=== PATIENT | male | born 1945 | race Caucasian/White ===

== ENCOUNTER 2016-11-08 16:34 | Inpatient (IN) | payer OTHER, MEDICARE ==
[~2016-11-08] VITALS: Ht 182.9 cm; Wt 102.2 kg
[~2016-11-08 16:34] MED LIST: ACETAMINOPHEN500 M4 PO; AMOX-CLAV 875-1 EACH PO; ASPIRIN EC81 M1 PO; ATENOLOL50 M1 PO; ATIVAN0.5 M1 PO; BACTRIM DS TAB1 EACH PO; FOLIC ACID1 M1 PO; FUROSEMIDE20 M1 PO; HALDOL DEC100 MG/1 M IM; HALOPERIDOL0.5 M1 PO; HALOPERIDOL5 MG PO; IRON SUPPLEMEN325 MG PO; LISINOPRIL40 M1 PO; LORAZEPAM0.5 M1 PO; MIRTAZAPINE30 M2 PO; NEXIUM40 M1 PO; NITROGLYCERIN1 EACH TOP; OLANZAPINE10 M1 PO; OLANZAPINE15 M1 PO; REMERON15 M2 PO; SIMVASTATIN20 M2 PO; TRIHEXYPHENIDYL5 M2 PO; VITAMIN B COMP1 EACH PO
--- NOTE | 2016-11-08 16:43 | ED AMS/SEIZURE/WEAK/DIZZY ---
History of Present Illness General Chief Complaint: Altered Mental Status Stated Complaint: FALL/AMS Allergies Coded Allergies: NO KNOWN ALLERGIES (04/28/16) Reconcile Medications Amoxicillin/Clavulanate Potass (Amox-Clav 875-125 MG Tablet) 875 MG-125 MG TABLET 875 MG PO Q12 UTI Atenolol 50 MG TABLET 0.5 TAB PO BID BP (Reported) Esomeprazole (Nexium) 40 MG CAPSULE.DR 1 CAP PO DAILY GI (Reported) Ferrous Sulfate (Iron Supplement) 325 MG TABLET 1 TAB PO TID SUPPLEMENT ( Reported) Folic Acid 1 MG TABLET 1 TAB PO DAILY SUPPLEMENT (Reported) Furosemide 20 MG TABLET 1 TAB PO DAILY DIURETIC (Reported) Haloperidol 5 MG TABLET 5 MG PO BID Mood Disorder Lisinopril 40 MG TABLET 1 TAB PO DAILY BP (Reported) Lorazepam 0.5 MG TABLET 1 TAB PO BID ANXIETY (Reported) Mirtazapine (Remeron) 15 MG TABLET 15 MG PO AT BEDTIME Sleep Aide Nitroglycerin (Nitroglycerin Patch) 1 EACH PATCH.TD24 1 PATCH TOP DAILY ANGINA (Reported) Olanzapine 10 MG TABLET 10 MG PO BID Mood Disorder Simvastatin (Simvastatin*) 20 MG TABLET 1 TAB PO QPM CHOLESTEROL (Reported) Trihexyphenidyl HCl 5 MG TABLET 5 MG PO QPM Mood Disorder Past History Medical History Neurological: TIA, BLINDNESS R EYE EENT: NONE Cardiovascular: AFIB, hypertension, hyperlipidemia Respiratory: NONE Gastrointestinal: NONE Hepatic: NONE Renal: NONE Musculoskeletal: NONE Psychiatric: PARANOID SCHIZO Endocrine: NONE Blood Disorders: NONE Cancer(s): NONE History of MRSA: No History of VRE: No History of CDIFF: No Pneumonia Vaccine: 08/22/16 Influenza Vaccine: 08/23/16 Surgical History Surgical History: non-contributory Psychosocial History Who do you live with Spouse Services at Home None What is your primary language Maldivian Progress Plan of Care: Orders Procedure Date/time Status LACTIC ACID 11/08 1950 Active XRY-PORTABLE CHEST XRAY 11/08 165 Active Lopez, Insertion/Removal/Asses 11/08 165 Active Saline Lock 11/08 165 Active Telemetry/Clasp Machine Operator 11/08 165 Active CULTURE,URINE 11/08 165 Active BLOOD CULTURE 11/08 165 Active URINALYSIS 11/08 1650 Active TROPONIN LEVEL 11/08 165 Active AMMONIA 11/08 165 Active LACTIC ACID 11/08 1650 Active COMPREHENSIVE METABOLIC PANEL 11/08 165 Active CREATINE PHOSPHOKINASE 11/08 165 Active CBC WITHOUT DIFFERENTIAL 11/08 1649 Active EKG 11/08 164 Active Microbiology 11/08 165 URINE ROUT: Urine Culture - ORD 11/08 1649 BLOOD: Blood Culture - ORD 11/08 1649 BLOOD: Blood Culture - ORD Departure Departure Condition: Stable Referrals: SHILPA SCHAEFFER MD (PCP/Family) Departure Forms: Customer Survey General Discharge Information
--- NOTE | 2016-11-08 16:51 | ED AMS/SEIZURE/WEAK/DIZZY ---
History of Present Illness General Chief Complaint: Altered Mental Status Stated Complaint: FALL/AMS Source: family () Exam Limitations: unable to give history Vital Signs & Intake/Output Vital Signs & Intake/Output Vital Signs Date Time Temp Pulse Resp B/P Pulse O2 O2 Flow FiO2 Ox Delivery Rate 11/12 0948 52 146/82 11/12 0842 98.9 52 18 146/82 94 Room Air 11/11 2200 99.5 59 20 140/80 94 Room Air 11/11 1621 98.4 60 18 138/82 95 Room Air ED Intake and Output 11/12 0000 11/11 1200 Intake Total 500 120 Output Total 800 300 Balance -300 -180 Intake, Oral 500 120 Number 1 Bowel Movements Output, Urine 800 300 Allergies Coded Allergies: NO KNOWN ALLERGIES (04/28/16) Triage Nurses Notes Reviewed? 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 According to the patient's he has been not acting his normal self since last night. The patient was prescribed Augmentin yesterday from his primary care physician after he tested positive for a urinary tract infection. His states that he gets these frequently and she states he was incontinent of urine last night. There is been no nausea vomiting diarrhea. She states that he fell from a standing height yesterday onto his knees last night however he did not hit his head there was no loss of consciousness. On arrival patient is noted to be hypothermic. The history is limited secondary to patient condition however according to his he has denied any abdominal pain cough chest pain there's been no rashes to his skin. On arrival the patient is speech is incomprehensible which is his baseline per the. EMS noted that it was colder in the patient's house and it was outside. He lives at home with his (RAMONA BENSON) Reconcile Medications Atenolol 50 MG TABLET 1 TAB PO BID DIRECTED (Reported) Finasteride 5 MG TABLET 1 TAB PO DAILY DIRECTED (Reported) Haloperidol 5 MG TABLET 1 TAB PO BID DIRECTED (Reported) Haloperidol Decanoate 50 MG/ML VIAL 1.5 ML INJ EVERY 3 WEEKS DIRECTED ( Reported) Lorazepam 1 MG TABLET 1 TAB PO BID DIRECTED (Reported) Mirtazapine (Remeron) 15 MG TABLET 1 TAB PO QPM DIRECTED (Reported) Nitroglycerin (Nitroglycerin Patch) 0.4 MG/HOUR PATCH.TD24 1 PATCH TOP DAILY DIRECTED (Reported) Olanzapine (Zyprexa) 5 MG TABLET 1 TAB PO BID DIRECTED (Reported) Tamsulosin HCl 0.4 MG CAP.ER.24H 1 CAP PO DAILY DIRECTED (Reported) (ANDRÉS BELTRÁN,ADELAIDA) Past History Medical History Any Pertinent Medical History? see below for history Neurological: TIA, BLINDNESS R EYE EENT: NONE Cardiovascular: AFIB, hypertension, hyperlipidemia Respiratory: NONE Gastrointestinal: NONE Hepatic: NONE Renal: NONE Musculoskeletal: NONE Psychiatric: PARANOID SCHIZO Endocrine: NONE Blood Disorders: NONE Cancer(s): NONE History of MRSA: No History of VRE: No History of CDIFF: No Pneumonia Vaccine: 08/22/16 Influenza Vaccine: 08/23/16 Surgical History Surgical History: non-contributory Psychosocial History Who do you live with Spouse Services at Home None What is your primary language Kiswahili Family History Hx Contributory? No (RAMONA BENSON) Review of Systems Review of Systems Constitutional: Reports: see HPI. All Other Systems: Reviewed and Negative Comments Review of systems: Limited secondary to patient condition review of systems obtained from the patient's Constitutional, no chills no fever, no malaise HEENT: No visual changes no sore throat no congestion, no ear pain Cardiovascular: No chest pain , no palpitation Skin, no rashes, no change in skin Respiratory: No dyspnea no cough no sputum GI: No nausea no vomiting, no diarrhea, no bloating/constipation : No dysuria No hematuria, Muscle skeletal: No joint pain, no joint swelling, no back pain, no neck pain, Neurologic: No numbness confusion, no headache Psych: No stress no anxiety no depression,. Heme/endocrine: No bruising no bleeding Immunology: No lymphadenopathy (RAMONA BENSON) Physical Exam Physical Exam General Appearance: well developed/nourished, awake Comments: Well-developed well-nourished person in no acute distress HEENT: Normal EENT exam; PERRL, EOMI, no nystagmus. HEAD is atraumatic. moist mucous membranes. Neck: Supple, no lymphadenopathy, normal range of motion without pain or tenderness Back: Nontender, no CVA tenderness. Full range of motion Cardiovascular: Regular rate and rhythms no murmurs rubs or gallops, normal JVP Respiratory: Chest nontender.There were no bony deformities, no asymmetry. No respiratory distress. Patient speaking in full complete sentences. Breath sounds clear to auscultation bilaterally: NO W/R/R Abdomen: Soft, nontender nondistended, no appreciable organomegaly. Normal bowel sounds. No rebound/guarding, No appreciable enlargement of the abdominal aorta, No ascites. Extremity: No edema, full range of motion of extremities, normal and equal pulses bilaterally, 5 out of 5 strength noted to bilateral upper and lower extremities Neuro: Alert oriented x3, motor sensory normal, cranial nerves II through XII grossly intact. There were no obvious focal neurologic abnormalities. Skin: No appreciable rash on exposed skin, skin is warm and dry. Psych: Mood and affect is normal, memory and judgment is normal. Core Measures ACS in differential dx? Yes CVA/TIA Diagnosis: No Severe Sepsis Present: Yes BC x2: Yes Lactic Acid x2: Yes IV ABX Broad Spectrum: Yes NS/LR Started: Yes Septic Shock Present: Yes BC x2: Yes Lactic Acid: Yes IV ABX Broad Spectrum: Yes Focused Exam Completed: Yes IV Vasopressors started: No (RAMONA BENSON) ED Sepsis Exam Date of Focused Sepsis Exam: 11/08/16 Time of Focused Sepsis Exam: 172 Sepsis Cardiac Exam: Tachycardia Sepsis Resp Exam: CTA Sepsis Cap Refill Exam: <2 Sec Sepsis Peripheral Pulse Exam: Weak Sepsis Peripheral Pulse Location: Radial Sepsis Skin Color Exam: Normal for Ethnicity Skin Temp/Moisture Exam: Cool/Dry (RAMONA BENSON) Progress Differential Diagnosis: arrythmia, anemia, dehydration, encephalitis, electrolyte imbalance, GI bleed, hypoglycemia, intracranial Hem., meningitis, pneumonia, presyncope, sepsis, UTI/pyelo, vertebrobasilar insuff, sepsis, epidural abscess, medication adverse effect Plan of Care: Orders Procedure Date/time Status Restraint- Medical 11/12 1156 Active Lopez, Insertion/Removal/Asses 11/12 1156 Active PARTIAL THROMBOPLASTIN TIME 11/12 0600 Active MAGNESIUM 11/12 0600 Complete BASIC ELECTROLYTES PLUS BUN&CR 11/12 0600 Complete PT Evaluate & Treat 11/11 UNK Active Therapeutic Activities 11/11 UNK Complete Therapeutic Exercise 11/11 UNK Complete Occupational Tx Eval & Treat 11/11 UNK Active Current Medications Sig/Vidal Start time Last Medication Dose Stop Time Status Admin Bisacodyl 5 MG DAILY PRN 11/10 1115 AC (Dulcolax) Benzocaine/Menthol 1 PHOEBE Q2P PRN 11/09 2130 AC (Chloraseptic Lozenges) Magnesium Hydroxide 30 ML AT BEDTIME PRN 11/08 2145 AC (Milk Of Magnesia) Acetaminophen 650 MG Q6P PRN 11/08 204 AC (Tylenol) Ibuprofen 600 MG Q6P PRN 11/08 2045 AC (Motrin) Oxycodone HCl 10 MG Q6P PRN 11/08 204 AC (Roxicodone) Laboratory Tests 11/12/16 0705: Anion Gap 5, Estimated GFR > 60, BUN/Creatinine Ratio 13.3, Magnesium 1.9 Labs ordered old records reviewed her was applied case was discussed with Dr. vinson who evaluated the pt agrees with plan, vanco ceftaz iv ordered, warm iv hydration ordered 11/08/2016 7:45:39 PM discussed with the patient's family at length all his lab results to date, pending CAT scan Discussed with his his CAT scan of the head result. Dr. Vinson will follow CAT scan of the abdomen as a results Case discussed with Dr. schaeffer will admit to icu (MILAD FAM,RAMONA) Patient seen and examined with SARWAT Yang. Patient presents hypothermic from home , no obvious source of infection. Will be admitted to the ICU, currently being warmed. Broad spectrum ABX given. (ANDRÉS BELTRÁN,ADELAIDA) Diagnostic Imaging: Viewed by Me: Radiology Read. Discussed w/RAD: Radiology Read. Radiology Impression: PATIENT: CANDIDO TIRADO PRESENT AGE: 71 PATIENT ACCOUNT NO: [id number] : 47 LOCATION: [facility] ORDERING PHYSICIAN: RAMONA FAM SERVICE DATE: 11/08/16 EXAM TYPE: RAD - XRY-PORTABLE CHEST XRAY EXAMINATION: XR PORTABLE CHEST CLINICAL INFORMATION: Altered mental status COMPARISON: Chest 08/22/2016 TECHNIQUE: Portable AP portable view of the chest was obtained. 5:43 PM FINDINGS: Patient rotated to the right slightly. No significant abnormality is noted involving the heart, lungs, mediastinum, bony thorax or soft tissues. IMPRESSION: No acute abnormality of chest. DICTATED BY: VAHE SADLER MD DATE/TIME DICTATED:11/08/161758 STORE WORKER:NIXON DATE/TIME TRANSCRIBED:11/08/161758 CONFIDENTIAL, DO NOT COPY WITHOUT APPROPRIATE AUTHORIZATION. <Electronically signed in Other Vendor System> SIGNED BY: VAHE SADLER MD 11/08/161802, PATIENT: CANDIDO TIRADO PRESENT AGE: 71 PATIENT ACCOUNT NO: [id number] : 47 LOCATION: [facility] ORDERING PHYSICIAN: RAMONA FAM SERVICE DATE: 11/08/16 EXAM TYPE: CAT - CT HEAD WO IV CONTRAST EXAMINATION: CT HEAD WITHOUT CONTRAST CLINICAL INFORMATION: Altered mental status. COMPARISON: CT scan of the head 10/22/2015. TECHNIQUE: Contiguous axial imaging was performed from the skull base to vertex without intravenous administration of contrast. DLP: 312.84 mGy-cm FINDINGS: There is gliosis and encephalomalacia within the right parietal lobe and within the left middle frontal gyrus related to old infarcts. There is no acute intracranial hemorrhage or abnormal extra axial collection. No intracranial mass effect midline shift. Lateral and third ventricles are proportionate to the subarachnoid spaces. No hydrocephalus. Grossly there is no evidence of acute territorial infarct. The calvarium and skull base are intact. No mastoid or middle ear effusion. Paranasal sinuses are well-aerated. IMPRESSION: Stable examination. Chronic cortical infarcts are visualized within the right parietal lobe and left frontal lobe. No evidence of acute territorial infarct or hemorrhage. DICTATED BY: ALLAN FINLEY MD DATE/TIME DICTATED:11/08/161947 STORE WORKER: TASHI DATE/TIME TRANSCRIBED:11/08/161947 CONFIDENTIAL, DO NOT COPY WITHOUT APPROPRIATE AUTHORIZATION. <Electronically signed in Other Vendor System> SIGNED BY: ALLAN FINLEY MD 11/08/161953 Initial ED EKG: stach at 100, motion artifcat, no acute st seg changes Prior EKG: unchanged (08/2016) (MILAD FAM,RAMONA) Diagnostic Imaging: Viewed by Me: CT Scan. Discussed w/RAD: CT Scan. Radiology Impression: PATIENT: CANDIDO TIRADO PRESENT AGE: 71 PATIENT ACCOUNT NO: [id number] : 47 LOCATION: ER ORDERING PHYSICIAN: RAMONA FAM SERVICE DATE: 11/08/16 EXAM TYPE: CAT - CT HEAD WO IV CONTRAST EXAMINATION: CT HEAD WITHOUT CONTRAST CLINICAL INFORMATION: Altered mental status. COMPARISON: CT scan of the head 10/22/2015. TECHNIQUE: Contiguous axial imaging was performed from the skull base to vertex without intravenous administration of contrast. DLP: 312.84 mGy-cm FINDINGS: There is gliosis and encephalomalacia within the right parietal lobe and within the left middle frontal gyrus related to old infarcts. There is no acute intracranial hemorrhage or abnormal extra axial collection. No intracranial mass effect midline shift. Lateral and third ventricles are proportionate to the subarachnoid spaces. No hydrocephalus. Grossly there is no evidence of acute territorial infarct. The calvarium and skull base are intact. No mastoid or middle ear effusion. Paranasal sinuses are well-aerated. IMPRESSION: Stable examination. Chronic cortical infarcts are visualized within the right parietal lobe and left frontal lobe. No evidence of acute territorial infarct or hemorrhage. DICTATED BY: ALLAN FINLEY MD DATE/TIME DICTATED:11/08/161947 STORE WORKER:TASHI DATE/TIME TRANSCRIBED:11/08/161947 CONFIDENTIAL, DO NOT COPY WITHOUT APPROPRIATE AUTHORIZATION. <Electronically signed in Other Vendor System> SIGNED BY: ALLAN FINLEY MD 11/08/161953, PATIENT: CANDIDO TIRADO PRESENT AGE: 71 PATIENT ACCOUNT NO: [id number] : 47 LOCATION: ER ORDERING PHYSICIAN: RAMONA FAM SERVICE DATE: 11/08/16 EXAM TYPE: CAT - CT ABD & PELVIS W/O IV CONTRAS EXAMINATION: CT ABDOMEN AND PELVIS WITHOUT CONTRAST CLINICAL INFORMATION: Hypothermia and altered mental status. COMPARISON: None. TECHNIQUE: Multidetector volumetric imaging was performed from the superior aspect of the liver through the pubic symphysis. Sagittal and coronal reformatted images were obtained on the technologist's workstation. DLP: 822 mGy-cm FINDINGS: Limited evaluation of the solid abdominal viscera in the absence of intravenous contrast. LUNG BASES: The visualized lung bases are unremarkable. LIVER, GALLBLADDER, AND BILIARY TREE: The liver is normal in size, shape, and attenuation. No contour deforming hepatic lesion or biliary ductal dilatation is present. There is a punctate stone within the gallbladder lumen. The gallbladder is physiologically distended without gallbladder wall thickening or pericholecystic inflammatory changes. PANCREAS: Unremarkable. SPLEEN: Unremarkable. ADRENAL GLANDS: Unremarkable. KIDNEYS AND URETERS: The kidneys are normal in size, shape and contour. There is a tiny simple renal cortical cyst arising from the midpole of the right kidney measuring 1 cm.. No renal or ureteral stones are identified and there is no hydroureteronephrosis of either kidney or renal collecting system. BLADDER: There are very bladder is decompressed by an indwelling Lopez catheter. GASTROINTESTINAL TRACT: Evaluation of the gastrointestinal system is notable for a moderate hiatal hernia. There is a moderate amount of retained stool throughout the colon, indicative of constipation. There is pancolonic diverticulosis, most extensive along the sigmoid colon, without secondary signs of acute diverticulitis. Abdominal and pelvic bowel loops are normal in course and caliber, without evidence of obstruction or ileus. Nonvisualization of the appendix. No acute inflammatory changes within the right lower quadrant of the abdomen. No organizing intra- abdominal or pelvic fluid collections and no free intraperitoneal air. No intraperitoneal or retroperitoneal hematoma. ABDOMINAL WALL: No significant hernia is appreciated. LYMPH NODES: No significant abdominal or pelvic adenopathy. VASCULAR: Extensive atherosclerosis of the abdominal aorta and its branching vessels, without aneurysmal dilatation. Limited evaluation for vascular patency given lack of intravenous contrast. PELVIC VISCERA: Unremarkable. OSSEOUS STRUCTURES: No acute osseous abnormality. Severe multilevel degenerative disc disease and facet arthrosis of the imaged lumbar spine with grade 1 retrolisthesis of L4 on L5 and grade 1 anterolisthesis of L5 on S1. IMPRESSION: No acute findings within the abdomen or pelvis to explain patient symptomatology. There is a moderate amount of retained stool throughout the colon, indicative of constipation. Also noted is scattered colonic diverticulosis, most significant along the sigmoid colon, without secondary signs of acute diverticulitis. DICTATED BY: BAUDILIO CHAVEZ MD DATE/TIME DICTATED:11/08/161951 STORE WORKER:TASHI DATE/TIME TRANSCRIBED:1951 CONFIDENTIAL, DO NOT COPY WITHOUT APPROPRIATE AUTHORIZATION. < Electronically signed in Other Vendor System> SIGNED BY: BAUDILIO CHAVEZ MD 11/08/162001 (ADELAIDA VINSON MD) Departure Departure Time of Disposition: 1952 Disposition: STILL A PATIENT Condition: Stable Clinical Impression Primary Impression: Sepsis Secondary Impressions: Hypothermia Referrals: SHILPA SCHAEFFER MD (PCP/Family) Departure Forms: Customer Survey General Discharge Information Admission Note Spoke With: SHILPA SCHAEFFER MD Documentation of Exam: Documentation of any treatments & extenuating circumstances including Concerns Regarding Discharge (functional status, medication knowledge or non-compliance, living conditions, etc.) that warrant an admission rather than observation: trend labs and cultures, iv abx, iv fluids, premature discharge would be medically harmful given change in mental status and hypothermia (RAMONA BENSON) PA/COSTUME MISTRESS Co-Sign Statement Statement: ED Attending supervision documentation- [X] I saw and evaluated the patient. I have also reviewed all the pertinent lab results and diagnostic results. I agree with the findings and the plan of care as documented in the PA's/COSTUME MISTRESS's documentation. [X] I have reviewed the ED Record and agree with the PA's/COSTUME MISTRESS's documentation. [] Additions or exceptions (if any) to the PAs/COSTUME MISTRESS's note and plan are summarized below: [] (ADELAIDA VINSON MD) Critical Care Note Critical Care Note Critical Care Time: 30-74 min (RAMONA BENSON)
--- NOTE | 2016-11-08 17:00 | NUR ---
DARRYL FROM HOME FOR AMS. PER EMS, PT'S STATES HE WAS RECENTLY DX WITH A UTI BY HIS PCP BUT HAS REFUSED TO TAKE HIS ABX. HAS HAD INCREASING AMS. EMS STATES HOUSE WAS VERY COLD, APPEARED COLDER THAN THE OUTSIDE AIR. UPON ARRIVAL PT SPEAKING BUT NOT FORMING SENSIBLE SENTENCES. COLD TO TOUCH
--- NOTE | 2016-11-08 18:00 | NUR ---
ROSSY HUGGER BLANKET APPLIED TO PT
--- NOTE | 2016-11-08 18:03 | RADIOLOGY REPORT ---
EXAMINATION: XR PORTABLE CHEST CLINICAL INFORMATION: Altered mental status COMPARISON: Chest 08/22/2016 TECHNIQUE: Portable AP portable view of the chest was obtained. 5:43 PM FINDINGS: Patient rotated to the right slightly. No significant abnormality is noted involving the heart, lungs, mediastinum, bony thorax or soft tissues. IMPRESSION: No acute abnormality of chest.
--- NOTE | 2016-11-08 18:20 | NUR ---
UNSUCCESSFUL BLOOD WORK ATTEMPT
--- NOTE | 2016-11-08 18:22 | NUR ---
[id number] CALLED FOR BLOOD DRAW
--- NOTE | 2016-11-08 18:35 | NUR ---
SARWAT STINSON AT BEDSIDE FOR ULTRASOUND GUIDED VENIPUNCTURE
--- NOTE | 2016-11-08 19:00 | NUR ---
PT TO CT VIA STRETCHER
[2016-11-08 19:07] LABS: ABSOLUTE BASOPHIL COUNT 0 /CUMM (0.0-0.2); ABSOLUTE EOSINOPHIL COUNT 0.1 /CUMM (0.0-0.7); ABSOLUTE GRANULOCYTE CT 4.7 /CUMM (1.4-6.5); ABSOLUTE LYMPH COUNT 1.3 /CUMM (1.2-3.4); ABSOLUTE MONOCYTE COUNT 0.5 /CUMM (0.10-0.60); BASOPHIL % 0.2 % (0.0-2.0); EOSINOPHIL % 1.1 % (0-5); GRANULOCYTE % 71.7 % (42.2-75.2); HEMATOCRIT 32.1 % (42-52); MEAN CORPUSCULAR HGB 29.5 PG (27.0-31.0); MEAN CORPUSCULAR HGB CONC 32.7 G/DL (33.0-37.0); MEAN CORPUSCULAR VOLUME 90.4 FL (80.0-94.0); MEAN PLATELET VOLUME 7.1 FL (7.4-10.4); PLATELET COUNT 269 /CUMM (130-400); RBC DISTRIBUTION WIDTH 14.9 % (11.5-14.5)
[2016-11-08 19:30] LABS: RED BLOOD CELL CT 3.53 /CUMM (4.70-6.10); WHITE BLOOD CELL COUNT 6.9 /CUMM (4.8-10.8)
--- NOTE | 2016-11-08 19:34 | NUR ---
PT BACK FROM CT. TEMP 92.8
--- NOTE | 2016-11-08 19:54 | CT SCAN REPORT ---
EXAMINATION: CT HEAD WITHOUT CONTRAST CLINICAL INFORMATION: Altered mental status. COMPARISON: CT scan of the head 10/22/2015. TECHNIQUE: Contiguous axial imaging was performed from the skull base to vertex without intravenous administration of contrast. DLP: 312.84 mGy-cm FINDINGS: There is gliosis and encephalomalacia within the right parietal lobe and within the left middle frontal gyrus related to old infarcts. There is no acute intracranial hemorrhage or abnormal extra axial collection. No intracranial mass effect midline shift. Lateral and third ventricles are proportionate to the subarachnoid spaces. No hydrocephalus. Grossly there is no evidence of acute territorial infarct. The calvarium and skull base are intact. No mastoid or middle ear effusion. Paranasal sinuses are well-aerated. IMPRESSION: Stable examination. Chronic cortical infarcts are visualized within the right parietal lobe and left frontal lobe. No evidence of acute territorial infarct or hemorrhage.
--- NOTE | 2016-11-08 20:02 | CT SCAN REPORT ---
EXAMINATION: CT ABDOMEN AND PELVIS WITHOUT CONTRAST CLINICAL INFORMATION: Hypothermia and altered mental status. COMPARISON: None. TECHNIQUE: Multidetector volumetric imaging was performed from the superior aspect of the liver through the pubic symphysis. Sagittal and coronal reformatted images were obtained on the technologist's workstation. DLP: 822 mGy-cm FINDINGS: Limited evaluation of the solid abdominal viscera in the absence of intravenous contrast. LUNG BASES: The visualized lung bases are unremarkable. LIVER, GALLBLADDER, AND BILIARY TREE: The liver is normal in size, shape, and attenuation. No contour deforming hepatic lesion or biliary ductal dilatation is present. There is a punctate stone within the gallbladder lumen. The gallbladder is physiologically distended without gallbladder wall thickening or pericholecystic inflammatory changes. PANCREAS: Unremarkable. SPLEEN: Unremarkable. ADRENAL GLANDS: Unremarkable. KIDNEYS AND URETERS: The kidneys are normal in size, shape and contour. There is a tiny simple renal cortical cyst arising from the midpole of the right kidney measuring 1 cm.. No renal or ureteral stones are identified and there is no hydroureteronephrosis of either kidney or renal collecting system. BLADDER: There are very bladder is decompressed by an indwelling Lopez catheter. GASTROINTESTINAL TRACT: Evaluation of the gastrointestinal system is notable for a moderate hiatal hernia. There is a moderate amount of retained stool throughout the colon, indicative of constipation. There is pancolonic diverticulosis, most extensive along the sigmoid colon, without secondary signs of acute diverticulitis. Abdominal and pelvic bowel loops are normal in course and caliber, without evidence of obstruction or ileus. Nonvisualization of the appendix. No acute inflammatory changes within the right lower quadrant of the abdomen. No organizing intra-abdominal or pelvic fluid collections and no free intraperitoneal air. No intraperitoneal or retroperitoneal hematoma. ABDOMINAL WALL: No significant hernia is appreciated. LYMPH NODES: No significant abdominal or pelvic adenopathy. VASCULAR: Extensive atherosclerosis of the abdominal aorta and its branching vessels, without aneurysmal dilatation. Limited evaluation for vascular patency given lack of intravenous contrast. PELVIC VISCERA: Unremarkable. OSSEOUS STRUCTURES: No acute osseous abnormality. Severe multilevel degenerative disc disease and facet arthrosis of the imaged lumbar spine with grade 1 retrolisthesis of L4 on L5 and grade 1 anterolisthesis of L5 on S1. IMPRESSION: No acute findings within the abdomen or pelvis to explain patient symptomatology. There is a moderate amount of retained stool throughout the colon, indicative of constipation. Also noted is scattered colonic diverticulosis, most significant along the sigmoid colon, without secondary signs of acute diverticulitis.
--- NOTE | 2016-11-08 20:23 | Admission Certification ---
Admission Certification Certification Statement - As attending physician, I certify that at the time of - admission, based on clinical presentation, severity of - symptoms, need for further diagnostic testing and - therapeutic interventions, and risk of adverse outcomes - without in-hospital treatment, in my clinical assessment, - this patient requires an acute hospital stay for a minimum - of two nights or longer. I have also considered psychsocial - factors such as support system, advanced age, financial - issues, cognitive issues, and failed out-patient treatments, - past re-admission history, safety of patient, and lack of - compliance as applicable. Specific rationale supporting this admission is: hypotermia needs to bring temperature up and find out why he is hypothermic.
--- NOTE | 2016-11-08 20:29 | PN- Att Addend ---
Attending Addendum Attending Brief Note 71 year old male with many comorbidities recent psychyatric issues and on different meds not acting right for a few days recently on an antibiotic for UTI today weaker found very hypothermic in the ER all cultures and CT scan done will admit to ICU for Bari bowens to elevate temperature get ID imput and follow cultures results Antibiotics per ID recommendations. Laboratory Tests 11/08 11/08 1950 1836 Chemistry Sodium (137 - 145 mmol/L) 138 Potassium (3.5 - 5.1 mmol/L) 4.3 Chloride (98 - 107 mmol/L) 100 Carbon Dioxide (22 - 30 mmol/L) 31 H Anion Gap (5 - 16) 7 BUN (9 - 20 mg/dL) 14 Creatinine (0.7 - 1.2 mg/dL) 0.8 Estimated GFR (>60 ml/min) > 60 BUN/Creatinine Ratio (7 - 25 %) 17.5 Glucose (65 - 99 mg/dL) 76 Lactic Acid (0.7 - 2.1 mmol/L) Cancelled 0.8 Calcium (8.4 - 10.2 mg/dL) 9.1 Total Bilirubin (0.2 - 1.3 mg/dL) 0.5 AST (17 - 59 U/L) 42 ALT (21 - 72 U/L) 49 Alkaline Phosphatase (< 127 U/L) 92 Creatine Kinase (55 - 170 U/L) 82 Troponin I (<0.11 ng/ml) 0.02 Total Protein (6.3 - 8.2 g/dL) 6.5 Albumin (3.5 - 5.0 g/dL) 3.1 L Globulin (1.9 - 4.2 gm/dL) 3.4 Albumin/Globulin Ratio (1.1 - 2.2 %) 0.9 L TSH (0.270 - 4.200 uIU/mL) 1.080 Hematology CBC w Diff MAN DIFF ORDERED WBC (4.8 - 10.8 /CUMM) 6.9 RBC (4.70 - 6.10 /CUMM) 3.53 L Hgb (14.0 - 18.0 G/DL) 10.5 L Hct (42 - 52 %) 32.1 L MCV (80.0 - 94.0 FL) 90.4 MCH (27.0 - 31.0 PG) 29.5 RDW (11.5 - 14.5 %) 14.9 H Plt Count (130 - 400 /CUMM) 269 MPV (7.4 - 10.4 FL) 7.1 L Gran % (42.2 - 75.2 %) 71.7 Lymphocytes % (20.5 - 51.1 %) 19.6 L Monocytes % (1.7 - 9.3 %) 7.4 Eosinophils % (0 - 5 %) 1.1 Basophils % (0.0 - 2.0 %) 0.2 Absolute Granulocytes (1.4 - 6.5 /CUMM) 4.7 Segmented Neutrophils (42.2 - 75.2 %) Pending Absolute Lymphocytes (1.2 - 3.4 /CUMM) 1.3 Absolute Monocytes (0.10 - 0.60 /CUMM) 0.5 Absolute Eosinophils (0.0 - 0.7 /CUMM) 0.1 Absolute Basophils (0.0 - 0.2 /CUMM) 0 PUBS MCHC (33.0 - 37.0 G/DL) 32.7 L 11/08 1720 Urines Urine Color (YEL,AMB,STR) YEL Urine Clarity (CLEAR) CLEAR Urine pH (5.0 - 8.0) 6.0 Ur Specific Davis (1.001 - 1.035) 1.020 Urine Protein (NEG,<30 MG/DL) NEG Urine Ketones (NEG) TRACE H Urine Nitrite (NEG) NEG Urine Bilirubin (NEG) NEG Urine Urobilinogen (0.1 - 1.0 EU/dl) 0.2 Ur Leukocyte Esterase (NEG) NEG Ur Microscopic EXAM NOT REQUIRED Urine Hemoglobin (NEG) NEG Urine Glucose (N MG/DL) NEG CT of the abdomen no acute findings.
--- NOTE | 2016-11-08 20:36 | History & Physical ---
JESUS BELTRÁN,GALILEO 11/08/162033: General Information and [facility] MD Statement: I have seen and personally examined CANDIDO TIRADO and documented this H&P. The patient is a 71 year old M who presented with a patient stated chief complaint of Decreased Mental Status . Source of Information: patient, family, old records Exam Limitations: clinical condition, confusion History of Present Illness: Mr Tirado is a 71-year-old gentleman, with a PMH of TIA, history of CVA with aphasia (which resolved), coronary artery disease, hypertension, dyslipidemia, peripheral vascular disease, peptic ulcer disease, carotid artery disease, status post left endarterectomy and a right carotid artery disease, poor vision in the left eye, cataract surgery, history of paranoid schizophrenia who presented to the emergency department at [facility] on 11/08/2016 after his found that his mentation continued to deteriorate over the last few hours. On 11/07/2016 the patient was experiencing increased urinary frequency, foul- smelling urine, and complained of dysuria. His decided to conduct a home urinary tract infection test from [facility] which turned out to be positive. She subsequently called the patient's primary care physician (Shilpa Andres M.D. ) who called in a prescription for Augmentin. The patient's Ihlary stated that the patient had taken 1 pill of the Augmentin. At approximately 3:30 AM he crawled downstairs and opened his front door and was exposed to the cold air for a prolonged period of time. The is under sure about how long this patient may been exposed to cold, but estimates this would have been for a few hours. This afternoon due to deteriorating clinical condition the decided to call the ambulance who brought the patient to the emergency department. Over the last few weeks the patient has needed continuous rehabilitation services. states that patient's medication compliance might be decreased given the fact that he often spits out his medications. He is currently on a Haldol Decanoate shot for his Bipolar which is due for this Sunday (11/12/2016).He gets these every 3 weeks. During the clinical encounter the patient offered limited information. He did not offer any complaints. Hilary his can be reached on [phone]. The patient Psychiatrist is Dr Carl Nayak. The patient last saw her on October 13 Allergies/Medications Allergies: Coded Allergies: NO KNOWN ALLERGIES (04/28/16) Home Med list Atenolol 50 MG TABLET 1 TAB PO BID DIRECTED (Reported) Finasteride 5 MG TABLET 1 TAB PO DAILY DIRECTED (Reported) Haloperidol 5 MG TABLET 1 TAB PO BID DIRECTED (Reported) Haloperidol Decanoate 50 MG/ML VIAL 1.5 ML INJ EVERY 3 WEEKS DIRECTED ( Reported) Lorazepam 1 MG TABLET 1 TAB PO BID DIRECTED (Reported) Mirtazapine (Remeron) 15 MG TABLET 1 TAB PO QPM DIRECTED (Reported) Nitroglycerin (Nitroglycerin Patch) 0.4 MG/HOUR PATCH.TD24 1 PATCH TOP DAILY DIRECTED (Reported) Olanzapine (Zyprexa) 5 MG TABLET 1 TAB PO BID DIRECTED (Reported) Tamsulosin HCl 0.4 MG CAP.ER.24H 1 CAP PO DAILY DIRECTED (Reported) Compliance With Home Meds: UNKNOWN Past History Travel History Traveled to [place] past 21 day No Medical History Neurological: TIA, BLINDNESS R EYE EENT: NONE Cardiovascular: AFIB, hypertension, hyperlipidemia Respiratory: NONE Gastrointestinal: NONE Hepatic: NONE Renal: NONE Musculoskeletal: NONE Psychiatric: PARANOID SCHIZO Endocrine: NONE Blood Disorders: NONE Cancer(s): NONE History of MRSA: No History of VRE: No History of CDIFF: No Pneumonia Vaccine: 08/22/16 Influenza Vaccine: 08/23/16 Surgical History Surgical History: non-contributory Past Family/Social History Psychosocial History Where do you live? Home Who Do You Live With? self Services at Home: None Primary Language: Georgian ETOH Use: 6 Illicit Drug Use: UTD Functional Ability ADLs Needs Assist: dressing, eating, toileting, bathing. Ambulation: walker IADLs Needs Assist: shopping, housework, finances, food prep, telephone, transportation, medication admin. Review of Systems Review of Systems Constitutional: Reports: malaise, weakness. Denies: chills, diaphoresis, fever. Cardiovascular: Denies: chest pain, edema, orthopena, palpitations. Respiratory: Denies: cough, hemoptysis, orthopnea, short of breath, sputum production. GI: Denies: abdominal pain, bloating, constipation, diarrhea, distention, bowel incontinence. Genitourinary: Reports: discharge, dysuria, frequency, pain. Musculoskeletal: Denies: back pain, gout, joint pain, muscle pain. Exam & Diagnostic Data Last 24 Hrs of Vital Signs/I&O Vital Signs Date Time Temp Pulse Resp B/P Pulse O2 O2 Flow FiO2 Ox Delivery Rate 11/08 2009 93.3 56 16 117/61 95 Room Air 11/08 1931 92.8 11/08 1900 92.4 54 16 116/58 98 Room Air 11/08 1758 91.9 11/08 1700 98 Room Air 11/08 1657 92.1 54 16 136/80 97 Room Air Physical Exam General Appearance Alert, Cooperative, Mild Distress HEENT PERRLA, Mucous Membranes Dry Neck Supple Lymphatic Cervical nl Cardiovascular Normal S1, Normal S2, ?Irregular Rate and Rhythm Lungs Expiratory Rhonchi Limited Exam due to clinical condition Abdomen Normal Bowel Sounds, Soft, No Tenderness Neurological Cranial Nerves 3-12 NL, Strength UE 3/5 Extremities No Clubbing, No Cyanosis, Normal Pulses, No Tenderness/Swelling, ? Babinski Last 24 Hrs of Labs/Ramesh: Laboratory Tests 11/08/16 1950: Lactic Acid Cancelled 11/08/16 1836: Anion Gap 7, Estimated GFR > 60, BUN/Creatinine Ratio 17.5, Glucose 76, Lactic Acid 0.8, Calcium 9.1, Total Bilirubin 0.5, AST 42, ALT 49, Alkaline Phosphatase 92, Creatine Kinase 82, Troponin I 0.02, Total Protein 6.5, Albumin 3.1 L, Globulin 3.4, Albumin/Globulin Ratio 0.9 L, TSH 1.080, CBC w Diff MAN DIFF ORDERED, RBC 3.53 L, MCV 90.4, MCH 29.5, RDW 14.9 H, MPV 7.1 L, Gran % 71.7, Lymphocytes % 19.6 L, Monocytes % 7.4, Eosinophils % 1.1, Basophils % 0.2, Absolute Granulocytes 4.7, Segmented Neutrophils 74, Absolute Lymphocytes 1.3, Lymphocytes 16 L, Monocytes 10 H, Absolute Monocytes 0.5, Absolute Eosinophils 0.1, Absolute Basophils 0, Platelet Estimate ADEQUATE, Polychromasia 1+, Hypochromic-Microcytic 2+, Anisocytosis 1+, Macrocytic Cells 1+, PUBS MCHC 32.7 L 11/08/16 1720: Urine Color YEL, Urine Clarity CLEAR, Urine pH 6.0, Ur Specific [place] 1.020, Urine Protein NEG, Urine Ketones TRACE H, Urine Nitrite NEG, Urine Bilirubin NEG, Urine Urobilinogen 0.2, Ur Leukocyte Esterase NEG, Ur Microscopic EXAM NOT REQUIRED, Urine Hemoglobin NEG, Urine Glucose NEG Microbiology 11/08 1835 BLOOD: Blood Culture - RECD 11/08 1729 BLOOD: Blood Culture - RECD 11/08 172 URINE ROUT: Urine Culture - RECD Diagnostic Data EKG Results Many Artifacts. Will need to be repeated CXR Results PATIENT: CANDIDO TIRADO PRESENT AGE: 71 PATIENT ACCOUNT NO: [id number] : 47 LOCATION: ER ORDERING PHYSICIAN: RAMONA FAM SERVICE DATE: 11/08/16 EXAM TYPE: RAD - XRY-PORTABLE CHEST XRAY EXAMINATION: XR PORTABLE CHEST CLINICAL INFORMATION: Altered mental status COMPARISON: Chest 08/22/2016 TECHNIQUE: Portable AP portable view of the chest was obtained. 5:43 PM FINDINGS: Patient rotated to the right slightly. No significant abnormality is noted involving the heart, lungs, mediastinum, bony thorax or soft tissues. IMPRESSION: No acute abnormality of chest. DICTATED BY: VAHE SADLER MD DATE/TIME DICTATED:11/08/161758 BREASTFEEDING EDUCATOR:TASHI DATE/TIME TRANSCRIBED:11/08/161758 CONFIDENTIAL, DO NOT COPY WITHOUT APPROPRIATE AUTHORIZATION. <Electronically signed in Other Vendor System> SIGNED BY: VAHE SADLER MD 11/08/16 180 Other Results PATIENT: CANDIDO TIRADO PRESENT AGE: 71 PATIENT ACCOUNT NO: [id number] : 47 LOCATION: ER ORDERING PHYSICIAN: RAMONA FAM SERVICE DATE: 11/08/16 EXAM TYPE: CAT - CT ABD & PELVIS W/O IV CONTRAS EXAMINATION: CT ABDOMEN AND PELVIS WITHOUT CONTRAST CLINICAL INFORMATION: Hypothermia and altered mental status. COMPARISON: None. TECHNIQUE: Multidetector volumetric imaging was performed from the superior aspect of the liver through the pubic symphysis. Sagittal and coronal reformatted images were obtained on the technologist's workstation. DLP: 822 mGy-cm FINDINGS: Limited evaluation of the solid abdominal viscera in the absence of intravenous contrast. LUNG BASES: The visualized lung bases are unremarkable. LIVER, GALLBLADDER, AND BILIARY TREE: The liver is normal in size, shape, and attenuation. No contour deforming hepatic lesion or biliary ductal dilatation is present. There is a punctate stone within the gallbladder lumen. The gallbladder is physiologically distended without gallbladder wall thickening or pericholecystic inflammatory changes. PANCREAS: Unremarkable. SPLEEN: Unremarkable. ADRENAL GLANDS: Unremarkable. KIDNEYS AND URETERS: The kidneys are normal in size, shape and contour. There is a tiny simple renal cortical cyst arising from the midpole of the right kidney measuring 1 cm.. No renal or ureteral stones are identified and there is no hydroureteronephrosis of either kidney or renal collecting system. BLADDER: There are very bladder is decompressed by an indwelling Lopez catheter. GASTROINTESTINAL TRACT: Evaluation of the gastrointestinal system is notable for a moderate hiatal hernia. There is a moderate amount of retained stool throughout the colon, indicative of constipation. There is pancolonic diverticulosis, most extensive along the sigmoid colon, without secondary signs of acute diverticulitis. Abdominal and pelvic bowel loops are normal in course and caliber, without evidence of obstruction or ileus. Nonvisualization of the appendix. No acute inflammatory changes within the right lower quadrant of the abdomen. No organizing intra-abdominal or pelvic fluid collections and no free intraperitoneal air. No intraperitoneal or retroperitoneal hematoma. ABDOMINAL WALL: No significant hernia is appreciated. LYMPH NODES: No significant abdominal or pelvic adenopathy. VASCULAR: Extensive atherosclerosis of the abdominal aorta and its branching vessels, without aneurysmal dilatation. Limited evaluation for vascular patency given lack of intravenous contrast. PELVIC VISCERA: Unremarkable. OSSEOUS STRUCTURES: No acute osseous abnormality. Severe multilevel degenerative disc disease and facet arthrosis of the imaged lumbar spine with grade 1 retrolisthesis of L4 on L5 and grade 1 anterolisthesis of L5 on S1. IMPRESSION: No acute findings within the abdomen or pelvis to explain patient symptomatology. There is a moderate amount of retained stool throughout the colon, indicative of constipation. Also noted is scattered colonic diverticulosis, most significant along the sigmoid colon, without secondary signs of acute diverticulitis. DICTATED BY: BAUDILIO CHAVEZ MD DATE/TIME DICTATED:11/08/161951 BREASTFEEDING EDUCATOR:TASHI DATE/TIME TRANSCRIBED:11/08/161951 CONFIDENTIAL, DO NOT COPY WITHOUT APPROPRIATE AUTHORIZATION. <Electronically signed in Other Vendor System> SIGNED BY: BAUDILIO CHAVEZ MD 11/08/162001 PATIENT: CANDIDO TIRADO PRESENT AGE: 71 PATIENT ACCOUNT NO: [id number] : 47 LOCATION: [facility] ORDERING PHYSICIAN: RAMONA FAM SERVICE DATE: 11/08/16 EXAM TYPE: CAT - CT HEAD WO IV CONTRAST EXAMINATION: CT HEAD WITHOUT CONTRAST CLINICAL INFORMATION: Altered mental status. COMPARISON: CT scan of the head 10/22/2015. TECHNIQUE: Contiguous axial imaging was performed from the skull base to vertex without intravenous administration of contrast. DLP: 312.84 mGy-cm FINDINGS: There is gliosis and encephalomalacia within the right parietal lobe and within the left middle frontal gyrus related to old infarcts. There is no acute intracranial hemorrhage or abnormal extra axial collection. No intracranial mass effect midline shift. Lateral and third ventricles are proportionate to the subarachnoid spaces. No hydrocephalus. Grossly there is no evidence of acute territorial infarct. The calvarium and skull base are intact. No mastoid or middle ear effusion. Paranasal sinuses are well-aerated. IMPRESSION: Stable examination. Chronic cortical infarcts are visualized within the right parietal lobe and left frontal lobe. No evidence of acute territorial infarct or hemorrhage. DICTATED BY: ALLAN FINLEY MD DATE/TIME DICTATED:11/08/161947 BREASTFEEDING EDUCATOR:TASHI DATE/TIME TRANSCRIBED:11/08/161947 CONFIDENTIAL, DO NOT COPY WITHOUT APPROPRIATE AUTHORIZATION. <Electronically signed in Other Vendor System> SIGNED BY: ALLAN FINLEY MD 11/08 Assessment/Plan Assessment: Assessment: This is a 71-year-old gentleman with past medical history of mood disturbances who has presented with, hypothermia, a questionable UTI and acute delirium. Patient received IV vancomycin and IV ceftazidime in the emergency department. #Hypothermia Patient has responded well to initial management tarah hugger and blankets. Temperature at the time of clinical encounter 94.8. Continue tarah hugger and additional blankets to patient's temperature reaches normal physiological values. Likely the result of environmental exposure. If patient is unable to maintain an adequate response to above recommendations consider additional testing for further analysis of cause of hypothyroidism. Other differentials may include hypothyroidism, adrenal insufficiency, Malnutrition or vitamin deficiencies. Vitals Q 4 Hours. #Delirium Likely caused by decreased in medication compliance as well as superimposed hypothermia. Initial urinalysis showed no evidence of UTI. Follow-up urine culture. Continue IV fluids normal saline 75 mL per hour If patient's clinical condition does not improve over the next 12 hours Haloperidol 5 mg BID. Consider ID consult in a.m. #History of atrial fibrillation The patient's does state that he has a history of atrial fibrillation although is not on any anticoagulation. Likely due to a high risk of fall. Consider cardiology consult in a.m. #BPH Continue tamsulosin. Consider urology consult in a.m. due to repeated bouts of UTIs. This could due to questionable obstruction. Social Work consult in AM #Diet Nothing by mouth for now until clinical condition improves. Consider swallow eval in a.m. #DVT prophylaxis ALPS Heparin subcutaneous #Code Full code As Ranked By This Provider Problem List: 1. AMS 2. Altered mental status 3. Altered mental status 4. Hypothermia Core Measures/Miscellaneous Acute Coronary Syndrome ACS Diagnosis: No Cerebrovascular Accident CVA/TIA Diagnosis: No Congestive Heart Failure CHF Diagnosis: No Venous Thromboembolism VTE Risk Factors: Cancer/chemo/oth therapy VTE Prophylaxis Ordered Inpt: Pharm- Heparin No Mech VTE prophylaxis d/t: No contraindications No VTE Pharm Prophylaxis d/t: No contraindications VTE Diagnosis: No VTE Type: NONE VTE Confirmed by (Test): NONE Severe Sepsis Severe Sepsis Present: Yes BC x2: Yes Lactic Acid x2: Yes IV ABX Broad Spectrum: Yes NS/LR Started: Yes Septic Shock Septic Shock Present: Yes BC x2: Yes Lactic Acid: Yes IV ABX Broad Spectrum: Yes Focused Exam Completed: Yes IV Vasopressors started: No Miscellaneous Documentation Attending Case Discussed With: SHILPA ANDRES MD Primary Care Physician: SHILPA ANDRES MD Patient sees these Specialists Dr Carl Nayka. Level of Patient Care: Critical Care (CRI) MICKEY NUNO 11/08/162055: Resident Review Statement Resident Statement: examined this patient, discussed with internist medical doctor md, agreed with internist medical doctor md Other Findings: Patient is 71-year-old gentleman with past medical history significant for paranoid schizophrenia on haloperidol Depakote every 3 weeks, history of TIAs and CVA, recurrent urinary tract infections, last admission in August 2016 with altered mental status came to the emergency room again with almost seem to complain of altered mental status and hyponatremia with temperature of 92.1. When I examined the patient should he was not able to answer any of my [place] but he was awake and alert me immediately responding to commands. History was taken from his Hilary, was present in the room. According to his 5 patient was not acting normally as of his baseline for couple of days and was reluctant to eat and drink. He also had frequent urination with foul- smelling urine and home dipstick urine showed UTI and she called her primary care physician and he prescribed Augmentin for infection. Patient took 2 doses of Augmentin last was this morning. She saw him last around 3:30 AM and around 7:30 AM she found him on the couch and front door was open and probably he was exposed to cold air for few hours. Patient was covered by blanket that was refused by him. He was also reluctant to call the ambulance but he was crawling and remained on the floor and ambulance was called a few hours later and in the emergency room he found to have hyponatremia.. Her care was provided and his temperature was slowly and nicely going up. Initial labs were negative for any leukocytosis. His blood cultures and urine cultures were sent. There was no evidence of seizure-like activity, shivering, chills, fever, cough, headache, chest pain, nausea or vomiting. His gait was slightly unstable for last few days. He uses walker at home. Chest x-ray was negative for any acute abnormality CT abdomen and pelvis was also negative for any acute pathology but there was moderate amount of retained stool throughout colon. Head CT was also negative for any evidence of acute infarct or hemorrhage EKG was not able to interpret because of underlying artifact an Physical examination Patient is alert and awake but not oriented Head atraumatic Neck supple Chest clear to auscultate Sounds very muffled but no added sounds noted Abdomen soft no suprapubic tenderness elicited Lower extremities shows trace edema with no cyanosis Assessment and plan The patient is 71 year old gentleman with history of schizophrenia on antipsychotic, history of CVA and TIA, recurrent UTIs came to emergency room with altered mental status and hyponatremia which could be multifactorial including exposure to cold temperature where he was not able to move, his antipsychotics might be playing a role and we would rule out underlying infection/sepsis. Patient will be admitted in ICU and will take care for the following problems Problem #1 hyponatremia could be multifactorial due to underlying antipsychotic medications, infection or exposure to cold air for a long time Vital signs every shift We will provide patient with bear hugger We will send urine and blood culture We will start patient on ceftriaxone for presumptive UTI and will request ID consultation in a.m. We will provide patient with gentle hydration We will keep him nothing by mouth and will reduce formal swallow evaluation in a.m. Problem #2 schizophrenia We will continue his home medications and will request a psych consultation in a.m. to go over his medications Problem #3 recurrent UTIs Patient's was concerned about recurrent UTIs and requesting for urology evaluation in house as was offered outpatient follow-up but it's hard for her to take patient to outpatient clinic and was requesting if we can request a urology to evaluate him for recurrent UTIs. , Pharmacological DVT prophylaxis Patient is full code
[2016-11-08] MEDS ORDERED: ATENOLOL50 M1 PO (20:42)
[2016-11-08] MEDS ORDERED: HALOPERIDOL5 MG PO (20:43)
[2016-11-08] MEDS ORDERED: TAMSULOSIN HCL0.4 M1 PO (20:43)
[2016-11-08] MEDS ORDERED: NITROGLYCERIN1 EACH TOP (20:43)
[2016-11-08] MEDS ORDERED: LORAZEPAM1 M1 PO (20:44)
[2016-11-08] MEDS ORDERED: FINASTERIDE5 M1 PO (20:44)
[2016-11-08] MEDS ORDERED: REMERON15 M2 PO (20:45)
[2016-11-08] MEDS ORDERED: ZYPREXA5 M1 PO (20:45)
[2016-11-08] MEDS ORDERED: HALOPERIDO50 MG/1 M1 INJ (20:46)
--- NOTE | 2016-11-08 20:51 | NUR ---
PT MORE ALERT. VSS. TEMP 94.0
--- NOTE | 2016-11-08 21:04 | NUR ---
ICU STAFF AT BEDSIDE
--- NOTE | 2016-11-08 22:55 | NUR ---
BLADDER TEMP NOW 97.0-97.2. PER ICU HOUSE STAFF, ROSSY HUGGER CAN BE STOPPED ONCE TEMP REACHES 97.0. ROSSY HUGGER TURNED OFF AT THIS TIME
--- NOTE | 2016-11-08 22:58 | NUR ---
PT TO ROOM 110
--- NOTE | 2016-11-08 23:04 | NUR ---
PT GOING TO RM 108
--- NOTE | 2016-11-08 23:13 | NUR ---
REPORT GIVEN TO SHADIA KHAN. WILL REASSESS NIGHT MEDICATIONS WITH ICU MDS
[2016-11-09] VITALS: BP 112/60
--- NOTE | 2016-11-09 | NUR ---
PT DROWSY AROUSABLE, ANSWERS MINIMALLY. PT REFUSING TO TAKE ANYTHING BY MOUTH. PT SUCTIONED AFTER ATTEMPTED. PT BLOOD SUGAR 61. ONE AMP D50 GIVEN. IVFS STARTED. PT LUNGS CLEAR. PT HAS NONPRODUCTIVE, CONGESTED COUGH. PT FIELDS DRAINING CLOUDY WILNER URINE. ABD ROUND SOFT NONTENDER. SKIN GROSSLY INTACT. BILATERAL KNEES RED AND ECCHYMOTIC.
--- NOTE | 2016-11-09 04:30 | NUR ---
PT URINE OUTPUT LOW. MD NOTIFIED. IVFS INCREASED. WILL CONTINUE TO MONITOR.
[2016-11-09 05:26] LABS: ABSOLUTE BASOPHIL COUNT 0 /CUMM (0.0-0.2); ABSOLUTE EOSINOPHIL COUNT 0.1 /CUMM (0.0-0.7); ABSOLUTE GRANULOCYTE CT 3.8 /CUMM (1.4-6.5); ABSOLUTE MONOCYTE COUNT 0.5 /CUMM (0.10-0.60); BASOPHIL % 0.3 % (0.0-2.0); EOSINOPHIL % 2.3 % (0-5); GRANULOCYTE % 68.9 % (42.2-75.2); HEMATOCRIT 30.3 % (42-52); MEAN CORPUSCULAR HGB 29.6 PG (27.0-31.0); MEAN CORPUSCULAR VOLUME 89.8 FL (80.0-94.0); MEAN PLATELET VOLUME 6.8 FL (7.4-10.4); PLATELET COUNT 272 /CUMM (130-400); RBC DISTRIBUTION WIDTH 15.3 % (11.5-14.5); RED BLOOD CELL CT 3.38 /CUMM (4.70-6.10); WHITE BLOOD CELL COUNT 5.5 /CUMM (4.8-10.8)
--- NOTE | 2016-11-09 06:00 | NUR ---
PT URINE OUTPUT 30 MLS OVER PASSED 1.5 HRS. MD NOTIFIED. IVFS INCREASED TO 125 MLS/HR. PT TEMP REMAINS 98.1 PT DROWSY BUT EASILY AROUSABLE
--- NOTE | 2016-11-09 07:25 | PN- Resident CRCU ---
Subjective HPI/CRCU Issues: Patient was seen and examined. Patient is laying in bed, awake, following commands, but nonverbal. Patient is not on pain. He looks depresse with a flat effect and a mask face. Objective Vital Signs & I&O Last 8 Hrs of Vitals and I&O: Intake & Output 11/09 1600 11/09 0800 11/09 0000 Intake Total 347 1250 Output Total 125 500 Balance 222 750 Intake, IV 347 1250 Intake, Oral 0 Output, Urine 125 500 Patient 102.172 kg 101.746 kg Weight Laboratory Tests 11/09 11/08 0435 1950 Chemistry Sodium (137 - 145 mmol/L) 139 Potassium (3.5 - 5.1 mmol/L) 4.0 Chloride (98 - 107 mmol/L) 104 Carbon Dioxide (22 - 30 mmol/L) 30 Anion Gap (5 - 16) 6 BUN (9 - 20 mg/dL) 13 Creatinine (0.7 - 1.2 mg/dL) 0.8 Estimated GFR (>60 ml/min) > 60 Glucose (65 - 99 mg/dL) 69 Lactic Acid Cancelled Calcium (8.4 - 10.2 mg/dL) 8.5 Phosphorus (2.5 - 4.5 mg/dL) 4.1 Magnesium (1.6 - 2.3 mg/dL) 1.9 Total Bilirubin (0.2 - 1.3 mg/dL) 0.5 AST (17 - 59 U/L) 41 ALT (21 - 72 U/L) 50 Albumin (3.5 - 5.0 g/dL) 2.8 L Hematology CBC w Diff NO MAN DIFF REQ WBC (4.8 - 10.8 /CUMM) 5.5 RBC (4.70 - 6.10 /CUMM) 3.38 L Hgb (14.0 - 18.0 G/DL) 10.0 L Hct (42 - 52 %) 30.3 L MCV (80.0 - 94.0 FL) 89.8 MCH (27.0 - 31.0 PG) 29.6 RDW (11.5 - 14.5 %) 15.3 H Plt Count (130 - 400 /CUMM) 272 MPV (7.4 - 10.4 FL) 6.8 L Gran % (42.2 - 75.2 %) 68.9 Lymphocytes % (20.5 - 51.1 %) 18.5 L Monocytes % (1.7 - 9.3 %) 10.0 H Eosinophils % (0 - 5 %) 2.3 Basophils % (0.0 - 2.0 %) 0.3 Absolute Granulocytes (1.4 - 6.5 /CUMM) 3.8 Absolute Lymphocytes (1.2 - 3.4 /CUMM) 1.0 L Absolute Monocytes (0.10 - 0.60 /CUMM) 0.5 Absolute Eosinophils (0.0 - 0.7 /CUMM) 0.1 Absolute Basophils (0.0 - 0.2 /CUMM) 0 PUBS MCHC (33.0 - 37.0 G/DL) 33.0 08 11/08 1836 1720 Chemistry Sodium (137 - 145 mmol/L) 138 Potassium (3.5 - 5.1 mmol/L) 4.3 Chloride (98 - 107 mmol/L) 100 Carbon Dioxide (22 - 30 mmol/L) 31 H Anion Gap (5 - 16) 7 BUN (9 - 20 mg/dL) 14 Creatinine (0.7 - 1.2 mg/dL) 0.8 Estimated GFR (>60 ml/min) > 60 BUN/Creatinine Ratio (7 - 25 %) 17.5 Glucose (65 - 99 mg/dL) 76 Lactic Acid (0.7 - 2.1 mmol/L) 0.8 Calcium (8.4 - 10.2 mg/dL) 9.1 Magnesium (1.6 - 2.3 mg/dL) 2.0 Total Bilirubin (0.2 - 1.3 mg/dL) 0.5 AST (17 - 59 U/L) 42 ALT (21 - 72 U/L) 49 Alkaline Phosphatase (< 127 U/L) 92 Creatine Kinase (55 - 170 U/L) 82 Troponin I (<0.11 ng/ml) 0.02 Total Protein (6.3 - 8.2 g/dL) 6.5 Albumin (3.5 - 5.0 g/dL) 3.1 L Globulin (1.9 - 4.2 gm/dL) 3.4 Albumin/Globulin Ratio (1.1 - 2.2 %) 0.9 L TSH (0.270 - 4.200 uIU/mL) 1.080 Hematology CBC w Diff MAN DIFF ORDERED WBC (4.8 - 10.8 /CUMM) 6.9 RBC (4.70 - 6.10 /CUMM) 3.53 L Hgb (14.0 - 18.0 G/DL) 10.5 L Hct (42 - 52 %) 32.1 L MCV (80.0 - 94.0 FL) 90.4 MCH (27.0 - 31.0 PG) 29.5 RDW (11.5 - 14.5 %) 14.9 H Plt Count (130 - 400 /CUMM) 269 MPV (7.4 - 10.4 FL) 7.1 L Gran % (42.2 - 75.2 %) 71.7 Lymphocytes % (20.5 - 51.1 %) 19.6 L Monocytes % (1.7 - 9.3 %) 7.4 Eosinophils % (0 - 5 %) 1.1 Basophils % (0.0 - 2.0 %) 0.2 Absolute Granulocytes (1.4 - 6.5 /CUMM) 4.7 Segmented Neutrophils (42.2 - 75.2 %) 74 Absolute Lymphocytes (1.2 - 3.4 /CUMM) 1.3 Lymphocytes (20.5 - 51.1 %) 16 L Monocytes (1.7 - 9.3 %) 10 H Absolute Monocytes (0.10 - 0.60 /CUMM) 0.5 Absolute Eosinophils (0.0 - 0.7 /CUMM) 0.1 Absolute Basophils (0.0 - 0.2 /CUMM) 0 Platelet Estimate (ADEQUATE) ADEQUATE Polychromasia 1+ Hypochromic-Microcytic 2+ Anisocytosis 1+ Macrocytic Cells 1+ PUBS MCHC (33.0 - 37.0 G/DL) 32.7 L Urines Urine Color (YEL,AMB,STR) YEL Urine Clarity (CLEAR) CLEAR Urine pH (5.0 - 8.0) 6.0 Ur Specific [place] (1.001 - 1.035) 1.020 Urine Protein (NEG,<30 MG/DL) NEG Urine Ketones (NEG) TRACE H Urine Nitrite (NEG) NEG Urine Bilirubin (NEG) NEG Urine Urobilinogen (0.1 - 1.0 EU/dl) 0.2 Ur Leukocyte Esterase (NEG) NEG Ur Microscopic EXAM NOT REQUIRED Urine Hemoglobin (NEG) NEG Urine Glucose (N MG/DL) NEG Intake & Output 11/09 1600 Intake Total Output Total Balance Patient 102.172 kg Weight Exam General Appearance: no apparent distress, alert, awake Head: atraumatic, normal appearance Respiratory: normal breath sounds, chest non-tender, no respiratory distress, quiet respiration, lungs clear Cardiovascular: distant heart sounds Gastrointestinal: soft, non-tender Extremities: no edema Current Medications: Current Medications Sig/Vidal Start time Last Medication Dose Route Stop Time Status Admin Acetaminophen 650 MG Q6P PRN 11/08 204 AC PO Atenolol 50 MG BID 11/08 2200 AC 11/09 PO 1020 Bisacodyl 10 MG Q12P PRN 11/09 1000 AC 11/09 [place] 1047 Ceftazidime 0 .STK-MED ONE 11/08 184 DC .ROUTE Ceftazidime 1,000 MG ONCE ONE 11/08 171 DC 11/08 IV 11/08 1716 1845 Ceftriaxone Sodium 1,000 MG DAILY 11/09 1000 DC 11/09 IV 0911 Dextrose 25 GM ONCE ONE 11/08 2345 DC 11/09 IV 11/08 2346 0004 Dextrose/Sodium 1,000 ML Q20H 11/08 2145 AC 11/09 Chloride IV 0003 Enoxaparin Sodium 40 MG DAILY 11/08 204 AC 11/09 SC 0119 Finasteride 5 MG DAILY 11/09 1000 AC 11/09 PO 1020 Haloperidol 5 MG BID 11/09 1000 AC 11/09 IM 0912 Haloperidol 5 MG BID 11/08 220 DC PO Ibuprofen 600 MG Q6P PRN 11/08 2045 AC PO Lorazepam 1 MG BID 11/09 0130 DC 11/09 IV 0152 Lorazepam 1 MG BID 11/08 220 DC PO Magnesium Hydroxide 30 ML AT BEDTIME PRN 11/08 2145 AC PO Mirtazapine 15 MG QPM 11/08 2200 AC PO Nitroglycerin 0.4 MG DAILY 11/09 1000 AC 11/09 TOP 0911 Olanzapine 5 MG BID 11/09 0129 DC IM Olanzapine 5 MG BID 11/08 220 DC PO Oxycodone HCl 10 MG Q6P PRN 11/08 204 AC PO Polyethylene Glycol 17 GM DAILY 11/09 1000 AC PO Sodium Chloride 1,000 ML BOLUS ONE 11/08 1845 DC 11/08 IV 11/08 1944 2247 Sodium Chloride 1,000 ML BOLUS ONE 11/08 1730 DC 11/08 IV 11/08 1829 1845 Tamsulosin HCl 0.4 MG DAILY 11/09 1000 AC 11/09 PO 1020 Vancomycin HCl 0 .STK-MED ONE 11/08 1846 DC .ROUTE Vancomycin HCl 1,000 MG ONCE ONE 11/08 1715 DC 11/08 Dextrose/Water 250 ML IV 11/08 Impression/Plan Impression/Problem List Impression: Assessment: #Hypothermia Patient has responded well to initial management tarah hugger and blankets. Temperature at the time of admission was 94.8. Patient was treated with tarah hugger and additional blankets until patient's temperature reaches normal physiological values. Likely the result of environmental exposure. No current symptom or sign suggests infection shock. * Vitals Q 4 Hours. * We will watch off Abx #Delirium History of schizophrenia. Delirium most Likely caused by decreased in medication compliance as well as superimposed hypothermia. Initial urinalysis showed no evidence of UTI. All culture Negative on day 1. Psychiatric consult was placed, we will follow their recommendation. * IM Haloperidol 5 mg BID. * We will follow Psychiatric recommendation #History of atrial fibrillation The patient's does state that he has a history of atrial fibrillation although is not on any anticoagulation. Likely due to a high risk of fall. * Atenolol 50 mg #BPH * Continue tamsulosin. NPO for now until clinical condition improves. ALPS Heparin SC Full code Problem List: 1. Altered mental status Pain Ratin Tomorrow's Labs & Rationales: cbc and icu bundle Plan DVT/Prophylaxis: mechanical, pharmacological
[2016-11-09 08:00] VITALS: BP 122/64
--- NOTE | 2016-11-09 08:13 | NUR ---
0800: RECEIVED PT IN BED. ALERT, NON VERBAL, FOLLOWING COMMANDS. SINUS ASHLEE ON MONITOR. TEMP ARTERY TEMPERATURE 97.9. VSS. ON RA. SAT 95%, RIGHT LUNG RHONCHI. ABDOMEN SOFT, +BS. CT SCAN SHOWED CONSTIPATION, WILL ATTEMPT TO GIVE MIRALAX THIS AM. FIELDS IN PLACE TO BEDSIDE DRAINAGE. BLE EDEMATOUS, BRUISES NOTED TO BILATERAL KNEES. BLOOD SUGAR 112. D5-NS RUNNING AT 125 ML/HR. WILL MONITOR.
--- NOTE | 2016-11-09 09:01 | NUR ---
RIGHT LEG NOTED TO BE LARGER THAN LEFT LEG. DR NUNEZ AT BEDSIDE.
--- NOTE | 2016-11-09 09:23 | NUR ---
PT REFUSING TO TAKE ANYTHING BY MOUTH AT THIS TIME. NITRO PATCH PLACED TO LEFT CHEST WALL. LEFT A GLASS OF WATER AND ICE CREAM AT PATIENTS BEDSIDE TO LET HIM EAT OR DRINK ON HIS OWN. WILL MONITOR.
--- NOTE | 2016-11-09 09:31 | Cons- Pulmonary ---
General Information and HPI Consulting Request Date of Consult: 11/09/16 Requested By: Med team History of Present Illness: Mr Almanzar is a 71-year-old gentleman, with a PMH of TIA, history of CVA with aphasia (which resolved), coronary artery disease, hypertension, dyslipidemia, peripheral vascular disease, peptic ulcer disease, carotid artery disease, status post left endarterectomy and a right carotid artery disease, poor vision in the left eye, cataract surgery, history of paranoid schizophrenia who presented to the emergency department at [facility] on 11/08/2016 after his found that his mentation continued to deteriorate over the last few hours. On 11/07/2016 the patient was experiencing increased urinary frequency, foul- smelling urine, and complained of dysuria. His decided to conduct a home urinary tract infection test from [facility] which turned out to be positive. She subsequently called the patient's primary care physician (Lukas Andres M.D. ) who called in a prescription for Augmentin. At approximately 3:30 AM he crawled downstairs and opened his front door and was exposed to the cold air for a prolonged period of time. The is under sure about how long this patient may been exposed to cold, but estimates this would have been for a few hours. This afternoon due to deteriorating clinical condition the decided to call the ambulance who brought the patient to the emergency department. Over the last few weeks the patient has needed continuous rehabilitation services. states that patient's medication compliance might be decreased given the fact that he often spits out his medications. He is currently on a Haldol Decanoate shot for his Bipolar which is due for this Sunday (11/12/2016).He gets these every 3 weeks. Non verbal when I saw him The patient Psychiatrist is Dr Carl Nayak. The patient last saw her on October 13 Allergies/Medications Allergies: Coded Allergies: NO KNOWN ALLERGIES (04/28/16) Home Med List: Atenolol 50 MG TABLET 1 TAB PO BID DIRECTED (Reported) Finasteride 5 MG TABLET 1 TAB PO DAILY DIRECTED (Reported) Haloperidol 5 MG TABLET 1 TAB PO BID DIRECTED (Reported) Haloperidol Decanoate 50 MG/ML VIAL 1.5 ML INJ EVERY 3 WEEKS DIRECTED ( Reported) Lorazepam 1 MG TABLET 1 TAB PO BID DIRECTED (Reported) Mirtazapine (Remeron) 15 MG TABLET 1 TAB PO QPM DIRECTED (Reported) Nitroglycerin (Nitroglycerin Patch) 0.4 MG/HOUR PATCH.TD24 1 PATCH TOP DAILY DIRECTED (Reported) Olanzapine (Zyprexa) 5 MG TABLET 1 TAB PO BID DIRECTED (Reported) Tamsulosin HCl 0.4 MG CAP.ER.24H 1 CAP PO DAILY DIRECTED (Reported) Past History Travel History Traveled to [place] past 21 day No Medical History Blood Transfusion Hx: No Neurological: CVA, TIA, L EYE BLINDNESS EENT: NONE Cardiovascular: AFIB, CAD, hypertension, hyperlipidemia, PVD Respiratory: NONE Gastrointestinal: NONE Hepatic: NONE Renal: NONE Musculoskeletal: NONE Psychiatric: bipolar disease, schizophrenia Endocrine: NONE Blood Disorders: NONE Cancer(s): NONE Surgical History Surgical History: LEFT CEA CATARACTS Psychosocial History Where Do You Live? Home Who Do You Live With? self Services at Home: None Primary Language: Yoruba Smoking Status: Former Smoker ETOH Use: 6 Illicit Drug Use: UTD Functional Ability ADLs Needs Assist: dressing, eating, toileting, bathing. Ambulation: walker IADLs Needs Assist: shopping, housework, finances, food prep, telephone, transportation, medication admin. Exam & Diagnostic Data Last 24 Hrs of Vital Signs/I&O Vital Signs Date Time Temp Pulse Resp B/P Pulse O2 O2 Flow FiO2 Ox Delivery Rate 11/09 08 Room Air 11/09 0800 97.9 54 18 122/64 94 Room Air 11/09 0335 94 Room Air 11/09 0000 95 Room Air 11/09 0000 98.5 68 16 112/60 96 Room Air 11/08 2246 97.0 70 16 128/59 93 Room Air 11/08 2207 96.2 68 16 126/58 93 Room Air 11/08 2137 95.5 68 16 140/63 93 Room Air 11/08 2107 94.3 60 113/66 95 Room Air 11/08 2009 93.3 56 16 117/61 95 Room Air 11/08 1931 92.8 11/08 1900 92.4 54 16 116/58 98 Room Air 11/08 1758 91.9 11/08 1700 98 Room Air 11/08 1657 92.1 54 16 136/80 97 Room Air Intake & Output 11/09 1600 11/09 0811/09 0000 Intake Total 347 1250 Output Total 125 500 Balance 222 750 Intake, IV 347 1250 Intake, Oral 0 Output, Urine 125 500 Patient 225 lb 224 lb Weight Last 48 Hrs of Labs/Ramesh: Laboratory Tests 11/09/16 0435: Anion Gap 6, Estimated GFR > 60, Glucose 69, Calcium 8.5, Phosphorus 4.1, Magnesium 1.9, Total Bilirubin 0.5, AST 41, ALT 50, Albumin 2.8 L, CBC w Diff NO MAN DIFF REQ, RBC 3.38 L, MCV 89.8, MCH 29.6, RDW 15.3 H, MPV 6.8 L, Gran % 68.9, Lymphocytes % 18.5 L, Monocytes % 10.0 H, Eosinophils % 2.3, Basophils % 0.3, Absolute Granulocytes 3.8, Absolute Lymphocytes 1.0 L, Absolute Monocytes 0.5, Absolute Eosinophils 0.1, Absolute Basophils 0, PUBS MCHC 33.0 11/08/16 1950: Lactic Acid Cancelled 11/08/16 1836: Anion Gap 7, Estimated GFR > 60, BUN/Creatinine Ratio 17.5, Glucose 76, Lactic Acid 0.8, Calcium 9.1, Magnesium 2.0, Total Bilirubin 0.5, AST 42, ALT 49, Alkaline Phosphatase 92, Creatine Kinase 82, Troponin I 0.02, Total Protein 6.5, Albumin 3.1 L, Globulin 3.4, Albumin/Globulin Ratio 0.9 L, TSH 1.080, CBC w Diff MAN DIFF ORDERED, RBC 3.53 L, MCV 90.4, MCH 29.5, RDW 14.9 H, MPV 7.1 L, Gran % 71.7, Lymphocytes % 19.6 L, Monocytes % 7.4, Eosinophils % 1.1, Basophils % 0.2, Absolute Granulocytes 4.7, Segmented Neutrophils 74, Absolute Lymphocytes 1.3, Lymphocytes 16 L, Monocytes 10 H, Absolute Monocytes 0.5, Absolute Eosinophils 0.1, Absolute Basophils 0, Platelet Estimate ADEQUATE, Polychromasia 1+, Hypochromic-Microcytic 2+, Anisocytosis 1+, Macrocytic Cells 1 +, PUBS MCHC 32.7 L 11/08/16 1720: Urine Color YEL, Urine Clarity CLEAR, Urine pH 6.0, Ur Specific [place] 1.020, Urine Protein NEG, Urine Ketones TRACE H, Urine Nitrite NEG, Urine Bilirubin NEG, Urine Urobilinogen 0.2, Ur Leukocyte Esterase NEG, Ur Microscopic EXAM NOT REQUIRED, Urine Hemoglobin NEG, Urine Glucose NEG Assessment/Plan Impression/Plan: Physical Exam General Appearance Alert, non verbal HEENT PERRLA, Mucous Membranes Dry Neck Supple Lymphatic Cervical nl Cardiovascular Normal S1, Normal S2, ?Irregular Rate and Rhythm Lungs Expiratory Rhonchi Limited Exam due to clinical condition Abdomen Normal Bowel Sounds, Soft, No Tenderness Neurological Cranial Nerves 3-12 NL, Strength UE 3/5 Extremities No Clubbing, No Cyanosis, Normal Pulses, No Tenderness/Swelling, ? Babinski rtLE Slightly larger than left SIGNIFICANT DATA Previous echocardiogram in 2012 showed the no significant shunt and he had the 50% ejection fraction with diastolic heart CT scan of the abdomen and pelvis done in the emergency room showed no acute findings he had significant stool consistent with constipation with diverticulosis Head CT reviewed showed stable exam with chronic cortical infarcts. Chest x-ray showed no acute abnormality Blood work reviewed complete metabolic panel unremarkable. White count 5.9 hemoglobin 10 which is chronically low No significant left shift INR was normal TSH was normal IMPRESSION This is a 71-year-old gentleman with history of mood disturbances with recurrent UTI, previous history of stroke, atrial fibrillation, BPH, came in to the hospital with * Significant hyperthermia which seems to be improving, due to environmental exposure * Decreased mental status now is aphasic with delirium upon admission * No clinical evidence suggestive of sepsis * Significant right lower extremity edema * Atrial fibrillation paroxysmal patient was not on anticoagulation * BPH * Previous history of significant psychotropic medications. Patient appears to be probably a locked-in state * Previous history of strokes with no acute stroke in the head CT * Previous recurrent UTI * Significant constipation noted in the CAT scan * RECOMMENDATION * Patient is improved can be moved out of the intensive care * Psychiatry evaluation * Hold further benzodiazepines * Repeat head CT later this evening * Discontinue antibiotics for now * Consider anticoagulation in the future as he has had recurrent stroke * Continue Flomax * Watch hemoglobin and hematocrit * Aggressively treat constipation. Patient would need Dulcolax suppository and if he can take by mouth give him MiraLAX, Senokot, magnesium citrate. If that does not work he would require an enema Consult Acknowledgment - Thank you for your consult request.
--- NOTE | 2016-11-09 10:47 | NUR ---
PT TO AND FROM CT SCAN FOR CT OF HEAD, VSS, NO ISSUES.
--- NOTE | 2016-11-09 11:18 | NUR ---
WITH ON PHONE PT WAS ABLE TO TAKE HIS MORNING MEDICATION WHOLE WITH ICE CREAM. PT UNABLE TO SUCK UP WATER THRU STRAW. AWAITING SWALLOW EVAL
--- NOTE | 2016-11-09 11:39 | NUR ---
PT DOWNGRADED TO TELE. NON PRODUCTIVE CONGESTED COUGH NOTED. OXYGEN SATURATION 97% ON RA. TURNED AND REPOSITIONED.
--- NOTE | 2016-11-09 11:42 | CT SCAN REPORT ---
EXAMINATION: CT HEAD WITHOUT CONTRAST CLINICAL INFORMATION: Altered mental status. Assess for stroke. COMPARISON: Head CT dated 11/08/2016. TECHNIQUE: Contiguous axial imaging was performed from the skull base to vertex without intravenous administration of contrast. DLP: 672.25 mGy-cm FINDINGS: Chronic infarcts are again noted in the high left frontal lobe and right parietal lobe. There is no evidence of acute intracranial hemorrhage. No abnormal mass effect or midline shift is seen. No extra-axial fluid collections are identified. There is no hydrocephalus. Small vessel ischemic changes are again present in the cerebral white matter with diffuse parenchymal volume loss. The osseous structures and soft tissues are normal. The mastoid air cells and visualized portions of the paranasal sinuses are well aerated. There is periodontal and periapical disease affecting the visualized maxillary dentition. IMPRESSION: No acute intracranial hemorrhage or new territorial infarction. Chronic infarcts in the right parietal lobe and left frontal lobe.
--- NOTE | 2016-11-09 12:18 | PN- Att Addend ---
Attending Addendum Attending Brief Note Patient in ICU, stable this morning his temperature is back to normal no more need for the tarah hugger patient is awake still not talking much. Changes on physical. His urine cultures negative after 1 day the blood cultures are pending. The CAT scan of the head showed no acute abnormalities. Psychiatry to evaluate the patient patient is stable to leave the intensive care unit to follow up on his cultures check with ID regarding the need for antibiotic therapy. Current Medications Sig/Vidal Start time Last Medication Dose Route Stop Time Status Admin Acetaminophen 650 MG Q6P PRN 11/08 204 AC PO Atenolol 50 MG BID 11/08 2200 AC 11/09 PO 1020 Bisacodyl 10 MG Q12P PRN 11/09 1000 AC 11/09 NM 1047 Ceftazidime 0 .STK-MED ONE 11/08 184 DC .ROUTE Ceftazidime 1,000 MG ONCE ONE 11/08 1715 DC 11/08 IV 11/08 1716 1845 Ceftriaxone Sodium 1,000 MG DAILY 11/09 1000 DC 11/09 IV 0911 Dextrose 25 GM ONCE ONE 11/08 2345 DC 11/09 IV 11/08 2346 0004 Dextrose/Sodium 1,000 ML Q20H 11/08 2145 AC 11/09 Chloride IV 0003 Enoxaparin Sodium 40 MG DAILY 11/08 204 AC 11/09 SC 0119 Finasteride 5 MG DAILY 11/09 1000 AC 11/09 PO 1020 Haloperidol 5 MG BID 11/09 1000 AC 11/09 IM 0912 Haloperidol 5 MG BID 11/08 2200 DC PO Ibuprofen 600 MG Q6P PRN 11/08 2045 AC PO Lorazepam 1 MG BID 11/09 0130 DC 11/09 IV 0152 Lorazepam 1 MG BID 11/08 220 DC PO Magnesium Hydroxide 30 ML AT BEDTIME PRN 11/08 2145 AC PO Mirtazapine 15 MG QPM 11/08 2200 AC PO Nitroglycerin 0.4 MG DAILY 11/09 1000 AC 11/09 TOP 0911 Olanzapine 5 MG BID 11/09 0129 DC IM Olanzapine 5 MG BID 11/08 2200 DC PO Oxycodone HCl 10 MG Q6P PRN 11/08 2045 AC PO Polyethylene Glycol 17 GM DAILY 11/09 1000 AC PO Sodium Chloride 1,000 ML BOLUS ONE 11/08 1845 DC 11/08 IV 02/08 1944 2247 Sodium Chloride 1,000 ML BOLUS ONE 11/08 1730 DC 11/08 IV 11/08 1829 1845 Tamsulosin HCl 0.4 MG DAILY 11/09 1000 AC 11/09 PO 1020 Vancomycin HCl 0 .STK-MED ONE 11/08 1846 DC .ROUTE Vancomycin HCl 1,000 MG ONCE ONE 11/08 1715 DC 11/08 Dextrose/Water 250 ML IV 11/08 Laboratory Tests 11/09/16 0435: Anion Gap 6, Estimated GFR > 60, Glucose 69, Calcium 8.5, Phosphorus 4.1, Magnesium 1.9, Total Bilirubin 0.5, AST 41, ALT 50, Albumin 2.8 L, CBC w Diff NO MAN DIFF REQ, RBC 3.38 L, MCV 89.8, MCH 29.6, RDW 15.3 H, MPV 6.8 L, Gran % 68.9, Lymphocytes % 18.5 L, Monocytes % 10.0 H, Eosinophils % 2.3, Basophils % 0.3, Absolute Granulocytes 3.8, Absolute Lymphocytes 1.0 L, Absolute Monocytes 0.5, Absolute Eosinophils 0.1, Absolute Basophils 0, PUBS MCHC 33.0 11/08/16 1950: Lactic Acid Cancelled 11/08/16 1836: Anion Gap 7, Estimated GFR > 60, BUN/Creatinine Ratio 17.5, Glucose 76, Lactic Acid 0.8, Calcium 9.1, Magnesium 2.0, Total Bilirubin 0.5, AST 42, ALT 49, Alkaline Phosphatase 92, Creatine Kinase 82, Troponin I 0.02, Total Protein 6.5, Albumin 3.1 L, Globulin 3.4, Albumin/Globulin Ratio 0.9 L, TSH 1.080, CBC w Diff MAN DIFF ORDERED, RBC 3.53 L, MCV 90.4, MCH 29.5, RDW 14.9 H, MPV 7.1 L, Gran % 71.7, Lymphocytes % 19.6 L, Monocytes % 7.4, Eosinophils % 1.1, Basophils % 0.2, Absolute Granulocytes 4.7, Segmented Neutrophils 74, Absolute Lymphocytes 1.3, Lymphocytes 16 L, Monocytes 10 H, Absolute Monocytes 0.5, Absolute Eosinophils 0.1, Absolute Basophils 0, Platelet Estimate ADEQUATE, Polychromasia 1+, Hypochromic-Microcytic 2+, Anisocytosis 1+, Macrocytic Cells 1 +, PUBS MCHC 32.7 L 11/08/16 1720: Urine Color YEL, Urine Clarity CLEAR, Urine pH 6.0, Ur Specific [place] 1.020, Urine Protein NEG, Urine Ketones TRACE H, Urine Nitrite NEG, Urine Bilirubin NEG, Urine Urobilinogen 0.2, Ur Leukocyte Esterase NEG, Ur Microscopic EXAM NOT REQUIRED, Urine Hemoglobin NEG, Urine Glucose NEG Microbiology Date/Time Procedure - Status Source Growth 11/09 003 Surveillance Culture - RECD GI 11/09 0020 Surveillance Culture - RECD UPPER RESP 11/08 1835 Blood Culture - RECD BLOOD 11/08 1730 Blood Culture - RECD BLOOD 11/08 1720 Urine Culture - RES URINE ROUT Vital Signs Date Time Temp Pulse Resp B/P Pulse O2 O2 Flow FiO2 Ox Delivery Rate 11/09 1020 55 124/71 11/09 0800 Room Air 11/09 0800 97.9 54 18 122/64 94 Room Air 11/09 0335 94 Room Air 11/09 0000 95 Room Air 11/09 0000 98.5 68 16 112/60 96 Room Air 11/08 2246 97.0 70 16 128/59 93 Room Air 11/08 2207 96.2 68 16 126/58 93 Room Air 11/08 2137 95.5 68 16 140/63 93 Room Air 11/08 2107 94.3 60 113/66 95 Room Air 11/08 2010 93.3 56 16 117/61 95 Room Air 11/08 1931 92.8 11/08 1900 92.4 54 16 116/58 98 Room Air 11/08 1758 91.9 11/08 1700 98 Room Air 11/08 1657 92.1 54 16 136/80 97 Room Air Intake & Output 11/09 1600 11/09 0800 11/09 0000 Intake Total 347 1250 Output Total 125 500 Balance 222 750 Intake, IV 347 1250 Intake, Oral 0 Output, Urine 125 500 Patient 225 lb 224 lb Weight
--- NOTE | 2016-11-09 12:22 | NUR ---
pt has tele bed room 174-2
--- NOTE | 2016-11-09 12:25 | NUR ---
updated pt's agata of room change.
--- NOTE | 2016-11-09 14:55 | ULTRASOUND REPORT ---
EXAMINATION: US TRIPLEX LOWER EXTREMITY, BILATERAL CLINICAL INFORMATION: Bilateral lower extremity edema. COMPARISON: None. TECHNIQUE: Color-flow triplex imaging with spectral analysis and compression Doppler were performed on the bilateral lower extremities. FINDINGS: Respiratory variation, normal compression and augmented flow are noted throughout the bilateral lower extremities. The visualized common femoral, femoral, profunda femoral, popliteal and midcalf peroneal and posterior tibial venous segments demonstrate no evidence of deep venous thrombosis. There are no Bakers' cysts. IMPRESSION: Normal triplex scan without evidence of deep venous thrombosis involving the bilateral lower extremities.
[2016-11-09 15:44] VITALS: BP 146/82
--- NOTE | 2016-11-09 17:01 | Cons- Psychiatry ---
Psychiatric Consult Date of Consult: 11/09/16 Reason for Consult: Paranoid schizophrenia. Patient was found standing outside in the cold, presented with hypothermia. The patient is aphasic." History of Present Illness: This is a 71-year-old male who was brought in by ambulance from home for altered mental status. Per the triage note, the patient was recently recently diagnosed with a urinary tract infection. the patient is followed by Dr. Zaira Nayak for psychiatry at [facility], last visit 10/16/2016. Medication list as of that visit is: Haldol Decanoate 150 mg IM every 3 weeks, last at [facility] on 2016, per the patient's spouse and POA. 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 He has been refusing food at home, claiming, per his , that he weighs 400 pounds. He has also been refusing fluids at home, stating that his diaper is full. The patient has been refusing some medications at home. Allergies: Coded Allergies: NO KNOWN ALLERGIES (04/28/16) Past History Past Medical History Neurological: CVA, TIA, L EYE BLINDNESS EENT: NONE Cardiovascular: AFIB, CAD, hypertension, hyperlipidemia, PVD Respiratory: NONE Gastrointestinal: NONE Hepatic: NONE Renal: NONE Musculoskeletal: NONE Psychiatric: bipolar disease, schizophrenia Endocrine: NONE Blood Disorders: NONE Cancer(s): NONE Past Surgical History Surgical History: LEFT CEA CATARACTS Assessment/Plan Mental Status Mental Status Exam: The patient is lying in bed, is calm, and responding minimally to yes and no questions. He indicates that he feels safe in the hospital. He verbalizes that he is in "[place]." He denies suicidal or homicidal ideation. He does not answer questions about auditory or visual disturbances. He was not able to participate further in the interview at this time. Lab Results: Laboratory Tests 11/09 11/08 0435 1950 Chemistry Sodium (137 - 145 mmol/L) 139 Potassium (3.5 - 5.1 mmol/L) 4.0 Chloride (98 - 107 mmol/L) 104 Carbon Dioxide (22 - 30 mmol/L) 30 Anion Gap (5 - 16) 6 BUN (9 - 20 mg/dL) 13 Creatinine (0.7 - 1.2 mg/dL) 0.8 Estimated GFR (>60 ml/min) > 60 Glucose (65 - 99 mg/dL) 69 Lactic Acid Cancelled Calcium (8.4 - 10.2 mg/dL) 8.5 Phosphorus (2.5 - 4.5 mg/dL) 4.1 Magnesium (1.6 - 2.3 mg/dL) 1.9 Total Bilirubin (0.2 - 1.3 mg/dL) 0.5 AST (17 - 59 U/L) 41 ALT (21 - 72 U/L) 50 Albumin (3.5 - 5.0 g/dL) 2.8 L Hematology CBC w Diff NO MAN DIFF REQ WBC (4.8 - 10.8 /CUMM) 5.5 RBC (4.70 - 6.10 /CUMM) 3.38 L Hgb (14.0 - 18.0 G/DL) 10.0 L Hct (42 - 52 %) 30.3 L MCV (80.0 - 94.0 FL) 89.8 MCH (27.0 - 31.0 PG) 29.6 RDW (11.5 - 14.5 %) 15.3 H Plt Count (130 - 400 /CUMM) 272 MPV (7.4 - 10.4 FL) 6.8 L Gran % (42.2 - 75.2 %) 68.9 Lymphocytes % (20.5 - 51.1 %) 18.5 L Monocytes % (1.7 - 9.3 %) 10.0 H Eosinophils % (0 - 5 %) 2.3 Basophils % (0.0 - 2.0 %) 0.3 Absolute Granulocytes (1.4 - 6.5 /CUMM) 3.8 Absolute Lymphocytes (1.2 - 3.4 /CUMM) 1.0 L Absolute Monocytes (0.10 - 0.60 /CUMM) 0.5 Absolute Eosinophils (0.0 - 0.7 /CUMM) 0.1 Absolute Basophils (0.0 - 0.2 /CUMM) 0 PUBS MCHC (33.0 - 37.0 G/DL) 33.0 11/08 11/08 1836 1720 Chemistry Sodium (137 - 145 mmol/L) 138 Potassium (3.5 - 5.1 mmol/L) 4.3 Chloride (98 - 107 mmol/L) 100 Carbon Dioxide (22 - 30 mmol/L) 31 H Anion Gap (5 - 16) 7 BUN (9 - 20 mg/dL) 14 Creatinine (0.7 - 1.2 mg/dL) 0.8 Estimated GFR (>60 ml/min) > 60 BUN/Creatinine Ratio (7 - 25 %) 17.5 Glucose (65 - 99 mg/dL) 76 Lactic Acid (0.7 - 2.1 mmol/L) 0.8 Calcium (8.4 - 10.2 mg/dL) 9.1 Magnesium (1.6 - 2.3 mg/dL) 2.0 Total Bilirubin (0.2 - 1.3 mg/dL) 0.5 AST (17 - 59 U/L) 42 ALT (21 - 72 U/L) 49 Alkaline Phosphatase (< 127 U/L) 92 Creatine Kinase (55 - 170 U/L) 82 Troponin I (<0.11 ng/ml) 0.02 Total Protein (6.3 - 8.2 g/dL) 6.5 Albumin (3.5 - 5.0 g/dL) 3.1 L Globulin (1.9 - 4.2 gm/dL) 3.4 Albumin/Globulin Ratio (1.1 - 2.2 %) 0.9 L TSH (0.270 - 4.200 uIU/mL) 1.080 Hematology CBC w Diff MAN DIFF ORDERED WBC (4.8 - 10.8 /CUMM) 6.9 RBC (4.70 - 6.10 /CUMM) 3.53 L Hgb (14.0 - 18.0 G/DL) 10.5 L Hct (42 - 52 %) 32.1 L MCV (80.0 - 94.0 FL) 90.4 MCH (27.0 - 31.0 PG) 29.5 RDW (11.5 - 14.5 %) 14.9 H Plt Count (130 - 400 /CUMM) 269 MPV (7.4 - 10.4 FL) 7.1 L Gran % (42.2 - 75.2 %) 71.7 Lymphocytes % (20.5 - 51.1 %) 19.6 L Monocytes % (1.7 - 9.3 %) 7.4 Eosinophils % (0 - 5 %) 1.1 Basophils % (0.0 - 2.0 %) 0.2 Absolute Granulocytes (1.4 - 6.5 /CUMM) 4.7 Segmented Neutrophils (42.2 - 75.2 %) 74 Absolute Lymphocytes (1.2 - 3.4 /CUMM) 1.3 Lymphocytes (20.5 - 51.1 %) 16 L Monocytes (1.7 - 9.3 %) 10 H Absolute Monocytes (0.10 - 0.60 /CUMM) 0.5 Absolute Eosinophils (0.0 - 0.7 /CUMM) 0.1 Absolute Basophils (0.0 - 0.2 /CUMM) 0 Platelet Estimate (ADEQUATE) ADEQUATE Polychromasia 1+ Hypochromic-Microcytic 2+ Anisocytosis 1+ Macrocytic Cells 1+ PUBS MCHC (33.0 - 37.0 G/DL) 32.7 L Urines Urine Color (YEL,AMB,STR) YEL Urine Clarity (CLEAR) CLEAR Urine pH (5.0 - 8.0) 6.0 Ur Specific [place] (1.001 - 1.035) 1.020 Urine Protein (NEG,<30 MG/DL) NEG Urine Ketones (NEG) TRACE H Urine Nitrite (NEG) NEG Urine Bilirubin (NEG) NEG Urine Urobilinogen (0.1 - 1.0 EU/dl) 0.2 Ur Leukocyte Esterase (NEG) NEG Ur Microscopic EXAM NOT REQUIRED Urine Hemoglobin (NEG) NEG Urine Glucose (N MG/DL) NEG Diffential Diagnosis: Paranoid schizophrenia Rule out delirium caused by other medical condition. Impression: I spoke with the patient's spouse and power of insurance defense attorney, Hilary, who reports that the patient had crawled downstairs and open a door to the outside for at least 3 hours while she was sleeping. She did not indicate whether this was an afternoon nap, as the patient was brought to the ED in the late afternoon of 05/2017. She reports that the patient has had urinary tract infections diagnosed just recently, and in August, May in December 2015. In each case, he experiences a change in mental status. She reports that the patient was started on 2 urinary tract medications while in [facility], but they were not explained to her, and she would like to discuss these with Dr. Andres. She believes that the patient needs a urological consult. And neither reports that olanzapine helps the patient overcome his delusional thinking regarding PO intake. She states that his next haloperidol decanoate 150 mg IM injection is due this coming 11/12/2016, or, 3 weeks from the last administration while the patient was in [facility]. If the patient is at home, she reports that the patient's niece, and nurse, is able to give the injection, and has been doing so when he has been home. The only day she is available to do this is on a Sunday. The patient's last to EKGs have shown what looks to be a tremendous amount of artifact, and prolonged QTC's greater than 600 ms. These results are a departure from his usual EKG results showing acceptable rhythm and QTC less than 475 ms. We would like the medical team to ask cardiology to review these recent EKGs, and comment on the use of QTC prolonging medications such as olanzapine and haloperidol, before they are next administered. Provisional Treatment Plan: 1. The patient has an appointment on 11/13/2016, at [facility] Outpatient psychiatry with Dr. Nayak. Please advise if the patient will be unable to make this. 2. Hilary, spouse and POA is questioning the addition of finasteride and tamsulosin at [facility], and would like to discuss this with Dr. Andres. 3. Contiue mirtazapine 15 mg PO at bedtime for depression. 4. I have restarted lorazepam 1 mg PO 2X/day. This may possibly increase confusion, but it may also help his mutism. Avoid other benzodiazepines as much as possible, as well as medications with strong anti-cholinergic properties. 5. Encourage PO fluids and food. 6. I have started olanzapine 5 mg PO 2X/day. This helps with the patient's delusional thinking regarding PO intake. a. Hold this medication until EKG reviewed by cardiology, as there is significant QTc prolongation. 7. I have changed haloperidol 5 mg PO 2X/day from IM to PO, starting with the evening dose today, 11/09/16. a. Hold this medication until EKG reviewed by cardiology, as there is significant QTc prolongation. 8. I have ordered haloperidol decanoate 150 mg IM every 3 weeks, due Sunday, 08/2016. If the patient will discharge to home, his niece, a nurse, can give this injection. a. Hold this medication until EKG reviewed by cardiology, as there is significant QTc prolongation. 9. Please order a followup EKG. We will continue to follow along with you. Thank-you for asking us to participate in Antonio's care. Emory Cuello APRN, Pager [phone].
[2016-11-09 21:40] VITALS: BP 82/43
[2016-11-09 22:00] VITALS: BP 120/68; BP 142/80
--- NOTE | 2016-11-09 22:22 | Event Note ---
Event Note Event Note: At approximately 9:50 PM on 11/09/2016 rapid response was called on this patient, after the nurse spoke with the oncall internist and noticed that the patient was unresponsive and leaning to the right. Prior to this the patient was stable alert and oriented X2 and had been tolerating by mouth intake well. A few minutes prior (at 9:47 PM) the nurse had recently informed the on-call Banquet Steward that the patients blood pressure had reduced from 146/82 to 82/43 however the patient was asymptomatic, offered no complaints, and was currently in bed eating a peanut butter and jelly sandwich. At the patients bedside, Vitals were stable blood pressure was 148/56, heart rate 51, respiratory rate was 16, percent oxygen was 93% on room air. Blood sugar 133. The patient was non verbal and unable to follow any commands. 9:56 PM a stroke alert was called. On-call team ordered a stat head CT, EKG, Troponin, BEP, CBC. lawn mower operator Resident spoke with Neurologist. 10.33 PM: Spoke with Dr Holt ([facility]), no Acute changes to head CT. No evidence of New Stroke. 10:44 PM: Patient increased responsiveness. 12:15: Patient resting comfortably. 124/54 Patient's and SLOANE Richard has been informed. She is primary care physician Dr. Andres who has been informed.
--- NOTE | 2016-11-09 22:32 | RADIOLOGY REPORT ---
EXAMINATION: XR PORTABLE CHEST CLINICAL INFORMATION: Shortness of breath and hypotension COMPARISON: Chest x-ray was recent prior dated 11/08/2016 TECHNIQUE: Portable AP view of the chest was obtained. FINDINGS: Stable cardiomediastinal silhouette. Mild prominence of the pulmonary markings represent a chronic change. No acute airspace opacity. Bony thorax is intact. IMPRESSION: Chronic changes. No acute pulmonary disease.
--- NOTE | 2016-11-09 22:38 | CT SCAN REPORT ---
EXAMINATION: CT HEAD WITHOUT CONTRAST CLINICAL INFORMATION: Sudden unresponsiveness and weakness. COMPARISON: Noncontrast head CT 11/09/2016 at 10:[address] 04/28/2016. TECHNIQUE: Contiguous axial imaging was performed from the skull base to vertex without intravenous administration of contrast. DLP: 672 mGy-cm FINDINGS: Noncontrast CT imaging of the brain is again notable for focal regions of encephalomalacia within the right parietal temporal lobe, corresponding to remote infarct. There is also a focal region of encephalomalacia within the left frontal lobe, also corresponding to a previously identified stroke. There are no new regions of hypoattenuation within a vascular distribution to suggest acute transcortical ischemia. However, please note that early CT findings of acute stroke may be missed on this examination given the degree of generalized parenchymal volume loss. No acute intracranial hemorrhage, mass or mass effect or abnormal extra-axial fluid collections are identified. There is generalized parenchymal volume loss with proportional prominence of the sulci and ventricles. Areas of hypoattenuation within the periventricular and deep cortical white matter are nonspecific but could reflect sequela of mild chronic microvascular ischemia. The basilar cisterns are patent. No acute calvarial abnormality. The mastoid air cells and visualized portions of the paranasal sinuses are well-aerated. IMPRESSION: 1. No acute intracranial abnormality. Chronic infarcts within the left frontal and right temporoparietal lobes. No new areas of hypoattenuation within a vascular distribution to suggest acute transcortical ischemia. However, please note that MRI of the brain is more sensitive in evaluating for acute ischemia. If clinical concern for acute stroke persists consider correlation with MRI of the brain. 2. Generalized parenchymal volume loss and sequela of mild chronic microvascular ischemia. This critical result was discussed with Dr. Xiomara Palacios at 10:35 PM on 11/09/2016 and it was ascertained that the content and urgency of the report was understood at the time of direct communication.
[2016-11-09 23:13] LABS: ABSOLUTE BASOPHIL COUNT 0 /CUMM (0.0-0.2); ABSOLUTE EOSINOPHIL COUNT 0.1 /CUMM (0.0-0.7); ABSOLUTE GRANULOCYTE CT 3.4 /CUMM (1.4-6.5); ABSOLUTE LYMPH COUNT 1.1 /CUMM (1.2-3.4); ABSOLUTE MONOCYTE COUNT 0.6 /CUMM (0.10-0.60); BASOPHIL % 0.5 % (0.0-2.0); EOSINOPHIL % 2.6 % (0-5); GRANULOCYTE % 64.5 % (42.2-75.2); HEMATOCRIT 29.2 % (42-52); MEAN CORPUSCULAR HGB 29.6 PG (27.0-31.0); MEAN CORPUSCULAR HGB CONC 32.9 G/DL (33.0-37.0); MEAN PLATELET VOLUME 6.8 FL (7.4-10.4); PLATELET COUNT 248 /CUMM (130-400); RBC DISTRIBUTION WIDTH 15.9 % (11.5-14.5); RED BLOOD CELL CT 3.24 /CUMM (4.70-6.10); WHITE BLOOD CELL COUNT 5.3 /CUMM (4.8-10.8)
[2016-11-10 01:00] VITALS: BP 120/68
--- NOTE | 2016-11-10 03:26 | NUR ---
LATE ENTRY AT 2140 BP WAS FOUND TO BE 82/43, HR 63. PT WAS ASYMPTOMATIC AND SITTING UP IN BED EATING. MD GURROLA NOTIFIED. UPON REENTERING THE ROOM PATIENT WAS FOUND UNRESPONSIVE WITH VOMIT COMING OUT OF THE RIGHT SIDE OF HIS MOUTH. UNRESPOSNIVE TO PAINFUL STIMULI. RAPID RESPONSE WAS CALLED. PT'S BP RECHECKED AND FOUND TO BE 146/82 HR 50. STROKE ALERT WAS CALLED AND PT WAS BROUGHT DOWN FOR HEAD CT AND CHEST XR FOR QUESTIONABLE ASPIRATION. UPON RETURNING TO FLOOR TROP AND EKG WERE DONE. SEE RAPID SHEET FOR FURTHER DETAILS. WILL CONTINUE TO CLOSELY MONITOR.
--- NOTE | 2016-11-10 07:24 | PN- Housestaff ---
Subjective Follow-up For: Altered mental status Tele-Events Since Last Visit: Sinus Nae, first-degree heart block, heart rate 49-55 SD interval 0.2 to Subjective: Patient was seen and examined this morning, vital signs are stable, he followed simple commands, he denied any pain. patient had an overnight stroke alert because patient was unresponsive and leaning to the right. , CT scan was negative, no weakness. CT head IMPRESSION: 1. No acute intracranial abnormality. Chronic infarcts within the left frontal and right temporoparietal lobes. No new areas of hypoattenuation within a vascular distribution to suggest acute transcortical ischemia. However, please note that MRI of the brain is more sensitive in evaluating for acute ischemia. If clinical concern for acute stroke persists consider correlation with MRI of the brain. 2. Generalized parenchymal volume loss and sequela of mild chronic microvascular ischemia. Review of Systems Constitutional: Reports: see HPI. Objective Last 24 Hrs of Vital Signs/I&O Vital Signs Date Time Temp Pulse Resp B/P Pulse O2 O2 Flow FiO2 Ox Delivery Rate 11/10 1833 55 150/82 11/10 1622 98.1 55 20 150/82 94 Room Air 11/10 1549 Room Air 11/10 0830 97.1 67 20 150/80 93 Room Air 11/10 0100 97.6 65 20 120/68 92 Room Air 11/10 0000 93 Room Air 11/09 2200 97.8 51 22 142/80 92 Room Air 11/09 2140 97.6 63 20 82/43 93 Room Air Intake & Output 11/10 1600 11/10 0800 11/10 0000 Intake Total 323 050 1263 Output Total 500 340 100 Balance 851 961 7234 Intake, IV 600 600 875 Intake, Oral 50 0 300 Number 2 Bowel Movements Output, Urine 500 340 100 Patient 102.172 kg Weight Physical Exam General Appearance: Alert, Cooperative, No Acute Distress Skin: No Rashes HEENT: Atraumatic, PERRLA, EOMI, Mucous Membr. moist/pink Neck: Supple Cardiovascular: Regular Rate, Normal S1, Normal S2, No Murmurs Lungs: Clear to Auscultation, Normal Air Movement Abdomen: Normal Bowel Sounds, Soft, No Tenderness Neurological: Normal Speech, Strength at 5/5 X4 Ext, Normal Tone Extremities: No Clubbing, No Cyanosis, Normal Pulses, bilateral trace pedal edema bilateral big toe small healed wound, no skin changes, pulse normal Assessment/Plan Assessment: #Hypothermia -Resolved -Vital signs are stable #Delirium History of schizophrenia. Delirium most Likely caused by decreased in medication compliance as well as superimposed hypothermia. Initial urinalysis showed no evidence of UTI. All culture Negative so far. * Follow psychiatric recommendation * Patient was cleared from cardiology for psych medication * With start his psych medication olanzapine, haloperidol by mouth and IM injection every 3 weeks * Continue lorazepam and mirtazapine #BPH * Continue tamsulosin. -Patient's stated that he has frequent history of UTI 3 episodes since December 2015 and was like to date urology consultation, with advice the patient to get urology consultation as an outpatient. 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 Will get the records on Sunday Right soft mechanical and nectar ALPS Heparin SC Full code Consultation psychotic and cardiology Problem List: 1. Altered mental status Pain Ratin Pain Location: n/a Pain Goal: Pain 4 or less Pain Plan: Mild pain pathway Tomorrow's Labs & Rationales: CBC, CMP
--- NOTE | 2016-11-10 07:55 | NUR ---
PHYSICAL THERAPY. PT CONSULT RECEIVED AND CHART REVIEWED. Pt IS S/P RAPID RESPONSE THIS AM FOR STROKE ALERT, CURRENTLY STABLE ON TELE. Pt ADAMENTLY REFUSING PT EVALUATION OR REPOSITIONING IN BED. PT WILL F/U APPROPRIATE.
[2016-11-10 08:30] VITALS: BP 150/80
--- NOTE | 2016-11-10 10:32 | PN- Pulmonary ---
Subjective HPI/Critical Care Issues: More awake today more awake Afebrile Blood work from this morning reviewed troponin unremarkable Other blood work is pending Cultures so far negative Maintaining his temperature Objective Current Medications: Current Medications Sig/Vidal Start time Last Medication Dose Route Stop Time Status Admin Acetaminophen 650 MG Q6P PRN 11/08 2044 AC PO Atenolol 50 MG BID 11/08 2200 AC 11/09 PO 1020 Benzocaine/Menthol 1 PHOEBE Q2P PRN 11/09 213 AC PO Benzonatate 100 MG TID 11/09 2200 AC PO Bisacodyl 10 MG Q12P PRN 11/09 1000 AC 11/09 [place] 1047 Dextrose/Sodium 1,000 ML Q20H 11/08 214 AC 11/09 Chloride IV 2131 Enoxaparin Sodium 40 MG DAILY 11/08 2042 AC 11/09 SC 0119 Finasteride 5 MG DAILY 11/09 1000 AC 11/09 PO 1020 Haloperidol 150 MG Q 3 WEEKS 11/12 1000 CAN IM Haloperidol 5 MG BID 11/09 220 CAN PO Haloperidol 5 MG BID 11/09 1000 DC 11/09 IM 0912 Ibuprofen 600 MG Q6P PRN 11/08 2044 AC PO Lorazepam 1 MG BID 11/09 220 CAN IV Lorazepam 1 MG BID 11/09 2199 AC PO Magnesium Hydroxide 30 ML AT BEDTIME PRN 11/08 2144 AC PO Mirtazapine 15 MG QPM 11/08 220 AC PO Nitroglycerin 0.4 MG DAILY 11/09 1000 AC 11/09 TOP 0911 Olanzapine 5 MG BID 11/09 2200 CAN PO Oxycodone HCl 10 MG Q6P PRN 11/08 2044 AC PO Polyethylene Glycol 17 GM DAILY 11/09 1000 AC PO Tamsulosin HCl 0.4 MG DAILY 11/09 1000 AC 11/09 PO 1020 Vital Signs & I&O Last 24 Hrs of Vitals and I&O: Vital Signs Date Time Temp Pulse Resp B/P Pulse O2 O2 Flow FiO2 Ox Delivery Rate 11/10 0730 97.1 67 20 150/80 93 Room Air 11/10 0100 97.6 65 20 120/68 92 Room Air 11/10 0000 93 Room Air 11/09 2200 97.8 51 22 142/80 92 Room Air 11/09 2140 97.6 63 20 82/43 93 Room Air 11/09 1600 Room Air 11/09 1544 97.6 54 18 146/82 92 Room Air Intake & Output 11/10 1600 11/10 0800 11/10 0000 Intake Total 600 1175 Output Total 340 100 Balance 260 1075 Intake, IV 600 875 Intake, Oral 0 300 Output, Urine 340 100 Laboratory Tests 11/09 11/09 2236 2236 Chemistry Sodium (137 - 145 mmol/L) 140 Potassium (3.5 - 5.1 mmol/L) 4.0 Chloride (98 - 107 mmol/L) 106 Carbon Dioxide (22 - 30 mmol/L) 26 Anion Gap (5 - 16) 8 BUN (9 - 20 mg/dL) 10 Creatinine (0.7 - 1.2 mg/dL) 1.0 Estimated GFR (>60 ml/min) > 60 BUN/Creatinine Ratio (7 - 25 %) 10.0 Phosphorus (2.5 - 4.5 mg/dL) 3.5 Magnesium (1.6 - 2.3 mg/dL) 1.8 Troponin I (<0.11 ng/ml) 0.02 Hematology CBC w Diff NO MAN DIFF REQ WBC (4.8 - 10.8 /CUMM) 5.3 RBC (4.70 - 6.10 /CUMM) 3.24 L Hgb (14.0 - 18.0 G/DL) 9.6 L Hct (42 - 52 %) 29.2 L MCV (80.0 - 94.0 FL) 90.0 MCH (27.0 - 31.0 PG) 29.6 RDW (11.5 - 14.5 %) 15.9 H Plt Count (130 - 400 /CUMM) 248 MPV (7.4 - 10.4 FL) 6.8 L Gran % (42.2 - 75.2 %) 64.5 Lymphocytes % (20.5 - 51.1 %) 21.6 Monocytes % (1.7 - 9.3 %) 10.8 H Eosinophils % (0 - 5 %) 2.6 Basophils % (0.0 - 2.0 %) 0.5 Absolute Granulocytes (1.4 - 6.5 /CUMM) 3.4 Absolute Lymphocytes (1.2 - 3.4 /CUMM) 1.1 L Absolute Monocytes (0.10 - 0.60 /CUMM) 0.6 Absolute Eosinophils (0.0 - 0.7 /CUMM) 0.1 Absolute Basophils (0.0 - 0.2 /CUMM) 0 PUBS MCHC (33.0 - 37.0 G/DL) 32.9 L 11/09 11/08 0435 1950 Chemistry Sodium (137 - 145 mmol/L) 139 Potassium (3.5 - 5.1 mmol/L) 4.0 Chloride (98 - 107 mmol/L) 104 Carbon Dioxide (22 - 30 mmol/L) 30 Anion Gap (5 - 16) 6 BUN (9 - 20 mg/dL) 13 Creatinine (0.7 - 1.2 mg/dL) 0.8 Estimated GFR (>60 ml/min) > 60 Glucose (65 - 99 mg/dL) 69 Lactic Acid Cancelled Calcium (8.4 - 10.2 mg/dL) 8.5 Phosphorus (2.5 - 4.5 mg/dL) 4.1 Magnesium (1.6 - 2.3 mg/dL) 1.9 Total Bilirubin (0.2 - 1.3 mg/dL) 0.5 AST (17 - 59 U/L) 41 ALT (21 - 72 U/L) 50 Albumin (3.5 - 5.0 g/dL) 2.8 L Prolactin (3.7 - 17.9 ng/mL) 42.5 H Hematology CBC w Diff NO MAN DIFF REQ WBC (4.8 - 10.8 /CUMM) 5.5 RBC (4.70 - 6.10 /CUMM) 3.38 L Hgb (14.0 - 18.0 G/DL) 10.0 L Hct (42 - 52 %) 30.3 L MCV (80.0 - 94.0 FL) 89.8 MCH (27.0 - 31.0 PG) 29.6 RDW (11.5 - 14.5 %) 15.3 H Plt Count (130 - 400 /CUMM) 272 MPV (7.4 - 10.4 FL) 6.8 L Gran % (42.2 - 75.2 %) 68.9 Lymphocytes % (20.5 - 51.1 %) 18.5 L Monocytes % (1.7 - 9.3 %) 10.0 H Eosinophils % (0 - 5 %) 2.3 Basophils % (0.0 - 2.0 %) 0.3 Absolute Granulocytes (1.4 - 6.5 /CUMM) 3.8 Absolute Lymphocytes (1.2 - 3.4 /CUMM) 1.0 L Absolute Monocytes (0.10 - 0.60 /CUMM) 0.5 Absolute Eosinophils (0.0 - 0.7 /CUMM) 0.1 Absolute Basophils (0.0 - 0.2 /CUMM) 0 PUBS MCHC (33.0 - 37.0 G/DL) 33.0 08 11/08 1836 1720 Chemistry Sodium (137 - 145 mmol/L) 138 Potassium (3.5 - 5.1 mmol/L) 4.3 Chloride (98 - 107 mmol/L) 100 Carbon Dioxide (22 - 30 mmol/L) 31 H Anion Gap (5 - 16) 7 BUN (9 - 20 mg/dL) 14 Creatinine (0.7 - 1.2 mg/dL) 0.8 Estimated GFR (>60 ml/min) > 60 BUN/Creatinine Ratio (7 - 25 %) 17.5 Glucose (65 - 99 mg/dL) 76 Lactic Acid (0.7 - 2.1 mmol/L) 0.8 Calcium (8.4 - 10.2 mg/dL) 9.1 Magnesium (1.6 - 2.3 mg/dL) 2.0 Total Bilirubin (0.2 - 1.3 mg/dL) 0.5 AST (17 - 59 U/L) 42 ALT (21 - 72 U/L) 49 Alkaline Phosphatase (< 127 U/L) 92 Creatine Kinase (55 - 170 U/L) 82 Troponin I (<0.11 ng/ml) 0.02 Total Protein (6.3 - 8.2 g/dL) 6.5 Albumin (3.5 - 5.0 g/dL) 3.1 L Globulin (1.9 - 4.2 gm/dL) 3.4 Albumin/Globulin Ratio (1.1 - 2.2 %) 0.9 L TSH (0.270 - 4.200 uIU/mL) 1.080 Hematology CBC w Diff MAN DIFF ORDERED WBC (4.8 - 10.8 /CUMM) 6.9 RBC (4.70 - 6.10 /CUMM) 3.53 L Hgb (14.0 - 18.0 G/DL) 10.5 L Hct (42 - 52 %) 32.1 L MCV (80.0 - 94.0 FL) 90.4 MCH (27.0 - 31.0 PG) 29.5 RDW (11.5 - 14.5 %) 14.9 H Plt Count (130 - 400 /CUMM) 269 MPV (7.4 - 10.4 FL) 7.1 L Gran % (42.2 - 75.2 %) 71.7 Lymphocytes % (20.5 - 51.1 %) 19.6 L Monocytes % (1.7 - 9.3 %) 7.4 Eosinophils % (0 - 5 %) 1.1 Basophils % (0.0 - 2.0 %) 0.2 Absolute Granulocytes (1.4 - 6.5 /CUMM) 4.7 Segmented Neutrophils (42.2 - 75.2 %) 74 Absolute Lymphocytes (1.2 - 3.4 /CUMM) 1.3 Lymphocytes (20.5 - 51.1 %) 16 L Monocytes (1.7 - 9.3 %) 10 H Absolute Monocytes (0.10 - 0.60 /CUMM) 0.5 Absolute Eosinophils (0.0 - 0.7 /CUMM) 0.1 Absolute Basophils (0.0 - 0.2 /CUMM) 0 Platelet Estimate (ADEQUATE) ADEQUATE Polychromasia 1+ Hypochromic-Microcytic 2+ Anisocytosis 1+ Macrocytic Cells 1+ PUBS MCHC (33.0 - 37.0 G/DL) 32.7 L Urines Urine Color (YEL,AMB,STR) YEL Urine Clarity (CLEAR) CLEAR Urine pH (5.0 - 8.0) 6.0 Ur Specific [place] (1.001 - 1.035) 1.020 Urine Protein (NEG,<30 MG/DL) NEG Urine Ketones (NEG) TRACE H Urine Nitrite (NEG) NEG Urine Bilirubin (NEG) NEG Urine Urobilinogen (0.1 - 1.0 EU/dl) 0.2 Ur Leukocyte Esterase (NEG) NEG Ur Microscopic EXAM NOT REQUIRED Urine Hemoglobin (NEG) NEG Urine Glucose (N MG/DL) NEG Microbiology Date/Time Procedure - Status Source Growth 11/09 003 Surveillance Culture - RECD GI 11/09 0020 Surveillance Culture - RECD UPPER RESP 11/08 1835 Blood Culture - RES BLOOD 11/08 1730 Blood Culture - RES BLOOD 02/08 1720 Urine Culture - RES URINE ROUT More awake today more awake Afebrile Blood work from this morning reviewed troponin unremarkable Other blood work is pending Cultures so far negative Maintaining his temperature Impression/Plan Impression/Plan Impression/Plan: Physical Exam General Appearance Alert, non verbal HEENT PERRLA, Mucous Membranes Dry Neck Supple Lymphatic Cervical nl Cardiovascular Normal S1, Normal S2, ?Irregular Rate and Rhythm Lungs Expiratory Rhonchi Limited Exam due to clinical condition Abdomen Normal Bowel Sounds, Soft, No Tenderness Neurological Cranial Nerves 3-12 NL, Strength UE 3/5 Extremities No Clubbing, No Cyanosis, Normal Pulses, No Tenderness/Swelling, ? Babinski rtLE Slightly larger than left SIGNIFICANT DATA Previous echocardiogram in 2012 showed the no significant shunt and he had the 50% ejection fraction with diastolic heart CT scan of the abdomen and pelvis done in the emergency room showed no acute findings he had significant stool consistent with constipation with diverticulosis Head CT reviewed showed stable exam with chronic cortical infarcts. Chest x-ray showed no acute abnormality Blood work reviewed complete metabolic panel unremarkable. White count 5.9 hemoglobin 10 which is chronically low No significant left shift INR was normal TSH was normal Repeat CT no significant Ultrasound lower extremity negative IMPRESSION This is a 71-year-old gentleman with history of mood disturbances with recurrent UTI, previous history of stroke, atrial fibrillation, BPH, came in to the hospital with * Resolved Significant hyperthermia which seems to be improving, due to environmental exposure * Decreased mental status with delirium upon admission, seems to be better * No clinical evidence suggestive of sepsis * Significant right lower extremity increased girth. Ultrasound negative for DVT. * Atrial fibrillation paroxysmal patient was not on anticoagulation * BPH * Previous history of significant psychotropic medications. Psychiatry on board * Previous history of strokes with no acute stroke in the head CT * Previous recurrent UTI * Significant constipation noted in the CAT scan * RECOMMENDATION * Stable improving we will sign off * Psychiatry evaluation * Hold further benzodiazepines * Repeat head CT later this evening * Consider anticoagulation in the future as he has had recurrent stroke * Continue Flomax * Watch hemoglobin and hematocrit * Aggressively treat constipation.
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
--- NOTE | 2016-11-10 14:57 | Cons- Cardiology ---
General Information and HPI Consulting Request Date of Consult: 11/10/16 Requested By: SHILPA SCHAEFFER MD Reason for Consult: Evaluation of electrocardiogram and cardiac status on a patient on multiple psych medications. Source of Information: patient, old records Exam Limitations: confusion, poor historian History of Present Illness: Candido Tirado is a 71-year-old male, well-known to me, who originally presented in 2004 with malignant hypertension, and also a bum-IX-hvvejarju myocardial infarction at the same time. He also had evidence of previous inferior myocardial infarction on his electrocardiogram. His troponin originally was 0.96 and trended downwards. We did eventually do a stress test on him as an outpatient, which was suggestive of mild ischemia in the anterolateral wall and septum. However, mainly because of his mental status with schizophrenia and long stays in the inpatient psych unit we never sent him for an invasive evaluation. Also he became pretty much asymptomatic from a cardiac standpoint. He was hospitalized twice in 2011 when he was here for dehydration and acute renal failure. This all resolved. He also had frequent falls, which were probably secondary to dehydration. He was eventually sent to short-term rehab, but subsequently was sent home. He was evaluated for cognitive decline at that time. He was again hospitalized in August 2016 with altered mental status and urinary tract infection, but there were no cardiac issues on that hospitalization. The patient was again brought to the hospital for altered mental status. There is a possible urinary tract infection for which he was treated as an outpatient as well. There are also problems with medication compliance. Since he has been here he has had one rapid response for unresponsiveness. A stroke alert was called but the workup was negative. He is currently nothing by mouth but just had a swallow evaluation which he apparently passed. The patient is not complaining of any chest pain, shortness of breath, palpitations or other cardiac complaints. His states he has not had any cardiac issues at home since I saw him last, which was just a few months ago. Allergies/Medications Allergies: Coded Allergies: NO KNOWN ALLERGIES (04/28/16) Home Med List: Atenolol 50 MG TABLET 1 TAB PO BID DIRECTED (Reported) Finasteride 5 MG TABLET 1 TAB PO DAILY DIRECTED (Reported) Haloperidol 5 MG TABLET 1 TAB PO BID DIRECTED (Reported) Haloperidol Decanoate 50 MG/ML VIAL 1.5 ML INJ EVERY 3 WEEKS DIRECTED ( Reported) Lorazepam 1 MG TABLET 1 TAB PO BID DIRECTED (Reported) Mirtazapine (Remeron) 15 MG TABLET 1 TAB PO QPM DIRECTED (Reported) Nitroglycerin (Nitroglycerin Patch) 0.4 MG/HOUR PATCH.TD24 1 PATCH TOP DAILY DIRECTED (Reported) Olanzapine (Zyprexa) 5 MG TABLET 1 TAB PO BID DIRECTED (Reported) Tamsulosin HCl 0.4 MG CAP.ER.24H 1 CAP PO DAILY DIRECTED (Reported) Current Medications: Current Medications Sig/Vidal Start time Last Medication Dose Route Stop Time Status Admin Acetaminophen 650 MG Q6P PRN 11/08 2044 AC PO Atenolol 50 MG BID 11/08 2199 AC 11/09 PO 1020 Benzocaine/Menthol 1 PHOEBE Q2P PRN 11/09 2129 AC PO Benzonatate 100 MG TID 11/09 2199 AC PO Bisacodyl 5 MG DAILY PRN 11/10 1115 AC PO Bisacodyl 10 MG Q12P PRN 11/09 1000 AC 11/09 CO 1047 Dextrose/Sodium 1,000 ML Q20H 11/08 214 AC 11/09 Chloride IV 2131 Enoxaparin Sodium 40 MG DAILY 11/08 2042 AC 11/09 SC 0119 Finasteride 5 MG DAILY 11/09 1000 AC 11/09 PO 1020 Haloperidol 150 MG Q 3 WEEKS 11/12 1000 CAN IM Haloperidol 5 MG BID 11/09 2199 CAN PO Haloperidol 5 MG BID 11/09 1000 DC 11/09 IM 0912 Ibuprofen 600 MG Q6P PRN 11/08 2044 AC PO Lorazepam 1 MG BID 11/09 2199 CAN IV Lorazepam 1 MG BID 11/09 2199 AC PO Magnesium Hydroxide 30 ML AT BEDTIME PRN 11/08 2145 AC PO Mirtazapine 15 MG QPM 11/08 220 AC PO Nitroglycerin 0.4 MG DAILY 11/09 1000 AC 11/09 TOP 0911 Olanzapine 5 MG BID 11/09 2199 CAN PO Oxycodone HCl 10 MG Q6P PRN 11/08 204 AC PO Polyethylene Glycol 17 GM DAILY 11/09 1000 AC PO Tamsulosin HCl 0.4 MG DAILY 11/09 1000 AC 11/09 PO 1020 Review of Systems Review of Systems: Review of systems is unable to be obtained Past History Travel History Traveled to [place] past 21 day No Medical History Blood Transfusion Hx: No Neurological: CVA, TIA, L EYE BLINDNESS EENT: NONE Cardiovascular: AFIB, CAD, hypertension, hyperlipidemia, PVD Respiratory: NONE Gastrointestinal: NONE Hepatic: NONE Renal: NONE Musculoskeletal: NONE Psychiatric: bipolar disease, schizophrenia Endocrine: NONE Blood Disorders: NONE Cancer(s): NONE Surgical History Surgical History: LEFT CEA CATARACTS Psychosocial History Where Do You Live? Home Who Do You Live With? self Services at Home: None Primary Language: German Smoking Status: Former Smoker ETOH Use: 6 Illicit Drug Use: UTD Functional Ability ADLs Needs Assist: dressing, eating, toileting, bathing. Ambulation: walker IADLs Needs Assist: shopping, housework, finances, food prep, telephone, transportation, medication admin. Exam & Diagnostic Data Vital Signs and I&O Vital Signs Date Time Temp Pulse Resp B/P Pulse O2 O2 Flow FiO2 Ox Delivery Rate 11/10 0830 97.1 67 20 150/80 93 Room Air 11/10 0100 97.6 65 20 120/68 92 Room Air 11/10 0000 93 Room Air 11/09 2200 97.8 51 22 142/80 92 Room Air 11/09 2140 97.6 63 20 82/43 93 Room Air 11/09 1600 Room Air 11/09 1544 97.6 54 18 146/82 92 Room Air Intake & Output 11/10 1600 11/10 0800 11/10 0000 11/09 1600 11/09 0800 11/09 0000 Intake Total 476 311 9104 3580 990 2604 Output Total 500 340 100 200 125 500 Balance 261 708 0517 875 222 750 Intake, IV 600 594 818 2918 347 1250 Intake, Oral 50 0 300 0 Number 2 1 Bowel Movements Output, Urine 500 340 100 200 125 500 Patient 225 lb 225 lb 224 lb Weight Physical Exam: He is an elderly male in bed. He has slurred speech. He is answering questions but not appropriately. HEENT exam is normal Chest is clear Heart reveals very soft heart sounds, regular rhythm, no murmurs Abdomen is benign There is no peripheral edema Labs/Ramesh Results: Laboratory Tests 11/09 11/09 2236 2236 Chemistry Sodium (137 - 145 mmol/L) 140 Potassium (3.5 - 5.1 mmol/L) 4.0 Chloride (98 - 107 mmol/L) 106 Carbon Dioxide (22 - 30 mmol/L) 26 Anion Gap (5 - 16) 8 BUN (9 - 20 mg/dL) 10 Creatinine (0.7 - 1.2 mg/dL) 1.0 Estimated GFR (>60 ml/min) > 60 BUN/Creatinine Ratio (7 - 25 %) 10.0 Phosphorus (2.5 - 4.5 mg/dL) 3.5 Magnesium (1.6 - 2.3 mg/dL) 1.8 Troponin I (<0.11 ng/ml) 0.02 Hematology CBC w Diff NO MAN DIFF REQ WBC (4.8 - 10.8 /CUMM) 5.3 RBC (4.70 - 6.10 /CUMM) 3.24 L Hgb (14.0 - 18.0 G/DL) 9.6 L Hct (42 - 52 %) 29.2 L MCV (80.0 - 94.0 FL) 90.0 MCH (27.0 - 31.0 PG) 29.6 RDW (11.5 - 14.5 %) 15.9 H Plt Count (130 - 400 /CUMM) 248 MPV (7.4 - 10.4 FL) 6.8 L Gran % (42.2 - 75.2 %) 64.5 Lymphocytes % (20.5 - 51.1 %) 21.6 Monocytes % (1.7 - 9.3 %) 10.8 H Eosinophils % (0 - 5 %) 2.6 Basophils % (0.0 - 2.0 %) 0.5 Absolute Granulocytes (1.4 - 6.5 /CUMM) 3.4 Absolute Lymphocytes (1.2 - 3.4 /CUMM) 1.1 L Absolute Monocytes (0.10 - 0.60 /CUMM) 0.6 Absolute Eosinophils (0.0 - 0.7 /CUMM) 0.1 Absolute Basophils (0.0 - 0.2 /CUMM) 0 PUBS MCHC (33.0 - 37.0 G/DL) 32.9 L 11/09 11/08 0435 1950 Chemistry Sodium (137 - 145 mmol/L) 139 Potassium (3.5 - 5.1 mmol/L) 4.0 Chloride (98 - 107 mmol/L) 104 Carbon Dioxide (22 - 30 mmol/L) 30 Anion Gap (5 - 16) 6 BUN (9 - 20 mg/dL) 13 Creatinine (0.7 - 1.2 mg/dL) 0.8 Estimated GFR (>60 ml/min) > 60 Glucose (65 - 99 mg/dL) 69 Lactic Acid Cancelled Calcium (8.4 - 10.2 mg/dL) 8.5 Phosphorus (2.5 - 4.5 mg/dL) 4.1 Magnesium (1.6 - 2.3 mg/dL) 1.9 Total Bilirubin (0.2 - 1.3 mg/dL) 0.5 AST (17 - 59 U/L) 41 ALT (21 - 72 U/L) 50 Albumin (3.5 - 5.0 g/dL) 2.8 L Prolactin (3.7 - 17.9 ng/mL) 42.5 H Hematology CBC w Diff NO MAN DIFF REQ WBC (4.8 - 10.8 /CUMM) 5.5 RBC (4.70 - 6.10 /CUMM) 3.38 L Hgb (14.0 - 18.0 G/DL) 10.0 L Hct (42 - 52 %) 30.3 L MCV (80.0 - 94.0 FL) 89.8 MCH (27.0 - 31.0 PG) 29.6 RDW (11.5 - 14.5 %) 15.3 H Plt Count (130 - 400 /CUMM) 272 MPV (7.4 - 10.4 FL) 6.8 L Gran % (42.2 - 75.2 %) 68.9 Lymphocytes % (20.5 - 51.1 %) 18.5 L Monocytes % (1.7 - 9.3 %) 10.0 H Eosinophils % (0 - 5 %) 2.3 Basophils % (0.0 - 2.0 %) 0.3 Absolute Granulocytes (1.4 - 6.5 /CUMM) 3.8 Absolute Lymphocytes (1.2 - 3.4 /CUMM) 1.0 L Absolute Monocytes (0.10 - 0.60 /CUMM) 0.5 Absolute Eosinophils (0.0 - 0.7 /CUMM) 0.1 Absolute Basophils (0.0 - 0.2 /CUMM) 0 PUBS MCHC (33.0 - 37.0 G/DL) 33.0 11/08 11/08 1836 1720 Chemistry Sodium (137 - 145 mmol/L) 138 Potassium (3.5 - 5.1 mmol/L) 4.3 Chloride (98 - 107 mmol/L) 100 Carbon Dioxide (22 - 30 mmol/L) 31 H Anion Gap (5 - 16) 7 BUN (9 - 20 mg/dL) 14 Creatinine (0.7 - 1.2 mg/dL) 0.8 Estimated GFR (>60 ml/min) > 60 BUN/Creatinine Ratio (7 - 25 %) 17.5 Glucose (65 - 99 mg/dL) 76 Lactic Acid (0.7 - 2.1 mmol/L) 0.8 Calcium (8.4 - 10.2 mg/dL) 9.1 Magnesium (1.6 - 2.3 mg/dL) 2.0 Total Bilirubin (0.2 - 1.3 mg/dL) 0.5 AST (17 - 59 U/L) 42 ALT (21 - 72 U/L) 49 Alkaline Phosphatase (< 127 U/L) 92 Creatine Kinase (55 - 170 U/L) 82 Troponin I (<0.11 ng/ml) 0.02 Total Protein (6.3 - 8.2 g/dL) 6.5 Albumin (3.5 - 5.0 g/dL) 3.1 L Globulin (1.9 - 4.2 gm/dL) 3.4 Albumin/Globulin Ratio (1.1 - 2.2 %) 0.9 L TSH (0.270 - 4.200 uIU/mL) 1.080 Hematology CBC w Diff MAN DIFF ORDERED WBC (4.8 - 10.8 /CUMM) 6.9 RBC (4.70 - 6.10 /CUMM) 3.53 L Hgb (14.0 - 18.0 G/DL) 10.5 L Hct (42 - 52 %) 32.1 L MCV (80.0 - 94.0 FL) 90.4 MCH (27.0 - 31.0 PG) 29.5 RDW (11.5 - 14.5 %) 14.9 H Plt Count (130 - 400 /CUMM) 269 MPV (7.4 - 10.4 FL) 7.1 L Gran % (42.2 - 75.2 %) 71.7 Lymphocytes % (20.5 - 51.1 %) 19.6 L Monocytes % (1.7 - 9.3 %) 7.4 Eosinophils % (0 - 5 %) 1.1 Basophils % (0.0 - 2.0 %) 0.2 Absolute Granulocytes (1.4 - 6.5 /CUMM) 4.7 Segmented Neutrophils (42.2 - 75.2 %) 74 Absolute Lymphocytes (1.2 - 3.4 /CUMM) 1.3 Lymphocytes (20.5 - 51.1 %) 16 L Monocytes (1.7 - 9.3 %) 10 H Absolute Monocytes (0.10 - 0.60 /CUMM) 0.5 Absolute Eosinophils (0.0 - 0.7 /CUMM) 0.1 Absolute Basophils (0.0 - 0.2 /CUMM) 0 Platelet Estimate (ADEQUATE) ADEQUATE Polychromasia 1+ Hypochromic-Microcytic 2+ Anisocytosis 1+ Macrocytic Cells 1+ PUBS MCHC (33.0 - 37.0 G/DL) 32.7 L Urines Urine Color (YEL,AMB,STR) YEL Urine Clarity (CLEAR) CLEAR Urine pH (5.0 - 8.0) 6.0 Ur Specific [place] (1.001 - 1.035) 1.020 Urine Protein (NEG,<30 MG/DL) NEG Urine Ketones (NEG) TRACE H Urine Nitrite (NEG) NEG Urine Bilirubin (NEG) NEG Urine Urobilinogen (0.1 - 1.0 EU/dl) 0.2 Ur Leukocyte Esterase (NEG) NEG Ur Microscopic EXAM NOT REQUIRED Urine Hemoglobin (NEG) NEG Urine Glucose (N MG/DL) NEG Diagnostic Data EKG Results EKG on admission showed sinus rhythm at a rate of about 50. There is right bundle branch block and old inferior myocardial infarction. There is a lot of artifact on this tracing. QTC is calculated as long but this is inaccurate due to the artifact on the tracing and the incorrect heart rate. A second EKG was similar. CXR Results PATIENT: CANDIDO TIRADO PRESENT AGE: 71 PATIENT ACCOUNT NO: [id number] : 47 LOCATION: [facility] ORDERING PHYSICIAN: RAMONA JOHNSTON MD SERVICE DATE: 11/09/16 EXAM TYPE: RAD - XRY-PORTABLE CHEST XRAY EXAMINATION: XR PORTABLE CHEST CLINICAL INFORMATION: Shortness of breath and hypotension COMPARISON: Chest x-ray was recent prior dated 11/08/2016 TECHNIQUE: Portable AP view of the chest was obtained. FINDINGS: Stable cardiomediastinal silhouette. Mild prominence of the pulmonary markings represent a chronic change. No acute airspace opacity. Bony thorax is intact. IMPRESSION: Chronic changes. No acute pulmonary disease. DICTATED BY: ROMEO KC MD DATE/TIME DICTATED:11/09/162228 ARCHITECTURAL DRAFTSMAN:TASHI DATE/TIME TRANSCRIBED:11/09/162228 CONFIDENTIAL, DO NOT COPY WITHOUT APPROPRIATE AUTHORIZATION. <Electronically signed in Other Vendor System> SIGNED BY: ROMEO KC MD 11/09/162231 Assessment/Plan Assessment/Plan Candido is a 71-year-old man with underlying heart disease. He has had a previous inferior myocardial infarction. He's never been revascularized or had cardiac catheterization but he has been stable from a cardiac standpoint for the last few years. He has not had clinical congestive heart failure, ischemia etc. Candido's main problem is psychiatric and behavioral. He was admitted for change in mental status. This is probably multifactorial including medication noncompliance, previous urinary tract infection, etc. There does not appear to be any active cardiac issues. His EKG is abnormal but unchanged from previous. There are no worrisome changes in ST segments, QT interval etc. I recommend only to repeat his electrocardiogram to get a technically good study with appropriate measurements. I have ordered this. There are no cardiac contraindications to resuming his psychiatric medications at this time. Telemetry can be discontinued as there have been no arrhythmias since he has been here. Consult Acknowledgment - Thank you for your consult request.
--- NOTE | 2016-11-10 15:02 | RADIOLOGY REPORT ---
EXAMINATION: XR MODIFIED BARIUM SWALLOW CLINICAL INFORMATION: Failed swallowing evaluation. COMPARISON: None. TECHNIQUE: Fluoroscopic assistance was provided during a modified barium swallow performed in coordination with the speech pathology service. FLUOROSCOPY TIME: 3 minutes, 11 seconds FINDINGS: The modified barium swallow examination was performed in cooperation with the speech pathologist using dynamic fluoroscopic imaging in a lateral projection. The patient's swallowing function was observed during administration of apple sauce puree, honey, nectar, thin barium contrast, and barium coated bread and cracker. Prior to triggering of swallows with honey, nectar and thin barium contrast, there was spillage of contrast material from the oral cavity into the vallecula and pyriform sinuses. However, no episodes of tracheal aspiration or penetration. No significant retention of material after swallowing the barium coated bread and cracker. IMPRESSION: Spillage of contrast coated material into the vallecula and pyriform sinuses occurred prior to triggering of multiple swallows; however, there were no episodes of tracheal aspiration or penetration. Please refer to the speech pathology report regarding their assessment and treatment recommendations.
[2016-11-10 16:22] VITALS: BP 150/82
--- NOTE | 2016-11-10 18:53 | PN- Psychiatry ---
Assessment/Plan Impression: Antonio had been nothing by mouth following a rapid response yesterday for difficulty while eating a sandwich. He has since passed a swallow evaluation, and he is now able to take PO as of this afternoon, which I confirmed with Dr. Russell. Also, the patient's antipsychotics, for paranoid schizophrenia, had been held due to concern about EKGs safely, specifically QT prolongation. Duc Rowland MD, the patient's public health assistant, has reviewed them and feels that these medications can be restarted. The balance of the patient's psychotropic medications can be restarted at this time. * The patient is due for haloperidol decanoate (depot) 150 mg IM injection on Sunday11/12/2016. * I will discontinue haloperidol 5 mg PO 2 times per day after tonjames's dose, and restart his home dosing of haloperidol 10 mg by mouth at bedtime tomorrow, 11/11/2016. * Olanzapine 5 mg PO 2 times per day may continue. * I will restart lorazepam 1 mg PO 2 times per day, as this helps with the patient's catatonia. * Please continue Remeron 15 mg by mouth at bedtime. Suggestion: 1. Psychotropic medications continued, as above. 2. Please advise [facility] outpatient psychiatry if the patient will be unable to make his appointment with Dr. Zaira Nayak on 11/13/2016 - [phone]. She is aware that the patient is in the hospital, and has been following. 3. Please encourage by mouth fluids and food. Subjective Subjective: Antonio is alert, more talkative than yesterday, responding to more questions. His spouse, Hilary, is present and supportive. Antonio is oriented to person, place, but not day. He denies any auditory or visual hallucinations, but during his discussion about eating and drinking, the patient shakes his head, reporting that he doesn't want to do this, until prompted by his . The patient is in no distress at this time. Objective Last 24 Hrs of Vital Signs/I&O Vital Signs Date Time Temp Pulse Resp B/P Pulse O2 O2 Flow FiO2 Ox Delivery Rate 11/10 1833 55 150/82 11/10 1622 98.1 55 20 150/82 94 Room Air 11/10 1549 Room Air 11/10 0830 97.1 67 20 150/80 93 Room Air 11/10 0100 97.6 65 20 120/68 92 Room Air 11/10 0000 93 Room Air 11/09 2200 97.8 51 22 142/80 92 Room Air 11/09 2140 97.6 63 20 82/43 93 Room Air Intake & Output 11/10 1600 11/10 0800 11/10 0000 Intake Total 570 510 5872 Output Total 500 340 100 Balance 385 654 6037 Intake, IV 600 600 875 Intake, Oral 50 0 300 Number 2 Bowel Movements Output, Urine 500 340 100 Patient 225 lb Weight
[2016-11-10 20:32] LABS: ABSOLUTE BASOPHIL COUNT 0.1 /CUMM (0.0-0.2); ABSOLUTE EOSINOPHIL COUNT 0.1 /CUMM (0.0-0.7); ABSOLUTE GRANULOCYTE CT 4.2 /CUMM (1.4-6.5); ABSOLUTE LYMPH COUNT 1.5 /CUMM (1.2-3.4); ABSOLUTE MONOCYTE COUNT 0.6 /CUMM (0.10-0.60); BASOPHIL % 1.1 % (0.0-2.0); EOSINOPHIL % 2.2 % (0-5); GRANULOCYTE % 64.9 % (42.2-75.2); HEMATOCRIT 31.1 % (42-52); MEAN CORPUSCULAR HGB 29.5 PG (27.0-31.0); MEAN CORPUSCULAR HGB CONC 32.6 G/DL (33.0-37.0); MEAN CORPUSCULAR VOLUME 90.6 FL (80.0-94.0); MEAN PLATELET VOLUME 7.4 FL (7.4-10.4); PLATELET COUNT 221 /CUMM (130-400); RBC DISTRIBUTION WIDTH 14.9 % (11.5-14.5); RED BLOOD CELL CT 3.43 /CUMM (4.70-6.10); WHITE BLOOD CELL COUNT 6.4 /CUMM (4.8-10.8)
--- NOTE | 2016-11-10 20:57 | Event Note ---
Event Note Event Note: Situation: I was informed by the radiology staff that the patient is refusing ultrasound Doppler of his left upper extremity. I went in to understand the situation and asked what the reason was to the patient. He seemed confused, disoriented, was oriented only to place and was denying any investigations including noninvasive ones like ultrasound at this point of time. He did mention that he would do it later on, even in the morning. Background: I explained him the reason behind getting left upper extremity ultrasound Doppler, to rule out any clots or any pathologies going on over the, as he has been having redness and swelling of his left upper extremity since few days. DVT is a possible diagnosis, and if left untreated, a clot can be discussed was his heart and can cause life-threatening complications as well. There were the possibilities of other diagnosis as well. Assessment and recommendation: Because of his current mental state, and unwillingness to keep his left upper extremity still during the whole procedure, ultrasound was canceled and reordered for the morning. Resident Dr. Greta Coleman informed and agreed to the plan to try getting the test done in the morning. -Order placed accordingly.
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
--- NOTE | 2016-11-10 22:27 | CT SCAN REPORT ---
EXAMINATION: CT HEAD WITHOUT CONTRAST CLINICAL INFORMATION: Episode of unresponsiveness, stiffness, and flushing. COMPARISON: CT scan of the head 11/09/2016. TECHNIQUE: Contiguous axial imaging was performed from the skull base to vertex without intravenous administration of contrast. DLP: 672.25 mGy-cm FINDINGS: There are foci of chronic gliosis and encephalomalacia involving the left frontal lobe and the right parietal lobe that remain unchanged when compared to the most recent prior examination from 11/09/2016. There is no acute intracranial hemorrhage or abnormal extra-axial collection. No intracranial mass effect or midline shift. Lateral and third ventricles are prominent and there is proportionate prominence of the subarachnoid spaces reflecting a mild degree of parenchymal volume loss. Grossly there is no evidence of acute territorial infarct. The calvarium and skull base are intact. Mastoid air cells and middle ear cavities are well aerated. Paranasal sinuses are well aerated. Globes and orbits are symmetric. IMPRESSION: Stable examination with chronic infarcts involving the left frontal lobe and right parietal lobe. No evidence of acute territorial infarct or hemorrhage.
[2016-11-10 22:28] LABS: ABSOLUTE BASOPHIL COUNT 0.1 /CUMM (0.0-0.2); ABSOLUTE EOSINOPHIL COUNT 0.1 /CUMM (0.0-0.7); ABSOLUTE GRANULOCYTE CT 4.9 /CUMM (1.4-6.5); ABSOLUTE LYMPH COUNT 1.2 /CUMM (1.2-3.4); ABSOLUTE MONOCYTE COUNT 0.7 /CUMM (0.10-0.60); BASOPHIL % 0.7 % (0.0-2.0); EOSINOPHIL % 1.7 % (0-5); GRANULOCYTE % 70.3 % (42.2-75.2); HEMATOCRIT 29.7 % (42-52); MEAN CORPUSCULAR HGB 29.8 PG (27.0-31.0); MEAN CORPUSCULAR VOLUME 90.5 FL (80.0-94.0); MEAN PLATELET VOLUME 6.8 FL (7.4-10.4); PLATELET COUNT 247 /CUMM (130-400); RBC DISTRIBUTION WIDTH 15.5 % (11.5-14.5); RED BLOOD CELL CT 3.28 /CUMM (4.70-6.10)
[2016-11-11 01:01] VITALS: BP 140/84
[2016-11-11 04:48] LABS: ABSOLUTE BASOPHIL COUNT 0 /CUMM (0.0-0.2); ABSOLUTE EOSINOPHIL COUNT 0.1 /CUMM (0.0-0.7); ABSOLUTE GRANULOCYTE CT 4.8 /CUMM (1.4-6.5); ABSOLUTE LYMPH COUNT 1.5 /CUMM (1.2-3.4); ABSOLUTE MONOCYTE COUNT 0.6 /CUMM (0.10-0.60); BASOPHIL % 0.1 % (0.0-2.0); EOSINOPHIL % 1.8 % (0-5); GRANULOCYTE % 67.8 % (42.2-75.2); HEMATOCRIT 28.6 % (42-52); MEAN CORPUSCULAR HGB 29.8 PG (27.0-31.0); MEAN CORPUSCULAR HGB CONC 33.1 G/DL (33.0-37.0); MEAN PLATELET VOLUME 6.8 FL (7.4-10.4); PLATELET COUNT 221 /CUMM (130-400); RBC DISTRIBUTION WIDTH 15.1 % (11.5-14.5); RED BLOOD CELL CT 3.18 /CUMM (4.70-6.10); WHITE BLOOD CELL COUNT 7.1 /CUMM (4.8-10.8)
--- NOTE | 2016-11-11 07:01 | NUR ---
PT REFUSED FINGER STICK. MD OROSCO AWARE.
--- NOTE | 2016-11-11 08:06 | PN- Att Addend ---
Attending Addendum Attending Brief Note Covering ATTN NOTE. Confused and in restraints. VS stable S1 S2 n Lungs diminshed breath sounds Abd , soft and golbular BS + Labs H&H .02/[address] with current mgt PT eval will STR
--- NOTE | 2016-11-11 09:24 | PN- Housestaff ---
Subjective Follow-up For: Altered mental status under evaluation Complaints: patient does not wanted to talk to anyone Tele-Events Since Last Visit: Sinus bradycardia, heart rate between 42-53, no any overnight events Subjective: Patient is seen and examined at the bedside. He was very confused and does not want to answer any question to anyone. According to the nurse he was refusing for the food and the medication. Later in the day when the came in, he was following all the commands of his . He took all the medication and the food too. Review of Systems Constitutional: Denies: no symptoms. Comments: Cannot comment because of the patient's clinical condition Objective Last 24 Hrs of Vital Signs/I&O Vital Signs Date Time Temp Pulse Resp B/P Pulse O2 O2 Flow FiO2 Ox Delivery Rate 11/11 1621 98.4 60 18 138/82 95 Room Air 11/11 1122 98.1 56 20 140/84 11/11 1020 98.1 56 20 140/84 11/11 0746 98.1 56 20 93 11/11 0101 97.6 62 20 140/84 96 Nasal Cannula 11/10 1833 55 150/82 Intake & Output 11/11 1600 11/11 0800 11/11 0000 Intake Total 400 120 390 Output Total 300 600 Balance 400 -180 -210 Intake, IV 150 Intake, Oral 400 120 240 Number 1 1 Bowel Movements Output, Urine 300 600 Physical Exam General Appearance: No Acute Distress Skin: No Rashes, No Breakdown HEENT: Atraumatic, PERRLA, EOMI Neck: Supple, No JVD Cardiovascular: Normal S1, Normal S2 Lungs: Clear to Auscultation Abdomen: Soft, No Tenderness Neurological: Normal Speech Extremities: No Clubbing, No Cyanosis, No Edema Assessment/Plan Assessment: Patient is a 71-year-old gentleman, with a PMH of TIA, history of CVA with aphasia (which resolved), coronary artery disease, hypertension, dyslipidemia, peripheral vascular disease, peptic ulcer disease, carotid artery disease, status post left endarterectomy and a right carotid artery disease, poor vision in the left eye, cataract surgery, history of paranoid schizophrenia who presented to the emergency department at [facility] on 11/08/2016 after his found that his mentation continued to deteriorate over the last few hours. Problem list- Hypothermia -resolved Cerebrovascular disease Coronary artery disease Chronic schizophrenia Hypoactive delirium Deconditioning Recurrent UTI BPH Plan- * According to neurologist, patient should be well evaluated by the psychiatrist. We need to decrease the polypharmacy. And he thinks that further neurodiagnostic studies will not be helpful. * We placed a consult for occupational therapy and physical therapy * We will place a consult for urology for recurrent UTI as requested by the * We'll follow the psychiatric recommendation. * Patient was cleared from cardiology for psych medication * With start his psych medication olanzapine, haloperidol by mouth and IM injection every 3 weeks * Continue lorazepam and mirtazapine * Continue tamsulosin. * Diet -soft mechanical and nectar * CODE STATUS-full code * DVT prophylaxis-ALP S/haprin NOTE - * Patient's stated that he has frequent history of UTI 3 episodes since December 2015 and was like to date urology consultation, with advice the patient to get urology consultation as an outpatient. * Patient mentioned that the patient did some imaging studies recently at [facility] publication specialist. Will get the records on Sunday Problem List: 1. Hypothermia 2. Altered mental status Pain Ratin Pain Location: not applicable Pain Goal: Remain pain free Pain Plan: mild Tomorrow's Labs & Rationales: bep
--- NOTE | 2016-11-11 13:35 | Cons- Neurology ---
General Information and HPI Consulting Request Date of Consult: 11/11/16 Requested By: SHILPA SCHAEFFER MD History of Present Illness: 71-year-old male with history of chronic schizophrenia and cerebrovascular disease admitted after a several day period of generalized weakness and hypothermia in the setting of a recent, reported urinary tract infection. The patient had been seen by my associate, Dr. Higinio Naranjo, in August of last year due to a reported gait disorder. Per the patient's , who is currently at the bedside, MRI of the brain and cervical spine were essentially unrevealing. He typically walks with a walker due to some imbalance. He may have some residual dysphasia in the setting of an old left hemispheric stroke. The patient's states that the deann Alvarez has been eating poorly for at least several days prior to admission. Apparently he has some delusion that he is grossly overweight and therefore has been avoiding food. He is maintained on multiple psychoactive preparations. Allergies/Medications Allergies: Coded Allergies: NO KNOWN ALLERGIES (04/28/16) Home Med List: Atenolol 50 MG TABLET 1 TAB PO BID DIRECTED (Reported) Finasteride 5 MG TABLET 1 TAB PO DAILY DIRECTED (Reported) Haloperidol 5 MG TABLET 1 TAB PO BID DIRECTED (Reported) Haloperidol Decanoate 50 MG/ML VIAL 1.5 ML INJ EVERY 3 WEEKS DIRECTED ( Reported) Lorazepam 1 MG TABLET 1 TAB PO BID DIRECTED (Reported) Mirtazapine (Remeron) 15 MG TABLET 1 TAB PO QPM DIRECTED (Reported) Nitroglycerin (Nitroglycerin Patch) 0.4 MG/HOUR PATCH.TD24 1 PATCH TOP DAILY DIRECTED (Reported) Olanzapine (Zyprexa) 5 MG TABLET 1 TAB PO BID DIRECTED (Reported) Tamsulosin HCl 0.4 MG CAP.ER.24H 1 CAP PO DAILY DIRECTED (Reported) Review of Systems Review of Systems: Limited due to his mental status Past History Travel History Traveled to [place] past 21 day No Medical History Blood Transfusion Hx: No Neurological: CVA, TIA, L EYE BLINDNESS EENT: NONE Cardiovascular: AFIB, CAD, hypertension, hyperlipidemia, PVD Respiratory: NONE Gastrointestinal: NONE Hepatic: NONE Renal: NONE Musculoskeletal: NONE Psychiatric: bipolar disease, schizophrenia Endocrine: NONE Blood Disorders: NONE Cancer(s): NONE Surgical History Surgical History: LEFT CEA CATARACTS Psychosocial History Where Do You Live? Home Who Do You Live With? self Services at Home: None Primary Language: Tamazight Smoking Status: Former Smoker ETOH Use: 6 Illicit Drug Use: UTD Functional Ability ADLs Needs Assist: dressing, eating, toileting, bathing. Ambulation: walker IADLs Needs Assist: shopping, housework, finances, food prep, telephone, transportation, medication admin. Exam & Diagnostic Data Vital Signs and I&O Vital Signs Date Time Temp Pulse Resp B/P Pulse O2 O2 Flow FiO2 Ox Delivery Rate 11/11 1122 98.1 56 20 140/84 11/11 1020 98.1 56 20 140/84 11/11 0746 98.1 56 20 93 11/11 0101 97.6 62 20 140/84 96 Nasal Cannula 11/10 1833 55 150/82 11/10 1622 98.1 55 20 150/82 94 Room Air 11/10 1549 Room Air Intake & Output 11/11 1600 11/11 0800 11/11 0000 Intake Total 120 390 Output Total 300 600 Balance -180 -210 Intake, IV 150 Intake, Oral 120 240 Number 1 Bowel Movements Output, Urine 300 600 Middle-aged male in soft restraints who was lethargic though easily arousable. He had a left CEA scar. The head was normocephalic. He was oriented to person, place, ? month. He believed that the current president was Mr. Cat. He was somewhat bradyphrenic. Speech was fluent however spontaneous speech was limited. Pupils were equal. Extraocular movements were full. Face was symmetric. Tongue was midline. There was no gross focal or lateralizing weakness. He was antigravity with both legs in the supine position. Hand java engineer is equal. Deep tendon reflexes were hypoactive. Plantar responses were withdrawal. Gait was untested. CT scan of the brain on admission showed chronic infarcts in the left frontal and right temporal parietal region. There were no acute abnormalities. Assessment/Plan Assessment: #1 chronic schizophrenia--on multiple psychoactive medications. #2 cerebrovascular disease with evidence of chronic, bihemispheric infarcts. #3 hypoactive delirium #4 deconditioning #5 recent, reported UTI. 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 Recommendations: Psychiatry involvement going forward. One would wish to judiciously employ neuroleptics and diminish polypharmacy, as able. Physiotherapy and occupational therapy would be appropriate in hopes of reestablishing his baseline status for ambulation and activities of daily living. I do not believe that further neurodiagnostic studies would be rewarding at this time. Consult Acknowledgment - Thank you for your consult request.
[2016-11-11 16:21] VITALS: BP 138/82
[2016-11-11 22:00] VITALS: BP 140/80
--- NOTE | 2016-11-12 07:58 | PN- Att Addend ---
Attending Addendum Attending Brief Note Covering attending note. Patient's condition has not changed much is still kind of for drowsy awake at times in restraints. Does not the verbalizes symptoms Vital Signs Date Time Temp Pulse Resp B/P Pulse O2 O2 Flow FiO2 Ox Delivery Rate 11/11 2200 99.5 59 20 140/80 94 Room Air 11/11 1621 98.4 60 18 138/82 95 Room Air 11/11 1122 98.1 56 20 140/84 11/11 1020 98.1 56 20 140/84 Intake & Output 11/12 0800 11/12 0000 11/11 1600 Intake Total 100 400 Output Total 800 Balance -700 400 Intake, Oral 100 400 Number 1 Bowel Movements Output, Urine 800 Examination patient is noncommunicative. S1-S2 is normal Lungs are clear Abdomen is soft nontender bowel sounds are present Laboratory Tests 11/12 0705 Chemistry Sodium Pending Potassium Pending Chloride Pending Carbon Dioxide Pending Anion Gap Pending BUN Pending Creatinine Pending BUN/Creatinine Ratio Pending Magnesium Pending Assessment schizoaffective disorder per cardiology patient can be restarted on his psych medications patient discontinue his restraints came out of bed follow recommendations of psychiatry is
--- NOTE | 2016-11-12 08:25 | PN- Housestaff ---
Subjective Follow-up For: Altered mental status Tele-Events Since Last Visit: Sinus rhythm sinus bradycardia, heart rate 51-89 No events Subjective: Patient was seen and examined today. He remained to be confused and agitated, patient has by lateral wrist restrain as he was trying to pull out the IV line. Patient denied chest pain, abdominal pain. Vital signs are stable, no overnight events reported by the nurse. Review of Systems Constitutional: Reports: see HPI. Objective Last 24 Hrs of Vital Signs/I&O Vital Signs Date Time Temp Pulse Resp B/P Pulse O2 O2 Flow FiO2 Ox Delivery Rate 11/12 0948 52 146/82 11/12 0842 98.9 52 18 146/82 94 Room Air 11/11 2200 99.5 59 20 140/80 94 Room Air 11/11 1621 98.4 60 18 138/82 95 Room Air Intake & Output 11/12 1600 11/12 0800 11/12 0000 Intake Total 150 100 Output Total 1000 800 Balance -850 -700 Intake, Oral 150 100 Output, Urine 1000 800 Physical Exam General Appearance: confused, trying to hit the nurse, trying to get out of bed Skin: No Rashes HEENT: Atraumatic, PERRLA, EOMI, Mucous Membr. moist/pink Neck: Supple Cardiovascular: Regular Rate, Normal S1, Normal S2, No Murmurs Lungs: Clear to Auscultation, Normal Air Movement Abdomen: Normal Bowel Sounds, Soft, No Tenderness Neurological: Normal Speech Extremities: No Clubbing, No Cyanosis, No Edema, Normal Pulses Assessment/Plan Assessment: Patient is a 71-year-old gentleman, with a PMH of TIA, history of CVA with aphasia (which resolved), coronary artery disease, hypertension, dyslipidemia, peripheral vascular disease, peptic ulcer disease, carotid artery disease, status post left endarterectomy and a right carotid artery Assessment: #Hypothermia -Resolved -Vital signs are stable #Delirium History of schizophrenia. Delirium most Likely caused by decreased in medication compliance as well as superimposed hypothermia. Initial urinalysis showed no evidence of UTI. All culture Negative so far. * Follow psychiatric recommendation * Patient was cleared from cardiology for psych medication * With start his psych medication olanzapine, haloperidol by mouth home dose 10 mg at bedtime and IM injection every 3 weeks (due is today) * Continue lorazepam 1 mg twice a day and mirtazapine 15 mg every afternoon * Neurology consultation was obtained yesterday given history of previous CVA with residual dysphasia and gait disorder, neuro recommend occupational and psychotherapy evaluation #BPH * Continue tamsulosin. Diet ght soft mechanical and nectar ALPS Heparin SC Full code Consultation psychotic, cardiology and neurology NOTE - * Patient's stated that he has frequent history of UTI 3 episodes since December 2015 and was like to date urology consultation, with advice the patient to get urology consultation as an outpatient. 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 Will get the records on Sunday Problem List: 1. AMS 2. Schizophrenia 3. Hypothermia Pain Ratin Pain Location: N/A Pain Goal: Pain 4 or less Pain Plan: Mild pain pathway Tomorrow's Labs & Rationales: CBC, CMP
[2016-11-12 08:42] VITALS: BP 146/82
[2016-11-12 16:16] VITALS: BP 148/80
[2016-11-13 00:06] VITALS: BP 144/94
--- NOTE | 2016-11-13 07:16 | PN- Housestaff ---
Subjective Follow-up For: Altered Mental status Tele-Events Since Last Visit: Sinus rhythm, heart rate 6270, bundle-branch block Subjective: Patient was seen and examined this morning, he still confused. Patient is not agitated, will DC the bilateral wrist restrain. Patient refused to eat breakfast, had 50% of lunch with his . Had bowel movement yesterday. Patient denied chest pain, abdominal pain, shortness of breath. Review of Systems Constitutional: Reports: see HPI. Objective Last 24 Hrs of Vital Signs/I&O Vital Signs Date Time Temp Pulse Resp B/P Pulse O2 O2 Flow FiO2 Ox Delivery Rate 11/13 1533 98.7 63 18 142/70 93 Room Air 11/13 1021 120/64 11/13 0828 58 164/78 11/13 0813 97.0 58 18 164/78 93 Room Air 11/13 0006 98.1 62 18 144/94 91 Room Air Intake & Output 11/13 1600 11/13 0800 11/13 0000 Intake Total 480 200 100 Output Total 700 1400 1150 Balance -220 -1200 -1050 Intake, Oral 480 200 100 Number 1 Bowel Movements Output, Urine 700 1400 1150 Physical Exam General Appearance: Alert, No Acute Distress, confused Skin: No Rashes HEENT: Atraumatic, PERRLA, EOMI, Mucous Membr. moist/pink Neck: Supple Cardiovascular: Regular Rate, Normal S1, Normal S2, No Murmurs Lungs: Clear to Auscultation, Normal Air Movement Abdomen: Normal Bowel Sounds, Soft, No Tenderness Neurological: Normal Speech, Strength at 5/5 X4 Ext, Normal Tone, Reflexes 2+ Extremities: No Clubbing, No Cyanosis, No Edema, Normal Pulses Assessment/Plan Assessment: Patient is a 71-year-old gentleman, with a PMH of TIA, history of CVA with aphasia (which resolved), coronary artery disease, hypertension, dyslipidemia, peripheral vascular disease, peptic ulcer disease, carotid artery disease, status post left endarterectomy and a right carotid artery Assessment: #Hypothermia -Resolved -Vital signs are stable #Delirium History of schizophrenia. Delirium most Likely caused by decreased in medication compliance as well as superimposed hypothermia. Initial urinalysis showed no evidence of UTI. All culture Negative so far. * Follow psychiatric recommendation * Patient was cleared from cardiology for psych medication * Continue olanzapine 5 mg twice a day, haloperidol by mouth home dose 10 mg at bedtime and IM injection every 3 weeks * Continue lorazepam 1 mg twice a day and mirtazapine 15 mg every afternoon * Neurology consultation was obtained given history of previous CVA with residual dysphasia and gait disorder, neuro recommend occupational and psychotherapy evaluation #BPH * Continue tamsulosin. Diet ght soft mechanical and nectar ALPS Heparin SC Full code Consultation psychotic, cardiology and neurology NOTE - * Patient's stated that he has frequent history of UTI 3 episodes since December 2015 and was like to date urology consultation, with advice the patient to get urology consultation as an outpatient. Problem List: 1. AMS 2. Schizophrenia Pain Ratin Pain Location: None Pain Goal: Pain 4 or less Pain Plan: Mild pain pathway Tomorrow's Labs & Rationales: None
[2016-11-13 08:13] VITALS: BP 164/78
--- NOTE | 2016-11-13 09:30 | PN- Cardiology ---
Subjective Subjective: Antonio is more alert today. He is conversant. He remains in sinus rhythm on the monitor. There have apparently been no arrhythmias. He is back on Haldol and Zyprexa. His cardiac medications are atenolol and nitroglycerin patch. Objective Vital Signs and I&Os Vital Signs Date Time Temp Pulse Resp B/P Pulse O2 O2 Flow FiO2 Ox Delivery Rate 11/13 0828 58 164/78 11/13 08 97.0 58 18 164/78 93 Room Air 11/13 0006 98.1 62 18 144/94 91 Room Air 11/12 1616 98.9 73 18 148/80 92 Room Air 11/12 0948 52 146/82 Intake & Output 11/13 1600 11/13 0800 11/13 0000 11/12 1600 11/12 0800 11/12 0000 Intake Total 200 100 240 150 100 Output Total 1400 4260 543 1583 800 Balance -1200 -1050 -660 -850 -700 Intake, Oral 200 100 240 150 100 Number 1 1 Bowel Movements Output, Urine 1400 5522 629 2793 800 Physical Exam: HEENT exam is normal Chest is clear Heart reveals regular rhythm with soft heart sounds Extremities reveal trace edema Current Medications: Current Medications Sig/Vidal Start time Last Medication Dose Route Stop Time Status Admin Acetaminophen 650 MG Q6P PRN 11/08 2044 AC PO Atenolol 50 MG BID 11/08 2199 AC 11/13 PO 0829 Benzocaine/Menthol 1 PHOEBE Q2P PRN 11/09 2129 AC PO Benzonatate 100 MG TID 11/09 2199 AC 11/13 PO 0828 Bisacodyl 5 MG DAILY PRN 11/10 1115 AC PO Bisacodyl 10 MG Q12P PRN 11/09 1000 AC 11/09 FL 1047 Enoxaparin Sodium 40 MG DAILY@11/10 AC 11/12 SC 2152 Finasteride 5 MG DAILY 11/09 1000 AC 11/13 PO 0829 Haloperidol 150 MG Q 3 WEEKS 11/12 1000 AC 11/12 IM 0949 Haloperidol 10 MG AT BEDTIME 11/11 2199 AC 11/12 PO 2152 Ibuprofen 600 MG Q6P PRN 11/08 2045 AC PO Lorazepam 1 MG BID 11/10 2199 AC 11/13 PO 0829 Magnesium Hydroxide 30 ML AT BEDTIME PRN 11/08 2145 AC PO Mirtazapine 15 MG QPM 11/08 2199 AC 11/12 PO 2153 Nitroglycerin 0.4 MG DAILY 11/09 1000 AC 11/13 TOP 0831 Nystatin 1 NEW BID 11/10 2199 AC 11/13 TOP 0830 Olanzapine 5 MG BID 11/100 AC 11/13 PO 0829 Oxycodone HCl 10 MG Q6P PRN 11/08 2045 AC PO Polyethylene Glycol 17 GM DAILY 11/09 1000 AC 11/11 PO 1112 Tamsulosin HCl 0.4 MG DAILY 11/09 1000 AC 11/13 PO 0828 Results Last 48 Hrs of Labs/Mics: Laboratory Tests 11/13/16 0625: Sodium Pending, Potassium Pending, Chloride Pending, Carbon Dioxide Pending, Anion Gap Pending, BUN Pending, Creatinine Pending, BUN/Creatinine Ratio Pending , CBC w Diff Pending, WBC Pending, RBC Pending, Hgb Pending, Hct Pending, MCV Pending, MCH Pending, RDW Pending, Plt Count Pending, MPV Pending, PUBS MCHC Pending 11/12/16 0705: Anion Gap 5, Estimated GFR > 60, BUN/Creatinine Ratio 13.3, Magnesium 1.9 11/12/16 0600: APTT Cancelled Assessment/Plan Assessment/Plan Antonio is stable from a cardiac standpoint. There have been no cardiac events. His EKG has been unchanged from his baseline. He can be discontinued from telemetry monitoring. Please call for any further cardiac input. Continue telemetry? No
--- NOTE | 2016-11-13 09:51 | ECHOCARDIOGRAM REPORT ---
CANDIDO TIRADO Age: 71 : 1945 Gender: M Exam Date: 11/12/2016 09:03 Exam Location: [place] Ht (in): 72 Wt (lb): 225 BSA: 2.30 BP: 140 / 80 Ordering Physician: BRIAN CHAMBERLAIN MD Referring Physician: Duc Rowland MD Chief, SoC Technologist: Salome Winkler [facility] Room Number: [id number] Indications: AFIB/FLUTTER Rhythm: Sinus Technical Quality: Fair FINDINGS Left Ventricle Normal size left ventricle. Moderate concentric left ventricular hypertrophy. Normal left ventricular ejection fraction visually estimated at >65 %. No obvious regional wall motion abnormalities. Abnormal relaxation filling pattern of the left ventricle for age (stage 1 diastolic dysfunction). Right Ventricle The right ventricle is normal in size and function. Right Atrium The right atrium is normal in size. Left Atrium Left atrial size at the upper limits of normal. Mitral Valve Mild thickening/calcification of the mitral valve leaflets. Moderate mitral annular calcification. Mild mitral regurgitation. Aortic Valve Diffuse thickening (sclerosis) of the aortic valve cusps without reduced excursion. No aortic stenosis. No aortic regurgitation. Tricuspid Valve The tricuspid valve is normal in structure and function. There is trace tricuspid regurgitation. Pulmonary artery systolic pressure is normal. Pulmonic Valve Pulmonic valve not well visualized, grossly normal. No pulmonic stenosis. No pulmonic regurgitation. Pericardium Normal pericardium without effusion. No pleural effusion. Great Vessels Normal aortic root dimension. The aortic arch and great vessels are well seen and are normal. Mildly dilated IVC. CONCLUSIONS Moderate concentric left ventricular hypertrophy. Normal left ventricular ejection fraction visually estimated at >65 Abnormal relaxation filling pattern of the left ventricle for age (stage 1 diastolic dysfunction). Left atrial size at the upper limits of normal. Mild thickening/calcification of the mitral valve leaflets. Moderate mitral annular calcification. Mild mitral regurgitation. Diffuse thickening (sclerosis) of the aortic valve cusps without reduced excursion. No aortic stenosis. Pulmonary artery systolic pressure is normal. Mildly dilated IVC. Duc Rowland M.D. (Electronically Signed) Final Date: 13 November 2016 09:51 MEASUREMENTS (Male / Female) Normal Values 2D ECHO LV Diastolic Diameter PLAX 4.2 cm 4.2 - 5.9 / 3.9 - 5.3 cm LV Systolic Diameter PLAX 3.0 cm 2.1 - 4.0 cm LV Fractional Shortening PLAX 28.6 % 25 - 46 % LV Ejection Fraction 2D Teich 55.5 % IVS Diastolic Thickness 0.8 cm LVPW Diastolic Thickness 1.3 cm LV Relative Wall Thickness 0.5 RV Internal Dim ED PLAX 2.7 cm 1.9 - 3.8 cm LVOT Diameter 2.2 cm Aortic Root Diameter 3.5 cm LA Systolic Diameter LX 4.4 cm 3.0 - 4.0 / 2.7 - 3.8 cm LA Volume 44.0 cm 18 - 58 / 22 - 52 cm DOPPLER AV Peak Velocity 117.0 cm/s AV Peak Gradient 5.5 mmHg AV Mean Velocity 85.5 cm/s AV Mean Gradient 3.0 mmHg AV Velocity Time Integral 27.5 cm LVOT Peak Velocity 79.7 cm/s LVOT Peak Gradient 2.5 mmHg LVOT Mean Velocity 55.8 cm/s LVOT Mean Gradient 1.0 mmHg LVOT Velocity Time Integral 19.9 cm LVOT Stroke Volume 75.6 cm AV Area Cont Eq vti 2.8 cm AV Area Cont Eq pk 2.6 cm MV Peak Velocity 107.0 cm/s MV Peak Gradient 4.6 mmHg MV Mean Velocity 51.6 cm/s MV Mean Gradient 1.0 mmHg Mitral E Point Velocity 96.7 cm/s Mitral A Point Velocity 104.0 cm/s Mitral E to A Ratio 0.9 MV PHT Velocity 94.6 cm/s MV Deceleration [place] 238.0 cm/s MV Pressure Half Time 119.2 ms MV Area PHT 1.8 cm MV Deceleration Time 197.0 ms TR Peak Velocity 91.5 cm/s TR Peak Gradient 3.3 mmHg Right Atrial Pressure 5.0 mmHg Pulmonary Artery Systolic Pressu 8.3 mmHg Right Ventricular Systolic Press 8.3 mmHg PV Peak Velocity 91.9 cm/s PV Peak Gradient 3.4 mmHg PV Mean Velocity 58.4 cm/s PV Mean Gradient 2.0 mmHg PV Velocity Time Integral 20.3 cm LV E' Lateral Velocity 9.4 cm/s Mitral E to LV E' Lateral Ratio 10.3 LV E' Septal Velocity 5.5 cm/s Mitral E to LV E' Septal Ratio 17.7
[2016-11-13 10:01] LABS: ABSOLUTE BASOPHIL COUNT 0.1 /CUMM (0.0-0.2); ABSOLUTE EOSINOPHIL COUNT 0.2 /CUMM (0.0-0.7); ABSOLUTE GRANULOCYTE CT 4.1 /CUMM (1.4-6.5); ABSOLUTE LYMPH COUNT 1.3 /CUMM (1.2-3.4); ABSOLUTE MONOCYTE COUNT 0.8 /CUMM (0.10-0.60); BASOPHIL % 0.9 % (0.0-2.0); GRANULOCYTE % 63.7 % (42.2-75.2); HEMATOCRIT 30.6 % (42-52); MEAN CORPUSCULAR HGB 30.1 PG (27.0-31.0); MEAN CORPUSCULAR HGB CONC 33.4 G/DL (33.0-37.0); MEAN CORPUSCULAR VOLUME 90.2 FL (80.0-94.0); MEAN PLATELET VOLUME 7.6 FL (7.4-10.4); PLATELET COUNT 192 /CUMM (130-400); RBC DISTRIBUTION WIDTH 15.1 % (11.5-14.5); WHITE BLOOD CELL COUNT 6.4 /CUMM (4.8-10.8)
[2016-11-13 10:21] VITALS: BP 120/64
--- NOTE | 2016-11-13 12:50 | PN- Att Addend ---
Attending Addendum Attending Brief Note At present the patient is Quiet in the Chair Sleepy per Still Seems Paranoid Not Eating at Times and Refusing Medications. Psych Evaluation Continues. I'll Signs Are Stable Appreciate Is a Febrile No Major Changes over the Weekend Will Continue Observation and Follow Psychiatry Recommendations and When Stable Will Need Again Short-Term Rehabilitation. Intake & Output 11/13 1600 11/13 0400 11/12 1600 11/12 0400 11/11 1600 11/11 0400 Intake Total 200 100 390 100 520 390 Output Total 1400 1150 1900 800 300 600 Balance -1200 -1050 -1510 -700 220 -210 Intake, IV 150 Intake, Oral 200 100 390 100 520 240 Number 1 1 1 1 Bowel Movements Output, Urine 1400 1150 1900 800 300 600 Current Medications Sig/Vidal Start time Last Medication Dose Route Stop Time Status Admin Acetaminophen 650 MG Q6P PRN 11/08 2044 AC PO Atenolol 50 MG BID 11/08 2199 AC 11/13 PO 0829 Benzocaine/Menthol 1 PHOEBE Q2P PRN 11/09 2129 AC PO Benzonatate 100 MG TID 11/09 2199 AC 11/13 PO 0828 Bisacodyl 5 MG DAILY PRN 11/10 1115 AC PO Bisacodyl 10 MG Q12P PRN 11/09 1000 AC 11/09 OR 1047 Enoxaparin Sodium 40 MG DAILY@11/10 AC 11/12 SC 2152 Finasteride 5 MG DAILY 11/09 1000 AC 11/13 PO 0829 Haloperidol 150 MG Q 3 WEEKS 11/12 1000 AC 11/12 IM 0949 Haloperidol 10 MG AT BEDTIME 11/11 2199 AC 11/12 PO 2152 Ibuprofen 600 MG Q6P PRN 11/08 2044 AC PO Lorazepam 1 MG BID 11/10 2199 AC 11/13 PO 0829 Magnesium Hydroxide 30 ML AT BEDTIME PRN 11/08 214 AC PO Mirtazapine 15 MG QPM 11/08 2199 AC 11/12 PO 2153 Nitroglycerin 0.4 MG DAILY 11/09 1000 AC 11/13 TOP 0831 Nystatin 1 NEW BID 11/10 2199 AC 11/13 TOP 0830 Olanzapine 5 MG BID 11/10 2199 AC 11/13 PO 0829 Oxycodone HCl 10 MG Q6P PRN 11/08 2045 AC PO Polyethylene Glycol 17 GM DAILY 11/09 1000 AC 11/11 PO 1112 Tamsulosin HCl 0.4 MG DAILY 11/09 1000 AC 11/13 PO 0828 Laboratory Tests 11/13/16 0625: Anion Gap 12, Estimated GFR > 60, BUN/Creatinine Ratio 11.1, CBC w Diff NO MAN DIFF REQ, RBC 3.40 L, MCV 90.2, MCH 30.1, RDW 15.1 H, MPV 7.6, Gran % 63.7, Lymphocytes % 19.8 L, Monocytes % 12.6 H, Eosinophils % 3.0, Basophils % 0.9, Absolute Granulocytes 4.1, Absolute Lymphocytes 1.3, Absolute Monocytes 0.8 H, Absolute Eosinophils 0.2, Absolute Basophils 0.1, PUBS MCHC 33.4 11/12/16 0705: Anion Gap 5, Estimated GFR > 60, BUN/Creatinine Ratio 13.3, Magnesium 1.9 11/12/16 0600: APTT Cancelled 11/11/16 0600: Sodium Cancelled, Potassium Cancelled, Chloride Cancelled, Carbon Dioxide Cancelled, Anion Gap Cancelled, BUN Cancelled, Creatinine Cancelled, BUN/ Creatinine Ratio Cancelled 11/11/16 0400: Anion Gap 4 L, Estimated GFR > 60, BUN/Creatinine Ratio 12.0, Troponin I 0.04, CBC w Diff NO MAN DIFF REQ, RBC 3.18 L, MCV 90.0, MCH 29.8, RDW 15.1 H, MPV 6.8 L, Gran % 67.8, Lymphocytes % 21.6, Monocytes % 8.7, Eosinophils % 1.8, Basophils % 0.1, Absolute Granulocytes 4.8, Absolute Lymphocytes 1.5, Absolute Monocytes 0.6, Absolute Eosinophils 0.1, Absolute Basophils 0, PUBS MCHC 33.1 11/10/16 2215: Anion Gap 7, Estimated GFR > 60, BUN/Creatinine Ratio 11.0, Calcium 8.3 L, Magnesium 1.7, Prolactin 47.4 H, CBC w Diff NO MAN DIFF REQ, RBC 3.28 L, MCV 90.5, MCH 29.8, RDW 15.5 H, MPV 6.8 L, Gran % 70.3, Lymphocytes % 16.8 L, Monocytes % 10.5 H, Eosinophils % 1.7, Basophils % 0.7, Absolute Granulocytes 4.9, Absolute Lymphocytes 1.2, Absolute Monocytes 0.7 H, Absolute Eosinophils 0.1, Absolute Basophils 0.1, PUBS MCHC 33.0 11/10/161927: Anion Gap 6, Estimated GFR > 60, Glucose 82, Calcium 8.4, Phosphorus 3.2, Magnesium 1.8, Total Bilirubin 0.5, AST 43, ALT 42, Troponin I 0.03, Albumin 2.9 L, CBC w Diff NO MAN DIFF REQ, RBC 3.43 L, MCV 90.6, MCH 29.5, RDW 14.9 H, MPV 7.4, Gran % 64.9, Lymphocytes % 22.6, Monocytes % 9.2, Eosinophils % 2.2, Basophils % 1.1, Absolute Granulocytes 4.2, Absolute Lymphocytes 1.5, Absolute Monocytes 0.6, Absolute Eosinophils 0.1, Absolute Basophils 0.1, PUBS MCHC 32.6 L
[2016-11-13 15:33] VITALS: BP 142/70
--- NOTE | 2016-11-13 17:16 | Transfer of Care Summary ---
Hospital Course Course Hospital Course: Mr Almanzar is a 71-year-old gentleman, with a PMH of TIA, history of CVA with aphasia (which resolved), coronary artery disease, hypertension, dyslipidemia, peripheral vascular disease, peptic ulcer disease, carotid artery disease, status post left endarterectomy and a right carotid artery disease, poor vision in the left eye, cataract surgery, history of paranoid schizophrenia who presented to the emergency department at [facility] on 11/08/2016 after his found that his mentation continued to deteriorate over the last few hours. In emergency department, patient received IV vancomycin and IV ceftazidime for questionable UTI with acute delirium. ICU course for 1 day 11/09 -Patient was admitted initially to ICU for hypothermia measures. Temperature at the time of admission was 94.8, likely the result of environmental exposure, Patient responded well to initial management bear hugger and blankets. Temperature reaches normal physiological values. -History of schizophrenia. Delirium most Likely caused by decreased in medication compliance as well as superimposed hypothermia. Initial urinalysis showed no evidence of UTI. All culture Negative. -History of paroxysmal atrial fibrillation, patient is not on chronic anticoagulantion. After patient's got stable, he was transferred to telemetry floor Telemetry course from 11/10-11/13 #Hypothermia -Resolved -Vital signs are stable #Delirium History of schizophrenia. 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 Diet chopped and nectar DVT prophylaxis ALPS Heparin SC Code Full code Consultation psychotic, cardiology and neurology NOTE - * Patient's stated that he has frequent history of UTI 3 episodes since December 2015 and was like to date urology consultation, with advice the patient to get urology consultation as an outpatient. Assessment/Plan: Please see hospital course
[2016-11-13] MEDS ORDERED: HALOPERIDOL5 MG PO (17:24)
[2016-11-13] MEDS ORDERED: HALDOL DEC100 MG/1 M IM (17:24)
--- NOTE | 2016-11-13 17:27 | Patient Discharge Instructions ---
Discharge Instructions General Discharge Information Special Instructions: -Please follow up with your primary care physician within 1 week after discharge -Please follow up with psychiatric physician within 1 week after discharge -Please follow up with cardiology Dr. Rowland after discharge -Please follow up with neurologist Dr. Marina after discharge Acute Coronary Syndrome Inclusion Criteria At DC or during hospital stay patient has or had the following: ACS DIAGNOSIS No Discharge Core Measures Meds if any: Prescribed or Continued at Discharge Meds if any: NOT Prescribed or Continued at Discharge Congestive Heart Failure Inclusion Criteria At DC or during hospital stay patient has or had the following: CHF DIAGNOSIS No Discharge Core Measures Meds if any: Prescribed or Continued at Discharge Meds if any: NOT Prescribed or Continued at Discharge Cerebrovascular accident Inclusion Criteria At DC or during hospital stay patient has or had the following: CVA/TIA Diagnosis No Discharge Core Measures Meds if any: Prescribed or Continued at Discharge Meds if any: NOT Prescribed or Continued at Discharge Venous thromboembolism Inclusion Criteria VTE Diagnosis No VTE Type NONE VTE Confirmed by (Test) NONE Discharge Core Measures - Per Current guidelines, there needs to be overlap - treatment for the first 5 days of Warfarin therapy. - If discharged on Warfarin prior to 5 days of - overlap therapy, the patient will need to be - assessed for post discharge needs including - *Post discharge parental anticoagulation - *Warfarin and/or parental anticoagulation education - *Follow up date to check INR post discharge At least 5 days overlap therapy as Inpatient Yes Meds if any: Prescribed or Continued at Discharge Note: Overlap Therapy is Warfarin and Anticoagulant Meds if any: NOT Prescribed or Continued at Discharge
--- NOTE | 2016-11-13 21:42 | ELECTROENCEPHALOGRAM REPORT ---
Electroencephalogram Report Electroencephalogram Results Date of service: 11/13/16 Attending MD: SHILPA SCHAEFFER MD Project Archivist: Alayna EEG Number: [id number] Test Utilizes: Test Utilizes a limited 15 lead, 10 channel digital recording due to technical difficulties with conducting a full lead study on an agitated patient. Pertinent Hx/Physical/Neuro Findings/Clin Diagnosis: R/o seizure. Inpatient Medications: Current Medications Sig/Vidal Start time Last Medication Dose Route Stop Time Status Admin Acetaminophen 650 MG Q6P PRN 11/08 2044 AC PO Atenolol 50 MG BID 11/08 2199 AC 11/13 PO 211 Benzocaine/Menthol 1 PHOEBE Q2P PRN 11/09 213 AC PO Benzonatate 100 MG TID 11/09 2199 AC 11/13 PO 211 Bisacodyl 5 MG DAILY PRN 11/10 1115 AC PO Bisacodyl 10 MG Q12P PRN 11/09 1000 AC 11/09 VA 1047 Enoxaparin Sodium 40 MG DAILY@11/10 AC 11/13 SC 2113 Finasteride 5 MG DAILY 11/09 1000 AC 11/13 PO 0829 Haloperidol 150 MG Q 3 WEEKS 11/12 1000 AC 11/12 IM 0949 Haloperidol 10 MG AT BEDTIME 11/11 2199 AC 11/12 PO 2152 Ibuprofen 600 MG Q6P PRN 11/08 204 AC PO Lorazepam 1 MG BID 11/100 AC 11/13 PO 0829 Magnesium Hydroxide 30 ML AT BEDTIME PRN 11/08 2145 AC PO Mirtazapine 15 MG QPM 11/08 2199 AC 11/12 PO 2153 Nitroglycerin 0.4 MG DAILY 11/09 1000 AC 11/13 TOP 0831 Nystatin 1 NEW BID 11/10 220 AC 11/13 TOP 2114 Olanzapine 5 MG BID 11/10 220 AC 11/13 PO 2114 Oxycodone HCl 10 MG Q6P PRN 11/08 2045 AC PO Polyethylene Glycol 17 GM DAILY 11/09 1000 AC 11/11 PO 1112 Tamsulosin HCl 0.4 MG DAILY 11/09 1000 AC 11/13 PO 0828 Interpretation: The recording demonstrates a loss of the normal frequency gradient due to overall slowing of the backgrounds to slow dysrhythmic theta range rhythms. A 5- 6 hertz high amplitude slow wave rhythm prevails throughout the leads bilaterally. There are no paroxysmal sharps or spikes. There is ample artifact amongst it intermittent muscle twitching that does not have an EEG correlate. The posterior dominant rhythm is indiscernible. Impression: Abrnomal EEG due to a moderate degree of generalized background slowing suggestive of encephalopathy. There is however no suggesstion of ongoing seizure activity or interictal epileptiform features.
[2016-11-13 23:28] VITALS: BP 140/70
--- NOTE | 2016-11-14 07:01 | PN- Housestaff ---
Subjective Follow-up For: Hypothermia delirium BPH Subjective: Patient seen and examined at bedside this AM. He is resting comfortably but remains very lethargic and falls asleep on interview. He denies any symptoms though extensive ROs not obtained secondary to lethargy. Review of Systems Constitutional: Reports: see HPI. EENTM: Denies: nasal congestion. Cardiovascular: Denies: chest pain. Respiratory: Denies: short of breath. Gastrointestinal: Denies: abdominal pain. Objective Last 24 Hrs of Vital Signs/I&O Vital Signs Date Time Temp Pulse Resp B/P Pulse O2 O2 Flow FiO2 Ox Delivery Rate 11/14 913 98.9 53 20 112/60 11/14 0811 98.9 53 20 112/60 93 Room Air 11/13 2328 98.8 70 20 140/70 93 Room Air 11/13 1828 Room Air 11/13 1533 98.7 63 18 142/70 93 Room Air Intake & Output 11/14 1600 11/14 0800 11/14 0000 Intake Total 360 Output Total Balance 360 Intake, Oral 360 Number 1 Bowel Movements Physical Exam General Appearance: Cooperative, No Acute Distress, Lethargy and drowsy but easily arousable Skin: No Rashes HEENT: Atraumatic, PERRLA, EOMI, Mucous Membr. moist/pink Neck: Supple Cardiovascular: Regular Rate, Normal S1, Normal S2, No Murmurs Lungs: Clear to Auscultation, Normal Air Movement Abdomen: Normal Bowel Sounds, Soft, No Tenderness, No Hepatospenomegaly Neurological: Normal Speech, Normal Tone Extremities: No Clubbing, No Cyanosis, No Edema Vascular: Pulses Symmetrical Current Medications: Current Medications Sig/Vidal Start time Last Medication Dose Route Stop Time Status Admin Acetaminophen 650 MG Q6P PRN 11/08 2044 AC PO Atenolol 50 MG BID 11/08 2199 AC 11/14 PO 13 Benzocaine/Menthol 1 PHOEBE Q2P PRN 11/09 2129 AC PO Benzonatate 100 MG TID 11/09 2199 AC 11/14 PO 14 Bisacodyl 5 MG DAILY PRN 11/10 1115 AC PO Bisacodyl 10 MG Q12P PRN 11/09 1000 AC 11/09 IN 1047 Enoxaparin Sodium 40 MG DAILY@11/10 AC 11/13 SC 2113 Finasteride 5 MG DAILY 11/09 1000 AC 11/14 PO 0914 Haloperidol 5 MG ONE ONE 11/14 0945 DC 11/14 PO 11/14 0946 0947 Haloperidol 150 MG Q 3 WEEKS 11/12 1000 AC 11/12 IM 0949 Haloperidol 10 MG AT BEDTIME 11/11 2199 AC 11/12 PO 2152 Ibuprofen 600 MG Q6P PRN 11/08 2045 AC PO Lorazepam 1 MG BID 11/10 2199 AC 11/14 PO 0921 Magnesium Hydroxide 30 ML AT BEDTIME PRN 11/08 2145 AC PO Mirtazapine 15 MG QPM 11/08 220 AC 11/12 PO 2153 Nitroglycerin 0.4 MG DAILY 11/09 1000 AC 11/14 TOP 0914 Nystatin 1 NEW BID 11/10 2199 AC 11/14 TOP 0914 Olanzapine 5 MG BID 11/10 2199 AC 11/14 PO 0914 Oxycodone HCl 10 MG Q6P PRN 11/08 204 AC PO Polyethylene Glycol 17 GM DAILY 11/09 1000 AC 11/14 PO 0914 Tamsulosin HCl 0.4 MG DAILY 11/09 1000 AC 11/14 PO 0914 Orders ECHO Findings: CONCLUSIONS Moderate concentric left ventricular hypertrophy. Normal left ventricular ejection fraction visually estimated at >65 Abnormal relaxation filling pattern of the left ventricle for age (stage 1 diastolic dysfunction). Left atrial size at the upper limits of normal. Mild thickening/calcification of the mitral valve leaflets. Moderate mitral annular calcification. Mild mitral regurgitation. Diffuse thickening (sclerosis) of the aortic valve cusps without reduced excursion. No aortic stenosis. Pulmonary artery systolic pressure is normal. Mildly dilated IVC. Miscellaneous Findings: EEG: Impression: Abrnomal EEG due to a moderate degree of generalized background slowing suggestive of encephalopathy. There is however no suggesstion of ongoing seizure activity or interictal epileptiform features. Head CT: IMPRESSION: Stable examination with chronic infarcts involving the left frontal lobe and right parietal lobe. No evidence of acute territorial infarct or hemorrhage. Assessment/Plan Assessment: Mr. Almanzar is a 71-year-old gentleman with PMH of TIA, CVA with aphasia (resolved), coronary artery disease, hypertension, dyslipidemia, peripheral vascular disease, peptic ulcer disease and carotid artery disease status post left endarterectomy who presented to [facility] on 11/08/16 with chief complaint of altered mental status and hypothermia to 92.1. In the ED: Vital signs showed T 92.1, HR 54, RR 16, BP 136/80 and O2 saturation of 97% on RA. Chest x-ray was negative for any acute abnormality. CT abdomen and pelvis was also negative for any acute pathology but there was moderate amount of retained stool throughout colon. Head CT was negative for any evidence of acute infarct or hemorrhage. EKG was not able to be interpreted 2/2 of underlying artifact. Patient is admitted to the telemetry floor and the following is the management: 1. Hypothermia * Resolved * Likely 2/2 physical exposure (standing for extended period of time in front of glass door) * Vital signs are stable, continue to monitor 2. Delirium * Delirium most likely caused by poor medication compliance as well as superimposed hypothermia. * Initial urinalysis showed no evidence of UTI. All culture negative (final). * Continue to follow psychiatric recommendation * Patient was cleared from cardiology for psych medication * Continue olanzapine 5 mg BID, haloperidol PO home dose of 10 mg at bedtime and IM injection Q 3 weeks * Continue lorazepam 1 mg BID and mirtazapine 15 mg every afternoon * Neurology consultation was obtained given history of previous CVA with residual dysphasia and gait disorder, neuro recommend occupational and psychotherapy evaluation which have been optained * Continue mirtazapine 15 mg PO QPM 3. BPH * Continue tamsulosin, finasteride * Monitor Is&Os 4. Constipation * Continue with mild of magnesia 30 mg PO at bedtime PRN constipation * Miralax daily, ducolax suppository PRN for constipation 5. HTN, HLD, CAD * Continue atenolol 50 mg PO BID * Continue nitroglycerin patch topical daily 6. Recurrent UTIs * Patient's reports patient has frequent UTIs (3 episodes since December 2015) * Will refer patient to urology as an outpatient for further workup FULL CODE Heart healthy diet with mechanical soft/nectar thickened DVTP: SC lovenox Problem List: 1. Schizophrenia 2. Hypothermia 3. UTI (urinary tract infection) 4. Altered mental status Pain Ratin Pain Location: n/a Pain Goal: Remain pain free Pain Plan: Mild pain pathway Tomorrow's Labs & Rationales: None.
--- NOTE | 2016-11-14 07:02 | PN- Housestaff ---
Assessment/Plan Assessment: Patient is a 71-year-old gentleman, with a PMH of TIA, history of CVA with aphasia (which resolved), coronary artery disease, hypertension, dyslipidemia, peripheral vascular disease, peptic ulcer disease, carotid artery disease, status post left endarterectomy and a right carotid artery Assessment: #Hypothermia -Resolved -Vital signs are stable #Delirium History of schizophrenia. Delirium most Likely caused by decreased in medication compliance as well as superimposed hypothermia. Initial urinalysis showed no evidence of UTI. All culture Negative so far. * Follow psychiatric recommendation * Patient was cleared from cardiology for psych medication * Continue olanzapine 5 mg twice a day, haloperidol by mouth home dose 10 mg at bedtime and IM injection every 3 weeks * Continue lorazepam 1 mg twice a day and mirtazapine 15 mg every afternoon * Neurology consultation was obtained given history of previous CVA with residual dysphasia and gait disorder, neuro recommend occupational and psychotherapy evaluation #BPH * Continue tamsulosin. Diet ght soft mechanical and nectar ALPS Heparin SC Full code Consultation psychotic, cardiology and neurology NOTE - * Patient's stated that he has frequent history of UTI 3 episodes since December 2015 and was like to date urology consultation, with advice the patient to get urology consultation as an outpatient.
[2016-11-14 08:11] VITALS: BP 112/60
--- NOTE | 2016-11-14 08:19 | Discharge Summary ---
Visit Information Visit Dates Admission Date: 11/08/16 Discharge Date: 11/15/16 Hospital Course Course Attending Physician: SHILPA SCHAEFFER MD Primary Care Physician: MAKSIM BELTRÁN,[facility] Course: Mr Almanzar is a 71-year-old gentleman, with a PMH of TIA, history of CVA with aphasia (which resolved), coronary artery disease, hypertension, dyslipidemia, peripheral vascular disease, peptic ulcer disease, carotid artery disease, status post left endarterectomy and a right carotid artery disease, poor vision in the left eye, cataract surgery, history of paranoid schizophrenia who presented to the emergency department at [facility] on 11/08/2016 after his found that his mentation continued to deteriorate over the last few hours. In emergency department, patient received IV vancomycin and IV ceftazidime for questionable UTI with acute delirium. ICU course: -Patient was admitted initially to ICU for hypothermia measures (He remain at ICU for one day). Temperature at the time of admission was 94.8, likely the result of environmental exposure, Patient responded well to initial management bear hugger and blankets. Temperature reaches normal physiological values. initially thought the patient is septic but then, he remains stable with no fever, no leukocytosis, no source of infection, his CXR: shows no changes, UA was clean, so antibiotic was discontinued and he transfered to telemetry floor. Telemetry course #Hypothermia -Resolved -Vital signs are stable -All cultures remains stable #Delirium History of schizophrenia. Psychiatric consult was placed, patient was cleared from cardiology for psych medication, psych. 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 During this hospitalization rapid response was called multiple time because of lethargy and decrease responsiveness, CT-head was done multiple time every time with no acute changes. Diet chopped and nectar Patietn needs an appointment with OPS be made with Dr. Zaira Nayak by the [facility] when the patient's discharge date from the [facility] is known. [phone]. Complications: Non Allergies: Coded Allergies: NO KNOWN ALLERGIES (04/28/16) Disposition Summary Disposition Principal Diagnosis: -Schizoaffective disorder -Hx. of TIAs and CVA -Paroxysmal A.fib -BPH Additional Diagnosis: As above Discharge Disposition: SNF Discharge Instructions General Discharge Information Code Status: Full Code Patient's Diet: Diet chopped and nectar Patient's Activity: As tolerated Follow-Up Instructions/Appts: F/U with your primary care physician within one week after discharge F/U with your psychiatrist within one week after discharge Medications at Discharge Discharge Medications: Stop taking the following medications: Haloperidol (Haloperidol) 5 MG TABLET ORAL TWICE DAILY Haloperidol Decanoate (Haloperidol Decanoate) 50 MG/ML VIAL INJECTABLE EVERY 3 WEEKS Qty = 15 Continue taking these medications: Atenolol (Atenolol) 50 MG TABLET 1 Tablet ORAL TWICE DAILY Qty = 90 Nitroglycerin (Nitroglycerin Patch) 0.4 MG/HOUR PATCH.TD24 1 PATCH On the skin DAILY Qty = 90 Tamsulosin HCl (Tamsulosin HCl) 0.4 MG CAP.ER.24H 1 Capsule ORAL DAILY Qty = 180 Finasteride (Finasteride) 5 MG TABLET 1 Tablet ORAL DAILY Qty = 90 Lorazepam (Lorazepam) 1 MG TABLET 1 Tablet ORAL TWICE DAILY Qty = 1 Olanzapine (Zyprexa) 5 MG TABLET 1 Tablet ORAL TWICE DAILY Mirtazapine (Remeron) 15 MG TABLET 1 Tablet ORAL Every night Start taking the following new medications: Haloperidol Decanoate (Haldol Decanoate 100) 100 MG/ML AMPUL 150 Milligram INTRAMUSC EVERY 3 WEEKS Qty = 10 No Refills Instructions: Due date 2016 Haloperidol (Haloperidol) 5 MG TABLET 10 Milligram ORAL AT BEDTIME Qty = 30 No Refills Instructions: hold for oversedation or respiratory depression Copies To: MAKSIM BELTRÁN,SHILPA
--- NOTE | 2016-11-14 09:54 | PN- Psychiatry ---
See Addendum Assessment/Plan Impression: The patient is beginning to eat more since receiving his Haldol 150 mg IM decanoate injection on 11.12.16. He did not receive his Haldol 10 mg PO at bedtime last night due to sedation. I have ordered a one time dose of 5 mg Haldol PO this morning. The patient ate about 1/2 of his lunch yesterday, and his cereal this morning, which is an improvement, since he has some paranoia about eating and drinking related to weight gain and worry about needing to urinate. The olanzapine in addition to haloperidol has helped resolve this ideation. 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 This medication hould be held for oversedation or respiratory depression. EKG of 11.11.16 0352: SR, 55 bpm, QTc 436 mS. Suggestion: 1. Psychotropic medications continued, as above. 2. Please request a psychiatric evaluation at the [facility] for continuity of care. 3. Please request on the W-10, and on the D/C orders, that an appointment with OPS be made with Dr. Zaira Nayak by the [facility] when the patient's discharge date from the [facility] is known. [phone]. 4. Please encourage by mouth fluids and food. We will continue to follow along with you. Emory Cuello APRN, Pager [phone] Subjective Subjective: The patient was seen today, 11/14/16, at 0840 in room 171. He is drowsy, briefly arousable, calm, but answering few questions. He states that he feels safe here in the hospital. He is not in any apparent distress. Objective Last 24 Hrs of Vital Signs/I&O Vital Signs Date Time Temp Pulse Resp B/P Pulse O2 O2 Flow FiO2 Ox Delivery Rate 11/14 0914 98.9 53 20 112/60 11/14 0811 98.9 53 20 112/60 93 Room Air 11/13 2328 98.8 70 20 140/70 93 Room Air 11/13 1828 Room Air 11/13 1533 98.7 63 18 142/70 93 Room Air 11/13 1021 120/64 Intake & Output 11/14 1600 11/14 0800 11/14 0000 Intake Total 360 Output Total Balance 360 Intake, Oral 360 Number 1 Bowel Movements
--- NOTE | 2016-11-14 12:57 | PN- Att Addend ---
Attending Addendum Attending Brief Note Patient looks a little better today little brighter maybe less agitated taking nourishment from his being followed by psych adjusting medications. When psych is a clearance made with can transfer to rehabilitation. Current Medications Sig/Vidal Start time Last Medication Dose Route Stop Time Status Admin Acetaminophen 650 MG Q6P PRN 11/08 2044 AC PO Atenolol 50 MG BID 11/08 2199 AC 11/14 PO 0913 Benzocaine/Menthol 1 PHOEBE Q2P PRN 11/09 2129 AC PO Benzonatate 100 MG TID 11/09 2199 AC 11/14 PO 0914 Bisacodyl 5 MG DAILY PRN 11/10 1115 AC PO Bisacodyl 10 MG Q12P PRN 11/09 1000 AC 11/09 [place] 1047 Enoxaparin Sodium 40 MG DAILY@11/10 AC 11/13 SC 2113 Finasteride 5 MG DAILY 11/09 1000 AC 11/14 PO 0914 Haloperidol 5 MG ONE ONE 11/14 0945 DC 11/14 PO 11/14 0946 0947 Haloperidol 150 MG Q 3 WEEKS 11/12 1000 AC 11/12 IM 0949 Haloperidol 10 MG AT BEDTIME 11/11 2199 AC 11/12 PO 2152 Ibuprofen 600 MG Q6P PRN 11/08 2044 AC PO Lorazepam 1 MG BID 11/10 2199 AC 11/14 PO 0921 Magnesium Hydroxide 30 ML AT BEDTIME PRN 11/08 214 AC PO Mirtazapine 15 MG QPM 11/08 2199 AC 11/12 PO 2153 Nitroglycerin 0.4 MG DAILY 11/09 1000 AC 11/14 TOP 0914 Nystatin 1 NEW BID 11/10 2199 AC 11/14 TOP 0914 Olanzapine 5 MG BID 11/10 2199 AC 11/14 PO 0914 Oxycodone HCl 10 MG Q6P PRN 11/08 2045 AC PO Polyethylene Glycol 17 GM DAILY 11/09 1000 AC 11/14 PO 0914 Tamsulosin HCl 0.4 MG DAILY 11/09 999 AC 11/14 PO 0914 Vital Signs Date Time Temp Pulse Resp B/P Pulse O2 O2 Flow FiO2 Ox Delivery Rate 11/14 1113 Room Air 11/14 913 98.9 53 20 112/60 11/14 0811 98.9 53 20 112/60 93 Room Air 02/13 2328 98.8 70 20 140/70 93 Room Air 11/13 1828 Room Air 11/13 1533 98.7 63 18 142/70 93 Room Air Intake & Output 11/14 1600 11/14 0800 11/14 0000 Intake Total 360 Output Total Balance 360 Intake, Oral 360 Number 1 Bowel Movements
[2016-11-14 16:10] VITALS: BP 122/58
--- NOTE | 2016-11-14 16:27 | NUR ---
Referral received yesterday from bottle caser. Reason for referral was to discuss T-19 eligibility requirements with patients , Hilary. I met with Hilary twice yesterday and reviewed financial requirements and allowances. At face value, it would seem that the patient and his are presently over assetts; plans to consult with local elder care container packer operator before proceeding with application process. I have provided Hilary with my contact information. Case discussed with bottle caser.
[2016-11-15 00:22] VITALS: BP 132/72
--- NOTE | 2016-11-15 06:57 | PN- Housestaff ---
Subjective Follow-up For: Hypothermia Altered mental status Poor medication compliance Atrial fibrillation Subjective: Patient seen and examined at bedside this AM. He is more awake and alert and responds to most questions. He denies fever, chills, chest pain or shortness of breath but his responses are delayed and he makes poor eye contact. When patient was questioned regarding how he feels overall, he declined to answer and just mentioned that he "doesn't feel right"; he cannot describe how he does not feel right. Review of Systems Constitutional: Denies: chills, fever. EENTM: Denies: blurred vision. Cardiovascular: Denies: chest pain, palpitations. Respiratory: Reports: cough. Denies: short of breath, sputum production. Gastrointestinal: Denies: abdominal pain, nausea. Genitourinary: Denies: dysuria. Objective Last 24 Hrs of Vital Signs/I&O Vital Signs Date Time Temp Pulse Resp B/P Pulse O2 O2 Flow FiO2 Ox Delivery Rate 11/15 0022 98.8 64 20 132/72 94 Room Air 11/14 1610 99.7 66 20 122/58 93 Room Air 11/14 1113 Room Air 11/14 0914 98.9 53 20 112/60 11/14 0811 98.9 53 20 112/60 93 Room Air Intake & Output 11/15 0800 11/15 0000 11/14 1600 Intake Total 120 360 480 Output Total Balance 120 360 480 Intake, Oral 120 360 480 Physical Exam General Appearance: Patient remains slightly lethargic with poor eye contact and constant movement. He is in no acute distress. Skin: No Significant Lesion HEENT: Atraumatic, PERRLA, Mucous Membr. moist/pink Neck: Supple Cardiovascular: Irregularly irregular Lungs: Normal Air Movement, Occasional wheeze RUL, normal air entry. Occasional cough. Abdomen: Normal Bowel Sounds, Soft, No Tenderness Neurological: Normal Tone, Speech delayed and quiet. Extremities: No Clubbing, No Cyanosis, No Edema Vascular: Pulses Symmetrical Current Medications: Current Medications Sig/Vidal Start time Last Medication Dose Route Stop Time Status Admin Acetaminophen 650 MG Q6P PRN 11/08 2044 AC PO Atenolol 50 MG BID 11/08 2199 AC 11/14 PO 222 Benzocaine/Menthol 1 PHOEBE Q2P PRN 11/09 2129 AC PO Benzonatate 100 MG TID 11/09 2199 AC 11/14 PO 2228 Bisacodyl 5 MG DAILY PRN 11/10 1115 AC PO Bisacodyl 10 MG Q12P PRN 11/09 1000 AC 11/09 [place] 1047 Enoxaparin Sodium 40 MG DAILY@0 11/10 2200 AC 11/14 SC 2230 Finasteride 5 MG DAILY 11/09 1000 AC 11/14 PO 0914 Haloperidol 5 MG ONE ONE 11/14 0945 DC 11/14 PO 11/14 0946 0947 Haloperidol 150 MG Q 3 WEEKS 11/12 1000 AC 11/12 IM 0949 Haloperidol 10 MG AT BEDTIME 11/11 2200 AC 11/14 PO 2227 Ibuprofen 600 MG Q6P PRN 11/08 2045 AC PO Lorazepam 1 MG BID 11/10 2199 AC 11/14 PO 0921 Magnesium Hydroxide 30 ML AT BEDTIME PRN 11/08 2145 AC PO Mirtazapine 15 MG QPM 11/08 2200 AC 11/12 PO 2153 Nitroglycerin 0.4 MG DAILY 11/09 1000 AC 11/14 TOP 0914 Nystatin 1 NEW BID 11/10 2200 AC 11/14 TOP 2230 Olanzapine 5 MG BID 11/10 2200 AC 11/14 PO 2228 Oxycodone HCl 10 MG Q6P PRN 11/08 2045 AC PO Patient Medication 1 ED ONE ONE 11/14 1400 DC Teaching ED 11/14 1401 Polyethylene Glycol 17 GM DAILY 11/09 1000 AC 11/14 PO 0914 Tamsulosin HCl 0.4 MG DAILY 11/09 1000 AC 11/14 PO 0914 Orders ECHO Findings: CONCLUSIONS Moderate concentric left ventricular hypertrophy. Normal left ventricular ejection fraction visually estimated at >65 Abnormal relaxation filling pattern of the left ventricle for age (stage 1 diastolic dysfunction). Left atrial size at the upper limits of normal. Mild thickening/calcification of the mitral valve leaflets. Moderate mitral annular calcification. Mild mitral regurgitation. Diffuse thickening (sclerosis) of the aortic valve cusps without reduced excursion. No aortic stenosis. Pulmonary artery systolic pressure is normal. Mildly dilated IVC. Miscellaneous Findings: EEG: Abrnomal EEG due to a moderate degree of generalized background slowing suggestive of encephalopathy. There is however no suggesstion of ongoing seizure activity or interictal epileptiform features. Assessment/Plan Assessment: Mr. Almanzar is a 71-year-old gentleman with PMH of TIA, CVA with aphasia (resolved), coronary artery disease, hypertension, dyslipidemia, peripheral vascular disease, peptic ulcer disease and carotid artery disease status post left endarterectomy who presented to [place] on 11/08/16 with chief complaint of altered mental status and hypothermia to 92.1. In the ED: Vital signs showed T 92.1, HR 54, RR 16, BP 136/80 and O2 saturation of 97% on RA. Chest x-ray was negative for any acute abnormality. CT abdomen and pelvis was also negative for any acute pathology but there was moderate amount of retained stool throughout colon. Head CT was negative for any evidence of acute infarct or hemorrhage. EKG was not able to be interpreted 2/2 underlying artifact. Patient is admitted to the telemetry floor and the following is the management: 1. Hypothermia * Resolved, patient now normothermic * Hypothermia to 92.1 rectally on admission likely 2/2 physical exposure ( standing for extended period of time in front of glass door) * Vital signs are stable, continue to monitor 2. Delirium * Delirium most likely caused by poor medication compliance as well as superimposed hypothermia. * Infectious etiology unlikely the cause as initial urinalysis showed no evidence of UTI and no other sources of infection identified. All culture negative (final). * Continue to follow psychiatric recommendation * Patient was cleared from cardiology to resume and continue home psychotropic medication * Continue olanzapine 5 mg BID, haloperidol PO 10 mg at bedtime and haloperidol IM Q 3 weeks * Continue lorazepam 1 mg BID and mirtazapine 15 mg every afternoon * Patient will have appt with OPS be made with Dr. 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 BPH * Continue tamsulosin, finasteride * Encourage fluid/food intake as patient was previously not having appropriate PO intake * Monitor Is&Os 4. Constipation * Continue with milk of magnesia 30 mg PO at bedtime PRN constipation * Miralax daily, ducolax suppository PRN for constipation 5. HTN, HLD, CAD * Continue atenolol 50 mg PO BID * Continue nitroglycerin patch topical daily 6. Recurrent UTIs * Patient's reports patient has frequent UTIs (3 episodes since December 2015) * Will refer patient to urology as an outpatient for further workup 7. Fall risk due to mobile impairments * Case management will help arrange LifeAlert device for fall detection prior to discharge FULL CODE Heart healthy diet with mechanical soft/nectar thickened DVTP: [place] carleynox Problem List: 1. Altered mental status 2. CAROTID ARTERY DIS 3. History of - myocardial infarction 4. History of carotid endarterectomy 5. Paranoid schizophrenia 6. Gait instability 7. Hypothermia Pain Ratin Pain Location: n/a Pain Goal: Remain pain free Pain Plan: Mild pain pathway. Tomorrow's Labs & Rationales: None.
[2016-11-15 08:29] VITALS: BP 136/70
--- NOTE | 2016-11-15 09:55 | PN- Att Addend ---
Attending Addendum Attending Brief Note Patient sitting in the chair, at the bedside trying to nourish him vital signs are stable and no new changes on physical patient will be going today to short-term rehabilitation to [facility] I will follow the patient over there see the discharge summary and C MR. Current Medications Sig/Vidal Start time Last Medication Dose Route Stop Time Status Admin Acetaminophen 650 MG Q6P PRN 11/08 2045 AC PO Atenolol 50 MG BID 11/08 2199 AC 11/15 PO 0857 Benzocaine/Menthol 1 PHOEBE Q2P PRN 11/09 2130 AC PO Benzonatate 100 MG TID 11/09 2199 AC 11/15 PO 0856 Bisacodyl 5 MG DAILY PRN 11/10 1115 AC PO Bisacodyl 10 MG Q12P PRN 11/09 1000 AC 11/09 KS 1047 Enoxaparin Sodium 40 MG DAILY@11/10 AC 11/14 SC 2230 Finasteride 5 MG DAILY 11/09 1000 AC 11/15 PO 0855 Haloperidol 150 MG Q 3 WEEKS 11/12 1000 AC 11/12 IM 0949 Haloperidol 10 MG AT BEDTIME 11/11 2200 AC 11/14 PO 2227 Ibuprofen 600 MG Q6P PRN 11/08 204 AC PO Lorazepam 1 MG BID 11/10 2199 AC 11/15 PO 0855 Magnesium Hydroxide 30 ML AT BEDTIME PRN 11/08 2145 AC PO Mirtazapine 15 MG QPM 11/08 2200 AC 11/12 PO 2153 Nitroglycerin 0.4 MG DAILY 11/09 1000 AC 11/15 TOP 0857 Nystatin 1 NEW BID 11/10 2199 AC 11/15 TOP 0903 Olanzapine 5 MG BID 11/10 2200 AC 11/15 PO 0856 Oxycodone HCl 10 MG Q6P PRN 11/08 2045 AC PO Patient Medication 1 ED ONE ONE 11/14 1400 DC Teaching ED 11/14 1401 Polyethylene Glycol 17 GM DAILY 11/09 1000 AC 11/15 PO 0857 Tamsulosin HCl 0.4 MG DAILY 11/09 1000 AC 11/15 PO 0856 Vital Signs Date Time Temp Pulse Resp B/P Pulse O2 O2 Flow FiO2 Ox Delivery Rate 11/15 0856 98.9 71 20 136/70 11/15 0829 98.9 71 20 136/70 92 Room Air
[2016-11-15 12:12] VITALS: BP 136/70
== END 2016-11-15 13:40 | DRG 71 ==
LOC: ENRESERVDT → ENRESERVTM → ERH 16:34 → 1NO 20:10 → CRI 20:10 → ERHI 20:10 → ENPENDDIS 20:10 → 1NO 23:41 → CRI 23:41 → 1NO 11-09 13:04
PROVIDERS: Physician Assistant Medical; Preventive Medicine Public Health & General Preventive Medicine; Student in an Organized Health Care Education/Training Program; ADMIT Internal Medicine
DX: I67.9 Cerebrovascular disease, unspecified (principal); F05 Delirium due to known physiological condition; T68.XXXA Hypothermia, initial encounter; I11.9 Hypertensive heart disease without heart failure; F20.0 Paranoid schizophrenia; N40.0 Benign prostatic hyperplasia without lower urinary tract symptoms; I25.10 Atherosclerotic heart disease of native coronary artery without angina pectoris; E78.5 Hyperlipidemia, unspecified; I73.9 Peripheral vascular disease, unspecified; I69.320 Aphasia following cerebral infarction; X31.XXXA Exposure to excessive natural cold, initial encounter
CPT/HCPCS: 1NP; 1NSP; CCU; 36415; 74176; 74230; 81003; 82436; 87040; 87086; 87804; 87804-59; 93005; 93010; 93306; 93970; 94799; 95816; 96361; 96365; 96375; 97110-GO; 97116-GO; 97161-GP; 97166-GO; 97530-GO; 99291; J0696; J0713; J1630; J1631; J1650; J3370; J7042; J7060

== ENCOUNTER 2018-02-26 11:51 | Inpatient (IN) | payer OTHER, MEDICARE ==
[~2018-02-26] VITALS: Ht 182.9 cm; Wt 117.9 kg
[~2018-02-26 11:51] MED LIST changes: +BENZTROPINE MESY1 M1 PO; +FINASTERIDE5 M1 PO; +HALOPERIDO50 MG/1 M1 INJ; +LORAZEPAM1 M1 PO; +TAMSULOSIN HCL0.4 M1 PO; +ZYPREXA5 M1 PO
[2018-02-26] MEDS ORDERED: FUROSEMIDE20 M1 PO ×2 (12:20→12:21)
[2018-02-26] MEDS ORDERED: FOLIC ACID1 M1 PO (12:21)
[2018-02-26] MEDS ORDERED: AUGMENTIN 875-1 EACH PO (12:22)
[2018-02-26] MEDS ORDERED: PROAIR HFA8.5 GM INH (12:23)
--- NOTE | 2018-02-26 12:25 | ED AMS/SEIZURE/WEAK/DIZZY ---
History of Present Illness General Chief Complaint: General Adult Stated Complaint: GENERALIZED WEAKNESS Source: patient, family, old records Exam Limitations: no limitations Vital Signs & Intake/Output Vital Signs & Intake/Output Vital Signs Date Time Temp Pulse Resp B/P B/P Pulse O2 O2 Flow FiO2 Mean Ox Delivery Rate 02/26 1413 97.3 54 18 135/65 95 02/26 1206 Room Air 02/26 1155 61 16 100/59 97 Room Air Allergies Coded Allergies: NO KNOWN ALLERGIES (04/28/16) Reconcile Medications Albuterol Sulfate (Proair Hfa) 90 MCG HFA.AER.AD 2 PUF INH Q4-6 PRN PRN SHORTNESS OF BREATH (Reported) Amoxicillin/Potassium Clav (Augmentin 875-125 Tablet) 875 MG-125 MG TABLET 1 TAB PO BID ANTIBIOTIC, INFECTION (Reported) Atenolol 50 MG TABLET 1 TAB PO BID DIRECTED (Reported) Benztropine Mesylate 1 MG TABLET 1 TAB PO DAILY MENTAL HEALTH (Reported) Esomeprazole (Nexium) 40 MG CAPSULE.DR 1 TAB PO DAILY ACID REFLUX (Reported) Finasteride 5 MG TABLET 1 TAB PO DAILY DIRECTED (Reported) Folic Acid 1 MG TABLET 1 TAB PO DAILY VITAMIN SUPPORT (Reported) Furosemide 20 MG TABLET 1 TAB PO DAILY WATER RETENTION (Reported) Haloperidol 5 MG TABLET 10 MG PO AT BEDTIME hold for oversedation or respiratory depression Lisinopril 40 MG TABLET 1 TAB PO DAILY HIGH BLOOD PRESSURE (Reported) Lorazepam 1 MG TABLET 1 TAB PO BID DIRECTED (Reported) Nitroglycerin (Nitroglycerin Patch) 0.4 MG/HOUR PATCH.TD24 1 PATCH TOP DAILY DIRECTED (Reported) Olanzapine (Zyprexa) 5 MG TABLET 1 TAB PO BID DIRECTED (Reported) Simvastatin (Simvastatin*) 20 MG TABLET 1 TAB PO QPM HIGH CHOLESTROL ( Reported) Tamsulosin HCl 0.4 MG CAP.ER.24H 1 CAP PO QPM PROSTATE (Reported) Triage Note: PT BIBA FROM HOME WITH C/O GENERALIZED WEAKNESS. PER EMS, PT WAS DX WITH A UTI LAST SUNDAY AND RECENTLY FINISHED COURSE OF AUGMENTIN FOR SAME. PT PRESENTED VISIBLY WEAK TODAY, UNABLE TO AMBULATE ANY GREAT DISTANCE WHICH IS HIS USUAL BASELINE. PT DENIES OTHER COMPLAINTS. PT ARRIVES A&O, FORGETFUL. VS WNL EN ROUTE. BLOOD GLUCOSE 121. NITROPATCH IN PLACE TO LEFT CHEST WALL WHICH WAS REMOVED ON ARRIVAL R/T LOWERING BP Triage Nurses Notes Reviewed? yes Onset: Gradual Duration: day(s): Timing: recent history Injury Environment: home Severity: moderate HPI: 72YO MALE with hx of a fib, TIA, urosepsis, CAD, HTN BIBA to ED for generalized weakness and fatigue worsening for the past 2 days. Patient was diagnosed with a UTI last week, started on Augmentin antibiotics. states that over the past 2 days patient has been sleeping for a majority of the day, more difficult to arouse. 2 days ago patient had an episode of unresponsiveness for a few seconds however then became arousable. Patient also complained of left arm and jaw pain last week, was seen by his investment banker and had a normal EKG. Patient also complained of severe headache last week. Currently patient reports no pain. Patient has had chills however no recorded fevers. Patient also reports malaise. reports urinary urgency and frequency. Patient denies chest pain , dyspnea, abdominal pain, dysuria. (Jocelyn Dumas) Past History Medical History Any Pertinent Medical History? 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 Hx Contributory? No (Jocelyn Dumas) Review of Systems Review of Systems Constitutional: Reports: see HPI. EENTM: Reports: no symptoms. Respiratory: Reports: no symptoms. Cardiovascular: Reports: see HPI. GI: Reports: no symptoms. Genitourinary: Reports: see HPI. Musculoskeletal: Reports: no symptoms. Skin: Reports: no symptoms. Neurological/Psychological: Reports: no symptoms. Hematologic/Endocrine: Reports: no symptoms. Immunologic/Allergic: Reports: no symptoms. All Other Systems: Reviewed and Negative (Jocelyn Dumas) Physical Exam Physical Exam General Appearance: well developed/nourished, no apparent distress, alert, awake Head: atraumatic, normal appearance Eyes: Bilateral: normal appearance, PERRL, EOMI. Ears, Nose, Throat: normal pharynx, hearing grossly normal Neck: normal inspection, supple, full range of motion Respiratory: normal breath sounds, no respiratory distress, lungs clear, faint wheezes bilaterally Cardiovascular: regular rate/rhythm, normal peripheral pulses Peripheral Pulses: 2+ radial (R), 2+ radial (L) Gastrointestinal: normal bowel sounds, soft, non-tender, no organomegaly Back: normal inspection, normal range of motion Extremities: normal range of motion Neurologic/Psych: awake, alert, oriented x 3 Skin: intact, normal color, warm/dry Core Measures ACS in differential dx? Yes CVA/TIA Diagnosis No Sepsis Present: No Sepsis Focused Exam Completed? Yes (Jocelyn Dumas) ED Sepsis Exam Date of Focused Sepsis Exam: 02/26/18 Time of Focused Sepsis Exam: 1259 Sepsis Cardiac Exam: Regular Rate/Rhythm Sepsis Resp Exam: faint wheezes Sepsis Cap Refill Exam: <2 Sec Sepsis Peripheral Pulse Exam: Normal Sepsis Peripheral Pulse Location: Radial Sepsis Skin Color Exam: Pale Skin Temp/Moisture Exam: Cool/Dry (Jocelyn Dumas) Progress Differential Diagnosis: arrythmia, anemia, CVA/stroke, dehydration, drug intoxication, electrolyte imbalance, hypoxia, intracranial Hem., intracranial mass/tumor, pneumonia, sepsis, UTI/pyelo Plan of Care: Orders Procedure Date/time Status Heart Healthy Diet 02/26 D Active LACTIC ACID 02/26 1523 Active ED Holding Orders 02/26 1518 Active Admit to inpatient 02/26 1518 Active Vital Signs 02/26 1518 Active Code Status 02/26 1518 Active Patient Data 02/26 1512 Active Add-on Test (ER Only) 02/26 1420 Active PARTIAL THROMBOPLASTIN TIME 02/26 1315 Complete PROTHROMBIN TIME 02/26 1315 Complete CULTURE,URINE 02/26 1223 Active BLOOD CULTURE 02/26 1223 Active URINALYSIS 02/26 1223 Complete TROPONIN LEVEL 02/26 1223 Complete MAGNESIUM 02/26 1223 Complete LACTIC ACID 02/26 1223 Complete COMPREHENSIVE METABOLIC PANEL 02/26 1223 Complete CBC WITHOUT DIFFERENTIAL 02/26 1223 Complete EKG 02/26 1223 Active Laboratory Tests 02/26/18 1325: Urine Color YEL, Urine Clarity CLEAR, Urine pH 6.5, Ur Specific [place] 1.010, Urine Protein NEG, Urine Ketones NEG, Urine Nitrite NEG, Urine Bilirubin NEG, Urine Urobilinogen 0.2, Ur Leukocyte Esterase NEG, Ur Microscopic EXAM NOT REQUIRED, Urine Hemoglobin NEG, Urine Glucose NEG 02/26/18 1315: Anion Gap 9, Estimated GFR 60, BUN/Creatinine Ratio 16.7, Glucose 82, Lactic Acid 1.3, Calcium 8.9, Magnesium 1.8, Total Bilirubin 0.5, AST 22, ALT 27, Alkaline Phosphatase 73, Troponin I < 0.01, Total Protein 6.9, Albumin 3.5, Globulin 3.4, Albumin/Globulin Ratio 1.0 L, PT 10.4, INR 0.95, APTT 26, CBC w Diff NO MAN DIFF REQ, RBC 3.71 L, MCV 90.4, MCH 30.1, MCHC 33.3, RDW 13.8, MPV 6.7 L, Gran % 83.5 H, Lymphocytes % 8.9 L, Monocytes % 6.0, Eosinophils % 1.2 , Basophils % 0.4, Absolute Granulocytes 8.4 H, Absolute Lymphocytes 0.9 L, Absolute Monocytes 0.6, Absolute Eosinophils 0.1, Absolute Basophils 0 Microbiology 02/26 1330 BLOOD: Blood Culture - RECD 02/26 132 URINE ROUT: Urine Culture - RECD 02/26 1315 BLOOD: Blood Culture - RECD Urine output is adequate. Initially patient presents with hypothermia and hypotension. He meets SIRS criteria based on these findings. Suspicion for urine as source of infection given recent UTI. Patient started on IV fluids and ceftriaxone. Dr. Tovar present to see and evaluate the patient who agrees with this plan. Labs, UA, blood cultures pending. Given patient's altered mental status/confusion will obtain head CT scan. Patient's labs show lactic acid is within normal limits, stable kidney function, no leukocytosis. Patient's vital signs have improved following fluid bolus. Patient is still altered and fatigue per his family. He has generalized weakness, he cannot ambulate. Patient has a history of urosepsis and his initial presentation with abnormal vital signs is concerning for sepsis. Patient to be admitted given these findings for follow-up with cultures, chin labs, repeat vital signs, possible further IV fluids and antibiotics. Case management recommend full admission. Spoke with Dr. Andres regarding this patient's general medicine admission. Diagnostic Imaging: Viewed by Me: Radiology Read, CT Scan. Discussed w/RAD: Radiology Read, CT Scan. Radiology Impression: PATIENT: CANDIDO TIRADO PRESENT AGE: 72 PATIENT ACCOUNT NO: [id number] : 47 LOCATION: [facility] ORDERING PHYSICIAN: Jocelyn FAM SERVICE DATE: 02/26/18 EXAM TYPE: CAT - CT HEAD WO IV CONTRAST EXAMINATION: CT HEAD WITHOUT CONTRAST CLINICAL INFORMATION: Headache, altered mental status. COMPARISON: 09/16/2017 TECHNIQUE: Contiguous axial imaging was performed from the skull base to vertex without intravenous administration of contrast. DLP: 637 mGy-cm FINDINGS: There is no evidence of acute intracranial hemorrhage or territorial infarction. No abnormal mass effect or midline shift is seen. An to white matter differentiation is well preserved. No extra-axial fluid collections are identified. There is stable encephalomalacia and gliosis in the high left frontal and the right temporoparietal lobes. There is stable moderate generalized prominence of the ventricles, sulci, and extra-axial CSF spaces with superimposed associated ex vacuo dilatation of the atrium of the right lateral ventricle. There is stable mild hypoattenuation in the periventricular white matter compatible with chronic microangiopathy. No acute osseous abnormality. The imaged paranasal sinuses are clear apart from some minor mucosal thickening in a posterior right ethmoid air cell. The nasal cavity, nasopharynx, mastoid air cells and middle ear cavities are clear. No acute soft tissue abnormalities. There has been a left ocular lens extraction. IMPRESSION: No acute intracranial pathology. Stable chronic findings as above. DICTATED BY: Tim Pearl MD DATE/ TIME DICTATED:02/26/181458 BAR STAFF:TASHI DATE/TIME TRANSCRIBED: 02/26/181458 CONFIDENTIAL, DO NOT COPY WITHOUT APPROPRIATE AUTHORIZATION. < Electronically signed in Other Vendor System> SIGNED BY: Tim Pearl MD 02/26/18 1505 CXR Impression: PATIENT: CANDIDO TIRADO PRESENT AGE: 72 PATIENT ACCOUNT NO: [id number] : 47 LOCATION: [facility] ORDERING PHYSICIAN: Jocelyn FAM SERVICE DATE: 02/26/18-1236 EXAM TYPE: RAD - XRY-PORTABLE CHEST XRAY EXAMINATION: XR PORTABLE CHEST CLINICAL INFORMATION: Possible sepsis COMPARISON: November 09, 2016 and September 16, 2017 TECHNIQUE: Portable frontal view of the chest was obtained. FINDINGS: There is no evidence of acute parenchymal disease, pneumothorax, or pleural effusion. The cardiopericardial silhouette is mildly enlarged. No evidence of pulmonary edema. IMPRESSION: No acute disease. DICTATED BY: Emory Morales MD DATE/TIME DICTATED: 02/26/181404 BAR STAFF:TASHI DATE/TIME TRANSCRIBED:02/26/181404 CONFIDENTIAL, DO NOT COPY WITHOUT APPROPRIATE AUTHORIZATION. <Electronically signed in Other Vendor System> SIGNED BY: Emory Morales MD 02/26/18 1411 Initial ED EKG: accelerated junctional escape rhythm @ 52bpm, RBBB (Jocelyn Dumas) Departure Departure Disposition: STILL A PATIENT Condition: Stable Clinical Impression Primary Impression: Altered mental status Qualifiers: Altered mental status type: unspecified Qualified Code: R41.82 - Altered mental status, unspecified Secondary Impressions: Hypotension Qualifiers: Hypotension type: unspecified hypotension type Qualified Code: I95.9 - Hypotension, unspecified Increased weakness when ambulating Referrals: Lukas Andres MD (PCP/Family) Departure Forms: Customer Survey General Discharge Information Admission Note Spoke With: Lukas Andres MD Documentation of Exam: Documentation of any treatments & extenuating circumstances including Concerns Regarding Discharge (functional status, medication knowledge or non-compliance, living conditions, etc.) that warrant an admission rather than observation: [ Patient altered mental status with generalized increasing weakness. Patient arrived hypotensive and hypothermic meeting SIRS criteria and warranting IV antibiotics. Patient has history of urosepsis. Given his current presentation he requires hospital stay for IV fluids, further IV antibiotics, follow-up with urine and blood cultures, possible physical therapy consult given inability to ambulate due to his weakness, premature discharge medically unsafe] (Jocelyn Dumas) PA/GARMENT INSPECTOR Co-Sign Statement Statement: ED Attending supervision documentation- [X] I saw and evaluated the patient. I have also reviewed all the pertinent lab results and diagnostic results. I agree with the findings and the plan of care as documented in the PA's/GARMENT INSPECTOR's documentation. [X] I have reviewed the ED Record and agree with the PA's/GARMENT INSPECTOR's documentation. [] Additions or exceptions (if any) to the PAs/GARMENT INSPECTOR's note and plan are summarized below: [Patient is having increasing weakness, fatigue and confusion since Sunday. Similar symptoms in the past with urosepsis. She will require aggressive hydration and broad-spectrum antibiotics. Cultures. Unsure the patient will need ICU or if he will be stable for general medical time. Continue to follow closely. His labs and CAT scan are normal.. Family is concerned because his states that the last time he was septic everything was negative at first until the blood cultures turn positive. Patient will be admitted for close observation.] ([place] BELTR[place]N,Gen Marie) Critical Care Note Critical Care Note Critical Care Time: 30-74 min (Mary FAM,Jocelyn Camargo)
[2018-02-26 13:27] LABS: ABSOLUTE BASOPHIL COUNT 0 /CUMM (0.0-0.2); ABSOLUTE EOSINOPHIL COUNT 0.1 /CUMM (0.0-0.7); ABSOLUTE GRANULOCYTE CT 8.4 /CUMM (1.4-6.5); ABSOLUTE LYMPH COUNT 0.9 /CUMM (1.2-3.4); ABSOLUTE MONOCYTE COUNT 0.6 /CUMM (0.10-0.60); BASOPHIL % 0.4 % (0.0-2.0); EOSINOPHIL % 1.2 % (0-5); HEMATOCRIT 33.5 % (42-52); MEAN CORPUSCULAR HGB 30.1 PG (27.0-31.0); MEAN CORPUSCULAR HGB CONC 33.3 G/DL (33.0-37.0); MEAN CORPUSCULAR VOLUME 90.4 FL (80.0-94.0); MEAN PLATELET VOLUME 6.7 FL (7.4-10.4); PLATELET COUNT 220 /CUMM (130-400); RBC DISTRIBUTION WIDTH 13.8 % (11.5-14.5); RED BLOOD CELL CT 3.71 /CUMM (4.70-6.10)
[2018-02-26 13:43] LABS: GRANULOCYTE % 83.5 % (42.2-75.2)
--- NOTE | 2018-02-26 14:11 | RADIOLOGY REPORT ---
EXAMINATION: XR PORTABLE CHEST CLINICAL INFORMATION: Possible sepsis COMPARISON: November 09, 2016 and September 16, 2017 TECHNIQUE: Portable frontal view of the chest was obtained. FINDINGS: There is no evidence of acute parenchymal disease, pneumothorax, or pleural effusion. The cardiopericardial silhouette is mildly enlarged. No evidence of pulmonary edema. IMPRESSION: No acute disease.
[2018-02-26 14:41] LABS: PT 10.4 SEC (9.4-12.5); PTT 26 SEC (25-37)
--- NOTE | 2018-02-26 15:05 | CT SCAN REPORT ---
EXAMINATION: CT HEAD WITHOUT CONTRAST CLINICAL INFORMATION: Headache, altered mental status. COMPARISON: 09/16/2017 TECHNIQUE: Contiguous axial imaging was performed from the skull base to vertex without intravenous administration of contrast. DLP: 637 mGy-cm FINDINGS: There is no evidence of acute intracranial hemorrhage or territorial infarction. No abnormal mass effect or midline shift is seen. An to white matter differentiation is well preserved. No extra-axial fluid collections are identified. There is stable encephalomalacia and gliosis in the high left frontal and the right temporoparietal lobes. There is stable moderate generalized prominence of the ventricles, sulci, and extra-axial CSF spaces with superimposed associated ex vacuo dilatation of the atrium of the right lateral ventricle. There is stable mild hypoattenuation in the periventricular white matter compatible with chronic microangiopathy. No acute osseous abnormality. The imaged paranasal sinuses are clear apart from some minor mucosal thickening in a posterior right ethmoid air cell. The nasal cavity, nasopharynx, mastoid air cells and middle ear cavities are clear. No acute soft tissue abnormalities. There has been a left ocular lens extraction. IMPRESSION: No acute intracranial pathology. Stable chronic findings as above.
--- NOTE | 2018-02-26 15:34 | History & Physical ---
Bassem BELTRÁN,[facility] 02/26/18 1534: General Information and HPI MD Statement: I have seen and personally examined CANDIDO TIRADO and documented this H&P. The patient is a 72 year old M who presented with a patient stated chief complaint of [frequent falls, confusion]. Source of Information: patient, family, old records Exam Limitations: no limitations History of Present Illness: The patient is 72-year-old gentleman with past medical history of paranoid schizophrenia, hypertension, coronary artery disease, TIAs and CVA with history of left-sided hemiparesis, PVD, PUD. The patient presented to [facility] ED on . He was brought in by family to be evaluated for lethargic and altered mental status. The patient's is at bedside and provided most of the history. The patient has been feeling weak and tired since past 10 days. Of note patient was recently started on Lasix for lower extremity edema. As per patient's he was never having any urinary symptoms other than increased frequency. She also reported that patient had had multiple witnessed falls in past few months. The family contacted the patient's PCP who started patient on Augmentin for the past 1 week for presumed UTI infection considering the patient's episodes of confusion and increased frequency. Patient's also reported a decrease in oral intake for past 3 days. Patient was evaluated by the visiting nurse today who thought that patient's condition has deteriorated further in past 2 days and advised to call the ambulance. Of note patient's stated that on Sunday patient had an episode of blank staring into space for about 5 minutes and was nonresponsive and recovered spontaneously. The event was witnessed by patient's visiting nurse Review of system is essentially negative however patient's gives a history of headache which was relieved by Tylenol. The patient was alert and oriented 3 during the encounter Patient's last hospitalization was 5 months ago with complaint of weakness , altered mental status and decreased oral intake he was treated evaluated for bronchitis and type II MO during that visit Allergies/Medications Allergies: Coded Allergies: NO KNOWN ALLERGIES (04/28/16) Home Med list Albuterol Sulfate (Proair Hfa) 90 MCG HFA.AER.AD 2 PUF INH Q4-6 PRN PRN SHORTNESS OF BREATH (Reported) Amoxicillin/Potassium Clav (Augmentin 875-125 Tablet) 875 MG-125 MG TABLET 1 TAB PO BID ANTIBIOTIC, INFECTION (Reported) Atenolol 50 MG TABLET 1 TAB PO BID DIRECTED (Reported) Benztropine Mesylate 1 MG TABLET 1 TAB PO DAILY MENTAL HEALTH (Reported) Esomeprazole (Nexium) 40 MG CAPSULE.DR 1 TAB PO DAILY ACID REFLUX (Reported) Finasteride 5 MG TABLET 1 TAB PO DAILY DIRECTED (Reported) Folic Acid 1 MG TABLET 1 TAB PO DAILY VITAMIN SUPPORT (Reported) Furosemide 20 MG TABLET 1 TAB PO DAILY WATER RETENTION (Reported) Haloperidol 5 MG TABLET 10 MG PO AT BEDTIME hold for oversedation or respiratory depression Lisinopril 40 MG TABLET 1 TAB PO DAILY HIGH BLOOD PRESSURE (Reported) Lorazepam 1 MG TABLET 1 TAB PO BID DIRECTED (Reported) Nitroglycerin (Nitroglycerin Patch) 0.4 MG/HOUR PATCH.TD24 1 PATCH TOP DAILY DIRECTED (Reported) Olanzapine (Zyprexa) 5 MG TABLET 1 TAB PO BID DIRECTED (Reported) Simvastatin (Simvastatin*) 20 MG TABLET 1 TAB PO QPM HIGH CHOLESTROL ( Reported) Tamsulosin HCl 0.4 MG CAP.ER.24H 1 CAP PO QPM PROSTATE (Reported) Past History Travel History Traveled to [place] past 21 day No Medical History Neurological: CVA, TIA, L EYE BLINDNESS EENT: NONE Cardiovascular: AFIB, CAD, hypertension, hyperlipidemia, PVD Respiratory: EXERTIONAL SHORTNES OF BREATH Gastrointestinal: lower GI bleed, upper GI bleed Hepatic: NONE Renal: BARBARA Musculoskeletal: NONE Psychiatric: bipolar disease, schizophrenia Endocrine: NONE Blood Disorders: anemia Cancer(s): NONE PARK INTERPRETER/Reproductive: NONE History of MRSA: No History of VRE: No History of CDIFF: No Influenza Vaccine: 07/01/17 Surgical History Surgical History: LEFT CEA CATARACTS Past Family/Social History Family History Relations & Conditions if any BROTHER ([place]). Psychosocial History Where do you live? Home Who Do You Live With? self Services at Home: None Primary Language: Armenian Smoking Status: Former Smoker ETOH Use: denies use Functional Ability ADLs Needs Assist: dressing, eating, toileting, bathing. Ambulation: walker IADLs Needs Assist: shopping, housework, finances, food prep, telephone, transportation, medication admin. Review of Systems Review of Systems Constitutional: Reports: see HPI. Exam & Diagnostic Data Last 24 Hrs of Vital Signs/I&O Vital Signs Date Time Temp Pulse Resp B/P B/P Pulse O2 O2 Flow FiO2 Mean Ox Delivery Rate 02/26 1950 96.0 62 14 138/57 95 Room Air 02/26 1902 95.1 60 20 153/70 02/26 1901 95.1 60 16 153/70 96 Room Air 02/26 1655 94.4 56 16 184/90 97 Room Air 02/26 1413 97.3 54 18 135/65 95 02/26 1206 Room Air 02/26 1155 61 16 100/59 97 Room Air Intake & Output 02/26 1600 02/26 0800 02/26 0000 Intake Total Output Total 950 Balance -950 Output, Urine 950 Patient 240 lb Weight Weight Reported by Patient Measurement Method Physical Exam General Appearance Alert, Oriented X3, Cooperative Skin No Rashes HEENT Atraumatic Lymphatic Cervical nl Cardiovascular Normal S1, Normal S2, No Murmurs Lungs Clear to Auscultation, Normal Air Movement Abdomen Normal Bowel Sounds, Soft, No Tenderness Neurological Normal Speech, mild left upper extremity edema, no rigidity Extremities b/l lower extremity edema Last 24 Hrs of Labs/Ramesh: Laboratory Tests 02/26/18 1523: Lactic Acid Cancelled 02/26/18 1325: Urine Color YEL, Urine Clarity CLEAR, Urine pH 6.5, Ur Specific [place] 1.010, Urine Protein NEG, Urine Ketones NEG, Urine Nitrite NEG, Urine Bilirubin NEG, Urine Urobilinogen 0.2, Ur Leukocyte Esterase NEG, Ur Microscopic EXAM NOT REQUIRED, Urine Hemoglobin NEG, Urine Glucose NEG 02/26/18 1315: Anion Gap 9, Estimated GFR 60, BUN/Creatinine Ratio 16.7, Glucose 82, Lactic Acid 1.3, Calcium 8.9, Magnesium 1.8, Total Bilirubin 0.5, AST 22, ALT 27, Alkaline Phosphatase 73, Troponin I < 0.01, Total Protein 6.9, Albumin 3.5, Globulin 3.4, Albumin/Globulin Ratio 1.0 L, Prolactin 40.9 H, PT 10.4, INR 0.95, APTT 26, CBC w Diff NO MAN DIFF REQ, RBC 3.71 L, MCV 90.4, MCH 30.1, MCHC 33.3, RDW 13.8, MPV 6.7 L, Gran % 83.5 H, Lymphocytes % 8.9 L, Monocytes % 6.0, Eosinophils % 1.2, Basophils % 0.4, Absolute Granulocytes 8.4 H, Absolute Lymphocytes 0.9 L, Absolute Monocytes 0.6, Absolute Eosinophils 0.1, Absolute Basophils 0 Microbiology 02/26 2030 UPPER RESP: Surveillance Culture - ORD 02/26 2030 GI: Surveillance Culture - ORD 02/26 1709 LOWER RESP: Respiratory Culture - COLB 02/26 170 LOWER RESP: Gram Stain - COLB 02/26 1330 BLOOD: Blood Culture - RECD 02/26 1325 URINE ROUT: Urine Culture - RECD 02/26 1315 BLOOD: Blood Culture - RECD Diagnostic Data CXR Results IMPRESSION: No acute disease. Other Results CT HEAD WITHOUT CONTRAST IMPRESSION: No acute intracranial pathology. Stable chronic findings as above. Assessment/Plan Assessment: The patient is 72-year-old gentleman with past medical history of paranoid schizophrenia, hypertension, coronary artery disease, TIAs and CVA with history of left-sided hemiparesis, PVD, PUD. The patient presented to [facility] ED on . He was brought in by family to be evaluated for lethargic and altered mental status. vitals hypothermia 94.4 Admission labs are significant for H/H , hyponatremia 136 bicarbonate 33 . Urinalysis negative The patient is being admitted to ICU and is being treated and evaluated for following conditions #Hypothermia The patient was found to be hypothermic with a normal WBC count. There is no obvious source of infection UA is clear chest x-ray was also clears. Patient does have bilateral lower extremity edema and edema but cellulitis is unlikely. Patient has been on oral Augmentin. Presumably being treated for UTI. There is no nuchal rigidity to suggest meningitis on examination and patient was alert and oriented 3 during evaluation -Tarah Hugger -Monitor fever and WBC curve -Matson cultures -ID consult -Monitor off antibiotics for now #Staring spell He had an episode of staring spell which lasted for about 5 minutes. There is a possibility of absence seizure however they usually last less than 15 seconds. TIA is another differential -Will benefit from neurological consult -Consider getting an EEG -MRI? #Altered mental status/confusion Patient's family has been reporting periods of confusion however as stated earlier patient is alert oriented 3 no neck rigidity so meningitis is not likely. There is no source of infection to suggest infectious cause of alteration in mentation. Baseline paranoia which appears to be under control. The episodes of confusion do not appear to be related to patient's schizophrenia however we will obtain a psychiatric consult -Monitor off antibiotics for now -Frequent reorientation -Neurology consult -Psychiatric consult -All antipsychotics/psychotropics on hold pending psych evaluation #Hyponatremia Patient is a very mild hyponatremia of 136 -continue to monitor #Chronic medical conditions Hyperlipidemia, hypertension, BPH, GERD, Continue statin, lisinopril, Lasix, atenolol finasteride, tamsulosin, Nexium Heart healthy diet/DVT prophylaxis subcutaneous heparin and Alps/focal As Ranked By This Provider Problem List: 1. AMS Core Measures/Misc (06/17) Acute Coronary Syndrome ACS Diagnosis: No Congestive Heart Failure Congestive Heart Failure Diagnosis No Cerebrovascular Accident CVA/TIA Diagnosis: No VTE (View Protocol) VTE Risk Factors Age>40 No Mechanical VTE Prophylaxis d/t N/A MechProphylax Ordered No VTE Pharm Prophylaxis d/t NA PharmProphylax ordered Sepsis (View protocol) Sepsis Present: No If YES complete Sepsis Event Note If YES complete Sepsis Event Note Abril Campbell 02/26/18 1713: Core Measures/Misc (06/17) Sepsis (View protocol) If YES complete Sepsis Event Note If YES complete Sepsis Event Note Resident Review Statement Resident Statement: examined this patient, discussed with news internship, agreed with news internship Other Findings: Patient is 72-year-old male with past medical history of schizophrenia, hypertension, coronary artery disease, TIA, CVA (left hemiparesis), PVD, peptic ulcer, came in with a chief complaint of lethargic and altered mental status. Patient was hospitalized 5 months prior to the admission for the similar complaints when he had frequent falls decreased by mouth intake and lethargic. On 02/19, patient was started on Augmentin as outpatient for possible UTI by Dr. Andres, initially the patient was improving on antibiotics, but on Sunday, the visiting nurse noticed that he is increasingly lethargic. On Sunday patient had one episode of blankly staring into the ear for 5 minutes when he was unresponsive to come our needs, per he has a history of this. Currently patient denies any symptoms such as headache/dizziness/difficulty breathing/burning micturition. He did report of some epigastric pain that was resolved after pantoprazole. was present at bedside and also reported that last week patient also reported of splitting headache that lasted for a couple of minutes and was relieved by Tylenol. Labs and vitals as above of note temp 95.1/94.4 Assessment and plan Admit the patient to critical care unit given his hypothermia for which she would need a tarah hugger. Patient got 1 dose of ceftriaxone in the ER and completed 7 days of Augmentin, will keep him off antibiotics for now. ID consult service on board. Please follow-up blood culture into 2, urine culture, resp culture. Patient might benefit from neurology evaluation. Consult with psychiatric given his paranoid schizophrenia for which he might need some medication adjustment. While he is lethargic, will hold his psych meds and follow the recommendation. Will continue the rest of his home meds. Neuro checks q8. monitorBP, restarted him on all home meds, can give hydralazine if BP consistently high. Will check prolactin to evaluate for any absence seizures. DVT prophylaxis SQ heparin Patient is full code
--- NOTE | 2018-02-26 18:14 | Incdntl Nt Psy ---
Incidental Note Notation: I assessed Antonio at 5:40 pm in the ED. Consult called by Dr. Andres for change in mental status. Pt found to have UTI. At home he was not feeling well, was staring into space (he has a hx of this). Some exacerbation of his baseline paranoia which has been under decent control. He is treated by Dr. Nayak as an outpatient. He has been compliant with his meds and MULE SPINNER was doing very well. Pt is drowsy but arouses to voice and is oriented. I will further assess him tomorrow on the floor when he can give me more history but I doubt these symptoms are strictly related to his schizophrenia. That said delirium episode could cause an exacerbation so I will watch him closely on the floor and liaison with Dr. Nayak for any med changes should the need arise. JScruggsMD #[id number]
--- NOTE | 2018-02-26 18:57 | Cons- Infect Disease ---
General Information and HPI Consulting Request Date of Consult: 02/26/18 Requested By: Lukas Andres MD Reason for Consult: Hypothermia Source of Information: patient, family, old records Exam Limitations: poor historian History of Present Illness: This is a 72-year-old man with a history of paranoid schizophrenia, maintained on IM Haldol every 3 weeks, hypertension, coronary artery disease, status post several TIAs and CVA, with a residual left hemiparesis, peripheral vascular disease, peptic ulcer disease, last hospitalized 5 months prior to admission with weakness, lethargy, altered mental status, frequent falls and decreased p.o. intake for several days, diagnosed with bronchitis and a type II MO, recently begun on Lasix for lower extremity edema and treated with Augmentin for the past week for a presumed urinary tract infection because of increasing falls , with no urinary symptoms, admitted today after he was brought to the emergency room by his because of several days of increasing weakness, decreased p.o. intake and decreased responsiveness following an episode of unresponsiveness several days prior to admission, with no complaints of headache, chest pain, shortness of breath, GI or symptoms. On admission he was afebrile, with a temperature down to 94.4 after several hours. His initial blood pressure was 100/59 but has increased to 184/90. Laboratory data revealed a white blood cell count of 10,000, BUN/creatinine 20 and 1.2, with normal liver enzymes, coags normal. Urinalysis negative. Chest x-ray was negative. CT of the head negative for any acute process. He was given a dose of Ceftriaxone and is being admitted to the ICU. Allergies/Medications Allergies: Coded Allergies: NO KNOWN ALLERGIES (04/28/16) Home Med List: Albuterol Sulfate (Proair Hfa) 90 MCG HFA.AER.AD 2 PUF INH Q4-6 PRN PRN SHORTNESS OF BREATH (Reported) Amoxicillin/Potassium Clav (Augmentin 875-125 Tablet) 875 MG-125 MG TABLET 1 TAB PO BID ANTIBIOTIC, INFECTION (Reported) Atenolol 50 MG TABLET 1 TAB PO BID DIRECTED (Reported) Benztropine Mesylate 1 MG TABLET 1 TAB PO DAILY MENTAL HEALTH (Reported) Esomeprazole (Nexium) 40 MG CAPSULE.DR 1 TAB PO DAILY ACID REFLUX (Reported) Finasteride 5 MG TABLET 1 TAB PO DAILY DIRECTED (Reported) Folic Acid 1 MG TABLET 1 TAB PO DAILY VITAMIN SUPPORT (Reported) Furosemide 20 MG TABLET 1 TAB PO DAILY WATER RETENTION (Reported) Haloperidol 5 MG TABLET 10 MG PO AT BEDTIME hold for oversedation or respiratory depression Lisinopril 40 MG TABLET 1 TAB PO DAILY HIGH BLOOD PRESSURE (Reported) Lorazepam 1 MG TABLET 1 TAB PO BID DIRECTED (Reported) Nitroglycerin (Nitroglycerin Patch) 0.4 MG/HOUR PATCH.TD24 1 PATCH TOP DAILY DIRECTED (Reported) Olanzapine (Zyprexa) 5 MG TABLET 1 TAB PO BID DIRECTED (Reported) Simvastatin (Simvastatin*) 20 MG TABLET 1 TAB PO QPM HIGH CHOLESTROL ( Reported) Tamsulosin HCl 0.4 MG CAP.ER.24H 1 CAP PO QPM PROSTATE (Reported) Past History Travel History Traveled to [place] past 21 day No Medical History Neurological: CVA, TIA, L EYE BLINDNESS EENT: NONE Cardiovascular: AFIB, CAD, hypertension, hyperlipidemia, PVD Respiratory: EXERTIONAL SHORTNES OF BREATH Gastrointestinal: lower GI bleed, upper GI bleed Hepatic: NONE Renal: BARBARA Musculoskeletal: NONE Psychiatric: bipolar disease, schizophrenia Endocrine: NONE Blood Disorders: anemia Cancer(s): NONE 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 Psychosocial History Who Do You Live With? self Services at Home: None Primary Language: [place] ETOH Use: denies use Functional Ability ADLs Needs Assist: dressing, eating, toileting, bathing. Ambulation: walker IADLs Needs Assist: shopping, housework, finances, food prep, telephone, transportation, medication admin. Review of Systems Review of Systems All Other Systems: Reviewed and Negative Exam & Diagnostic Data Last 24 Hrs of Vital Signs/I&O Vital Signs Date Time Temp Pulse Resp B/P B/P Pulse O2 O2 Flow FiO2 Mean Ox Delivery Rate 02/26 1655 94.4 56 16 184/90 97 Room Air 02/26 1413 97.3 54 18 135/65 95 02/26 1206 Room Air 02/26 1155 61 16 100/59 97 Room Air Intake & Output 02/26 1600 02/26 0800 02/26 0000 Intake Total Output Total 950 Balance -950 Output, Urine 950 Patient 240 lb Weight Weight Reported by Patient Measurement Method Physical Exam Other Physical Findings: He is awake and alert in no acute distress. He is hypothermic, with a temperature of 94.4. Skin reveals no rash. HEENT exam is negative. Neck is supple with no adenopathy. Lungs are clear. Heart regular rhythm with no murmur. Abdomen is obese, soft, nontender with positive bowel sounds. Back no CVA tenderness. Extremities bilateral lower extremity edema and mild erythema, nontender to palpation. Neuro mild left upper extremity weakness, with no rigidity. Lopez catheter is in place. Last 24 Hours of Lab Results: Laboratory Tests 02/26 02/26 1523 1325 Chemistry Lactic Acid Cancelled Urines Urine Color (YEL,AMB,STR) YEL Urine Clarity (CLEAR) CLEAR Urine pH (5.0 - 8.0) 6.5 Ur Specific [place] (1.001 - 1.035) 1.010 Urine Protein (NEG,<30 MG/DL) NEG Urine Ketones (NEG) NEG Urine Nitrite (NEG) NEG Urine Bilirubin (NEG) NEG Urine Urobilinogen (0.1 - 1.0 EU/dl) 0.2 Ur Leukocyte Esterase (NEG) NEG Ur Microscopic EXAM NOT REQUIRED Urine Hemoglobin (NEG) NEG Urine Glucose (N MG/DL) NEG 02/26 1315 Chemistry Sodium (137 - 145 mmol/L) 136 L Potassium (3.5 - 5.1 mmol/L) 4.4 Chloride (98 - 107 mmol/L) 94 L Carbon Dioxide (22 - 30 mmol/L) 33 H Anion Gap (5 - 16) 9 BUN (9 - 20 mg/dL) 20 Creatinine (0.7 - 1.2 mg/dL) 1.2 Estimated GFR (>60 ml/min) 60 BUN/Creatinine Ratio (7 - 25 %) 16.7 Glucose (65 - 99 mg/dL) 82 Lactic Acid (0.7 - 2.1 mmol/L) 1.3 Calcium (8.4 - 10.2 mg/dL) 8.9 Magnesium (1.6 - 2.3 mg/dL) 1.8 Total Bilirubin (0.2 - 1.3 mg/dL) 0.5 AST (17 - 59 U/L) 22 ALT (21 - 72 U/L) 27 Alkaline Phosphatase (< 127 U/L) 73 Troponin I (<0.11 ng/ml) < 0.01 Total Protein (6.3 - 8.2 g/dL) 6.9 Albumin (3.5 - 5.0 g/dL) 3.5 Globulin (1.9 - 4.2 gm/dL) 3.4 Albumin/Globulin Ratio (1.1 - 2.2 %) 1.0 L Prolactin (3.7 - 17.9 ng/mL) 40.9 H Coagulation PT (9.4 - 12.5 SEC) 10.4 INR (0.90 - 1.17) 0.95 APTT (25 - 37 SEC) 26 Hematology CBC w Diff NO MAN DIFF REQ WBC (4.8 - 10.8 /CUMM) 10.0 RBC (4.70 - 6.10 /CUMM) 3.71 L Hgb (14.0 - 18.0 G/DL) 11.1 L Hct (42 - 52 %) 33.5 L MCV (80.0 - 94.0 FL) 90.4 MCH (27.0 - 31.0 PG) 30.1 MCHC (33.0 - 37.0 G/DL) 33.3 RDW (11.5 - 14.5 %) 13.8 Plt Count (130 - 400 /CUMM) 220 MPV (7.4 - 10.4 FL) 6.7 L Gran % (42.2 - 75.2 %) 83.5 H Lymphocytes % (20.5 - 51.1 %) 8.9 L Monocytes % (1.7 - 9.3 %) 6.0 Eosinophils % (0 - 5 %) 1.2 Basophils % (0.0 - 2.0 %) 0.4 Absolute Granulocytes (1.4 - 6.5 /CUMM) 8.4 H Absolute Lymphocytes (1.2 - 3.4 /CUMM) 0.9 L Absolute Monocytes (0.10 - 0.60 /CUMM) 0.6 Absolute Eosinophils (0.0 - 0.7 /CUMM) 0.1 Absolute Basophils (0.0 - 0.2 /CUMM) 0 Last 24 Hours of Ramesh Results: Blood cultures x February 26 pending Urine culture February 26 pending Diagnostic Data Recent Imaging Findings: Chest x-ray negative CT of the head no acute process Assessment/Plan Assessment/Plan Impression: This is a 72-year-old man with a history of paranoid schizophrenia, maintained on IM Haldol every 3 weeks, status post several TIAs and CVA, treated with Augmentin for the past week for a presumed urinary tract infection because of increasing falls, admitted today because of several days of increasing weakness, decreased p.o. intake and decreased responsiveness following an episode of unresponsiveness several days prior to admission, found to be hypothermic with a normal white blood cell count and with no obvious focus of infection. The etiology of the hypothermia is unclear. Though an infection must be considered he has no obvious source, with no focal complaints and with a negative chest x-ray and negative urinalysis. He does have mild bilateral lower extremity erythema and edema but cellulitis seems unlikely. The recent episode of unresponsiveness raises concern for a seizure or CVA and further evaluation for this could be considered, though evaluation for similar complaints in the past has been nonrevealing. His history of paranoid schizophrenia complicates his evaluation and could be contributing to his altered mental status. He has no rigidity, making a process such as neuroleptic malignant syndrome unlikely. He was given 1 dose of Ceftriaxone this afternoon but, in the absence of any obvious source of infection, feel that he can be followed off antibiotics pending recent cultures and further evaluation. Suggestion: 1. Consider EEG and Neurology evaluation 2. Psychiatry follow-up 3. Follow-up recent cultures 4. Would follow off further antibiotics pending above Consult Acknowledgment - Thank you for your consult request.
--- NOTE | 2018-02-26 20:39 | Admission Certification ---
Admission Certification Certification Statement - As attending physician, I certify that at the time of - admission, based on clinical presentation, severity of - symptoms, need for further diagnostic testing and - therapeutic interventions, and risk of adverse outcomes - without in-hospital treatment, in my clinical assessment, - this patient requires an acute hospital stay for a minimum - of two nights or longer. I have also considered psychsocial - factors such as support system, advanced age, financial - issues, cognitive issues, and failed out-patient treatments, - past re-admission history, safety of patient, and lack of - compliance as applicable. Specific rationale supporting this admission is: Change in mental status, hypothermia the emergency room, need to rule out any infectious process versus neurological origin
[2018-02-26 20:40] VITALS: BP 106/75
--- NOTE | 2018-02-26 20:42 | PN- Att Addend ---
Attending Addendum Attending Brief Note 72-year-old white male being cared by his . Recently treated for a presumable urinary tract infection. For the last few days feeling weaker, less oral intake today he was so weak and lethargic and was brought into the emergency room, workup was started, had a CAT scan of the head which shows no acute injuries or changes. Patient had blood work all the cultures were obtained. While in the ER he became hypothermic, needed a bear hugger after that his temp slowly came up to normal. Also had infectious diseases and psychiatric consultations. The etiology of his symptoms are not clear at this point a chest x-ray showed no acute infiltrates the white count is 10,000. His blood pressure was a little low at first this improved with IV fluids. Patient will be admitted to close observation, will also get a neurology input and review the cultures in the morning and treat accordingly. Current Medications Sig/Vidal Start time Last Medication Dose Route Stop Time Status Admin Acetaminophen 650 MG Q6P PRN 02/26 2000 AC PO Albuterol Sulfate 2 PUF Q4-6 PRN PRN 02/26 1930 AC INH Atenolol 50 MG BID 02/26 2100 AC PO Atorvastatin Calcium 20 MG 1700 02/27 1700 AC PO Benztropine Mesylate 1 MG DAILY 02/27 0900 AC PO Ceftriaxone Sodium 0 .STK-MED ONE 02/26 1352 DC .ROUTE Ceftriaxone Sodium 1,000 MG ONCE ONE 02/26 1300 DC 02/26 IV 02/26 1301 1344 Finasteride 5 MG DAILY 02/27 09 AC PO Furosemide 20 MG DAILY 02/27 09 AC PO Heparin Sodium 5,000 UNIT Q8 02/26 2200 AC (Porcine) SC Hydralazine HCl 0 .STK-MED ONE 02/26 1842 DC .ROUTE Hydralazine HCl 5 MG ONCE ONE 02/26 1745 DC 02/26 IV 02/26 1746 1902 Lisinopril 40 MG DAILY 02/27 09 AC PO Nitroglycerin 0.4 MG DAILY 02/27 09 AC TOP Omeprazole 40 MG DAILY AC 02/27 0700 AC PO Sodium Chloride 1,000 ML BOLUS ONE 02/26 1230 DC 02/26 IV 02/26 1329 1315 Tamsulosin HCl 0.4 MG QPM 02/26 2100 AC PO Laboratory Tests 02/26/18 1523: Lactic Acid Cancelled 02/26/18 1325: Urine Color YEL, Urine Clarity CLEAR, Urine pH 6.5, Ur Specific [place] 1.010, Urine Protein NEG, Urine Ketones NEG, Urine Nitrite NEG, Urine Bilirubin NEG, Urine Urobilinogen 0.2, Ur Leukocyte Esterase NEG, Ur Microscopic EXAM NOT REQUIRED, Urine Hemoglobin NEG, Urine Glucose NEG 02/26/18 1315: Anion Gap 9, Estimated GFR 60, BUN/Creatinine Ratio 16.7, Glucose 82, Lactic Acid 1.3, Calcium 8.9, Magnesium 1.8, Total Bilirubin 0.5, AST 22, ALT 27, Alkaline Phosphatase 73, Troponin I < 0.01, Total Protein 6.9, Albumin 3.5, Globulin 3.4, Albumin/Globulin Ratio 1.0 L, Prolactin 40.9 H, PT 10.4, INR 0.95, APTT 26, CBC w Diff NO MAN DIFF REQ, RBC 3.71 L, MCV 90.4, MCH 30.1, MCHC 33.3, RDW 13.8, MPV 6.7 L, Gran % 83.5 H, Lymphocytes % 8.9 L, Monocytes % 6.0, Eosinophils % 1.2, Basophils % 0.4, Absolute Granulocytes 8.4 H, Absolute Lymphocytes 0.9 L, Absolute Monocytes 0.6, Absolute Eosinophils 0.1, Absolute Basophils 0 Vital Signs Date Time Temp Pulse Resp B/P B/P Pulse O2 O2 Flow FiO2 Mean Ox Delivery Rate 02/26 1950 96.0 62 14 138/57 95 Room Air 02/26 1902 95.1 60 20 153/70 02/26 1901 95.1 60 16 153/70 96 Room Air 02/26 1655 94.4 56 16 184/90 97 Room Air 02/26 1413 97.3 54 18 135/65 95 Intake & Output 02/26 1600 Intake Total Output Total 950 Balance -950 Output, Urine 950 Patient 240 lb Weight Weight Reported by Patient Measurement Method
[2018-02-27 05:09] LABS: ABSOLUTE BASOPHIL COUNT 0 /CUMM (0.0-0.2); ABSOLUTE EOSINOPHIL COUNT 0.2 /CUMM (0.0-0.7); ABSOLUTE GRANULOCYTE CT 5.3 /CUMM (1.4-6.5); ABSOLUTE LYMPH COUNT 0.9 /CUMM (1.2-3.4); ABSOLUTE MONOCYTE COUNT 0.4 /CUMM (0.10-0.60); BASOPHIL % 0.6 % (0.0-2.0); EOSINOPHIL % 2.5 % (0-5); GRANULOCYTE % 77.5 % (42.2-75.2); HEMATOCRIT 35.1 % (42-52); MEAN CORPUSCULAR HGB CONC 33.4 G/DL (33.0-37.0); MEAN CORPUSCULAR VOLUME 89.9 FL (80.0-94.0); MEAN PLATELET VOLUME 6.5 FL (7.4-10.4); PLATELET COUNT 225 /CUMM (130-400); RBC DISTRIBUTION WIDTH 14.2 % (11.5-14.5); RED BLOOD CELL CT 3.91 /CUMM (4.70-6.10); WHITE BLOOD CELL COUNT 6.9 /CUMM (4.8-10.8)
[2018-02-27 07:00] VITALS: BP 174/82
--- NOTE | 2018-02-27 07:47 | Cons- CRCU ---
General Information and HPI Allergies/Medications Allergies: Coded Allergies: NO KNOWN ALLERGIES (04/28/16) Home Med List: Albuterol Sulfate (Proair Hfa) 90 MCG HFA.AER.AD 2 PUF INH Q4-6 PRN PRN SHORTNESS OF BREATH (Reported) Amoxicillin/Potassium Clav (Augmentin 875-125 Tablet) 875 MG-125 MG TABLET 1 TAB PO BID ANTIBIOTIC, INFECTION (Reported) Atenolol 50 MG TABLET 1 TAB PO BID DIRECTED (Reported) Benztropine Mesylate 1 MG TABLET 1 TAB PO DAILY MENTAL HEALTH (Reported) Esomeprazole (Nexium) 40 MG CAPSULE.DR 1 TAB PO DAILY ACID REFLUX (Reported) Finasteride 5 MG TABLET 1 TAB PO DAILY DIRECTED (Reported) Folic Acid 1 MG TABLET 1 TAB PO DAILY VITAMIN SUPPORT (Reported) Furosemide 20 MG TABLET 1 TAB PO DAILY WATER RETENTION (Reported) Haloperidol 5 MG TABLET 10 MG PO AT BEDTIME hold for oversedation or respiratory depression Lisinopril 40 MG TABLET 1 TAB PO DAILY HIGH BLOOD PRESSURE (Reported) Lorazepam 1 MG TABLET 1 TAB PO BID DIRECTED (Reported) Nitroglycerin (Nitroglycerin Patch) 0.4 MG/HOUR PATCH.TD24 1 PATCH TOP DAILY DIRECTED (Reported) Olanzapine (Zyprexa) 5 MG TABLET 1 TAB PO BID DIRECTED (Reported) Simvastatin (Simvastatin*) 20 MG TABLET 1 TAB PO QPM HIGH CHOLESTROL ( Reported) Tamsulosin HCl 0.4 MG CAP.ER.24H 1 CAP PO QPM PROSTATE (Reported) Past History Travel History Traveled to [place] past 21 day No Medical History Blood Transfusion Hx: No Neurological: CVA, TIA, L EYE BLINDNESS EENT: NONE Cardiovascular: AFIB, CAD, hypertension, hyperlipidemia, PVD Respiratory: EXERTIONAL SHORTNES OF BREATH Gastrointestinal: lower GI bleed, upper GI bleed Hepatic: NONE Renal: BARBARA Musculoskeletal: NONE Psychiatric: bipolar disease, schizophrenia Endocrine: NONE Blood Disorders: anemia Cancer(s): NONE 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 Psychosocial History Where Do You Live? Home Who Do You Live With? self Services at Home: None Primary Language: Citizen Of [place] Smoking Status: Former Smoker ETOH Use: denies use Functional Ability ADLs Needs Assist: dressing, eating, toileting, bathing. Ambulation: walker IADLs Needs Assist: shopping, housework, finances, food prep, telephone, transportation, medication admin. Assessment/Plan CRCU Impression/Plan: The patient is 72-year-old gentleman with past medical history of paranoid schizophrenia, hypertension, coronary artery disease, TIAs and CVA with history of left-sided hemiparesis, PVD, PUD. The patient presented to [facility] ED on . He was brought in by family to be evaluated for lethargic and altered mental status. vitals hypothermia 94.4 Admission labs are significant for H/H , hyponatremia 136 bicarbonate 33 . Urinalysis negative The patient is being admitted to ICU and is being treated and evaluated for following conditions #Hypothermia The patient was found to be hypothermic with a normal WBC count. There is no obvious source of infection UA is clear chest x-ray was also clears. Patient does have bilateral lower extremity edema and edema but cellulitis is unlikely. Patient has been on oral Augmentin. Presumably being treated for UTI. There is no nuchal rigidity to suggest meningitis on examination and patient was alert and oriented 3 during evaluation -Bari Hugger -Monitor fever and WBC curve -Matson cultures -ID consult -Monitor off antibiotics for now #Staring spell He had an episode of staring spell which lasted for about 5 minutes. There is a possibility of absence seizure however they usually last less than 15 seconds. TIA is another differential -Will benefit from neurological consult -Consider getting an EEG -MRI? #Altered mental status/confusion Patient's family has been reporting periods of confusion however as stated earlier patient is alert oriented 3 no neck rigidity so meningitis is not likely. There is no source of infection to suggest infectious cause of alteration in mentation. Baseline paranoia which appears to be under control. The episodes of confusion do not appear to be related to patient's schizophrenia however we will obtain a psychiatric consult -Monitor off antibiotics for now -Frequent reorientation -Neurology consult -Psychiatric consult -All antipsychotics/psychotropics on hold pending psych evaluation #Hyponatremia Patient is a very mild hyponatremia of 136 -continue to monitor #Chronic medical conditions Hyperlipidemia, hypertension, BPH, GERD, Continue statin, lisinopril, Lasix, atenolol finasteride, tamsulosin, Nexium Heart healthy diet/DVT prophylaxis subcutaneous heparin and Alps/focal Consult Acknowledgment - Thank you for your consult request.
--- NOTE | 2018-02-27 09:19 | Cons- Neurology ---
General Information and HPI Consulting Request Date of Consult: 02/27/18 Requested By: Lukas Andres MD Reason for Consult: "possible seizure or stroke" Source of Information: patient (EMR, ) Exam Limitations: unable to give history, clinical condition History of Present Illness: 72-year-old man with a history of paranoid schizophrenia and bipolar disorder, bihemispheric strokes, left carotid endarterectomy, complete right internal carotid artery occlusion, presented with lethargy and was found to be hypothermic. He had a similar presentation last year at which point he was found to have a urinary tract infection and made in eventual recovery with medical management and short-term rehabilitation. He received treatment with a tarah hugger. The source of infection has not been detected thus far. He does have a congested cough. Allergies/Medications Allergies: Coded Allergies: NO KNOWN ALLERGIES (04/28/16) Home Med List: Albuterol Sulfate (Proair Hfa) 90 MCG HFA.AER.AD 2 PUF INH Q4-6 PRN PRN SHORTNESS OF BREATH (Reported) Amoxicillin/Potassium Clav (Augmentin 875-125 Tablet) 875 MG-125 MG TABLET 1 TAB PO BID ANTIBIOTIC, INFECTION (Reported) Atenolol 50 MG TABLET 1 TAB PO BID DIRECTED (Reported) Benztropine Mesylate 1 MG TABLET 1 TAB PO DAILY MENTAL HEALTH (Reported) Esomeprazole (Nexium) 40 MG CAPSULE.DR 1 TAB PO DAILY ACID REFLUX (Reported) Finasteride 5 MG TABLET 1 TAB PO DAILY DIRECTED (Reported) Folic Acid 1 MG TABLET 1 TAB PO DAILY VITAMIN SUPPORT (Reported) Furosemide 20 MG TABLET 1 TAB PO DAILY WATER RETENTION (Reported) Haloperidol 5 MG TABLET 10 MG PO AT BEDTIME hold for oversedation or respiratory depression Lisinopril 40 MG TABLET 1 TAB PO DAILY HIGH BLOOD PRESSURE (Reported) Lorazepam 1 MG TABLET 1 TAB PO BID DIRECTED (Reported) Nitroglycerin (Nitroglycerin Patch) 0.4 MG/HOUR PATCH.TD24 1 PATCH TOP DAILY DIRECTED (Reported) Olanzapine (Zyprexa) 5 MG TABLET 1 TAB PO BID DIRECTED (Reported) Simvastatin (Simvastatin*) 20 MG TABLET 1 TAB PO QPM HIGH CHOLESTROL ( Reported) Tamsulosin HCl 0.4 MG CAP.ER.24H 1 CAP PO QPM PROSTATE (Reported) Current Medications: Current Medications Sig/Vidal Start time Last Medication Dose Route Stop Time Status Admin Acetaminophen 650 MG Q6P PRN 02/26 2000 AC PO Albuterol Sulfate 2 PUF Q4-6 PRN PRN 02/26 1930 AC INH Atenolol 50 MG BID 02/26 2100 AC 02/27 PO 0908 Atorvastatin Calcium 20 MG 1700 02/27 1700 AC PO Benztropine Mesylate 1 MG DAILY 02/27 0900 AC 02/27 PO 0908 Ceftriaxone Sodium 0 .STK-MED ONE 02/26 1352 DC .ROUTE Ceftriaxone Sodium 1,000 MG ONCE ONE 02/26 1300 DC 02/26 IV 02/26 1301 1344 Finasteride 5 MG DAILY 02/27 0900 AC 02/27 PO 0908 Furosemide 20 MG DAILY 02/27 0900 AC 02/27 PO 0908 Heparin Sodium 5,000 UNIT Q8 02/26 2200 AC 02/27 (Porcine) SC 0632 Hydralazine HCl 5 MG ONCE ONE 02/27 0030 DC 02/27 IV 02/27 0031 0048 Hydralazine HCl 0 .STK-MED ONE 02/26 1842 DC .ROUTE Hydralazine HCl 5 MG ONCE ONE 02/26 1745 DC 02/26 IV 02/26 1746 1902 Lisinopril 40 MG DAILY 02/27 0900 AC 02/27 PO 0908 Nitroglycerin 0.4 MG DAILY 02/27 0900 AC 02/27 TOP 0909 Omeprazole 40 MG DAILY AC 02/27 0700 AC 02/27 PO 0632 Sodium Chloride 1,000 ML BOLUS ONE 02/26 1230 DC 02/26 IV 02/26 1329 1315 Tamsulosin HCl 0.4 MG QPM 02/26 2100 AC 02/26 PO 2231 Review of Systems Review of Systems: Unobtainable from the patient Past History Travel History Traveled to [place] past 21 day No Medical History Blood Transfusion Hx: No Neurological: CVA, TIA, L EYE BLINDNESS, R ICA occlusion EENT: NONE Cardiovascular: AFIB, CAD, hypertension, hyperlipidemia, PVD Respiratory: EXERTIONAL SHORTNES OF BREATH Gastrointestinal: lower GI bleed, upper GI bleed Hepatic: NONE Renal: BARBARA Musculoskeletal: NONE Psychiatric: bipolar disease, schizophrenia Endocrine: NONE Blood Disorders: anemia Cancer(s): NONE 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 Psychosocial History Where Do You Live? Home Who Do You Live With? self Services at Home: None Primary Language: [place] Smoking Status: Former Smoker ETOH Use: denies use Functional Ability ADLs Needs Assist: dressing, eating, toileting, bathing. Ambulation: walker IADLs Needs Assist: shopping, housework, finances, food prep, telephone, transportation, medication admin. Exam & Diagnostic Data Vital Signs and I&O Vital Signs Date Time Temp Pulse Resp B/P B/P Pulse O2 O2 Flow FiO2 Mean Ox Delivery Rate 02/27 0908 98.6 56 13 174/82 02/27 0908 98.6 56 13 174/82 02/27 0400 96 Room Air 02/27 0048 71 214/92 02/27 0000 96 Room Air 02/26 2301 97 Room Air 02/26 2231 65 180/108 02/26 2230 65 180/108 02/26 2040 96.9 63 14 106/75 95 Room Air 02/26 1950 96.0 62 14 138/57 95 Room Air 02/26 1902 95.1 60 20 153/70 02/26 1901 95.1 60 16 153/70 96 Room Air 02/26 1655 94.4 56 16 184/90 97 Room Air 02/26 1413 97.3 54 18 135/65 95 02/26 1206 Room Air 02/26 1155 61 16 100/59 97 Room Air Intake & Output 02/27 1600 02/27 0800 02/27 0000 Intake Total 50 1100 Output Total 1200 950 Balance -1150 150 Intake, IV 0 1000 Intake, Oral 50 100 Number 0 Bowel Movements Output, Urine 1200 950 Patient 269 lb Weight Weight Bed scale Measurement Method Physical Exam: He was awake, appeared somewhat drowsy, displayed a blank stare and was slow to respond to questions Head normocephalic/atraumatic The neck was rigid but this was not out of proportion to his diffuse trunk and extremity rigidity Healed left CEA scar Extremities without clubbing cyanosis or edema Neurologic exam: Awake, drowsy, very slow to respond to questions and often does not respond at all Oriented to person and place only Followed several one-step commands Pupils equal round reactive to light Right fundus benign left fundus poorly visualized Full extraocular motility No gross visual field defect with testing limited by lethargy Facial hypomimia Tongue midline Symmetric shoulder shrug Grossly intact hearing Motor: No gross loss of strength Diffuse muscular rigidity of all 4 extremities with an episodic mild rest and action tremor of the hands. He was bradykinetic and hypermetric No overt ataxia No gross sensory loss on limited testing Tendon reflexes hypoactive Plantar responses flexor Gait not tested Last 48 Hours of Lab Results: Laboratory Tests 02/27 02/26 0455 1523 Chemistry Sodium (137 - 145 mmol/L) 138 Potassium (3.5 - 5.1 mmol/L) 4.6 Chloride (98 - 107 mmol/L) 98 Carbon Dioxide (22 - 30 mmol/L) 29 Anion Gap (5 - 16) 10 BUN (9 - 20 mg/dL) 14 Creatinine (0.7 - 1.2 mg/dL) 1.0 Estimated GFR (>60 ml/min) > 60 BUN/Creatinine Ratio (7 - 25 %) 14.0 Lactic Acid Cancelled Hematology CBC w Diff NO MAN DIFF REQ WBC (4.8 - 10.8 /CUMM) 6.9 RBC (4.70 - 6.10 /CUMM) 3.91 L Hgb (14.0 - 18.0 G/DL) 11.7 L Hct (42 - 52 %) 35.1 L MCV (80.0 - 94.0 FL) 89.9 MCH (27.0 - 31.0 PG) 30.0 MCHC (33.0 - 37.0 G/DL) 33.4 RDW (11.5 - 14.5 %) 14.2 Plt Count (130 - 400 /CUMM) 225 MPV (7.4 - 10.4 FL) 6.5 L Gran % (42.2 - 75.2 %) 77.5 H Lymphocytes % (20.5 - 51.1 %) 13.2 L Monocytes % (1.7 - 9.3 %) 6.2 Eosinophils % (0 - 5 %) 2.5 Basophils % (0.0 - 2.0 %) 0.6 Absolute Granulocytes (1.4 - 6.5 /CUMM) 5.3 Absolute Lymphocytes (1.2 - 3.4 /CUMM) 0.9 L Absolute Monocytes (0.10 - 0.60 /CUMM) 0.4 Absolute Eosinophils (0.0 - 0.7 /CUMM) 0.2 Absolute Basophils (0.0 - 0.2 /CUMM) 0 02/26 02/26 1325 1315 Chemistry Sodium (137 - 145 mmol/L) 136 L Potassium (3.5 - 5.1 mmol/L) 4.4 Chloride (98 - 107 mmol/L) 94 L Carbon Dioxide (22 - 30 mmol/L) 33 H Anion Gap (5 - 16) 9 BUN (9 - 20 mg/dL) 20 Creatinine (0.7 - 1.2 mg/dL) 1.2 Estimated GFR (>60 ml/min) 60 BUN/Creatinine Ratio (7 - 25 %) 16.7 Glucose (65 - 99 mg/dL) 82 Lactic Acid (0.7 - 2.1 mmol/L) 1.3 Calcium (8.4 - 10.2 mg/dL) 8.9 Magnesium (1.6 - 2.3 mg/dL) 1.8 Total Bilirubin (0.2 - 1.3 mg/dL) 0.5 AST (17 - 59 U/L) 22 ALT (21 - 72 U/L) 27 Alkaline Phosphatase (< 127 U/L) 73 Troponin I (<0.11 ng/ml) < 0.01 Total Protein (6.3 - 8.2 g/dL) 6.9 Albumin (3.5 - 5.0 g/dL) 3.5 Globulin (1.9 - 4.2 gm/dL) 3.4 Albumin/Globulin Ratio (1.1 - 2.2 %) 1.0 L Prolactin (3.7 - 17.9 ng/mL) 40.9 H Coagulation PT (9.4 - 12.5 SEC) 10.4 INR (0.90 - 1.17) 0.95 APTT (25 - 37 SEC) 26 Hematology CBC w Diff NO MAN DIFF REQ WBC (4.8 - 10.8 /CUMM) 10.0 RBC (4.70 - 6.10 /CUMM) 3.71 L Hgb (14.0 - 18.0 G/DL) 11.1 L Hct (42 - 52 %) 33.5 L MCV (80.0 - 94.0 FL) 90.4 MCH (27.0 - 31.0 PG) 30.1 MCHC (33.0 - 37.0 G/DL) 33.3 RDW (11.5 - 14.5 %) 13.8 Plt Count (130 - 400 /CUMM) 220 MPV (7.4 - 10.4 FL) 6.7 L Gran % (42.2 - 75.2 %) 83.5 H Lymphocytes % (20.5 - 51.1 %) 8.9 L Monocytes % (1.7 - 9.3 %) 6.0 Eosinophils % (0 - 5 %) 1.2 Basophils % (0.0 - 2.0 %) 0.4 Absolute Granulocytes (1.4 - 6.5 /CUMM) 8.4 H Absolute Lymphocytes (1.2 - 3.4 /CUMM) 0.9 L Absolute Monocytes (0.10 - 0.60 /CUMM) 0.6 Absolute Eosinophils (0.0 - 0.7 /CUMM) 0.1 Absolute Basophils (0.0 - 0.2 /CUMM) 0 Urines Urine Color (YEL,AMB,STR) YEL Urine Clarity (CLEAR) CLEAR Urine pH (5.0 - 8.0) 6.5 Ur Specific [place] (1.001 - 1.035) 1.010 Urine Protein (NEG,<30 MG/DL) NEG Urine Ketones (NEG) NEG Urine Nitrite (NEG) NEG Urine Bilirubin (NEG) NEG Urine Urobilinogen (0.1 - 1.0 EU/dl) 0.2 Ur Leukocyte Esterase (NEG) NEG Ur Microscopic EXAM NOT REQUIRED Urine Hemoglobin (NEG) NEG Urine Glucose (N MG/DL) NEG Imaging/Other Studies: Hd CT 02-26-18 FINDINGS: There is no evidence of acute intracranial hemorrhage or territorial infarction. No abnormal mass effect or midline shift is seen. An to white matter differentiation is well preserved. No extra-axial fluid collections are identified. There is stable encephalomalacia and gliosis in the high left frontal and the right temporoparietal lobes. There is stable moderate generalized prominence of the ventricles, sulci, and extra-axial CSF spaces with superimposed associated ex vacuo dilatation of the atrium of the right lateral ventricle. There is stable mild hypoattenuation in the periventricular white matter compatible with chronic microangiopathy. No acute osseous abnormality. The imaged paranasal sinuses are clear apart from some minor mucosal thickening in a posterior right ethmoid air cell. The nasal cavity, nasopharynx, mastoid air cells and middle ear cavities are clear. No acute soft tissue abnormalities. There has been a left ocular lens extraction. IMPRESSION: No acute intracranial pathology. Stable chronic findings as above. DICTATED BY: Tim Pearl MD DATE/TIME DICTATED:02/26/189 Assessment/Plan Assessment: Encephalopathy in the setting of suspected infection with hypothermia Further neurologically compromised by prior bihemispheric strokes, with likely residual aphasia in addition to bradyphrenia due to neuroleptics Neuroleptic induced parkinsonism Recommendations: Continue general medical management and infectious workup For completion check TSH, ammonia, B12, a.m. cortisol, arterial blood gas Mobilize out of bed as tolerated, PT, OT, ST Ideally, cut back on neuroleptics given his parkinsonism Consult Acknowledgment - Thank you for your consult request.
--- NOTE | 2018-02-27 09:54 | PN- Housestaff ---
Subjective Follow-up For: Hypothermia Possible seizure Hypertension Subjective: No acute events overnight. Patient not talking this morning. Review of Systems Constitutional: Reports: see HPI. Objective Last 24 Hrs of Vital Signs/I&O Vital Signs Date Time Temp Pulse Resp B/P B/P Pulse O2 O2 Flow FiO2 Mean Ox Delivery Rate 02/27 0908 98.6 56 13 174/82 02/27 0908 98.6 56 13 174/82 02/27 0400 96 Room Air 02/27 0048 71 214/92 02/27 0000 96 Room Air 02/26 2301 97 Room Air 02/26 2231 65 180/108 02/26 2230 65 180/108 02/26 2040 96.9 63 14 106/75 95 Room Air 02/26 1950 96.0 62 14 138/57 95 Room Air 02/26 1902 95.1 60 20 153/70 02/26 1901 95.1 60 16 153/70 96 Room Air 02/26 1655 94.4 56 16 184/90 97 Room Air 02/26 1413 97.3 54 18 135/65 95 02/26 1206 Room Air 02/26 1155 61 16 100/59 97 Room Air Intake & Output 02/27 1600 02/27 0800 02/27 0000 Intake Total 50 1100 Output Total 1200 950 Balance -1150 150 Intake, IV 0 1000 Intake, Oral 50 100 Number 0 Bowel Movements Output, Urine 1200 950 Patient 269 lb Weight Weight Bed scale Measurement Method Physical Exam General Appearance: patient is not talking to medical staff this AM. He is following commands for physical exam., blank straight staring Cardiovascular: mild bradycardia Lungs: reduced basal breath sounds Abdomen: Normal Bowel Sounds, Soft, stool masses palpated on left lower quadrant Extremities: 1+ radial pulses, trace lower extremity edema Current Medications: Current Medications Sig/Vidal Start time Last Medication Dose Route Stop Time Status Admin Acetaminophen 650 MG Q6P PRN 02/26 2000 AC PO Albuterol Sulfate 2 PUF Q4-6 PRN PRN 02/26 1930 AC INH Atenolol 50 MG BID 02/26 2100 AC 02/27 PO 0908 Atorvastatin Calcium 20 MG 1700 02/27 1700 AC PO Benztropine Mesylate 1 MG DAILY 02/27 0900 AC 02/27 PO 0908 Ceftriaxone Sodium 0 .STK-MED ONE 02/26 1352 DC .ROUTE Ceftriaxone Sodium 1,000 MG ONCE ONE 02/26 1300 DC 02/26 IV 02/26 1301 1344 Finasteride 5 MG DAILY 02/27 0900 AC 02/27 PO 0908 Furosemide 20 MG DAILY 02/27 0900 AC 02/27 PO 0908 Heparin Sodium 5,000 UNIT Q8 02/26 2200 AC 02/27 (Porcine) SC 0632 Hydralazine HCl 5 MG ONCE ONE 02/27 0030 DC 02/27 IV 02/27 0031 0048 Hydralazine HCl 0 .STK-MED ONE 02/26 1842 DC .ROUTE Hydralazine HCl 5 MG ONCE ONE 02/26 1745 DC 02/26 IV 02/26 1746 1902 Lisinopril 40 MG DAILY 02/27 0900 AC 02/27 PO 0908 Nitroglycerin 0.4 MG DAILY 02/27 0900 AC 02/27 TOP 0909 Omeprazole 40 MG DAILY AC 02/27 0700 AC 02/27 PO 0632 Sodium Chloride 1,000 ML BOLUS ONE 02/26 1230 DC 02/26 IV 02/26 1329 1315 Tamsulosin HCl 0.4 MG QPM 02/26 2100 AC 02/26 PO 2231 Last 24 Hrs of Lab/Ramesh Results Last 24 Hrs of Labs/Mics: Laboratory Tests 02/27/18 0455: Anion Gap 10, Estimated GFR > 60, BUN/Creatinine Ratio 14.0, CBC w Diff NO MAN DIFF REQ, RBC 3.91 L, MCV 89.9, MCH 30.0, MCHC 33.4, RDW 14.2, MPV 6.5 L, Gran % 77.5 H, Lymphocytes % 13.2 L, Monocytes % 6.2, Eosinophils % 2.5, Basophils % 0.6, Absolute Granulocytes 5.3, Absolute Lymphocytes 0.9 L, Absolute Monocytes 0.4, Absolute Eosinophils 0.2, Absolute Basophils 0 02/26/18 1523: Lactic Acid Cancelled 02/26/18 1325: Urine Color YEL, Urine Clarity CLEAR, Urine pH 6.5, Ur Specific [place] 1.010, Urine Protein NEG, Urine Ketones NEG, Urine Nitrite NEG, Urine Bilirubin NEG, Urine Urobilinogen 0.2, Ur Leukocyte Esterase NEG, Ur Microscopic EXAM NOT REQUIRED, Urine Hemoglobin NEG, Urine Glucose NEG 02/26/18 1315: Anion Gap 9, Estimated GFR 60, BUN/Creatinine Ratio 16.7, Glucose 82, Lactic Acid 1.3, Calcium 8.9, Magnesium 1.8, Total Bilirubin 0.5, AST 22, ALT 27, Alkaline Phosphatase 73, Troponin I < 0.01, Total Protein 6.9, Albumin 3.5, Globulin 3.4, Albumin/Globulin Ratio 1.0 L, Prolactin 40.9 H, PT 10.4, INR 0.95, APTT 26, CBC w Diff NO MAN DIFF REQ, RBC 3.71 L, MCV 90.4, MCH 30.1, MCHC 33.3, RDW 13.8, MPV 6.7 L, Gran % 83.5 H, Lymphocytes % 8.9 L, Monocytes % 6.0, Eosinophils % 1.2, Basophils % 0.4, Absolute Granulocytes 8.4 H, Absolute Lymphocytes 0.9 L, Absolute Monocytes 0.6, Absolute Eosinophils 0.1, Absolute Basophils 0 Microbiology 02/26 2050 UPPER RESP: Surveillance Culture - RECD 02/26 2050 GI: Surveillance Culture - RECD 02/26 170 LOWER RESP: Respiratory Culture - COLB 02/26 170 LOWER RESP: Gram Stain - COLB 02/26 1330 BLOOD: Blood Culture - RECD 02/26 1325 URINE ROUT: Urine Culture - RES 02/26 1315 BLOOD: Blood Culture - RECD Assessment/Plan Assessment: A: 72-year-old male with past medical history of paranoid schizophrenia, hypertension, coronary artery disease, TIAs and CVA with history of left-sided hemiparesis, PVD, PUD presented to for lethargy and altered mental status and found to be hypothermic at 94.4. P: #Encephalopathy in the setting of suspected infection with hypothermia He had an episode of staring spell which lasted for about 5 minutes. There is a possibility of absence seizure however they usually last less than 15 seconds. TIA is another differential given his PMhx. CT head was negative upon admission. Seen by neurology who believes he has encephalopathy in the setting of suspected infection with hypothermia TSH, ammonia, B12, a.m. cortisol, ABG are WNL -PT, OT, ST -follow neuro recommendations -Consider getting an EEG #Neuroleptic induced Parkinsonism with hx paranoid schizophrenia will attempt to reduce neuroleptics per psychiatry #Bradycardia Patient was found to be cardiac in the 40s while sleeping. EKG continues to show bundle branch block pattern -f/u repeat ekg and trops -consider holding amlodipine #Hypothermia The patient was found to be hypothermic with a normal WBC count. There is no obvious source of infection UA and chest x-ray is unremarkable. Patient had been on oral Augmentin recently for presumed UTI. The patient was on a Bari Hugger and hypothermia is now resolved -Monitor fever and WBC -f/u domingo cultures -cont ID recommendations -Monitor off antibiotics for now #HTN -cont lisinopril, Lasix, atenolol #Dysphagia? Patient's reporting dysphagia Seen by s/s who states the patient kept fluids and food in his mouth. -s/s recommending NPO for now #Hyponatremia - resolved Initial hyponatremia of 136 currently corrected after fluids -continue to monitor #Chronic medical conditions Hyperlipidemia, hypertension, BPH, GERD, Continue statin, finasteride, tamsulosin, Nexium #Heart healthy diet #DVT prophylaxis subcutaneous heparin and Alps Dc'ed de leon Problem List: 1. Dysphagia 2. Hypothermia 3. Encephalopathy 4. HTN (hypertension) Pain Ratin Pain Location: none Pain Goal: Pain 4 or less Pain Plan: pathway Tomorrow's Labs & Rationales: cbc icu mag
--- NOTE | 2018-02-27 10:22 | PN- Att Addend ---
Attending Addendum Attending Brief Note Patient in bed in ICU now off the bed hugger returned back to normal and other vital signs are stable neurology assessing the patient patient has still has periods where he stares and does not speak I think this has been present in the past. In the hospital no suicidal appreciate infectious diseases input and recommendations was to monitor off antibiotics okay to transfer patient to telemetry. 24 TOTALS 02/27 0000 02/26 0000 Intake Total 1100 Output Total 1900 Balance -800 Intake, IV 1000 Intake, Oral 100 Output, Urine 1900 Patient 269 lb Weight Weight Bed scale Measurement Method Current Medications Sig/Vidal Start time Last Medication Dose Route Stop Time Status Admin Acetaminophen 650 MG Q6P PRN 02/26 2000 AC PO Albuterol Sulfate 2 PUF Q4-6 PRN PRN 02/26 1930 AC INH Atenolol 50 MG BID 02/26 2100 AC 02/27 PO 0908 Atorvastatin Calcium 20 MG 1700 02/27 1700 AC PO Benztropine Mesylate 1 MG DAILY 02/27 0900 AC 02/27 PO 0908 Ceftriaxone Sodium 0 .STK-MED ONE 02/26 1352 DC .ROUTE Ceftriaxone Sodium 1,000 MG ONCE ONE 02/26 1300 DC 02/26 IV 02/26 1301 1344 Finasteride 5 MG DAILY 02/27 0900 AC 02/27 PO 0908 Furosemide 20 MG DAILY 02/27 0900 AC 02/27 PO 0908 Heparin Sodium 5,000 UNIT Q8 02/26 2200 AC 02/27 (Porcine) SC 0632 Hydralazine HCl 5 MG ONCE ONE 02/27 0030 DC 02/27 IV 02/27 0031 0048 Hydralazine HCl 0 .STK-MED ONE 02/26 1842 DC .ROUTE Hydralazine HCl 5 MG ONCE ONE 02/26 1745 DC 02/26 IV 02/26 1746 1902 Lisinopril 40 MG DAILY 02/27 0900 AC 02/27 PO 0908 Nitroglycerin 0.4 MG DAILY 02/27 0900 AC 02/27 TOP 0909 Omeprazole 40 MG DAILY AC 02/27 0700 AC 02/27 PO 0632 Sodium Chloride 1,000 ML BOLUS ONE 02/26 1230 DC 02/26 IV 02/26 1329 1315 Tamsulosin HCl 0.4 MG QPM 02/26 2100 AC 02/26 PO 2231 Laboratory Tests 02/27/18 0455: Anion Gap 10, Estimated GFR > 60, BUN/Creatinine Ratio 14.0, CBC w Diff NO MAN DIFF REQ, RBC 3.91 L, MCV 89.9, MCH 30.0, MCHC 33.4, RDW 14.2, MPV 6.5 L, Gran % 77.5 H, Lymphocytes % 13.2 L, Monocytes % 6.2, Eosinophils % 2.5, Basophils % 0.6, Absolute Granulocytes 5.3, Absolute Lymphocytes 0.9 L, Absolute Monocytes 0.4, Absolute Eosinophils 0.2, Absolute Basophils 0 02/26/18 1523: Lactic Acid Cancelled 02/26/18 1325: Urine Color YEL, Urine Clarity CLEAR, Urine pH 6.5, Ur Specific [place] 1.010, Urine Protein NEG, Urine Ketones NEG, Urine Nitrite NEG, Urine Bilirubin NEG, Urine Urobilinogen 0.2, Ur Leukocyte Esterase NEG, Ur Microscopic EXAM NOT REQUIRED, Urine Hemoglobin NEG, Urine Glucose NEG 02/26/18 1315: Anion Gap 9, Estimated GFR 60, BUN/Creatinine Ratio 16.7, Glucose 82, Lactic Acid 1.3, Calcium 8.9, Magnesium 1.8, Total Bilirubin 0.5, AST 22, ALT 27, Alkaline Phosphatase 73, Troponin I < 0.01, Total Protein 6.9, Albumin 3.5, Globulin 3.4, Albumin/Globulin Ratio 1.0 L, Prolactin 40.9 H, PT 10.4, INR 0.95, APTT 26, CBC w Diff NO MAN DIFF REQ, RBC 3.71 L, MCV 90.4, MCH 30.1, MCHC 33.3, RDW 13.8, MPV 6.7 L, Gran % 83.5 H, Lymphocytes % 8.9 L, Monocytes % 6.0, Eosinophils % 1.2, Basophils % 0.4, Absolute Granulocytes 8.4 H, Absolute Lymphocytes 0.9 L, Absolute Monocytes 0.6, Absolute Eosinophils 0.1, Absolute Basophils 0 Vital Signs Date Time Temp Pulse Resp B/P B/P Pulse O2 O2 Flow FiO2 Mean Ox Delivery Rate 02/27 0908 98.6 56 13 174/02/27 0908 98.6 56 13 174/02/27 0400 96 Room Air 02/27 0048 71 214/92 02/27 0000 96 Room Air 02/26 2301 97 Room Air 02/26 2231 65 180/108 02/26 2230 65 180/108 02/26 2040 96.9 63 14 106/75 95 Room Air 02/26 1950 96.0 62 14 138/57 95 Room Air 02/26 1902 95.1 60 20 153/70 02/26 1901 95.1 60 16 153/70 96 Room Air 02/26 1655 94.4 56 16 184/90 97 Room Air 02/26 1413 97.3 54 18 135/65 95 02/26 1206 Room Air 02/26 1155 61 16 100/59 97 Room Air
--- NOTE | 2018-02-27 11:32 | PN- Infect Dx ---
Subjective Subjective: Afebrile. He is unable to provide an adequate or reliable history. He apparently complained of nausea earlier today. Objective Last 24 Hrs of Vital Signs/I&O Vital Signs Date Time Temp Pulse Resp B/P B/P Pulse O2 O2 Flow FiO2 Mean Ox Delivery Rate 02/27 0908 98.6 56 13 174/82 02/27 0908 98.6 56 13 174/82 02/27 0400 96 Room Air 02/27 0048 71 214/92 02/27 0000 96 Room Air 02/26 2301 97 Room Air 02/26 2231 65 180/108 02/26 2230 65 180/108 02/26 2040 96.9 63 14 106/75 95 Room Air 02/26 1950 96.0 62 14 138/57 95 Room Air 02/26 1902 95.1 60 20 153/70 02/26 1901 95.1 60 16 153/70 96 Room Air 02/26 1655 94.4 56 16 184/90 97 Room Air 02/26 1413 97.3 54 18 135/65 95 02/26 1206 Room Air 02/26 1155 61 16 100/59 97 Room Air Intake & Output 02/27 1600 02/27 0800 02/27 0000 Intake Total 50 1100 Output Total 1200 950 Balance -1150 150 Intake, IV 0 1000 Intake, Oral 50 100 Number 0 Bowel Movements Output, Urine 1200 950 Patient 269 lb Weight Weight Bed scale Measurement Method Physical Exam Other Physical Findings: He is awake and alert, minimally verbal and intermittently responsive, but in no acute distress. He has an intermittent cough. Lungs bibasilar crackles Heart regular rhythm with no murmur Abdomen is obese, soft, nontender with positive bowel sounds Back no obvious CVA tenderness Extremities decreased erythema and edema both lower extremities Neuro without new focality; no significant rigidity Lopez catheter remains in place Results Last 24 Hours of Lab Results: Laboratory Tests 02/27 02/26 0455 1523 Chemistry Sodium (137 - 145 mmol/L) 138 Potassium (3.5 - 5.1 mmol/L) 4.6 Chloride (98 - 107 mmol/L) 98 Carbon Dioxide (22 - 30 mmol/L) 29 Anion Gap (5 - 16) 10 BUN (9 - 20 mg/dL) 14 Creatinine (0.7 - 1.2 mg/dL) 1.0 Estimated GFR (>60 ml/min) > 60 BUN/Creatinine Ratio (7 - 25 %) 14.0 Lactic Acid Cancelled Vitamin B12 (239 - 931 pg/mL) Pending TSH (0.270 - 4.200 uIU/mL) Pending Free T4 (0.78 - 2.44 ng/dL) Pending Cortisol AM Sample (4.46 - 22.7 ug/dL) Pending Hematology CBC w Diff NO MAN DIFF REQ WBC (4.8 - 10.8 /CUMM) 6.9 RBC (4.70 - 6.10 /CUMM) 3.91 L Hgb (14.0 - 18.0 G/DL) 11.7 L Hct (42 - 52 %) 35.1 L MCV (80.0 - 94.0 FL) 89.9 MCH (27.0 - 31.0 PG) 30.0 MCHC (33.0 - 37.0 G/DL) 33.4 RDW (11.5 - 14.5 %) 14.2 Plt Count (130 - 400 /CUMM) 225 MPV (7.4 - 10.4 FL) 6.5 L Gran % (42.2 - 75.2 %) 77.5 H Lymphocytes % (20.5 - 51.1 %) 13.2 L Monocytes % (1.7 - 9.3 %) 6.2 Eosinophils % (0 - 5 %) 2.5 Basophils % (0.0 - 2.0 %) 0.6 Absolute Granulocytes (1.4 - 6.5 /CUMM) 5.3 Absolute Lymphocytes (1.2 - 3.4 /CUMM) 0.9 L Absolute Monocytes (0.10 - 0.60 /CUMM) 0.4 Absolute Eosinophils (0.0 - 0.7 /CUMM) 0.2 Absolute Basophils (0.0 - 0.2 /CUMM) 0 02/26 02/26 1325 1315 Chemistry Sodium (137 - 145 mmol/L) 136 L Potassium (3.5 - 5.1 mmol/L) 4.4 Chloride (98 - 107 mmol/L) 94 L Carbon Dioxide (22 - 30 mmol/L) 33 H Anion Gap (5 - 16) 9 BUN (9 - 20 mg/dL) 20 Creatinine (0.7 - 1.2 mg/dL) 1.2 Estimated GFR (>60 ml/min) 60 BUN/Creatinine Ratio (7 - 25 %) 16.7 Glucose (65 - 99 mg/dL) 82 Lactic Acid (0.7 - 2.1 mmol/L) 1.3 Calcium (8.4 - 10.2 mg/dL) 8.9 Magnesium (1.6 - 2.3 mg/dL) 1.8 Total Bilirubin (0.2 - 1.3 mg/dL) 0.5 AST (17 - 59 U/L) 22 ALT (21 - 72 U/L) 27 Alkaline Phosphatase (< 127 U/L) 73 Troponin I (<0.11 ng/ml) < 0.01 Total Protein (6.3 - 8.2 g/dL) 6.9 Albumin (3.5 - 5.0 g/dL) 3.5 Globulin (1.9 - 4.2 gm/dL) 3.4 Albumin/Globulin Ratio (1.1 - 2.2 %) 1.0 L Prolactin (3.7 - 17.9 ng/mL) 40.9 H Coagulation PT (9.4 - 12.5 SEC) 10.4 INR (0.90 - 1.17) 0.95 APTT (25 - 37 SEC) 26 Hematology CBC w Diff NO MAN DIFF REQ WBC (4.8 - 10.8 /CUMM) 10.0 RBC (4.70 - 6.10 /CUMM) 3.71 L Hgb (14.0 - 18.0 G/DL) 11.1 L Hct (42 - 52 %) 33.5 L MCV (80.0 - 94.0 FL) 90.4 MCH (27.0 - 31.0 PG) 30.1 MCHC (33.0 - 37.0 G/DL) 33.3 RDW (11.5 - 14.5 %) 13.8 Plt Count (130 - 400 /CUMM) 220 MPV (7.4 - 10.4 FL) 6.7 L Gran % (42.2 - 75.2 %) 83.5 H Lymphocytes % (20.5 - 51.1 %) 8.9 L Monocytes % (1.7 - 9.3 %) 6.0 Eosinophils % (0 - 5 %) 1.2 Basophils % (0.0 - 2.0 %) 0.4 Absolute Granulocytes (1.4 - 6.5 /CUMM) 8.4 H Absolute Lymphocytes (1.2 - 3.4 /CUMM) 0.9 L Absolute Monocytes (0.10 - 0.60 /CUMM) 0.6 Absolute Eosinophils (0.0 - 0.7 /CUMM) 0.1 Absolute Basophils (0.0 - 0.2 /CUMM) 0 Urines Urine Color (YEL,AMB,STR) YEL Urine Clarity (CLEAR) CLEAR Urine pH (5.0 - 8.0) 6.5 Ur Specific [place] (1.001 - 1.035) 1.010 Urine Protein (NEG,<30 MG/DL) NEG Urine Ketones (NEG) NEG Urine Nitrite (NEG) NEG Urine Bilirubin (NEG) NEG Urine Urobilinogen (0.1 - 1.0 EU/dl) 0.2 Ur Leukocyte Esterase (NEG) NEG Ur Microscopic EXAM NOT REQUIRED Urine Hemoglobin (NEG) NEG Urine Glucose (N MG/DL) NEG Last 24 Hours of Ramesh Results: Blood cultures 2 February 26 negative Urine culture February 26 negative Assessment/Plan ID Impression: Stable, with temperatures normalized and with his white blood cell count remaining normal, off antibiotics after 1 dose of Ceftriaxone yesterday in the ER because of hypothermia, which appears to have resolved. He has no obvious source of infection though he does appear to have a cough, which his states has been present for the past 10 days and, therefore, is of unclear significance. He has been evaluated by both Psychiatry and Neurology, with their consultations appreciated. Suggestion: 1. Follow Neurology recommendations 2. Repeat chest x-ray if he develops a fever or cough persists 3. Remove Lopez catheter 4. Continue to follow off antibiotics
[2018-02-27 13:50] VITALS: BP 152/94
--- NOTE | 2018-02-27 16:18 | Incdntl Nt Psy ---
Incidental Note Notation: Spoke with resident and aware of neuro recs to reduce neuroleptics. Pt is a longtime pt of Dr. Nayak in outpatient psychiatry. He has severe paranoid schizophrenia and has been maintained on this regimen for some time. I will speak with Dr. Nayak tomorrow (not here today) regarding any changes that may need to be made given that she knows pt's illness best and he is at high risk to decompensate. JScruggsMD #[id number]
[2018-02-27 20:32] VITALS: BP 110/98
[2018-02-27 22:53] VITALS: BP 156/82
[2018-02-28 06:45] VITALS: BP 150/76
--- NOTE | 2018-02-28 07:51 | PN- Housestaff ---
Subjective Follow-up For: Possible seizure Hypertension Tele-Events Since Last Visit: Sinus Max with BBB and first-degree AV block. Subjective: Patient minimally verbal. Followin commands. Review of Systems Constitutional: Reports: no symptoms. Objective Last 24 Hrs of Vital Signs/I&O Vital Signs Date Time Temp Pulse Resp B/P B/P Pulse O2 O2 Flow FiO2 Mean Ox Delivery Rate 02/28 0645 97.4 60 20 150/76 93 Room Air 02/27 2253 97.4 45 20 156/82 95 Room Air 02/27 2033 50 110/98 02/27 2033 50 110/98 02/28 2032 50 110/98 02/27 1600 Room Air Intake & Output 02/28 1600 02/28 0800 02/28 0000 Intake Total 0 490 Output Total 450 Balance 0 40 Intake, IV 10 Intake, Oral 0 480 Output, Urine 450 Patient 269 lb Weight Physical Exam General Appearance: Cooperative, No Acute Distress Skin: No Rashes, No Breakdown Cardiovascular: Regular Rate, Normal S1, Normal S2 Lungs: decrease breath sound bilateral lung bases Abdomen: Normal Bowel Sounds, Soft, No Tenderness Extremities: No Clubbing, No Cyanosis, trace pedal edema Current Medications: Current Medications Sig/Vidal Start time Last Medication Dose Route Stop Time Status Admin Acetaminophen 650 MG Q6P PRN 02/26 2000 AC PO Albuterol Sulfate 2 PUF Q4-6 PRN PRN 02/26 1930 AC INH Atenolol 50 MG BID 02/26 2100 DC 02/27 PO 203 Atorvastatin Calcium 20 MG 1700 02/27 1700 AC 02/27 PO 1620 Benztropine Mesylate 1 MG DAILY 02/27 0900 AC 02/27 PO 0908 Finasteride 5 MG DAILY 02/27 0900 AC 02/27 PO 0908 Furosemide 20 MG DAILY 02/27 0900 AC 02/27 PO 0908 Haloperidol 10 MG AT BEDTIME 02/28 2100 AC PO Heparin Sodium 5,000 UNIT Q8 02/26 2200 AC 02/28 (Porcine) SC 1343 Hydralazine HCl 20 MG .STK-MED ONE 02/27 1538 DC IV 02/27 1539 Lacosamide 100 MG Q12H 02/28 2200 AC Sodium Chloride 100 ML IV Lacosamide 100 MG BID 02/28 2100 CAN PO Lacosamide 200 MG ONCE ONE 02/28 1045 DC 02/28 Sodium Chloride 100 ML IV 02/28 1156 1239 Lacosamide 200 MG ONCE ONE 02/28 1015 CAN PO 02/28 1016 Lisinopril 40 MG DAILY 02/27 0900 AC 02/27 PO 0908 Lorazepam 2 MG ONCE ONE 02/28 1000 DC 02/28 IV 02/28 1001 1016 Nitroglycerin 0.4 MG DAILY 02/27 0900 02/28 TOP 1000 Non-Formulary 0 SEE ADMIN CRITERIA 02/28 1030 DC Medication ANY Nystatin 1 NEW TID 02/27 2306 AC 02/28 TOP 1348 Olanzapine 5 MG BID 02/28 1315 AC PO Omeprazole 40 MG DAILY AC 02/27 0700 AC 02/27 PO 0632 Tamsulosin HCl 0.4 MG QPM 02/26 2100 AC 02/27 PO 2033 Last 24 Hrs of Lab/Ramesh Results Last 24 Hrs of Labs/Mics: Laboratory Tests 02/28/18 1035: Prolactin 70.7 H 02/28/18 1000: Lactic Acid Cancelled, APTT Cancelled 02/28/18 0955: Anion Gap 17 H, Estimated GFR > 60, BUN/Creatinine Ratio 13.6, Prolactin 46.4 H, CBC w Diff NO MAN DIFF REQ, RBC 4.07 L, MCV 89.8, MCH 29.9, MCHC 33.2, RDW 14.0, MPV 7.3 L, Gran % 73.1, Lymphocytes % 18.6 L, Monocytes % 6.7, Eosinophils % 1.4, Basophils % 0.2, Absolute Granulocytes 6.8 H, Absolute Lymphocytes 1.7, Absolute Monocytes 0.6, Absolute Eosinophils 0.1, Absolute Basophils 0 02/28/18 0619: Anion Gap 10, Estimated GFR > 60, BUN/Creatinine Ratio 14.5, Magnesium 1.8, CBC w Diff NO MAN DIFF REQ, RBC 3.79 L, MCV 90.7, MCH 29.8, MCHC 32.8 L, RDW 14.4, MPV 7.6, Gran % 78.6 H, Lymphocytes % 12.9 L, Monocytes % 5.7, Eosinophils % 2.4, Basophils % 0.4, Absolute Granulocytes 5.5, Absolute Lymphocytes 0.9 L, Absolute Monocytes 0.4, Absolute Eosinophils 0.2, Absolute Basophils 0 02/27/18 1545: Troponin I < 0.01 Assessment/Plan Assessment: 72-year-old male with past medical history of paranoid schizophrenia, hypertension, coronary artery disease, TIAs and CVA with history of left-sided hemiparesis, PVD, PUD presented to for lethargy and altered mental status and found to be hypothermic at 94.4. #Staring spells; He had an episode of staring spell which lasted for about 5 minutes. Considered a possibility of absence seizure however they usually last less than 15 seconds. TIA was ruled out with CT head on admission. Seen by neurology who initially believed he had encephalopathy in the setting of suspected infection with hypothermia TSH, ammonia, B12, a.m. cortisol, ABG are WNL -PT, OT, ST -follow neuro recommendations -Consider getting an EEG #Neuroleptic induced Parkinsonism with hx paranoid schizophrenia - Continue olanzapine and haloperidol. #Bradycardia Patient was found to be bradycardiac in the 40s while sleeping. EKG continues to show bundle branch block pattern - Discontinue atenolol per cardiology. Will resume at a lower dose if patient becomes hypertensive or tachycardic. - Appreciate cardiology recommendations #Hypothermia The patient was found to be hypothermic with a normal WBC count. There is no obvious source of infection UA and chest x-ray is unremarkable. Patient had been on oral Augmentin recently for presumed UTI. The patient was on a Bari Hugger and hypothermia is now resolved -Monitor fever and WBC -f/u domingo cultures -cont ID recommendations -Monitor off antibiotics for now #HTN -cont lisinopril, Lasix, discontinue atenolol because of bradycardia #Dysphagia? Patient's reporting dysphagia Seen by s/s who states the patient kept fluids and food in his mouth. -s/s recommending NPO for now #Hyponatremia - resolved Initial hyponatremia of 136 currently corrected after fluids -continue to monitor #Chronic medical conditions Hyperlipidemia, BPH, GERD. Continue statin, finasteride, tamsulosin, Nexium #Heart healthy diet #DVT prophylaxis subcutaneous heparin and Alps Problem List: 1. HTN (hypertension) 2. Schizophrenia 3. Seizure Pain Ratin Pain Location: NA Pain Goal: Remain pain free Pain Plan: NA Tomorrow's Labs & Rationales: None
[2018-02-28 08:48] LABS: ABSOLUTE BASOPHIL COUNT 0 /CUMM (0.0-0.2); ABSOLUTE EOSINOPHIL COUNT 0.2 /CUMM (0.0-0.7); ABSOLUTE GRANULOCYTE CT 5.5 /CUMM (1.4-6.5); ABSOLUTE LYMPH COUNT 0.9 /CUMM (1.2-3.4); ABSOLUTE MONOCYTE COUNT 0.4 /CUMM (0.10-0.60); BASOPHIL % 0.4 % (0.0-2.0); EOSINOPHIL % 2.4 % (0-5); GRANULOCYTE % 78.6 % (42.2-75.2); HEMATOCRIT 34.4 % (42-52); MEAN CORPUSCULAR HGB 29.8 PG (27.0-31.0); MEAN CORPUSCULAR HGB CONC 32.8 G/DL (33.0-37.0); MEAN CORPUSCULAR VOLUME 90.7 FL (80.0-94.0); MEAN PLATELET VOLUME 7.6 FL (7.4-10.4); PLATELET COUNT 222 /CUMM (130-400); RBC DISTRIBUTION WIDTH 14.4 % (11.5-14.5); RED BLOOD CELL CT 3.79 /CUMM (4.70-6.10)
--- NOTE | 2018-02-28 10:55 | PN- Att Addend ---
Attending Addendum Attending Brief Note While I was walking into the room and the patient had what looked like a witnessed seizure. A rapid response was called, was given some Ativan IV patient slowly woke up and understood what was going on also walked in she stated that Sunday before the patient was brought in the patient also had a witnessed episode by the visiting nurse of like turning his head to the right side and being less responsive for several minutes at present the vital signs are stable no major changes neurology also came in to see the patient is an MRI of the head was ordered and will be done this morning and recommendations for medications were given to the resident will continue close observation. Intake & Output 02/28 1600 02/28 0400 02/27 1600 02/27 0400 02/26 1600 02/26 0400 Intake Total 0 490 1350 1100 Output Total 450 2320 950 950 Balance 0 40 -970 150 -950 Intake, IV 10 0 1000 Intake, Oral 0 480 1350 100 Number 0 Bowel Movements Output, Urine 450 2320 950 950 Patient 269 lb 269 lb 240 lb Weight Weight Bed scale Bed scale Reported by Patient Measurement Method Current Medications Sig/Vidal Start time Last Medication Dose Route Stop Time Status Admin Acetaminophen 650 MG Q6P PRN 02/26 2000 AC PO Albuterol Sulfate 2 PUF Q4-6 PRN PRN 02/26 1930 AC INH Atenolol 50 MG BID 02/26 2100 AC 02/27 PO 2033 Atorvastatin Calcium 20 MG 1700 02/27 1700 AC 02/27 PO 1620 Benztropine Mesylate 1 MG DAILY 02/27 0900 AC 02/27 PO 0908 Finasteride 5 MG DAILY 02/27 0900 AC 02/27 PO 0908 Furosemide 20 MG DAILY 02/27 0900 AC 02/27 PO 0908 Heparin Sodium 5,000 UNIT Q8 02/26 2200 AC 02/28 (Porcine) SC 0653 Hydralazine HCl 20 MG .STK-MED ONE 02/27 1538 DC IV 02/27 1539 Lacosamide 100 MG Q12H 02/28 2200 AC Sodium Chloride 100 ML IV Lacosamide 100 MG BID 02/28 2100 CAN PO Lacosamide 200 MG ONCE ONE 02/28 1045 AC Sodium Chloride 100 ML IV 02/28 1156 Lacosamide 200 MG ONCE ONE 02/28 1015 CAN PO 02/28 1016 Lisinopril 40 MG DAILY 02/27 0900 AC 02/27 PO 0908 Lorazepam 2 MG ONCE ONE 02/28 1000 DC 02/28 IV 02/28 1001 1016 Nitroglycerin 0.4 MG DAILY 02/27 09 02/27 TOP 0909 Non-Formulary 0 SEE ADMIN CRITERIA 02/28 1030 DC Medication ANY Nystatin 1 NEW TID 02/27 2306 AC 02/28 TOP 0657 Omeprazole 40 MG DAILY AC 02/27 0700 AC 02/27 PO 0632 Tamsulosin HCl 0.4 MG QPM 02/26 2100 AC 02/27 PO 2033 Laboratory Tests 02/28/18 1035: Prolactin Pending 02/28/18 1000: Lactic Acid Cancelled, APTT Cancelled 02/28/18 0955: Anion Gap 17 H, Estimated GFR > 60, BUN/Creatinine Ratio 13.6, Prolactin Pending, CBC w Diff Pending, WBC Pending, RBC Pending, Hgb Pending, Hct Pending, MCV Pending, MCH Pending, MCHC Pending, RDW Pending, Plt Count Pending, MPV Pending 02/28/18 0619: Anion Gap 10, Estimated GFR > 60, BUN/Creatinine Ratio 14.5, Magnesium 1.8, CBC w Diff NO MAN DIFF REQ, RBC 3.79 L, MCV 90.7, MCH 29.8, MCHC 32.8 L, RDW 14.4, MPV 7.6, Gran % 78.6 H, Lymphocytes % 12.9 L, Monocytes % 5.7, Eosinophils % 2.4, Basophils % 0.4, Absolute Granulocytes 5.5, Absolute Lymphocytes 0.9 L, Absolute Monocytes 0.4, Absolute Eosinophils 0.2, Absolute Basophils 0 02/27/18 1545: Troponin I < 0.01 02/27/18 1219: Ammonia < 9 L 02/27/18 1125: pH 7.43, pCO2 42, pO2 84, HCO3 27, ABG O2 Sat (Measured) 96.0, P-50 (Temp Corrected) N, Carboxyhemoglobin 0.4 L, O2 Concentration % .21, O2 Delivery Method RA, Phlebotomy Draw Site LEFT RADIAL 02/27/18 0455: Anion Gap 10, Estimated GFR > 60, BUN/Creatinine Ratio 14.0, Vitamin B12 675, TSH 1.030, Free T4 1.47, Cortisol AM Sample 12.1, CBC w Diff NO MAN DIFF REQ, RBC 3.91 L, MCV 89.9, MCH 30.0, MCHC 33.4, RDW 14.2, MPV 6.5 L, Gran % 77.5 H , Lymphocytes % 13.2 L, Monocytes % 6.2, Eosinophils % 2.5, Basophils % 0.6, Absolute Granulocytes 5.3, Absolute Lymphocytes 0.9 L, Absolute Monocytes 0.4, Absolute Eosinophils 0.2, Absolute Basophils 0 02/26/18 1523: Lactic Acid Cancelled 02/26/18 1325: Urine Color YEL, Urine Clarity CLEAR, Urine pH 6.5, Ur Specific [place] 1.010, Urine Protein NEG, Urine Ketones NEG, Urine Nitrite NEG, Urine Bilirubin NEG, Urine Urobilinogen 0.2, Ur Leukocyte Esterase NEG, Ur Microscopic EXAM NOT REQUIRED, Urine Hemoglobin NEG, Urine Glucose NEG 02/26/18 1315: Anion Gap 9, Estimated GFR 60, BUN/Creatinine Ratio 16.7, Glucose 82, Lactic Acid 1.3, Calcium 8.9, Magnesium 1.8, Total Bilirubin 0.5, AST 22, ALT 27, Alkaline Phosphatase 73, Troponin I < 0.01, Total Protein 6.9, Albumin 3.5, Globulin 3.4, Albumin/Globulin Ratio 1.0 L, Prolactin 40.9 H, PT 10.4, INR 0.95, APTT 26, CBC w Diff NO MAN DIFF REQ, RBC 3.71 L, MCV 90.4, MCH 30.1, MCHC 33.3, RDW 13.8, MPV 6.7 L, Gran % 83.5 H, Lymphocytes % 8.9 L, Monocytes % 6.0, Eosinophils % 1.2, Basophils % 0.4, Absolute Granulocytes 8.4 H, Absolute Lymphocytes 0.9 L, Absolute Monocytes 0.6, Absolute Eosinophils 0.1, Absolute Basophils 0 Microbiology 02/26 2050 UPPER RESP: Surveillance Culture - COMP 02/26 2050 GI: Surveillance Culture - COMP 02/26 1709 LOWER RESP: Respiratory Culture - CAN Cancelled: SPECIMEN NOT RECEIVED IN LABORATORY 02/26 1709 LOWER RESP: Gram Stain - CAN Cancelled: SPECIMEN NOT RECEIVED IN LABORATORY 02/26 1330 BLOOD: Blood Culture - RES 02/26 1325 URINE ROUT: Urine Culture - COMP 02/26 131 BLOOD: Blood Culture - RES Microbiology 02/26 2050 UPPER RESP: Surveillance Culture - COMP 02/26 2050 GI: Surveillance Culture - COMP 02/26 1709 LOWER RESP: Respiratory Culture - CAN Cancelled: SPECIMEN NOT RECEIVED IN LABORATORY 02/26 1709 LOWER RESP: Gram Stain - CAN Cancelled: SPECIMEN NOT RECEIVED IN LABORATORY 02/26 133 BLOOD: Blood Culture - RES 02/26 1325 URINE ROUT: Urine Culture - COMP 02/26 131 BLOOD: Blood Culture - RES Vital Signs Date Time Temp Pulse Resp B/P B/P Pulse O2 O2 Flow FiO2 Mean Ox Delivery Rate 02/28 0645 97.4 60 20 150/76 93 Room Air 02/27 2253 97.4 45 20 156/82 95 Room Air 02/27 2033 50 110/98 02/27 2033 50 110/98 02/28 2032 50 110/98 02/27 1600 Room Air 02/27 1350 97.7 55 22 152/94 97 Room Air 02/27 1200 96 Room Air
[2018-02-28 10:59] LABS: ABSOLUTE BASOPHIL COUNT 0 /CUMM (0.0-0.2); ABSOLUTE EOSINOPHIL COUNT 0.1 /CUMM (0.0-0.7); ABSOLUTE GRANULOCYTE CT 6.8 /CUMM (1.4-6.5); ABSOLUTE LYMPH COUNT 1.7 /CUMM (1.2-3.4); ABSOLUTE MONOCYTE COUNT 0.6 /CUMM (0.10-0.60); BASOPHIL % 0.2 % (0.0-2.0); EOSINOPHIL % 1.4 % (0-5); GRANULOCYTE % 73.1 % (42.2-75.2); HEMATOCRIT 36.6 % (42-52); MEAN CORPUSCULAR HGB 29.9 PG (27.0-31.0); MEAN CORPUSCULAR HGB CONC 33.2 G/DL (33.0-37.0); MEAN CORPUSCULAR VOLUME 89.8 FL (80.0-94.0); MEAN PLATELET VOLUME 7.3 FL (7.4-10.4); PLATELET COUNT 246 /CUMM (130-400); RED BLOOD CELL CT 4.07 /CUMM (4.70-6.10); WHITE BLOOD CELL COUNT 9.3 /CUMM (4.8-10.8)
--- NOTE | 2018-02-28 11:07 | PN- Neurology ---
See Addendum Subjective Subjective: The patient has been transferred out of the medical ICU and is now on the medical floor. A rapid response was called this morning after apparent convulsive activity was witnessed by the patient's , the patient's nurse, and medical house staff. He was described as having rhythmic clonic jerking of the arms, sialorrhea, lip smacking. The episode resolved on its own in less than a minute. He was given 2 mg of lorazepam after the seizure had stopped. He is now awake and responding slowly much like he was doing on yesterday's exam. Review of Systems: Nods his head no when asked if he has a headache. Objective Vital Signs and I&Os Vital Signs Date Time Temp Pulse Resp B/P B/P Pulse O2 O2 Flow FiO2 Mean Ox Delivery Rate 02/28 0645 97.4 60 20 150/76 93 Room Air 02/27 2253 97.4 45 20 156/82 95 Room Air 02/27 2033 50 110/98 02/27 2033 50 110/98 02/28 2032 50 110/98 02/27 1600 Room Air 02/27 1350 97.7 55 22 152/94 97 Room Air 02/27 1200 96 Room Air Intake & Output 02/28 1600 02/28 0800 02/28 0000 02/27 1600 02/27 0800 02/27 0000 Intake Total 0 490 1300 50 1100 Output Total 450 1120 1200 950 Balance 0 40 180 -1150 150 Intake, IV 10 0 1000 Intake, Oral 0 480 1300 50 100 Number 0 Bowel Movements Output, Urine 450 1120 1200 950 Patient 269 lb 269 lb Weight Weight Bed scale Bed scale Measurement Method Physical Exam: Awake, appearing drowsy No verbal output at this time Nods his head yes or no in a very low amplitude fashion Full extraocular motility Occasional lip smacking Facial hypomimia unchanged Pupils equal round and reactive to light Partially assists when his arms are raised overhead however the left arm rapidly drops to his side Current Medications: Current Medications Sig/Vidal Start time Last Medication Dose Route Stop Time Status Admin Acetaminophen 650 MG Q6P PRN 02/27 2000 AC PO Albuterol Sulfate 2 PUF Q4-6 PRN PRN 02/26 193 AC INH Atenolol 50 MG BID 02/26 2100 AC 02/27 PO 2032 Atorvastatin Calcium 20 MG 1700 02/27 1700 AC 02/27 PO 1620 Benztropine Mesylate 1 MG DAILY 02/27 0900 AC 02/27 PO 0908 Finasteride 5 MG DAILY 02/27 0900 AC 02/27 PO 0908 Furosemide 20 MG DAILY 02/27 0900 AC 02/27 PO 0908 Heparin Sodium 5,000 UNIT Q8 02/26 2200 AC 02/28 (Porcine) SC 0653 Hydralazine HCl 20 MG .STK-MED ONE 02/27 1538 DC IV 02/27 1539 Lacosamide 100 MG Q12H 02/28 2200 AC Sodium Chloride 100 ML IV Lacosamide 100 MG BID 02/28 2100 CAN PO Lacosamide 200 MG ONCE ONE 02/28 1045 AC Sodium Chloride 100 ML IV 02/28 1156 Lacosamide 200 MG ONCE ONE 02/28 1015 CAN PO 02/28 1016 Lisinopril 40 MG DAILY 02/27 0900 AC 02/27 PO 0908 Lorazepam 2 MG ONCE ONE 02/28 1000 DC 02/28 IV 02/28 1001 1016 Nitroglycerin 0.4 MG DAILY 02/27 0900 AC 02/27 TOP 0909 Non-Formulary 0 SEE ADMIN CRITERIA 02/28 1030 DC Medication ANY Nystatin 1 NEW TID 02/27 2306 AC 02/28 TOP 0657 Omeprazole 40 MG DAILY AC 02/27 0700 AC 02/27 PO 0632 Tamsulosin HCl 0.4 MG QPM 02/26 2100 AC 02/27 PO 2033 Assessment/Plan Assessment: New onset seizure in a 72-year-old man with prior ischemic strokes His prior left hemispheric stroke is likely contributing to his speech and language disturbance, and his prior right hemispheric stroke is likely contributing to his relative left-sided weakness, both of which may be accentuated post ictally. Plan: Brain MRI without contrast EEG Vimpat 200 mg load now followed by 100 mg twice a day. One-to-one dose conversion IV or by mouth. Okay to give by mouth if he is able to safely swallow.
--- NOTE | 2018-02-28 11:56 | PN- Infect Dx ---
Subjective Subjective: Afebrile without complaints. A rapid response was called this morning after an apparent seizure. Objective Last 24 Hrs of Vital Signs/I&O Vital Signs Date Time Temp Pulse Resp B/P B/P Pulse O2 O2 Flow FiO2 Mean Ox Delivery Rate 02/28 0645 97.4 60 20 150/76 93 Room Air 02/27 2253 97.4 45 20 156/82 95 Room Air 02/27 2033 50 110/98 02/27 2033 50 110/98 02/28 2032 50 110/98 02/27 1600 Room Air 02/27 1350 97.7 55 22 152/94 97 Room Air 02/27 1200 96 Room Air Intake & Output 02/28 1600 02/28 0800 02/28 0000 Intake Total 0 490 Output Total 450 Balance 0 40 Intake, IV 10 Intake, Oral 0 480 Output, Urine 450 Physical Exam Other Physical Findings: He is awake and alert, slow to respond but in no acute distress Lungs are clear Heart regular rhythm with no murmur Extremities no cyanosis, clubbing or edema and no further erythema Neuro without any change in his exam Results Last 24 Hours of Lab Results: Laboratory Tests 02/28 02/28 02/28 1035 1000 0955 Chemistry Sodium (137 - 145 mmol/L) 138 Potassium (3.5 - 5.1 mmol/L) 4.2 Chloride (98 - 107 mmol/L) 98 Carbon Dioxide (22 - 30 mmol/L) 23 Anion Gap (5 - 16) 17 H BUN (9 - 20 mg/dL) 15 Creatinine (0.7 - 1.2 mg/dL) 1.1 Estimated GFR (>60 ml/min) > 60 BUN/Creatinine Ratio (7 - 25 %) 13.6 Lactic Acid Cancelled Prolactin (3.7 - 17.9 ng/mL) Pending 46.4 H Coagulation APTT Cancelled Hematology CBC w Diff NO MAN DIFF REQ WBC (4.8 - 10.8 /CUMM) 9.3 RBC (4.70 - 6.10 /CUMM) 4.07 L Hgb (14.0 - 18.0 G/DL) 12.1 L Hct (42 - 52 %) 36.6 L MCV (80.0 - 94.0 FL) 89.8 MCH (27.0 - 31.0 PG) 29.9 MCHC (33.0 - 37.0 G/DL) 33.2 RDW (11.5 - 14.5 %) 14.0 Plt Count (130 - 400 /CUMM) 246 MPV (7.4 - 10.4 FL) 7.3 L Gran % (42.2 - 75.2 %) 73.1 Lymphocytes % (20.5 - 51.1 %) 18.6 L Monocytes % (1.7 - 9.3 %) 6.7 Eosinophils % (0 - 5 %) 1.4 Basophils % (0.0 - 2.0 %) 0.2 Absolute Granulocytes (1.4 - 6.5 /CUMM) 6.8 H Absolute Lymphocytes (1.2 - 3.4 /CUMM) 1.7 Absolute Monocytes (0.10 - 0.60 /CUMM) 0.6 Absolute Eosinophils (0.0 - 0.7 /CUMM) 0.1 Absolute Basophils (0.0 - 0.2 /CUMM) 0 02/28 02/27 02/27 0619 1545 1219 Chemistry Sodium (137 - 145 mmol/L) 135 L Potassium (3.5 - 5.1 mmol/L) 4.5 Chloride (98 - 107 mmol/L) 97 L Carbon Dioxide (22 - 30 mmol/L) 28 Anion Gap (5 - 16) 10 BUN (9 - 20 mg/dL) 16 Creatinine (0.7 - 1.2 mg/dL) 1.1 Estimated GFR (>60 ml/min) > 60 BUN/Creatinine Ratio (7 - 25 %) 14.5 Magnesium (1.6 - 2.3 mg/dL) 1.8 Ammonia (9 - 30 umol/L) < 9 L Troponin I (<0.11 ng/ml) < 0.01 Hematology CBC w Diff NO MAN DIFF REQ WBC (4.8 - 10.8 /CUMM) 7.0 RBC (4.70 - 6.10 /CUMM) 3.79 L Hgb (14.0 - 18.0 G/DL) 11.3 L Hct (42 - 52 %) 34.4 L MCV (80.0 - 94.0 FL) 90.7 MCH (27.0 - 31.0 PG) 29.8 MCHC (33.0 - 37.0 G/DL) 32.8 L RDW (11.5 - 14.5 %) 14.4 Plt Count (130 - 400 /CUMM) 222 MPV (7.4 - 10.4 FL) 7.6 Gran % (42.2 - 75.2 %) 78.6 H Lymphocytes % (20.5 - 51.1 %) 12.9 L Monocytes % (1.7 - 9.3 %) 5.7 Eosinophils % (0 - 5 %) 2.4 Basophils % (0.0 - 2.0 %) 0.4 Absolute Granulocytes (1.4 - 6.5 /CUMM) 5.5 Absolute Lymphocytes (1.2 - 3.4 /CUMM) 0.9 L Absolute Monocytes (0.10 - 0.60 /CUMM) 0.4 Absolute Eosinophils (0.0 - 0.7 /CUMM) 0.2 Absolute Basophils (0.0 - 0.2 /CUMM) 0 Last 24 Hours of Ramesh Results: Blood cultures February 26 negative Urine culture February 26 negative Assessment/Plan ID Impression: Remains overall stable, though he apparently had a seizure earlier today, with further evaluation recommended by Neurology. He remains afebrile, with a normal white blood cell count, off antibiotics after 1 dose of Ceftriaxone given 2 days ago in the ER because of hypothermia, which has resolved. Suggestion: 1. Further workup for his seizures and mental status per Neurology 2. Repeat chest x-ray if he develops a fever or cough 3. Continue to follow off antibiotics
--- NOTE | 2018-02-28 11:57 | Cons- Cardiology ---
General Information and HPI Consulting Request Date of Consult: 02/28/18 Requested By: Lukas Andres MD Reason for Consult: Bradycardia in a patient with altered mental status and seizure. Source of Information: patient, family, old records Exam Limitations: poor historian History of Present Illness: Candido Tirado is a 72-year-old male who originally presented in 2004 with malignant hypertension, and also a [id number] myocardial infarction at the same time. He also had evidence of previous myocardial infarction on his electrocardiogram. His troponin originally was 0.96 and trended downwards. We did eventually do a stress test on him as an outpatient, which was suggestive of mild ischemia in the anterolateral wall and septum. However, mainly because of his mental status with schizophrenia and long stays in the inpatient psych unit we never sent him for an invasive evaluation. Also he became pretty much asymptomatic from a cardiac standpoint. Candido was hospitalized twice in 2011 when he was here for dehydration and acute renal failure. This all resolved. He also had frequent falls, which were probably secondary to the dehydration. He was eventually sent to short-term rehab, but subsequently was sent home. He was evaluated for cognitive decline at that time. Candido was again hospitalized in November 2016. At that time, he presented with mental status changes and delirium. I did see him in consultation in order to clear him for a change in his psychiatric regimen. There were no cardiac issues during that hospitalization. He did have an echo which showed LVH with normal LV function, some thickening of his mitral and aortic valves. Dr. Bah is following him from a vascular standpoint. 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 Candido was hospitalized again from 09/16/2017 to 09/19/2017 with worsening weakness and lethargy, and unwitnessed fall. He had positive troponin to a peak of 1.16 which we thought was due to supply/demand mismatch or type 2 myocardial infarction. Because of his mental status issues, he was not considered a candidate for aggressive cardiac evaluation and he was discharged on basically the same cardiac medications. At his last office visit, which was only 2 weeks ago, Candido was doing okay. He was having some edema and I restarted him on a low-dose diuretic, Lasix 20 mg daily. Currently his home medications do include atenolol 50 mg twice daily. Candido was admitted for change in mental status and seizure. He is now receiving antiseizure medication. He has been noted to be bradycardic with heart rates in the 40s-50s. His atenolol has been continued but has not been given today.. Allergies/Medications Allergies: Coded Allergies: NO KNOWN ALLERGIES (04/28/16) Home Med List: Albuterol Sulfate (Proair Hfa) 90 MCG HFA.AER.AD 2 PUF INH Q4-6 PRN PRN SHORTNESS OF BREATH (Reported) Amoxicillin/Potassium Clav (Augmentin 875-125 Tablet) 875 MG-125 MG TABLET 1 TAB PO BID ANTIBIOTIC, INFECTION (Reported) Atenolol 50 MG TABLET 1 TAB PO BID DIRECTED (Reported) Benztropine Mesylate 1 MG TABLET 1 TAB PO DAILY MENTAL HEALTH (Reported) Esomeprazole (Nexium) 40 MG CAPSULE.DR 1 TAB PO DAILY ACID REFLUX (Reported) Finasteride 5 MG TABLET 1 TAB PO DAILY DIRECTED (Reported) Folic Acid 1 MG TABLET 1 TAB PO DAILY VITAMIN SUPPORT (Reported) Furosemide 20 MG TABLET 1 TAB PO DAILY WATER RETENTION (Reported) Haloperidol 5 MG TABLET 10 MG PO AT BEDTIME hold for oversedation or respiratory depression Lisinopril 40 MG TABLET 1 TAB PO DAILY HIGH BLOOD PRESSURE (Reported) Lorazepam 1 MG TABLET 1 TAB PO BID DIRECTED (Reported) Nitroglycerin (Nitroglycerin Patch) 0.4 MG/HOUR PATCH.TD24 1 PATCH TOP DAILY DIRECTED (Reported) Olanzapine (Zyprexa) 5 MG TABLET 1 TAB PO BID DIRECTED (Reported) Simvastatin (Simvastatin*) 20 MG TABLET 1 TAB PO QPM HIGH CHOLESTROL ( Reported) Tamsulosin HCl 0.4 MG CAP.ER.24H 1 CAP PO QPM PROSTATE (Reported) Current Medications: Current Medications Sig/Vidal Start time Last Medication Dose Route Stop Time Status Admin Acetaminophen 650 MG Q6P PRN 02/26 2000 AC PO Albuterol Sulfate 2 PUF Q4-6 PRN PRN 02/26 193 AC INH Atenolol 50 MG BID 02/26 2100 AC 02/27 PO 203 Atorvastatin Calcium 20 MG 1700 02/27 1700 AC 05 PO 1620 Benztropine Mesylate 1 MG DAILY 02/27 0900 AC 02/27 PO 0908 Finasteride 5 MG DAILY 02/27 0900 AC 02/27 PO 0908 Furosemide 20 MG DAILY 02/27 0900 AC 02/27 PO 0908 Heparin Sodium 5,000 UNIT Q8 02/26 2200 AC 02/28 (Porcine) SC 0653 Hydralazine HCl 20 MG .STK-MED ONE 02/27 1538 DC IV 02/27 1539 Lacosamide 100 MG Q12H 02/28 2200 AC Sodium Chloride 100 ML IV Lacosamide 100 MG BID 02/28 2100 CAN PO Lacosamide 200 MG ONCE ONE 02/28 1045 DC 02/28 Sodium Chloride 100 ML IV 02/28 1156 1239 Lacosamide 200 MG ONCE ONE 02/28 1015 CAN PO 02/28 1016 Lisinopril 40 MG DAILY 02/27 09 AC 02/27 PO 0908 Lorazepam 2 MG ONCE ONE 02/28 1000 DC 02/28 IV 02/28 1001 1016 Nitroglycerin 0.4 MG DAILY 02/27 0900 AC 02/27 TOP 0909 Non-Formulary 0 SEE ADMIN CRITERIA 02/28 1030 DC Medication ANY Nystatin 1 NEW TID 02/27 2306 AC 02/28 TOP 0657 Omeprazole 40 MG DAILY AC 02/27 0700 AC 02/27 PO 0632 Tamsulosin HCl 0.4 MG QPM 02/26 2100 AC 02/27 PO 2033 Review of Systems Review of Systems: Unobtainable Past History Travel History Traveled to [place] past 21 day No Medical History Blood Transfusion Hx: No Neurological: CVA, TIA, L EYE BLINDNESS R ICA occlusion EENT: NONE Cardiovascular: AFIB, CAD, hypertension, hyperlipidemia, PVD Respiratory: EXERTIONAL SHORTNES OF BREATH Gastrointestinal: lower GI bleed, upper GI bleed Hepatic: NONE Renal: BARBARA Musculoskeletal: NONE Psychiatric: bipolar disease, schizophrenia Endocrine: NONE Blood Disorders: anemia Cancer(s): NONE 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 Psychosocial History Where Do You Live? Home Who Do You Live With? self Services at Home: None Primary Language: [place] Smoking Status: Former Smoker ETOH Use: denies use Functional Ability ADLs Needs Assist: dressing, eating, toileting, bathing. Ambulation: walker IADLs Needs Assist: shopping, housework, finances, food prep, telephone, transportation, medication admin. Exam & Diagnostic Data Vital Signs and I&O Vital Signs Date Time Temp Pulse Resp B/P B/P Pulse O2 O2 Flow FiO2 Mean Ox Delivery Rate 02/28 0645 97.4 60 20 150/76 93 Room Air 02/27 2253 97.4 45 20 156/82 95 Room Air 02/27 2033 50 110/98 02/27 2033 50 110/98 02/28 2032 50 110/98 02/27 1600 Room Air 02/27 1350 97.7 55 22 152/94 97 Room Air 02/27 1200 96 Room Air Intake & Output 02/28 0802/28 0000 02/27 1600 02/27 0802/27 0000 Intake Total 0 490 1300 50 1100 Output Total 450 1120 1200 950 Balance 0 40 180 -1150 150 Intake, IV 10 0 1000 Intake, Oral 0 480 1300 50 100 Number 0 Bowel Movements Output, Urine 450 1120 1200 950 Patient 269 lb 269 lb Weight Weight Bed scale Bed scale Measurement Method Physical Exam: He is lethargic having just been sedated. HEENT exam grossly normal Chest clear to limited exam Heart regular rhythm, bradycardiac, no murmurs Extremities no edema Labs/Ramesh Results: Laboratory Tests 02/28 02/28 02/28 1035 1000 0955 Chemistry Sodium (137 - 145 mmol/L) 138 Potassium (3.5 - 5.1 mmol/L) 4.2 Chloride (98 - 107 mmol/L) 98 Carbon Dioxide (22 - 30 mmol/L) 23 Anion Gap (5 - 16) 17 H BUN (9 - 20 mg/dL) 15 Creatinine (0.7 - 1.2 mg/dL) 1.1 Estimated GFR (>60 ml/min) > 60 BUN/Creatinine Ratio (7 - 25 %) 13.6 Lactic Acid Cancelled Prolactin (3.7 - 17.9 ng/mL) Pending 46.4 H Coagulation APTT Cancelled Hematology CBC w Diff NO MAN DIFF REQ WBC (4.8 - 10.8 /CUMM) 9.3 RBC (4.70 - 6.10 /CUMM) 4.07 L Hgb (14.0 - 18.0 G/DL) 12.1 L Hct (42 - 52 %) 36.6 L MCV (80.0 - 94.0 FL) 89.8 MCH (27.0 - 31.0 PG) 29.9 MCHC (33.0 - 37.0 G/DL) 33.2 RDW (11.5 - 14.5 %) 14.0 Plt Count (130 - 400 /CUMM) 246 MPV (7.4 - 10.4 FL) 7.3 L Gran % (42.2 - 75.2 %) 73.1 Lymphocytes % (20.5 - 51.1 %) 18.6 L Monocytes % (1.7 - 9.3 %) 6.7 Eosinophils % (0 - 5 %) 1.4 Basophils % (0.0 - 2.0 %) 0.2 Absolute Granulocytes (1.4 - 6.5 /CUMM) 6.8 H Absolute Lymphocytes (1.2 - 3.4 /CUMM) 1.7 Absolute Monocytes (0.10 - 0.60 /CUMM) 0.6 Absolute Eosinophils (0.0 - 0.7 /CUMM) 0.1 Absolute Basophils (0.0 - 0.2 /CUMM) 0 02/28 02/27 02/27 0619 1545 1219 Chemistry Sodium (137 - 145 mmol/L) 135 L Potassium (3.5 - 5.1 mmol/L) 4.5 Chloride (98 - 107 mmol/L) 97 L Carbon Dioxide (22 - 30 mmol/L) 28 Anion Gap (5 - 16) 10 BUN (9 - 20 mg/dL) 16 Creatinine (0.7 - 1.2 mg/dL) 1.1 Estimated GFR (>60 ml/min) > 60 BUN/Creatinine Ratio (7 - 25 %) 14.5 Magnesium (1.6 - 2.3 mg/dL) 1.8 Ammonia (9 - 30 umol/L) < 9 L Troponin I (<0.11 ng/ml) < 0.01 Hematology CBC w Diff NO MAN DIFF REQ WBC (4.8 - 10.8 /CUMM) 7.0 RBC (4.70 - 6.10 /CUMM) 3.79 L Hgb (14.0 - 18.0 G/DL) 11.3 L Hct (42 - 52 %) 34.4 L MCV (80.0 - 94.0 FL) 90.7 MCH (27.0 - 31.0 PG) 29.8 MCHC (33.0 - 37.0 G/DL) 32.8 L RDW (11.5 - 14.5 %) 14.4 Plt Count (130 - 400 /CUMM) 222 MPV (7.4 - 10.4 FL) 7.6 Gran % (42.2 - 75.2 %) 78.6 H Lymphocytes % (20.5 - 51.1 %) 12.9 L Monocytes % (1.7 - 9.3 %) 5.7 Eosinophils % (0 - 5 %) 2.4 Basophils % (0.0 - 2.0 %) 0.4 Absolute Granulocytes (1.4 - 6.5 /CUMM) 5.5 Absolute Lymphocytes (1.2 - 3.4 /CUMM) 0.9 L Absolute Monocytes (0.10 - 0.60 /CUMM) 0.4 Absolute Eosinophils (0.0 - 0.7 /CUMM) 0.2 Absolute Basophils (0.0 - 0.2 /CUMM) 0 02/27 02/27 1125 0455 Blood Gas pH (7.35 - 7.45 PH) 7.43 pCO2 (35 - 45 TORR) 42 pO2 (80 - 100 TORR) 84 HCO3 (21 - 28 MEQ/L) 27 ABG O2 Sat (Measured) (>96.0 %) 96.0 P-50 (Temp Corrected) N Carboxyhemoglobin (1.5 - 5.0 %) 0.4 L O2 Concentration % .21 O2 Delivery Method RA Chemistry Sodium (137 - 145 mmol/L) 138 Potassium (3.5 - 5.1 mmol/L) 4.6 Chloride (98 - 107 mmol/L) 98 Carbon Dioxide (22 - 30 mmol/L) 29 Anion Gap (5 - 16) 10 BUN (9 - 20 mg/dL) 14 Creatinine (0.7 - 1.2 mg/dL) 1.0 Estimated GFR (>60 ml/min) > 60 BUN/Creatinine Ratio (7 - 25 %) 14.0 Vitamin B12 (239 - 931 pg/mL) 675 TSH (0.270 - 4.200 uIU/mL) 1.030 Free T4 (0.78 - 2.44 ng/dL) 1.47 Cortisol AM Sample (4.46 - 22.7 ug/dL) 12.1 Hematology CBC w Diff NO MAN DIFF REQ WBC (4.8 - 10.8 /CUMM) 6.9 RBC (4.70 - 6.10 /CUMM) 3.91 L Hgb (14.0 - 18.0 G/DL) 11.7 L Hct (42 - 52 %) 35.1 L MCV (80.0 - 94.0 FL) 89.9 MCH (27.0 - 31.0 PG) 30.0 MCHC (33.0 - 37.0 G/DL) 33.4 RDW (11.5 - 14.5 %) 14.2 Plt Count (130 - 400 /CUMM) 225 MPV (7.4 - 10.4 FL) 6.5 L Gran % (42.2 - 75.2 %) 77.5 H Lymphocytes % (20.5 - 51.1 %) 13.2 L Monocytes % (1.7 - 9.3 %) 6.2 Eosinophils % (0 - 5 %) 2.5 Basophils % (0.0 - 2.0 %) 0.6 Absolute Granulocytes (1.4 - 6.5 /CUMM) 5.3 Absolute Lymphocytes (1.2 - 3.4 /CUMM) 0.9 L Absolute Monocytes (0.10 - 0.60 /CUMM) 0.4 Absolute Eosinophils (0.0 - 0.7 /CUMM) 0.2 Absolute Basophils (0.0 - 0.2 /CUMM) 0 Miscellaneous Phlebotomy Draw Site LEFT RADIAL 02/26 02/26 1523 1325 Chemistry Lactic Acid Cancelled Urines Urine Color (YEL,AMB,STR) YEL Urine Clarity (CLEAR) CLEAR Urine pH (5.0 - 8.0) 6.5 Ur Specific [place] (1.001 - 1.035) 1.010 Urine Protein (NEG,<30 MG/DL) NEG Urine Ketones (NEG) NEG Urine Nitrite (NEG) NEG Urine Bilirubin (NEG) NEG Urine Urobilinogen (0.1 - 1.0 EU/dl) 0.2 Ur Leukocyte Esterase (NEG) NEG Ur Microscopic EXAM NOT REQUIRED Urine Hemoglobin (NEG) NEG Urine Glucose (N MG/DL) NEG 02/26 1315 Chemistry Sodium (137 - 145 mmol/L) 136 L Potassium (3.5 - 5.1 mmol/L) 4.4 Chloride (98 - 107 mmol/L) 94 L Carbon Dioxide (22 - 30 mmol/L) 33 H Anion Gap (5 - 16) 9 BUN (9 - 20 mg/dL) 20 Creatinine (0.7 - 1.2 mg/dL) 1.2 Estimated GFR (>60 ml/min) 60 BUN/Creatinine Ratio (7 - 25 %) 16.7 Glucose (65 - 99 mg/dL) 82 Lactic Acid (0.7 - 2.1 mmol/L) 1.3 Calcium (8.4 - 10.2 mg/dL) 8.9 Magnesium (1.6 - 2.3 mg/dL) 1.8 Total Bilirubin (0.2 - 1.3 mg/dL) 0.5 AST (17 - 59 U/L) 22 ALT (21 - 72 U/L) 27 Alkaline Phosphatase (< 127 U/L) 73 Troponin I (<0.11 ng/ml) < 0.01 Total Protein (6.3 - 8.2 g/dL) 6.9 Albumin (3.5 - 5.0 g/dL) 3.5 Globulin (1.9 - 4.2 gm/dL) 3.4 Albumin/Globulin Ratio (1.1 - 2.2 %) 1.0 L Prolactin (3.7 - 17.9 ng/mL) 40.9 H Coagulation PT (9.4 - 12.5 SEC) 10.4 INR (0.90 - 1.17) 0.95 APTT (25 - 37 SEC) 26 Hematology CBC w Diff NO MAN DIFF REQ WBC (4.8 - 10.8 /CUMM) 10.0 RBC (4.70 - 6.10 /CUMM) 3.71 L Hgb (14.0 - 18.0 G/DL) 11.1 L Hct (42 - 52 %) 33.5 L MCV (80.0 - 94.0 FL) 90.4 MCH (27.0 - 31.0 PG) 30.1 MCHC (33.0 - 37.0 G/DL) 33.3 RDW (11.5 - 14.5 %) 13.8 Plt Count (130 - 400 /CUMM) 220 MPV (7.4 - 10.4 FL) 6.7 L Gran % (42.2 - 75.2 %) 83.5 H Lymphocytes % (20.5 - 51.1 %) 8.9 L Monocytes % (1.7 - 9.3 %) 6.0 Eosinophils % (0 - 5 %) 1.2 Basophils % (0.0 - 2.0 %) 0.4 Absolute Granulocytes (1.4 - 6.5 /CUMM) 8.4 H Absolute Lymphocytes (1.2 - 3.4 /CUMM) 0.9 L Absolute Monocytes (0.10 - 0.60 /CUMM) 0.6 Absolute Eosinophils (0.0 - 0.7 /CUMM) 0.1 Absolute Basophils (0.0 - 0.2 /CUMM) 0 Diagnostic Data EKG Results His EKG has consistently shown mild sinus bradycardia with right bundle branch block and right axis deviation to indeterminate axis. This is unchanged from his baseline. CXR Results PATIENT: CANDIDO TIRADO PRESENT AGE: 72 PATIENT ACCOUNT NO: [id number] : 47 LOCATION: [facility] ORDERING PHYSICIAN: Jocelyn FAM SERVICE DATE: 02/26/18-1236 EXAM TYPE: RAD - XRY-PORTABLE CHEST XRAY EXAMINATION: XR PORTABLE CHEST CLINICAL INFORMATION: Possible sepsis COMPARISON: November 09, 2016 and September 16, 2017 TECHNIQUE: Portable frontal view of the chest was obtained. FINDINGS: There is no evidence of acute parenchymal disease, pneumothorax, or pleural effusion. The cardiopericardial silhouette is mildly enlarged. No evidence of pulmonary edema. IMPRESSION: No acute disease. DICTATED BY: Emory Morales MD DATE/TIME DICTATED:02/26/181404 FX ARTIST:TASHI DATE/TIME TRANSCRIBED:02/26/181404 CONFIDENTIAL, DO NOT COPY WITHOUT APPROPRIATE AUTHORIZATION. <Electronically signed in Other Vendor System> SIGNED BY: Emory Morales MD 02/26/18 1411 Other Results PATIENT: CANDIDO TIRADO PRESENT AGE: 72 PATIENT ACCOUNT NO: [id number] : 47 LOCATION: [facility] ORDERING PHYSICIAN: Eli Irving MD SERVICE DATE: 02/28/18-1009 EXAM TYPE: MRI - MRI-HEAD W/O ELSA EXAMINATION: MR BRAIN WITHOUT CONTRAST CLINICAL INFORMATION: Unresponsive episodes. Seizure. Rule out acute intracranial pathology. COMPARISON: Head CT 02/26/2018. TECHNIQUE: Multiplanar, multisequence imaging of the brain was performed without intravenous contrast. \H\ \N\FINDINGS: There is no acute infarct hemorrhage, mass, or extra-axial collection. There is redemonstration of infarcts within the right posterior parietal lobe and in the left middle frontal gyrus. Small lacunar infarcts are noted within the bilateral cerebellar hemispheres. There is diffuse brain parenchymal volume loss with prominence of the ventricles and sulci but no evidence of hydrocephalus. There are patchy foci of T2 prolongation within the bilateral cerebral white matter reflecting mild small vessel ischemic changes. The major arterial flow voids are preserved at the skull base. There is mild paranasal sinus mucosal thickening without fluid levels. There is trace fluid in the right mastoid tip. IMPRESSION: - No acute intracranial abnormality. - Redemonstration of chronic infarcts within the left frontal lobe and in the right parietal lobe. - Mild small vessel ischemic changes and diffuse brain parenchymal volume loss. DICTATED BY: Reginald Ayon MD DATE/TIME DICTATED:02/28/181199 FX ARTIST:TASHI DATE/TIME TRANSCRIBED:02/28/181199 CONFIDENTIAL, DO NOT COPY WITHOUT APPROPRIATE AUTHORIZATION. <Electronically signed in Other Vendor System> SIGNED BY: Reginald Ayon MD 02/28/18 1209 Assessment/Plan Assessment/Plan Candido is having some mild bradycardia, most likely related to his beta-daisy therapy. I would stop his atenolol for now and just monitor him. If his heart rate and/or blood pressure increase we can restart beta-blockers at a lower dose and/or adjust his other antihypertensives. Atenolol at a dose of 100 mg daily is actually a high dose. Otherwise I do not see any change in his cardiovascular status and I do not think he needs another echo at this time. Copies To: Lukas Andres MD Consult Acknowledgment - Thank you for your consult request.
--- NOTE | 2018-02-28 12:09 | MRI REPORT ---
EXAMINATION: MR BRAIN WITHOUT CONTRAST CLINICAL INFORMATION: Unresponsive episodes. Seizure. Rule out acute intracranial pathology. COMPARISON: Head CT 02/26/2018. TECHNIQUE: Multiplanar, multisequence imaging of the brain was performed without intravenous contrast. \H\ \N\FINDINGS: There is no acute infarct hemorrhage, mass, or extra-axial collection. There is redemonstration of infarcts within the right posterior parietal lobe and in the left middle frontal gyrus. Small lacunar infarcts are noted within the bilateral cerebellar hemispheres. There is diffuse brain parenchymal volume loss with prominence of the ventricles and sulci but no evidence of hydrocephalus. There are patchy foci of T2 prolongation within the bilateral cerebral white matter reflecting mild small vessel ischemic changes. The major arterial flow voids are preserved at the skull base. There is mild paranasal sinus mucosal thickening without fluid levels. There is trace fluid in the right mastoid tip. IMPRESSION: - No acute intracranial abnormality. - Redemonstration of chronic infarcts within the left frontal lobe and in the right parietal lobe. - Mild small vessel ischemic changes and diffuse brain parenchymal volume loss.
--- NOTE | 2018-02-28 12:42 | Incdntl Nt Psy ---
Incidental Note Notation: Please check QTc. If less than 475 would restart olanzapine 5 mg BID, first dose now, and haldol 10 mg qhS. There is a possibility that neuroleptics could reduce seizure threshold but this pt cannot withstand being off his psychiatric med regimen or he will become very ill. Would have neuro weigh in on this regarding major contraindications with vimpate. JScruggsMD #[phone]
[2018-02-28 14:45] VITALS: BP 132/78
--- NOTE | 2018-02-28 15:12 | ULTRASOUND REPORT ---
EXAMINATION: DUPLEX BILATERAL CAROTID ULTRASOUND CLINICAL INFORMATION: Known right internal carotid artery occlusion. Screening study of the left carotid artery. COMPARISON: 12/14/2011 TECHNIQUE: Duplex bilateral carotid US was performed using real-time ultrasound and Doppler techniques (integrating B-mode 2D vascular images, Doppler spectral analysis and color flow Doppler imaging). These techniques were utilized to interrogate the extracranial carotid and vertebral arteries bilaterally. The degree of stenosis is based off criteria similar to NASCET. FINDINGS: 1. On the right: The right internal carotid artery is chronically occluded. There is stenosis of the right external carotid artery measuring a velocity of 223 cm/s. 2. On the left: Plaque is present at the carotid bifurcation but velocity measurements are normal and do not suggest a stenosis of greater than 50% diameter reduction in the left ICA. The vertebral artery is patent demonstrating antegrade flow. The external carotid artery is unremarkable. IMPRESSION: 1. Chronic occlusion of the right internal carotid artery. 2. There is plaque present in the left internal carotid artery with normal velocities consistent with a minimal 0-49% stenosis. The right side is normal with no plaque seen. 3. Moderate stenosis of the right external carotid artery.
--- NOTE | 2018-02-28 16:36 | Cons- Psychiatry ---
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 Pt brought to hospital after noticed decreased responsiveness, poor po intake, confusion. Consult called regarding med management. ED Course: Pt found to be hypothermic to 94.4, Cr 1.2, UA neg, HCT neg Laboratory Tests 02/28/18 1035: Prolactin 70.7 H 02/28/18 1000: Lactic Acid Cancelled, APTT Cancelled 02/28/18 0955: Anion Gap 17 H, Estimated GFR > 60, BUN/Creatinine Ratio 13.6, Prolactin 46.4 H, CBC w Diff NO MAN DIFF REQ, RBC 4.07 L, MCV 89.8, MCH 29.9, MCHC 33.2, RDW 14.0, MPV 7.3 L, Gran % 73.1, Lymphocytes % 18.6 L, Monocytes % 6.7, Eosinophils % 1.4, Basophils % 0.2, Absolute Granulocytes 6.8 H, Absolute Lymphocytes 1.7, Absolute Monocytes 0.6, Absolute Eosinophils 0.1, Absolute Basophils 0 02/28/18 0619: Anion Gap 10, Estimated GFR > 60, BUN/Creatinine Ratio 14.5, Magnesium 1.8, CBC w Diff NO MAN DIFF REQ, RBC 3.79 L, MCV 90.7, MCH 29.8, MCHC 32.8 L, RDW 14.4, MPV 7.6, Gran % 78.6 H, Lymphocytes % 12.9 L, Monocytes % 5.7, Eosinophils % 2.4, Basophils % 0.4, Absolute Granulocytes 5.5, Absolute Lymphocytes 0.9 L, Absolute Monocytes 0.4, Absolute Eosinophils 0.2, Absolute Basophils 0 Admitted to ICU then came to floor Med Hx as above PPhx: Chronic paranoid schizophrenia seen in outpatient since 1987; now maintained as at outpatient by Dr. Nayak. Pt has a history of severe decompensations lasting for months in inpatient psych. Recently he has been doing well. Has hx catatonic episodes. Per chart remote hx etoh dep in [employer]. SH: highly involved and very supportive. Lives with her at home. No children. Retired. Home Med List: Albuterol Sulfate (Proair Hfa) 90 MCG HFA.AER.AD 2 PUF INH Q4-6 PRN PRN SHORTNESS OF BREATH (Reported) Amoxicillin/Potassium Clav (Augmentin 875-125 Tablet) 875 MG-125 MG TABLET 1 TAB PO BID ANTIBIOTIC, INFECTION (Reported) Atenolol 50 MG TABLET 1 TAB PO BID DIRECTED (Reported) Benztropine Mesylate 1 MG TABLET 1 TAB PO DAILY MENTAL HEALTH (Reported) Esomeprazole (Nexium) 40 MG CAPSULE.DR 1 TAB PO DAILY ACID REFLUX (Reported) Finasteride 5 MG TABLET 1 TAB PO DAILY DIRECTED (Reported) Folic Acid 1 MG TABLET 1 TAB PO DAILY VITAMIN SUPPORT (Reported) Furosemide 20 MG TABLET 1 TAB PO DAILY WATER RETENTION (Reported) Haloperidol 5 MG TABLET 10 MG PO AT BEDTIME hold for oversedation or respiratory depression Lisinopril 40 MG TABLET 1 TAB PO DAILY HIGH BLOOD PRESSURE (Reported) Lorazepam 1 MG TABLET 1 TAB PO BID DIRECTED (Reported) Nitroglycerin (Nitroglycerin Patch) 0.4 MG/HOUR PATCH.TD24 1 PATCH TOP DAILY DIRECTED (Reported) Olanzapine (Zyprexa) 5 MG TABLET 1 TAB PO BID DIRECTED (Reported) Simvastatin (Simvastatin*) 20 MG TABLET 1 TAB PO QPM HIGH CHOLESTROL ( Reported) Tamsulosin HCl 0.4 MG CAP.ER.24H 1 CAP PO QPM PROSTATE (Reported) Haldol dec MSE: Pt lying in bed hypersomnolent. Arouses to voice but falls back to sleep. Unable to further participate. A/ 72 y/o MWM with chronic paranoid schizophrenia and recent change in mental status; course complicated by apparent seizure. Per chart he has had past presentations for altered mental status and poor PO intake as well as episodes of speech arrest and staring. I have not witnessed these episodes but I question thought blocking vs ?seizure. Today's episode with jerking movements more clearly consistent with seizure. P/ -Of note, hypothermia indicative of sepsis but can also be a side effect of neuroleptics -As stated in my previous note, continue haldol and olanzapine as abruptly stopping antipsychotics can cause withdrawal syndrome and movement abnormalities. This patient has been severely psychiatrically ill for long periods of time in the past and has been stable on maintenance therapy. Of note, he is on haldol dec [id number]. I will verify timing of next dose. -MRI pending GaudencioD #[id number]
--- NOTE | 2018-02-28 16:56 | RADIOLOGY REPORT ---
EXAMINATION: XR PORTABLE CHEST CLINICAL INFORMATION: Witnessed seizure. Assess for aspiration. COMPARISON: Chest x-ray 02/26/2018. TECHNIQUE: Portable 85 degrees semierect frontal view of the chest was obtained. FINDINGS: The lung baxter are moderately well expanded and appear clear bilaterally. The cardiac silhouette is prominent but stable. The aortic arch is unfolded. There are no pleural effusions or pneumothorax. The central pulmonary vasculature is normal. The hilar regions appear normal. There are no acute osseous findings. IMPRESSION: 1. There are no acute cardiopulmonary findings.
--- NOTE | 2018-02-28 20:17 | ELECTROENCEPHALOGRAM REPORT ---
Electroencephalogram Report Electroencephalogram Results Date of service: 02/28/18 Attending MD: Lukas Andres MD Director Of Gift Planning: Alayna EEG Number: [id number] Test Utilizes: 10-20 system, 21 lead 18 channel digital recording Pertinent Hx/Physical/Neuro Findings/Clin Diagnosis: Encephalopathy, rule out seizure. Inpatient Medications: Current Medications Sig/Vidal Start time Last Medication Dose Route Stop Time Status Admin Acetaminophen 650 MG Q6P PRN 02/26 2000 AC 02/28 PO 1727 Albuterol Sulfate 2 PUF Q4-6 PRN PRN 02/26 1930 AC INH Atenolol 50 MG BID 02/26 2100 DC 02/27 PO 2033 Atorvastatin Calcium 20 MG 1700 02/27 1700 AC 02/27 PO 1620 Benztropine Mesylate 1 MG DAILY 02/27 0900 AC 02/27 PO 0908 Finasteride 5 MG DAILY 02/27 0900 AC 02/27 PO 0908 Furosemide 20 MG DAILY 02/27 0900 AC 02/27 PO 0908 Haloperidol 10 MG AT BEDTIME 02/28 2100 AC PO Heparin Sodium 5,000 UNIT Q8 02/26 2200 AC 02/28 (Porcine) SC 1343 Lacosamide 100 MG Q12H 02/28 2200 AC Sodium Chloride 100 ML IV Lacosamide 100 MG BID 02/28 2100 CAN PO Lacosamide 200 MG ONCE ONE 02/28 1045 DC 02/28 Sodium Chloride 100 ML IV 02/28 1156 1239 Lacosamide 200 MG ONCE ONE 02/28 1015 CAN PO 02/28 1016 Lisinopril 40 MG DAILY 02/27 0900 AC 02/27 PO 0908 Lorazepam 2 MG .STK-MED ONE 02/28 1642 DC IV 02/28 1643 Lorazepam 2 MG ONCE ONE 02/28 1000 DC 02/28 IV 02/28 1001 1016 Nitroglycerin 0.4 MG DAILY 02/27 0900 AC 02/28 TOP 1000 Non-Formulary 0 SEE ADMIN CRITERIA 02/28 1030 DC Medication ANY Nystatin 1 NEW TID 02/27 2306 AC 02/28 TOP 1348 Olanzapine 5 MG BID 02/28 1315 AC 02/28 PO 1820 Omeprazole 40 MG DAILY AC 02/27 0700 AC 02/27 PO 0632 Ondansetron HCl 4 MG .STK-MED ONE 02/28 1109 DC IM 02/28 1110 Ondansetron HCl 4 MG .STK-MED ONE 02/28 1108 DC IM 02/28 1109 Tamsulosin HCl 0.4 MG QPM 02/26 2100 AC 02/27 PO 2032 Interpretation: The background consist of fast amplitude beta rhythms intermixed with slower theta rhythms posteriorly. There is more focal slowing within the left hemispheres frontocentral and temporal regions compared to the counterpart right side. There is alaso slowing within the right centroparietla region. Both regions demonstrate dysrhythmic slow theta waves. No clear paroxysmal sharps or spikes are seen. The posterior dominant rhythm is indiscernible. Impression: Abnormal recording due to focal slowing within the left hemisphere and right centroparietal regions suggestive of possible underlying structural abnormalities and focal cerebral dysfunction. No clear suggestion of epileptogenic activity.
[2018-02-28 23:10] VITALS: BP 110/58
[2018-03-01 06:45] VITALS: BP 120/60
--- NOTE | 2018-03-01 07:10 | PN- Housestaff ---
Subjective Follow-up For: Seizure Tele-Events Since Last Visit: NSR with 1AVB HR 48-70 Subjective: Patient answering question in single words, alert and oriented x 3. Deneis any active complaints. Review of Systems Constitutional: Reports: no symptoms. Objective Last 24 Hrs of Vital Signs/I&O Vital Signs Date Time Temp Pulse Resp B/P B/P Pulse O2 O2 Flow FiO2 Mean Ox Delivery Rate 03/01 1349 98.8 54 20 120/58 96 Nasal Cannula 03/01 1147 120/60 03/01 0800 95 Nasal 3.0L Cannula 03/01 0645 98.3 66 20 120/60 93 Room Air 03/01 0000 Nasal 3.0L Cannula 02/28 2310 98.5 50 18 110/58 98 Room Air 02/28 2152 48 132/78 02/28 1600 Nasal 2.0L Cannula 02/28 1445 97.9 48 20 132/78 100 Room Air Physical Exam General Appearance: Alert, Oriented X3, Cooperative Skin: No Rashes, No Breakdown Cardiovascular: Regular Rate, Normal S1, Normal S2 Lungs: Clear to Auscultation, Normal Air Movement Abdomen: Normal Bowel Sounds, Soft, No Tenderness Extremities: No Clubbing, No Cyanosis, No Edema Current Medications: Current Medications Sig/Vidal Start time Last Medication Dose Route Stop Time Status Admin Acetaminophen 650 MG .STK-MED ONE 02/28 1724 DC PO 02/28 1725 Acetaminophen 650 MG Q6P PRN 02/27 2000 AC 02/28 PO 1727 Albuterol Sulfate 2 PUF Q4-6 PRN PRN 02/26 1930 AC INH Atorvastatin Calcium 20 MG 1700 02/27 1700 AC 02/28 PO 2153 Benztropine Mesylate 1 MG DAILY 02/27 09 AC 03/01 PO 1146 Finasteride 5 MG DAILY 02/27 09 AC 03/01 PO 1147 Furosemide 20 MG DAILY 02/27 09 AC 03/01 PO 1147 Haloperidol 10 MG AT BEDTIME 02/28 2100 AC 02/28 PO 2151 Heparin Sodium 5,000 UNIT Q8 02/26 2200 AC 03/01 (Porcine) SC 1356 Lacosamide 100 MG Q12H 02/28 2200 AC 03/01 Sodium Chloride 100 ML IV 0954 Lisinopril 40 MG DAILY 02/27 900 AC 03/01 PO 1147 Lorazepam 2 MG .STK-MED ONE 02/28 1642 DC IV 02/28 1643 Nitroglycerin 0.4 MG DAILY 02/27 0900 AC 03/01 TOP 0803 Nystatin 1 NEW TID 02/27 2306 AC 03/01 TOP 1400 Olanzapine 5 MG BID 02/28 1315 AC 03/01 PO 1147 Omeprazole 40 MG DAILY AC 02/27 0700 AC 02/27 PO 0632 Tamsulosin HCl 0.4 MG QPM 02/26 2100 AC 02/28 PO 2152 Assessment/Plan Assessment: 72-year-old male with past medical history of paranoid schizophrenia, hypertension, coronary artery disease, TIAs and CVA with history of left-sided hemiparesis, PVD, PUD presented to for lethargy and altered mental status and found to be hypothermic at 94.4. #Staring spells; He had an episode of staring spell which lasted for about 5 minutes. Considered a possibility of absence seizure however they usually last less than 15 seconds. TIA was ruled out with CT head on admission. Seen by neurology who initially believed he had encephalopathy in the setting of suspected infection with hypothermia.TSH, ammonia, B12, a.m. cortisol, ABG were WNL. PAtient had an episode of Seizure yesterday with drooling and jerky movements of upper ext. Episode lasted for less than a min. He recieved IV ativan 2mg x 1. Head MRI, Carotid US and EEG were negative for any acute pathology. Patient was started on Vimpat 100 mg BID. - Continue Vimpat - PT recommends STR - Follow neuro recommendations; Spoke with Dr. Bone over the phone, said patient can be discharge on Vimpat with outpatient follow up with Dr. Celis in2-3 weeks. #Neuroleptic induced Parkinsonism with hx paranoid schizophrenia - Continue olanzapine and haloperidol. #Bradycardia Patient was found to be bradycardiac in the 40s while sleeping. EKG continues to show bundle branch block pattern -BP and HR stable without Atenolol. - Appreciate cardiology recommendations #Hypothermia The patient was found to be hypothermic with a normal WBC count. There is no obvious source of infection UA and chest x-ray is unremarkable. Patient had been on oral Augmentin recently for presumed UTI. The patient was on a Bari Hugger and hypothermia is now resolved -Monitor fever and WBC -f/u domingo cultures -cont ID recommendations -Monitor off antibiotics for now #HTN -cont lisinopril, Lasix, discontinue atenolol because of bradycardia #Dysphagia? Patient's reporting dysphagia Seen by s/s who states the patient kept fluids and food in his mouth. - Recommends chopped and regualr thins. #Hyponatremia - resolved Initial hyponatremia of 136 currently corrected after fluids -continue to monitor #Chronic medical conditions Hyperlipidemia, BPH, GERD. Continue statin, finasteride, tamsulosin, Nexium #Heart healthy diet #DVT prophylaxis subcutaneous heparin and Alps Problem List: 1. Seizure Pain Ratin Pain Location: NA Pain Goal: Remain pain free Pain Plan: Pain Pathway Tomorrow's Labs & Rationales: None
--- NOTE | 2018-03-01 11:16 | PN- Cardiology ---
Subjective Subjective: Antonio is more awake today. He has no complaints. His heart rate has come up into the 60s. Objective Vital Signs and I&Os Vital Signs Date Time Temp Pulse Resp B/P B/P Pulse O2 O2 Flow FiO2 Mean Ox Delivery Rate 03/01 0645 98.3 66 20 120/60 93 Room Air 03/01 0000 Nasal 3.0L Cannula 02/28 2310 98.5 50 18 110/58 98 Room Air 02/28 2152 48 132/78 02/28 1600 Nasal 2.0L Cannula 02/28 1445 97.9 48 20 132/78 100 Room Air Intake & Output 03/01 1600 03/01 0800 03/01 0000 02/28 1600 02/28 0800 02/28 0000 Intake Total 130 0 490 Output Total 450 Balance 130 0 40 Intake, IV 130 10 Intake, Oral 0 0 480 Output, Urine 450 Patient 269 lb Weight Physical Exam: He is more alert and eating in no distress HEENT exam normal Chest clear to limited exam Heart regular rhythm normal rate no murmurs Current Medications: Current Medications Sig/Vidal Start time Last Medication Dose Route Stop Time Status Admin Acetaminophen 650 MG .STK-MED ONE 02/28 1724 DC PO 02/28 1725 Acetaminophen 650 MG Q6P PRN 02/26 2000 AC 02/28 PO 1727 Albuterol Sulfate 2 PUF Q4-6 PRN PRN 02/26 1930 AC INH Atenolol 50 MG BID 02/26 2100 DC 02/27 PO 2033 Atorvastatin Calcium 20 MG 1700 02/27 1700 AC 02/28 PO 2153 Benztropine Mesylate 1 MG DAILY 02/27 09 AC 02/27 PO 0908 Finasteride 5 MG DAILY 02/27 0900 AC 02/27 PO 0908 Furosemide 20 MG DAILY 02/27 0900 AC 02/27 PO 0908 Haloperidol 10 MG AT BEDTIME 02/28 2100 AC 02/28 PO 2151 Heparin Sodium 5,000 UNIT Q8 02/26 2200 AC 03/01 (Porcine) SC 0510 Lacosamide 100 MG Q12H 02/28 2200 AC 03/01 Sodium Chloride 100 ML IV 0954 Lacosamide 200 MG ONCE ONE 02/28 1045 DC 02/28 Sodium Chloride 100 ML IV 02/28 1156 1239 Lisinopril 40 MG DAILY 02/27 09 AC 02/27 PO 0908 Lorazepam 2 MG .STK-MED ONE 02/28 1642 DC IV 02/28 1643 Nitroglycerin 0.4 MG DAILY 02/27 0900 AC 03/01 TOP 0803 Nystatin 1 NEW TID 02/27 2306 AC 03/01 TOP 0806 Olanzapine 5 MG BID 02/28 1315 AC 02/28 PO 1820 Omeprazole 40 MG DAILY AC 02/27 0700 AC 02/27 PO 0632 Tamsulosin HCl 0.4 MG QPM 02/26 2100 AC 02/28 PO 2152 Results Last 48 Hrs of Labs/Mics: Laboratory Tests 02/28/18 1035: Prolactin 70.7 H 02/28/18 1000: Lactic Acid Cancelled, APTT Cancelled 02/28/18 0955: Anion Gap 17 H, Estimated GFR > 60, BUN/Creatinine Ratio 13.6, Prolactin 46.4 H, CBC w Diff NO MAN DIFF REQ, RBC 4.07 L, MCV 89.8, MCH 29.9, MCHC 33.2, RDW 14.0, MPV 7.3 L, Gran % 73.1, Lymphocytes % 18.6 L, Monocytes % 6.7, Eosinophils % 1.4, Basophils % 0.2, Absolute Granulocytes 6.8 H, Absolute Lymphocytes 1.7, Absolute Monocytes 0.6, Absolute Eosinophils 0.1, Absolute Basophils 0 02/28/18 0619: Anion Gap 10, Estimated GFR > 60, BUN/Creatinine Ratio 14.5, Magnesium 1.8, CBC w Diff NO MAN DIFF REQ, RBC 3.79 L, MCV 90.7, MCH 29.8, MCHC 32.8 L, RDW 14.4, MPV 7.6, Gran % 78.6 H, Lymphocytes % 12.9 L, Monocytes % 5.7, Eosinophils % 2.4, Basophils % 0.4, Absolute Granulocytes 5.5, Absolute Lymphocytes 0.9 L, Absolute Monocytes 0.4, Absolute Eosinophils 0.2, Absolute Basophils 0 02/27/18 1545: Troponin I < 0.01 02/27/18 1219: Ammonia < 9 L 02/27/18 1125: pH 7.43, pCO2 42, pO2 84, HCO3 27, ABG O2 Sat (Measured) 96.0, P-50 (Temp Corrected) N, Carboxyhemoglobin 0.4 L, O2 Concentration % .21, O2 Delivery Method RA, Phlebotomy Draw Site LEFT RADIAL Assessment/Plan Assessment/Plan Antonio is doing better. Has not had any recurrent seizures. His heart rate is improved off of beta blockers. I would continue him off of the beta blockers. if his blood pressure requires additional medications then we can use another class of drug. Continue telemetry? Yes
--- NOTE | 2018-03-01 11:19 | PN- Att Addend ---
Attending Addendum Attending Brief Note Patient confortable in bed, at his site, brighter today using oxygen complaining that his legs and arms feel heavy Vital signs are stable no fever and no major changes on physical. Patient had his MRI of the head which apparently doesn't show any acute abnormalities also had his EEG which check results. Last neurology to reevaluate the patient get a physical therapy evaluation. Intake & Output 03/01 1600 03/01 0400 02/28 1600 02/28 0400 02/27 1600 02/27 0400 Intake Total 108 251 4223 1100 Output Total 450 2320 950 Balance 130 40 -970 150 Intake, IV 130 10 0 1000 Intake, Oral 0 480 1350 100 Number 0 Bowel Movements Output, Urine 450 2320 950 Patient 269 lb 269 lb 269 lb Weight Weight Bed scale Bed scale Measurement Method Current Medications Sig/Vidal Start time Last Medication Dose Route Stop Time Status Admin Acetaminophen 650 MG .STK-MED ONE 02/28 1724 DC PO 02/28 1725 Acetaminophen 650 MG Q6P PRN 02/26 2000 AC 02/28 PO 1727 Albuterol Sulfate 2 PUF Q4-6 PRN PRN 02/26 1930 AC INH Atenolol 50 MG BID 02/26 2100 DC 02/27 PO 2033 Atorvastatin Calcium 20 MG 1700 02/27 1700 AC 02/28 PO 2153 Benztropine Mesylate 1 MG DAILY 02/27 0900 AC 02/27 PO 0908 Finasteride 5 MG DAILY 02/27 0900 AC 02/27 PO 0908 Furosemide 20 MG DAILY 02/27 0900 AC 02/27 PO 0908 Haloperidol 10 MG AT BEDTIME 02/28 2100 AC 02/28 PO 2151 Heparin Sodium 5,000 UNIT Q8 02/26 2200 AC 03/01 (Porcine) SC 0510 Lacosamide 100 MG Q12H 02/28 2200 AC 03/01 Sodium Chloride 100 ML IV 0954 Lacosamide 200 MG ONCE ONE 02/28 1045 DC 02/28 Sodium Chloride 100 ML IV 02/28 1156 1239 Lisinopril 40 MG DAILY 02/27 0900 AC 02/27 PO 0908 Lorazepam 2 MG .STK-MED ONE 02/28 1642 DC IV 02/28 1643 Nitroglycerin 0.4 MG DAILY 02/27 0900 AC 03/01 TOP 0803 Nystatin 1 NEW TID 02/27 2306 AC 03/01 TOP 0806 Olanzapine 5 MG BID 02/28 1315 02/28 PO 1820 Omeprazole 40 MG DAILY AC 02/27 0700 AC 02/27 PO 0632 Tamsulosin HCl 0.4 MG QPM 02/26 2100 02/28 PO 2152 Laboratory Tests 02/28/18 1035: Prolactin 70.7 H 02/28/18 1000: Lactic Acid Cancelled, APTT Cancelled 02/28/18 0955: Anion Gap 17 H, Estimated GFR > 60, BUN/Creatinine Ratio 13.6, Prolactin 46.4 H, CBC w Diff NO MAN DIFF REQ, RBC 4.07 L, MCV 89.8, MCH 29.9, MCHC 33.2, RDW 14.0, MPV 7.3 L, Gran % 73.1, Lymphocytes % 18.6 L, Monocytes % 6.7, Eosinophils % 1.4, Basophils % 0.2, Absolute Granulocytes 6.8 H, Absolute Lymphocytes 1.7, Absolute Monocytes 0.6, Absolute Eosinophils 0.1, Absolute Basophils 0 02/28/18 0619: Anion Gap 10, Estimated GFR > 60, BUN/Creatinine Ratio 14.5, Magnesium 1.8, CBC w Diff NO MAN DIFF REQ, RBC 3.79 L, MCV 90.7, MCH 29.8, MCHC 32.8 L, RDW 14.4, MPV 7.6, Gran % 78.6 H, Lymphocytes % 12.9 L, Monocytes % 5.7, Eosinophils % 2.4, Basophils % 0.4, Absolute Granulocytes 5.5, Absolute Lymphocytes 0.9 L, Absolute Monocytes 0.4, Absolute Eosinophils 0.2, Absolute Basophils 0 02/27/18 1545: Troponin I < 0.01 02/27/18 1219: Ammonia < 9 L 02/27/18 1125: pH 7.43, pCO2 42, pO2 84, HCO3 27, ABG O2 Sat (Measured) 96.0, P-50 (Temp Corrected) N, Carboxyhemoglobin 0.4 L, O2 Concentration % .21, O2 Delivery Method RA, Phlebotomy Draw Site LEFT RADIAL 02/27/18 0455: Anion Gap 10, Estimated GFR > 60, BUN/Creatinine Ratio 14.0, Vitamin B12 675, TSH 1.030, Free T4 1.47, Cortisol AM Sample 12.1, CBC w Diff NO MAN DIFF REQ, RBC 3.91 L, MCV 89.9, MCH 30.0, MCHC 33.4, RDW 14.2, MPV 6.5 L, Gran % 77.5 H , Lymphocytes % 13.2 L, Monocytes % 6.2, Eosinophils % 2.5, Basophils % 0.6, Absolute Granulocytes 5.3, Absolute Lymphocytes 0.9 L, Absolute Monocytes 0.4, Absolute Eosinophils 0.2, Absolute Basophils 0 02/26/18 1523: Lactic Acid Cancelled 02/26/18 1325: Urine Color YEL, Urine Clarity CLEAR, Urine pH 6.5, Ur Specific Greene 1.010, Urine Protein NEG, Urine Ketones NEG, Urine Nitrite NEG, Urine Bilirubin NEG, Urine Urobilinogen 0.2, Ur Leukocyte Esterase NEG, Ur Microscopic EXAM NOT REQUIRED, Urine Hemoglobin NEG, Urine Glucose NEG 02/26/18 1315: Anion Gap 9, Estimated GFR 60, BUN/Creatinine Ratio 16.7, Glucose 82, Lactic Acid 1.3, Calcium 8.9, Magnesium 1.8, Total Bilirubin 0.5, AST 22, ALT 27, Alkaline Phosphatase 73, Troponin I < 0.01, Total Protein 6.9, Albumin 3.5, Globulin 3.4, Albumin/Globulin Ratio 1.0 L, Prolactin 40.9 H, PT 10.4, INR 0.95, APTT 26, CBC w Diff NO MAN DIFF REQ, RBC 3.71 L, MCV 90.4, MCH 30.1, MCHC 33.3, RDW 13.8, MPV 6.7 L, Gran % 83.5 H, Lymphocytes % 8.9 L, Monocytes % 6.0, Eosinophils % 1.2, Basophils % 0.4, Absolute Granulocytes 8.4 H, Absolute Lymphocytes 0.9 L, Absolute Monocytes 0.6, Absolute Eosinophils 0.1, Absolute Basophils 0 Microbiology 02/26 2050 UPPER RESP: Surveillance Culture - COMP 02/26 2050 GI: Surveillance Culture - COMP 02/26 1709 LOWER RESP: Respiratory Culture - CAN Cancelled: SPECIMEN NOT RECEIVED IN LABORATORY 02/26 170 LOWER RESP: Gram Stain - CAN Cancelled: SPECIMEN NOT RECEIVED IN LABORATORY 02/26 1330 BLOOD: Blood Culture - RES 02/26 132 URINE ROUT: Urine Culture - COMP 02/26 1315 BLOOD: Blood Culture - RES Microbiology 02/26 2050 UPPER RESP: Surveillance Culture - COMP 02/26 2050 GI: Surveillance Culture - COMP 02/26 1709 LOWER RESP: Respiratory Culture - CAN Cancelled: SPECIMEN NOT RECEIVED IN LABORATORY 02/26 1709 LOWER RESP: Gram Stain - CAN Cancelled: SPECIMEN NOT RECEIVED IN LABORATORY 02/26 133 BLOOD: Blood Culture - RES 02/26 132 URINE ROUT: Urine Culture - COMP 02/26 131 BLOOD: Blood Culture - RES Vital Signs Date Time Temp Pulse Resp B/P B/P Pulse O2 O2 Flow FiO2 Mean Ox Delivery Rate 03/01 0645 98.3 66 20 120/60 93 Room Air 03/01 0000 Nasal 3.0L Cannula 02/28 2310 98.5 50 18 110/58 98 Room Air 02/28 2152 48 132/78 02/28 1600 Nasal 2.0L Cannula 02/28 1445 97.9 48 20 132/78 100 Room Air
[2018-03-01] MEDS ORDERED: VIMPAT100 M1 PO (11:32)
--- NOTE | 2018-03-01 11:45 | Patient Discharge Instructions ---
Discharge Instructions General Discharge Information You were seen/treated for: Hypothermia Seizures Special Instructions: Please follow up with your PCP, Psychiatrist and Neurologist within a week after discharge. Please follow up with Dr. Rowland (associate professor of library science) in 1 week. We have started you on a new medication called Vimpat to prevent any further episodes of seizure. please continue taking it. Diet Continue normal diet: Yes Activity Full Activity/No Limits: Yes Activity Self Limited: Yes Acute Coronary Syndrome Inclusion Criteria At DC or during hospital stay patient has or had the following: ACS DIAGNOSIS No Discharge Core Measures Meds if any: Prescribed or Continued at Discharge Meds if any: NOT Prescribed or Continued at Discharge Congestive Heart Failure Inclusion Criteria At DC or during hospital stay patient has or had the following: CHF DIAGNOSIS No Discharge Core Measures Meds if any: Prescribed or Continued at Discharge Meds if any: NOT Prescribed or Continued at Discharge Cerebrovascular accident Inclusion Criteria At DC or during hospital stay patient has or had the following: CVA/TIA Diagnosis No Discharge Core Measures Meds if any: Prescribed or Continued at Discharge Meds if any: NOT Prescribed or Continued at Discharge Venous thromboembolism Inclusion Criteria VTE Diagnosis No VTE Type NONE VTE Confirmed by (Test) NONE Discharge Core Measures - Per Current guidelines, there needs to be overlap - treatment for the first 5 days of Warfarin therapy. - If discharged on Warfarin prior to 5 days of - overlap therapy, the patient will need to be - assessed for post discharge needs including - *Post discharge parental anticoagulation - *Warfarin and/or parental anticoagulation education - *Follow up date to check INR post discharge At least 5 days overlap therapy as Inpatient No Meds if any: Prescribed or Continued at Discharge Note: Overlap Therapy is Warfarin and Anticoagulant Meds if any: NOT Prescribed or Continued at Discharge
--- NOTE | 2018-03-01 11:56 | PN- Infect Dx ---
Subjective Subjective: Afebrile. He apparently complained of heaviness of both arms, left greater than right, but, presently, does not offer any complaints. Objective Last 24 Hrs of Vital Signs/I&O Vital Signs Date Time Temp Pulse Resp B/P B/P Pulse O2 O2 Flow FiO2 Mean Ox Delivery Rate 03/01 0800 95 Nasal 3.0L Cannula 03/01 0645 98.3 66 20 120/60 93 Room Air 03/01 0000 Nasal 3.0L Cannula 02/28 2310 98.5 50 18 110/58 98 Room Air 02/28 2152 48 132/78 02/28 1600 Nasal 2.0L Cannula 02/28 1445 97.9 48 20 132/78 100 Room Air Physical Exam Other Physical Findings: He is awake and alert, slow to respond, but in no acute distress Lungs scattered rhonchi Heart regular rhythm with no murmur Extremities no cyanosis, clubbing or edema Neuro no new focality Results Last 24 Hours of Lab Results: No labs from today Last 24 Hours of Ramesh Results: Blood cultures February 26 negative Recent Imaging Studies: MRI of the head February 28 no acute intracranial abnormalities EEG February 28 reveals focal slowing within the left hemisphere and right central parietal region suggestive of possible underlying structural abnormalities and focal cerebral dysfunction, with no clear suggestion of epileptogenic activity Chest x-ray February 28 negative Carotid Dopplers February 28 chronic occlusion of the right internal carotid artery, moderate stenosis of the right external carotid artery and plaque in the left internal carotid artery with normal velocities Assessment/Plan ID Impression: Stable, with temperatures and white blood cell count remaining normal, off antibiotics with no evidence for any infectious process. Workup for the possible seizure yesterday is so far nonrevealing, with the MRI and EEG results noted. Suggestion: 1. Further evaluation/management of his neurologic status per Neurology 2. Continue to follow off antibiotics Will no longer follow at this time, but please call with any questions
--- NOTE | 2018-03-01 13:34 | Discharge Summary ---
Visit Information Visit Dates Admission Date: 02/26/18 Discharge Date: 03/03/2018 Hospital Course Course Attending Physician: Lukas Andres MD Primary Care Physician: Lukas Andres MD Hospital Course: 72-year-old gentleman with past medical history of paranoid schizophrenia, malignant htn, NTEMI 2004, maintained on IM Haldol every 3 weeks, hypertension, coronary artery disease, status post several TIAs and CVA, with a residual left hemiparesis, peripheral vascular disease, peptic ulcer disease, last hospitalized 5 months prior to admission with weakness, lethargy, altered mental status, frequent falls and decreased p.o. intake for several days, diagnosed with bronchitis and a type II WI, recently begun on Lasix for lower extremity edema and treated with Augmentin for the past week for a presumed urinary tract infection because of increasing falls, with no urinary symptoms, admitted today after he was brought to the emergency room by his because of several days of increasing weakness, decreased p.o. intake and decreased responsiveness following an episode of unresponsiveness several days prior to admission, with no complaints of headache, chest pain, shortness of breath, GI or symptoms. On admission he was afebrile, with a temperature down to 94.4 after several hours. His initial blood pressure was 100/59 but has increased to 184/90. Laboratory data revealed a white blood cell count of 10,000, BUN/creatinine 20 and 1.2, with normal liver enzymes, coags normal. Urinalysis negative. Chest x -ray was negative. CT of the head negative for any acute process. Etiology of the hypothermia is unclear. Though an infection was considered he had no obvious source. The recent episode of unresponsiveness raised concern for a seizure or CVA. His history of paranoid schizophrenia complicated his evaluation as it was thought to be contributing to his altered mental status. He had no rigidity, making a process such as neuroleptic malignant syndrome unlikely. One episode of convulsive activity was witnessed by the patient's , the patient's nurse, and medical house staff. Was described as having rhythmic clonic jerking of the arms, sialorrhea, lip smacking. The episode resolved on its own in less than a minute. He was given 2 mg of lorazepam. Neurology was consulted and their thought was his prior left hemispheric stroke is likely contributing to his speech and language disturbance, and his prior right hemispheric stroke is likely contributing to his relative left-sided weakness, both of which may be accentuated post ictally. He was started on Vimpat. MRI head showed no acute intracranial abnormality. Mild small vessel ischemic changes and diffuse brain parenchymal volume loss. EEG had abnormal recording due to focal slowing within the left hemisphere and right centroparietal regions suggestive of possible underlying structural abnormalities and focal cerebral dysfunction. No clear suggestion of epileptogenic activity. He was also noted to have some mild bradycardia, most likely related to his beta-daisy therapy and his Atenolol. His heart rate is improved off of beta blockers and per cardiology recomendation his Atenolol was held upon disharge as well. I would stop his atenolol Psych followed his course while in the hospital. Concern for aspiration prompted a swallow evaluation, he was cleared for chopped regular diet. Physical therapy recomended STR. Complications: none Allergies: Coded Allergies: NO KNOWN ALLERGIES (04/28/16) Significant Procedures: SERVICE DATE: 02/28/18-1009 EXAM TYPE: MRI - MRI-HEAD W/O ELSA IMPRESSION: - No acute intracranial abnormality. - Redemonstration of chronic infarcts within the left frontal lobe and in the right parietal lobe. - Mild small vessel ischemic changes and diffuse brain parenchymal volume loss. SERVICE DATE: 02/26/18-1236 EXAM TYPE: CAT - CT HEAD WO IV CONTRAST FINDINGS: There is no evidence of acute intracranial hemorrhage or territorial infarction. No abnormal mass effect or midline shift is seen. An to white matter differentiation is well preserved. No extra-axial fluid collections are identified. There is stable encephalomalacia and gliosis in the high left frontal and the right temporoparietal lobes. There is stable moderate generalized prominence of the ventricles, sulci, and extra-axial CSF spaces with superimposed associated ex vacuo dilatation of the atrium of the right lateral ventricle. There is stable mild hypoattenuation in the periventricular white matter compatible with chronic microangiopathy. No acute osseous abnormality. The imaged paranasal sinuses are clear apart from some minor mucosal thickening in a posterior right ethmoid air cell. The nasal cavity, nasopharynx, mastoid air cells and middle ear cavities are clear. No acute soft tissue abnormalities. There has been a left ocular lens extraction. IMPRESSION: No acute intracranial pathology. Stable chronic findings as above. SERVICE DATE: 02/28/18-1200 EXAM TYPE: US - [id number] DOPPLER FINDINGS: 1. On the right: The right internal carotid artery is chronically occluded. There is stenosis of the right external carotid artery measuring a velocity of 223 cm/s. 2. On the left: Plaque is present at the carotid bifurcation but velocity measurements are normal and do not suggest a stenosis of greater than 50% diameter reduction in the left ICA. The vertebral artery is patent demonstrating antegrade flow. The external carotid artery is unremarkable. IMPRESSION: 1. Chronic occlusion of the right internal carotid artery. 2. There is plaque present in the left internal carotid artery with normal velocities consistent with a minimal 0-49% stenosis. The right side is normal with no plaque seen. 3. Moderate stenosis of the right external carotid artery. Disposition Summary Disposition Principal Diagnosis: Seizure Additional Diagnosis: hypothermia bradycardia severe paranoid schizophrenia Discharge Disposition: SNF Discharge Instructions General Discharge Information Code Status: Full Code Patient's Diet: chopped thing regular diet Patient's Activity: as tolerated Follow-Up Instructions/Appts: follow up with your pcp follow up with neurologis within two of discharge Medications at Discharge Discharge Medications: Stop taking the following medications: Atenolol (Atenolol) 50 MG TABLET ORAL TWICE DAILY Qty = 90 Lorazepam (Lorazepam) 1 MG TABLET ORAL TWICE DAILY Qty = 1 Amoxicillin/Potassium Clav (Augmentin 875-125 Tablet) 875 MG-125 MG TABLET ORAL TWICE DAILY Continue taking these medications: Nitroglycerin (Nitroglycerin Patch) 0.4 MG/HOUR PATCH.TD24 1 PATCH On the skin DAILY Qty = 90 Comments: Last Taken: 03/02/18 Time: 1000 AM Tamsulosin HCl (Tamsulosin HCl) 0.4 MG CAP.ER.24H 1 Capsule ORAL Every night Qty = 180 Comments: Last Taken: 03/02/18 Time: Finasteride (Finasteride) 5 MG TABLET 1 Tablet ORAL DAILY Qty = 90 Comments: Last Taken: 03/02/18 Time: 1000 AM Olanzapine (Zyprexa) 5 MG TABLET 1 Tablet ORAL TWICE DAILY Comments: Last Taken: 03/02/18 Time: 1000 AM Haloperidol (Haloperidol) 5 MG TABLET 10 Milligram ORAL AT BEDTIME Qty = 30 Instructions: hold for oversedation or respiratory depression Comments: Last Taken:11/14/16 Time: 10:27P.M Esomeprazole (Nexium) 40 MG CAPSULE.DR 1 Tablet ORAL DAILY Comments: Last Taken: 03/02/18 Time: 6:30 AM PRILOSEC GIVEN SUBSTITUTE Benztropine Mesylate (Benztropine Mesylate) 1 MG TABLET 1 Tablet ORAL DAILY Comments: Last Taken: 03/02/18 Time: 1000 AM Simvastatin (Simvastatin*) 20 MG TABLET 1 Tablet ORAL Every night Comments: Last Taken: 03/02/18 Time: ATORVASTATIN GIVEN SUBSTITUTE Lisinopril (Lisinopril) 40 MG TABLET 1 Tablet ORAL DAILY Comments: Last Taken: 03/02/18 Time: 1000 AM Furosemide (Furosemide) 20 MG TABLET 1 Tablet ORAL DAILY Comments: Last Taken: 03/02/18 Time: 1000 AM Folic Acid (Folic Acid) 1 MG TABLET 1 Tablet ORAL DAILY Comments: NOT GIVEN IN HOSPITAL Albuterol Sulfate (Proair Hfa) 90 MCG HFA.AER.AD 2 Puff Inhale through mouth EVERY 4-6 HOURS NEEDED as needed for SHORTNESS OF BREATH Comments: NOT GIVEN IN HOSPITAL Start taking the following new medications: Lacosamide (Vimpat) 100 MG TABLET 1 Tablet ORAL TWICE DAILY Qty = 60 No Refills Comments: Last Taken: 03/02/18 Time: Copies To: Lukas Andres MD Attending Review Statement Documenting Attending: Lukas Andres MD
[2018-03-01 13:49] VITALS: BP 120/58
--- NOTE | 2018-03-01 15:58 | PN- Neurology ---
Subjective Subjective: convulsive activity witnessed by the patient's , nurse, and medical house staff yesterday. He was described as having rhythmic clonic jerking of the arms , sialorrhea, lip smacking. No recurrence. Review of Systems: complains of "stiffness" denies nausea, increased sleepiness, dizziness, pruritis Objective Vital Signs and I&Os Vital Signs Date Time Temp Pulse Resp B/P B/P Pulse O2 O2 Flow FiO2 Mean Ox Delivery Rate 03/01 1402 Nasal 3.0L Cannula 03/01 1349 98.8 54 20 120/58 96 Nasal Cannula 03/01 1147 120/60 03/01 0800 95 Nasal 3.0L Cannula 03/01 0645 98.3 66 20 120/60 93 Room Air 03/01 0000 Nasal 3.0L Cannula 02/28 2310 98.5 50 18 110/58 98 Room Air 02/28 2152 48 132/78 02/28 1600 Nasal 2.0L Cannula Intake & Output 03/01 1600 03/01 0800 03/01 0000 02/28 1600 02/28 0800 02/28 0000 Intake Total 600 130 0 490 Output Total 450 Balance 600 130 0 40 Intake, IV 120 130 10 Intake, Oral 480 0 0 480 Output, Urine 450 Patient 269 lb Weight Physical Exam: awake, appears fatigued, overweight. Oriented name, location, year, not month. able to recall presidents. language [place] dysarthric(old) tone increased 4 extremities Current Medications: Current Medications Sig/Vidal Start time Last Medication Dose Route Stop Time Status Admin Acetaminophen 650 MG .STK-MED ONE 02/28 1724 DC PO 02/28 172 Acetaminophen 650 MG Q6P PRN 02/27 2000 AC 02/28 PO 1727 Albuterol Sulfate 2 PUF Q4-6 PRN PRN 02/26 1930 AC INH Atorvastatin Calcium 20 MG 1700 02/27 1700 AC 02/28 PO 215 Benztropine Mesylate 1 MG DAILY 02/27 09 AC 03/01 PO 114 Finasteride 5 MG DAILY 02/27 0900 AC 03/01 PO 1147 Furosemide 20 MG DAILY 02/27 09 AC 03/01 PO 1147 Haloperidol 10 MG AT BEDTIME 02/28 2100 AC 02/28 PO 215 Heparin Sodium 5,000 UNIT Q8 02/260 AC 03/01 (Porcine) SC 1356 Lacosamide 100 MG Q12H 02/28 2200 AC 03/01 Sodium Chloride 100 ML IV 0954 Lisinopril 40 MG DAILY 02/27 0900 AC 03/01 PO 1147 Lorazepam 2 MG .STK-MED ONE 02/28 1642 DC IV 02/28 1643 Nitroglycerin 0.4 MG DAILY 02/27 0900 AC 03/01 TOP 0803 Nystatin 1 NEW TID 02/27 2306 AC 03/01 TOP 1400 Olanzapine 5 MG BID 02/28 1315 AC 03/01 PO 1147 Omeprazole 40 MG DAILY AC 02/27 0700 AC 02/27 PO 0632 Tamsulosin HCl 0.4 MG QPM 02/26 2100 AC 02/28 PO 2152 Results Recent Imaging Studies: EEG: Abnormal recording due to focal slowing within the left hemisphere and right centroparietal regions suggestive of possible underlying structural abnormalities and focal cerebral dysfunction. No clear suggestion of epileptogenic activity. MRI: - No acute intracranial abnormality. - Redemonstration of chronic infarcts within the left frontal lobe and in the right parietal lobe. - Mild small vessel ischemic changes and diffuse brain parenchymal volume loss. Dopplers: 1. Chronic occlusion of the right internal carotid artery. 2. There is plaque present in the left internal carotid artery with normal velocities consistent with a minimal 0-49% stenosis. The right side is normal with no plaque seen. 3. Moderate stenosis of the right external carotid artery. Assessment/Plan Assessment: New onset seizure in a 72-year-old man with prior ischemic strokes EEG and MRI abnormal although no "acute" findings Started on vimpat by Dr. Celis Increased tone, extrapyramidal, on both haldol and olanzipine, from Dr. Nayak Plan: continue Vimpat f/u as outpt in 2-3 weeks, Dr. Celis or her group. STR F/u as out-pt with Dr. Nayak
[2018-03-01 22:04] VITALS: BP 150/96
--- NOTE | 2018-03-02 09:11 | PN- Housestaff ---
Subjective Follow-up For: Seizure Tele-Events Since Last Visit: Sinus Bradycardia 50s to 60s Subjective: Patient was seen and examined. Patient's was at bedside. States patient has been complaining of left arm pain. Patient answering some questions in one word. Reports left arm pain. Does not identify where. Denies any other complaints. No acute events overnight. Review of Systems Constitutional: Reports: see HPI. Objective Last 24 Hrs of Vital Signs/I&O Vital Signs Date Time Temp Pulse Resp B/P B/P Pulse O2 O2 Flow FiO2 Mean Ox Delivery Rate 03/02 1024 55 150/96 03/02 0000 Room Air 03/01 2204 98.9 55 18 150/96 93 03/01 1402 Nasal 3.0L Cannula 03/01 1349 98.8 54 20 120/58 96 Nasal Cannula 03/01 1147 120/60 Intake & Output 03/02 1600 03/02 0800 03/02 0000 Intake Total 100 Output Total Balance 100 Intake, IV 100 Intake, Oral 0 Patient 250 lb Weight Physical Exam General Appearance: No Acute Distress, drowsy but arousable, minimally conversant (appears to be baseline) Skin Temp/Moisture Exam: Warm/Dry HEENT: Atraumatic, Mucous Membr. moist/pink Cardiovascular: Regular Rate, Normal S1, Normal S2 Lungs: Clear to Auscultation, Normal Air Movement Abdomen: Normal Bowel Sounds, Soft, No Tenderness Neurological: Normal Speech Extremities: No Cyanosis, Normal Pulses, No Tenderness/Swelling, left arm with peripheral IV line in place, left arm nontender to palpation, ROM assessment limited due to patient being noncooperative, passive ROM without pain Vascular: Normal Pulses, Pulses Symmetrical Current Medications: Current Medications Sig/Vidal Start time Last Medication Dose Route Stop Time Status Admin Acetaminophen 650 MG Q6P PRN 02/27 2000 AC 02/28 PO 1727 Albuterol Sulfate 2 PUF Q4-6 PRN PRN 02/26 1930 AC INH Atorvastatin Calcium 20 MG 1700 02/27 1700 AC 03/01 PO 1820 Benztropine Mesylate 1 MG DAILY 02/27 09 AC 03/02 PO 102 Finasteride 5 MG DAILY 02/27 09 AC 03/02 PO 102 Furosemide 20 MG DAILY 02/27 900 AC 03/02 PO 102 Haloperidol 10 MG AT BEDTIME 02/28 2100 AC 03/01 PO 2051 Heparin Sodium 5,000 UNIT Q8 02/26 2200 AC 03/02 (Porcine) SC 0639 Lacosamide 100 MG Q12H 02/28 2200 AC 03/02 Sodium Chloride 100 ML IV 1024 Lisinopril 40 MG DAILY 02/27 0900 AC 03/02 PO 1024 Nitroglycerin 0.4 MG DAILY 02/27 0900 AC 03/02 TOP 1024 Nystatin 1 NEW TID 02/27 2306 AC 03/02 TOP 1024 Olanzapine 5 MG BID 02/28 1315 AC 03/02 PO 1023 Omeprazole 40 MG DAILY AC 02/27 0700 AC 03/02 PO 0640 Tamsulosin HCl 0.4 MG QPM 02/26 2100 AC 03/01 PO 2051 Assessment/Plan Assessment: 72-year-old male with past medical history of paranoid schizophrenia, hypertension, coronary artery disease, TIAs and CVA with history of left-sided hemiparesis, PVD, PUD presented to for lethargy and altered mental status and found to be hypothermic at 94.4. #Staring spells; He had an episode of staring spell which lasted for about 5 minutes. Considered a possibility of absence seizure however they usually last less than 15 seconds. TIA was ruled out with CT head on admission. Seen by neurology who initially believed he had encephalopathy in the setting of suspected infection with hypothermia.TSH, ammonia, B12, a.m. cortisol, ABG were WNL. PAtient had an episode of Seizure yesterday with drooling and jerky movements of upper ext. Episode lasted for less than a min. He recieved IV ativan 2mg x 1. Head MRI, Carotid US and EEG were negative for any acute pathology. Patient was started on Vimpat 100 mg BID. - Continue Vimpat - STR bed available today - Follow neuro recommendations; Spoke with Dr. Bone over the phone, said patient can be discharge on Vimpat with outpatient follow up with Dr. Celis in 2- 3 weeks. #Neuroleptic induced Parkinsonism with hx paranoid schizophrenia - Continue olanzapine and haloperidol. #Bradycardia Patient was found to be bradycardiac in the 40s while sleeping. EKG continues to show bundle branch block pattern -BP and HR stable without Atenolol. - Appreciate cardiology recommendations #Hypothermia The patient was found to be hypothermic with a normal WBC count. There is no obvious source of infection UA and chest x-ray is unremarkable. Patient had been on oral Augmentin recently for presumed UTI. The patient was on a Bari Hugger and hypothermia is now resolved -Monitor fever and WBC -f/u domingo cultures -cont ID recommendations -Monitor off antibiotics for now #HTN -cont lisinopril, Lasix, discontinue atenolol because of bradycardia #Dysphagia? Patient's reporting dysphagia Seen by s/s who states the patient kept fluids and food in his mouth. - Recommends chopped and regualr thins. #Hyponatremia - resolved Initial hyponatremia of 136 currently corrected after fluids -continue to monitor #Chronic medical conditions Hyperlipidemia, BPH, GERD. Continue statin, finasteride, tamsulosin, Nexium #Heart healthy diet #DVT prophylaxis subcutaneous heparin and Alps Disp: discharge to STR today pending bowel movement (bowel regimen given) Problem List: 1. Seizure Pain Ratin (does not specifity) Pain Location: left arm Pain Goal: Pain 4 or less Pain Plan: tylenol PRN Tomorrow's Labs & Rationales: none -dc to STR today
--- NOTE | 2018-03-02 09:24 | PN- Cardiology ---
Subjective Subjective: Patient is lying in bed comfortably. Family at the bedside. No new issues noted. Pending discharge to short-term rehab. Objective Vital Signs and I&Os Vital Signs Date Time Temp Pulse Resp B/P B/P Pulse O2 O2 Flow FiO2 Mean Ox Delivery Rate 03/02 0000 Room Air 03/01 2204 98.9 55 18 150/96 93 03/01 1402 Nasal 3.0L Cannula 03/01 1349 98.8 54 20 120/58 96 Nasal Cannula 03/01 1147 120/60 Intake & Output 03/02 1600 03/02 0800 03/02 0000 03/01 1600 03/01 0800 03/01 0000 Intake Total 100 600 Output Total Balance 100 600 Intake, IV 100 120 Intake, Oral 0 480 Patient 250 lb Weight Physical Exam: General Appearance: well developed/nourished, elderly male, alert Head: normal HEENT: Normal Neck: supple, JVP normal, carotid upstrokes normal bilaterally, no masses or thyromegaly Respiratory: chest non-tender, clear to auscultation and percussion bilaterally Cardiovascular: regular rate/rhythm, normal S1, S2, 1-2/6 systolic murmur Abdomen: normal bowel sounds, soft, non-tender Extremities: normal inspection, no edema Vascular: Pulses are 2+ and equal bilaterally Neurologic: Grossly normal/nonfocal Current Medications: Current Medications Sig/Vidal Start time Last Medication Dose Route Stop Time Status Admin Acetaminophen 650 MG Q6P PRN 02/27 2000 AC 02/28 PO 1727 Albuterol Sulfate 2 PUF Q4-6 PRN PRN 02/26 1930 AC INH Atorvastatin Calcium 20 MG 1700 02/27 1700 AC 03/01 PO 1820 Benztropine Mesylate 1 MG DAILY 02/27 900 AC 03/01 PO 1146 Finasteride 5 MG DAILY 02/27 900 AC 03/01 PO 1147 Furosemide 20 MG DAILY 02/27 900 AC 03/01 PO 1147 Haloperidol 10 MG AT BEDTIME 02/28 2100 AC 03/01 PO 205 Heparin Sodium 5,000 UNIT Q8 02/26 2200 AC 03/02 (Porcine) SC 0639 Lacosamide 100 MG Q12H 02/28 2200 AC 03/01 Sodium Chloride 100 ML IV 2139 Lisinopril 40 MG DAILY 02/27 900 AC 03/01 PO 1147 Nitroglycerin 0.4 MG DAILY 02/27 0900 AC 03/01 TOP 0803 Nystatin 1 NEW TID 02/27 2306 03/01 TOP 2053 Olanzapine 5 MG BID 02/28 1315 AC 03/01 PO 2051 Omeprazole 40 MG DAILY AC 02/27 0700 AC 03/02 PO 639 Tamsulosin HCl 0.4 MG QPM 02/26 2100 AC 03/01 PO 2051 Results Last 48 Hrs of Labs/Mics: Laboratory Tests 02/28/18 1035: Prolactin 70.7 H 02/28/18 1000: Lactic Acid Cancelled, APTT Cancelled 02/28/18 0955: Anion Gap 17 H, Estimated GFR > 60, BUN/Creatinine Ratio 13.6, Prolactin 46.4 H, CBC w Diff NO MAN DIFF REQ, RBC 4.07 L, MCV 89.8, MCH 29.9, MCHC 33.2, RDW 14.0, MPV 7.3 L, Gran % 73.1, Lymphocytes % 18.6 L, Monocytes % 6.7, Eosinophils % 1.4, Basophils % 0.2, Absolute Granulocytes 6.8 H, Absolute Lymphocytes 1.7, Absolute Monocytes 0.6, Absolute Eosinophils 0.1, Absolute Basophils 0 Assessment/Plan Assessment/Plan Assessment: 1. Bradycardia, likely related to medications 2. Hypothermia 3. Parkinson's 4. Anemia Recommendations: -The patient is stable. Heart rate stable off beta blockers. -Continue current medications -Follow-up with Janett Burden post discharge.
--- NOTE | 2018-03-02 12:42 | PN- Pulmonary ---
Subjective HPI/Critical Care Issues: Doing about the same Objective Current Medications: Current Medications Sig/Vidal Start time Last Medication Dose Route Stop Time Status Admin Acetaminophen 650 MG Q6P PRN 02/27 2000 AC 02/28 PO 1727 Albuterol Sulfate 2 PUF Q4-6 PRN PRN 02/26 1930 AC INH Atorvastatin Calcium 20 MG 1700 02/27 1700 AC 03/01 PO 1820 Benztropine Mesylate 1 MG DAILY 02/27 09 AC 03/02 PO 1023 Bisacodyl 10 MG ONCE PRN 03/02 1200 AC HI Finasteride 5 MG DAILY 02/27 0900 AC 03/02 PO 1023 Furosemide 20 MG DAILY 02/27 09 AC 03/02 PO 1023 Haloperidol 10 MG AT BEDTIME 02/28 2100 AC 03/01 PO 2051 Heparin Sodium 5,000 UNIT Q8 02/26 2200 AC 03/02 (Porcine) SC 0639 Lacosamide 100 MG Q12H 02/28 220 AC 03/02 Sodium Chloride 100 ML IV 1024 Lisinopril 40 MG DAILY 02/27 09 AC 03/02 PO 1024 Nitroglycerin 0.4 MG DAILY 02/27 09 AC 03/02 TOP 1024 Nystatin 1 NEW TID 02/27 2306 AC 03/02 TOP 1024 Olanzapine 5 MG BID 02/28 1315 AC 03/02 PO 1023 Omeprazole 40 MG DAILY AC 02/27 07 AC 03/02 PO 0640 Senna/Docusate Sodium 1 TAB BID PRN 03/02 1200 AC PO Tamsulosin HCl 0.4 MG QPM 02/26 2100 AC 03/01 PO 2051 Vital Signs & I&O Last 24 Hrs of Vitals and I&O: Vital Signs Date Time Temp Pulse Resp B/P B/P Pulse O2 O2 Flow FiO2 Mean Ox Delivery Rate 03/02 1024 55 150/96 03/02 0000 Room Air 03/01 2204 98.9 55 18 150/96 93 03/01 1402 Nasal 3.0L Cannula 03/01 1349 98.8 54 20 120/58 96 Nasal Cannula Intake & Output 03/02 1600 /02 0800 03/02 0000 Intake Total 350 100 Output Total Balance 350 100 Intake, IV 110 100 Intake, Oral 240 0 Patient 250 lb Weight Impression/Plan Impression/Plan Impression/Plan: New onset seizure in a 72-year-old man with prior ischemic strokes history of paranoid schizophrenia, hypertension, coronary artery disease, TIAs and CVA with history of left-sided hemiparesis, PVD, PUD stable Initial lethargy and altered mental status and hypothermic relatively stable Max while sleeping stable Hypothermia resolved REC Cont all meds STR if bed available Vimpat per neuro COnt current meds and dc on current meds
[2018-03-02 14:58] VITALS: BP 126/70
[2018-03-02 22:11] VITALS: BP 110/68; BP 128/70
[2018-03-03 06:28] VITALS: BP 124/62
--- NOTE | 2018-03-03 08:30 | PN- Housestaff ---
Subjective Follow-up For: Seizure Tele-Events Since Last Visit: Sinus earl 50s Subjective: Patient was seen and examined today. Patient complaining of left shoulder pain. Patient refusing pain medications. Denies any other complaints. No acute events overnight. Review of Systems Constitutional: Reports: see HPI. Objective Last 24 Hrs of Vital Signs/I&O Vital Signs Date Time Temp Pulse Resp B/P B/P Pulse O2 O2 Flow FiO2 Mean Ox Delivery Rate 03/03 1206 98.2 71 18 124/62 / 0926 71 124/62 03/03 0628 98.2 71 18 124/62 96 Room Air 03/02 2214 Room Air 03/02 2211 98.2 61 18 110/68 95 Room Air 03/02 2100 60 110/68 Intake & Output 03/03 1600 03/03 0800 03/03 0000 Intake Total 510 350 Output Total 250 Balance 260 350 Intake, IV 110 110 Intake, Oral 400 240 Number 3 2 1 Bowel Movements Output, Urine 250 Patient 260 lb Weight Weight Bed scale Measurement Method Physical Exam General Appearance: Alert, Cooperative, No Acute Distress Skin: No Rashes Skin Temp/Moisture Exam: Warm/Dry HEENT: Atraumatic, PERRLA, Mucous Membr. moist/pink Cardiovascular: Regular Rate, Normal S1, Normal S2 Lungs: Clear to Auscultation, Normal Air Movement Abdomen: Normal Bowel Sounds, Soft, No Tenderness Extremities: no tenderness, erythema or fluctuation of left shoulder, ROM evaluation limited due to patient's lack of cooperation Vascular: Normal Pulses, Pulses Symmetrical Current Medications: Current Medications Sig/Vidal Start time Last Medication Dose Route Stop Time Status Admin Acetaminophen 650 MG Q6P PRN 02/27 2000 DCD 03/03 PO 1056 Albuterol Sulfate 2 PUF Q4-6 PRN PRN 02/26 1930 DCD INH Atorvastatin Calcium 20 MG 1700 02/27 1700 DCD 03/02 PO 1812 Benztropine Mesylate 1 MG DAILY 02/27 09 DCD 03/03 PO 0925 Bisacodyl 10 MG ONCE PRN 03/02 1200 DCD 03/02 TX 1320 Finasteride 5 MG DAILY 02/27 09 DCD 03/03 PO 0925 Furosemide 20 MG DAILY 02/27 09 DCD 03/03 PO 0925 Haloperidol 10 MG AT BEDTIME 02/28 2100 DCD 03/02 PO 2100 Heparin Sodium 5,000 UNIT Q8 02/26 2200 DCD 03/03 (Porcine) SC 0500 Lacosamide 100 MG Q12H 02/28 2200 DCD 03/03 Sodium Chloride 100 ML IV 0925 Lisinopril 40 MG DAILY 02/27 0900 DCD 03/03 PO 0926 Nitroglycerin 0.4 MG DAILY 02/27 0900 DCD 03/03 TOP 0925 Nystatin 1 NEW TID 02/27 2306 DCD 03/03 TOP 0926 Olanzapine 5 MG BID 02/28 1315 DCD 03/03 PO 0925 Omeprazole 40 MG DAILY AC 02/27 0700 DCD 03/03 PO 0500 Senna/Docusate Sodium 1 TAB BID PRN 03/02 1200 DCD 03/02 PO 1354 Tamsulosin HCl 0.4 MG QPM 02/26 2100 DCD 03/02 PO 2100 Assessment/Plan Assessment: 72-year-old male with past medical history of paranoid schizophrenia, hypertension, coronary artery disease, TIAs and CVA with history of left-sided hemiparesis, PVD, PUD presented to for lethargy and altered mental status and found to be hypothermic at 94.4. #Left shoulder pain - history of arthritis per . No sign of infection or fracture requiring further evaluation at this time. - tyelnol PRN #Staring spells; He had an episode of staring spell which lasted for about 5 minutes. Considered a possibility of absence seizure however they usually last less than 15 seconds. TIA was ruled out with CT head on admission. Seen by neurology who initially believed he had encephalopathy in the setting of suspected infection with hypothermia.TSH, ammonia, B12, a.m. cortisol, ABG were WNL. PAtient had an episode of Seizure yesterday with drooling and jerky movements of upper ext. Episode lasted for less than a min. He recieved IV ativan 2mg x 1. Head MRI, Carotid US and EEG were negative for any acute pathology. Patient was started on Vimpat 100 mg BID. - Continue Vimpat - STR bed available today - Follow neuro recommendations; Spoke with Dr. Bone over the phone, said patient can be discharge on Vimpat with outpatient follow up with Dr. Celis in 2- 3 weeks. #Neuroleptic induced Parkinsonism with hx paranoid schizophrenia - Continue olanzapine and haloperidol. #Bradycardia Patient was found to be bradycardiac in the 40s while sleeping. EKG continues to show bundle branch block pattern -BP and HR stable without Atenolol. - Appreciate cardiology recommendations #Hypothermia The patient was found to be hypothermic with a normal WBC count. There is no obvious source of infection UA and chest x-ray is unremarkable. Patient had been on oral Augmentin recently for presumed UTI. The patient was on a Bari Hugger and hypothermia is now resolved -Monitor fever and WBC -f/u domingo cultures -cont ID recommendations -Monitor off antibiotics for now #HTN -cont lisinopril, Lasix, discontinue atenolol because of bradycardia #Dysphagia? Patient's reporting dysphagia Seen by s/s who states the patient kept fluids and food in his mouth. - Recommends chopped and regualr thins. #Hyponatremia - resolved Initial hyponatremia of 136 currently corrected after fluids -continue to monitor #Chronic medical conditions Hyperlipidemia, BPH, GERD. Continue statin, finasteride, tamsulosin, Nexium #Heart healthy diet #DVT prophylaxis subcutaneous heparin and Alps Disp: discharge to STR today pending bowel movement (bowel regimen given) Problem List: 1. Seizure Pain Ratin Pain Location: left shoulder Pain Goal: Pain 4 or less Pain Plan: tylenol PRN Tomorrow's Labs & Rationales: none - discharge to STR today
--- NOTE | 2018-03-03 10:11 | PN- Pulmonary ---
Subjective HPI/Critical Care Issues: Stable No further seizure Had a BM Objective Current Medications: Current Medications Sig/Vidal Start time Last Medication Dose Route Stop Time Status Admin Acetaminophen 650 MG Q6P PRN 02/26 2000 AC 02/28 PO 1727 Albuterol Sulfate 2 PUF Q4-6 PRN PRN 02/26 1930 AC INH Atorvastatin Calcium 20 MG 1700 02/27 1700 AC 03/02 PO 1812 Benztropine Mesylate 1 MG DAILY 02/27 09 AC 03/03 PO 0925 Bisacodyl 10 MG ONCE PRN 03/02 1200 AC 03/02 AL 1320 Docusate Sodium 100 MG .STK-MED ONE 03/02 1344 DC PO 03/02 1345 Finasteride 5 MG DAILY 02/27 09 AC 03/03 PO 0925 Furosemide 20 MG DAILY 02/27 09 AC 03/03 PO 0925 Haloperidol 10 MG AT BEDTIME 02/28 2100 AC 03/02 PO 2100 Heparin Sodium 5,000 UNIT Q8 02/26 2200 AC 03/03 (Porcine) SC 0500 Lacosamide 100 MG Q12H 02/28 2200 AC 03/03 Sodium Chloride 100 ML IV 0925 Lisinopril 40 MG DAILY 02/27 0900 AC 03/03 PO 0926 Nitroglycerin 0.4 MG DAILY 02/27 0900 AC 03/03 TOP 0925 Nystatin 1 NEW TID 02/27 2306 AC 03/03 TOP 0926 Olanzapine 5 MG BID 02/28 1315 AC 03/03 PO 0925 Omeprazole 40 MG DAILY AC 02/27 0700 AC 03/03 PO 0500 Senna/Docusate Sodium 1 TAB BID PRN 03/02 1200 AC 03/02 PO 1354 Tamsulosin HCl 0.4 MG QPM 02/26 2100 AC 03/02 PO 2100 Vital Signs & I&O Last 24 Hrs of Vitals and I&O: Vital Signs Date Time Temp Pulse Resp B/P B/P Pulse O2 O2 Flow FiO2 Mean Ox Delivery Rate 03/03 09 71 124/62 03/03 0628 98.2 71 18 124/62 96 Room Air 03/02 2214 Room Air 03/02 221 98.2 61 18 110/68 95 Room Air / 2100 60 110/68 / 1458 98.3 62 18 126/70 94 /02 1024 55 150/96 Intake & Output 03/03 1600 03/03 0800 03/03 0000 Intake Total 350 Output Total Balance 350 Intake, IV 110 Intake, Oral 240 Number 1 2 1 Bowel Movements Patient 260 lb Weight Weight Bed scale Measurement Method Impression/Plan Impression/Plan Impression/Plan: General Appearance: No Acute Distress, drowsy but arousable, minimally conversant (appears to be baseline) Skin Temp/Moisture Exam: Warm/Dry HEENT: Atraumatic, Mucous Membr. moist/pink Cardiovascular: Regular Rate, Normal S1, Normal S2 Lungs: Clear to Auscultation, Normal Air Movement Abdomen: Normal Bowel Sounds, Soft, No Tenderness Neurological: Normal Speech Extremities: No Cyanosis, Normal Pulses, No Tenderness/Swelling, left arm with peripheral IV line in place, left arm nontender to palpation, ROM assessment limited due to patient being noncooperative, passive ROM without pain Vascular: Normal Pulses, Pulses Symmetrical IMPRESSION New onset seizure in a 72-year-old man with prior ischemic strokes history of paranoid schizophrenia, hypertension, coronary artery disease, TIAs and CVA with history of left-sided hemiparesis, PVD, PUD stable Initial lethargy and altered mental status and hypothermic relatively stable Max while sleeping stable Hypothermia resolved REC Cont all meds STR today Vimpat per neuro COnt current meds and dc on current meds CMR Reviewed
[2018-03-03 12:06] VITALS: BP 124/62
--- NOTE | 2018-03-03 13:55 | PN- Cardiology ---
Subjective Subjective: Stable, awaiting discharge today to short-term rehab Objective Vital Signs and I&Os Vital Signs Date Time Temp Pulse Resp B/P B/P Pulse O2 O2 Flow FiO2 Mean Ox Delivery Rate 03/03 1206 98.2 71 18 124/62 03/03 0926 71 124/62 03/03 0628 98.2 71 18 124/62 96 Room Air 03/02 2214 Room Air 03/02 2211 98.2 61 18 110/68 95 Room Air 03/02 2100 60 110/68 06 1458 98.3 62 18 126/70 94 Intake & Output 03/03 1600 03/03 0800 03/03 0000 03/02 1600 03/02 0800 03/02 0000 Intake Total 510 350 550 100 Output Total 250 Balance 260 350 550 100 Intake, IV 110 110 110 100 Intake, Oral 400 240 440 0 Number 3 2 1 Bowel Movements Output, Urine 250 Patient 260 lb 250 lb Weight Weight Bed scale Measurement Method Physical Exam: General Appearance: well developed/nourished, elderly male, alert Head: normal HEENT: Normal Neck: supple, JVP normal, carotid upstrokes normal bilaterally, no masses or thyromegaly Respiratory: chest non-tender, clear to auscultation and percussion bilaterally Cardiovascular: regular rate/rhythm, normal S1, S2, 1-2/6 systolic murmur Abdomen: normal bowel sounds, soft, non-tender Extremities: normal inspection, no edema Vascular: Pulses are 2+ and equal bilaterally Neurologic: Grossly normal/nonfocal Current Medications: Current Medications Sig/Vidal Start time Last Medication Dose Route Stop Time Status Admin Acetaminophen 650 MG Q6P PRN 02/27 2000 DCD 03/03 PO 1056 Albuterol Sulfate 2 PUF Q4-6 PRN PRN 02/26 193 DCD INH Atorvastatin Calcium 20 MG 1700 02/27 1700 DCD 03/02 PO 1812 Benztropine Mesylate 1 MG DAILY 02/27 900 DCD 03/03 PO 0925 Bisacodyl 10 MG ONCE PRN 03/02 1200 DCD 03/02 NC 1320 Finasteride 5 MG DAILY 02/27 900 DCD 03/03 PO 0925 Furosemide 20 MG DAILY 02/27 900 DCD 03/03 PO 0925 Haloperidol 10 MG AT BEDTIME 02/28 2100 DCD 03/02 PO 2100 Heparin Sodium 5,000 UNIT Q8 02/26 220 DCD 03/03 (Porcine) SC 0500 Lacosamide 100 MG Q12H 02/28 2200 DCD 03/03 Sodium Chloride 100 ML IV 0925 Lisinopril 40 MG DAILY 02/27 0900 DCD 03/03 PO 0926 Nitroglycerin 0.4 MG DAILY 02/27 0900 DCD 03/03 TOP 0925 Nystatin 1 NEW TID 02/27 2306 DCD 03/03 TOP 0926 Olanzapine 5 MG BID 02/28 1315 DCD 03/03 PO 0925 Omeprazole 40 MG DAILY AC 02/27 0700 DCD 03/03 PO 0500 Senna/Docusate Sodium 1 TAB BID PRN 03/02 1200 DCD 03/02 PO 1354 Tamsulosin HCl 0.4 MG QPM 02/26 2100 DCD 03/02 PO 2100 Assessment/Plan Assessment/Plan Assessment: 1. Bradycardia, likely related to medications 2. Hypothermia 3. Parkinson's 4. Anemia Recommendations: -The patient is stable. Heart rate stable off beta blockers. -Continue current medications -Follow-up with Janett Burden post discharge. Continue telemetry? No
== END 2018-03-03 13:25 | DRG 100 ==
LOC: DELPENDDIS → ERH 11:51 → 1NO 15:18 → CRI 15:18 → ERHI 15:18 → CANRESERV 16:10 → ENRESERV 16:10 → EDBEDREQ 17:27 → ERHI 17:28 → ENRESERV 18:20 → ENTRNSPT 20:16 → CMPTRNSPT 20:31 → CRI 20:37 → 1NO 02-27 15:26 → ENPENDDIS 03-02 13:06 → 1NO 03-03 13:25
PROVIDERS: Internal Medicine; Physician Assistant; Student in an Organized Health Care Education/Training Program
DX: R56.9 Unspecified convulsions (principal); G93.40 Encephalopathy, unspecified; E87.1 Hypo-osmolality and hyponatremia; I69.354 Hemiplegia and hemiparesis following cerebral infarction affecting left non-dominant side; F20.0 Paranoid schizophrenia; N17.9 Acute kidney failure, unspecified; N39.0 Urinary tract infection, site not specified; I95.9 Hypotension, unspecified; I48.91 Unspecified atrial fibrillation; F31.9 Bipolar disorder, unspecified; I69.398 Other sequelae of cerebral infarction; H54.7 Unspecified visual loss; D64.9 Anemia, unspecified; R68.0 Hypothermia, not associated with low environmental temperature; T43.505A Adverse effect of unspecified antipsychotics and neuroleptics, initial encounter; R00.1 Bradycardia, unspecified; T50.905A Adverse effect of unspecified drugs, medicaments and biological substances, initial encounter; G20 Parkinson's disease; R13.10 Dysphagia, unspecified; I25.2 Old myocardial infarction
CPT/HCPCS: 1NSP; 70551; CCU; 36415; 36592; 71045; 81003; 82436; 87040; 87070; 87086; 93005; 93010; 94799; 95816; 96374; 97110-GO; 97112-GO; 97161-GP; 97530-GO; 99291; C9254; J0360; J0696; J1644; J2060; J2405; J3490

== ENCOUNTER 2018-04-23 12:49 | Observation (INO) | payer OTHER, MEDICARE ==
[~2018-04-23] VITALS: Ht 182.9 cm; Wt 109.9 kg
[~2018-04-23 12:49] MED LIST changes: +AUGMENTIN 875-1 EACH PO; +PROAIR HFA8.5 GM INH; +VIMPAT100 M1 PO
--- NOTE | 2018-04-23 13:55 | ED PSYCHIATRIC COMPLAINT ---
History of Present Illness General Chief Complaint: Psychiatric Related Complaint Stated Complaint: PSYCH EVAL Source: patient, family, old records Exam Limitations: clinical condition Vital Signs & Intake/Output Vital Signs & Intake/Output Vital Signs Date Time Temp Pulse Resp B/P B/P Pulse O2 O2 Flow FiO2 Mean Ox Delivery Rate 04/25 0655 97.7 41 18 112/54 92 Room Air 04/25 0000 112/04/24 2154 97.8 52 16 93 Room Air 04/24 2150 Room Air 04/24 2130 90/00 04/24 1600 Room Air 04/24 1550 114/00 04/24 1425 97.4 59 18 90/00 95 Room Air 04/24 1355 Room Air 04/24 0847 49 138/80 04/24 0845 49 138/80 04/24 0800 Room Air ED Intake and Output 04/25 0000 04/24 1200 Intake Total 1930 60 Output Total Balance 1930 60 Intake, IV 1000 Intake, Oral 930 60 Patient 242 lb Weight Weight Bed scale Measurement Method Allergies Coded Allergies: No Known Allergies (04/23/18) Triage Note: PT TO ED WITH WHO HAS MANY CONCERNS ABOUT PT'S WELL-BEING. PT NOT ANSWERING QUESTIONS IN TRIAGE. REPORTS PT IS NOT EATING/DRINKING. HX SCHIZOPHRENIA AND PARANOIA PER "I THINK HE NEEDS HIS MEDS REVIEWED HE'S ON TOO MANY AND MD JOSHUA TOLD US TO COME IN" Triage Nurses Notes Reviewed? yes Onset: Gradual Duration: getting worse Timing: recent history Severity: moderate Severity Numbers: 5 HPI: Patient is a 72-year-old male with a past medical history of paranoid schizophrenia, malignant hypertension non-STEMI hypertension TIAs CVA with left- sided residual hemiparesis DVD peptic ulcer disease where patient was admitted to [facility] and discharged on March 03 for concerns of hypo-hernia patient has been in [facility] and was discharged on Sunday patient was brought in by ambulance for concerns of since being back at the private residence of worsening anxiety and fear of being home where patient has had decreased by mouth intake and is unwilling to take his medications today patient also is unwilling to get out of bed when administering medications the patient today the states that he grabbed her which she normally never does is also stating that he's been soiling himself of urine Denies any new unilateral weakness slurred speech The is also concerns of suicidal ideation statements made by the patient (Jasvir Barnett) Reconcile Medications Atenolol 50 MG TABLET 1 TAB PO DAILY HEART (Reported) Benztropine Mesylate 1 MG TABLET 1 TAB PO BID MENTAL HEALTH (Reported) Esomeprazole (Nexium) 40 MG CAPSULE.DR 1 TAB PO DAILY ACID REFLUX (Reported) Finasteride 5 MG TABLET 1 TAB PO DAILY DIRECTED (Reported) Folic Acid 1 MG TABLET 1 TAB PO DAILY VITAMIN SUPPORT (Reported) Furosemide 20 MG TABLET 1 TAB PO DAILY WATER RETENTION (Reported) Haloperidol 5 MG TABLET 10 MG PO AT BEDTIME hold for oversedation or respiratory depression Haloperidol Decanoate 100 MG/ML VIAL 1.5 ML IM Q3WKS MENTAL HEALTH (Reported) Lacosamide (Vimpat) 50 MG TABLET 1 TAB PO BID MENTAL HEALTH (Reported) Lisinopril 40 MG TABLET 1 TAB PO DAILY HIGH BLOOD PRESSURE (Reported) LORazepam (Ativan) 1 MG TAB 1 TAB PO BID ANXIETY (Reported) Nitroglycerin (Nitroglycerin Patch) 0.4 MG/HOUR PATCH.TD24 1 PATCH TOP DAILY DIRECTED (Reported) Olanzapine (Zyprexa) 5 MG TABLET 1 TAB PO BID DIRECTED (Reported) Simvastatin (Simvastatin*) 20 MG TABLET 1 TAB PO QPM HIGH CHOLESTROL ( Reported) Tamsulosin HCl 0.4 MG CAP.ER.24H 1 CAP PO DAILY bph (Reported) (Alaina BELTRÁN,[facility]) Past History Travel History Traveled to [place] past 21 day No Medical History Any Pertinent Medical History? see below for history Neurological: CVA, TIA, R EYE BLINDNESS R ICA occlusion EENT: NONE Cardiovascular: AFIB, CAD, hypertension, hyperlipidemia, PVD Respiratory: EXERTIONAL SHORTNES OF BREATH Gastrointestinal: lower GI bleed, upper GI bleed Hepatic: NONE Renal: BARBARA Musculoskeletal: NONE Psychiatric: bipolar disease, schizophrenia Endocrine: NONE Blood Disorders: anemia Cancer(s): NONE LABORATORY ADMINISTRATIVE DIRECTOR/Reproductive: NONE History of MRSA: No History of VRE: No History of CDIFF: No Surgical History Surgical History: LEFT CEA CATARACTS Psychosocial History Who do you live with Spouse Services at Home None What is your primary language Belarusian Tobacco Use: Quit >30 days ago Family History Family History, If Any: BROTHER ([place]). Hx Contributory? No (Jasvir Barnett) Review of Systems Review of Systems Constitutional: Reports: see HPI, weakness. EENTM: Reports: no symptoms. Respiratory: Reports: no symptoms. Cardiovascular: Reports: no symptoms. GI: Reports: no symptoms. Genitourinary: Reports: see HPI. Musculoskeletal: Reports: no symptoms. Skin: Reports: no symptoms. Neurological/Psychological: Reports: see HPI. Hematologic/Endocrine: Reports: no symptoms. Immunologic/Allergic: Reports: no symptoms. All Other Systems: Reviewed and Negative (Jasvir Barnett) Physical Exam Physical Exam General Appearance: no apparent distress, comfortable, lethargic Head: atraumatic Eyes: Bilateral: normal appearance, PERRL, EOMI. Ears, Nose, Throat: normal pharynx, normal ENT inspection Neck: normal inspection Respiratory: normal breath sounds, chest non-tender Cardiovascular: bradycardia Gastrointestinal: non-tender Neurological/Psychiatric: depressed affect Appearance/Memory/Insight: appropriate appearance, appropriate insight Behavoir/Eye Contact/Speech: cooperative Thoughts/Hallucinations: no apparent hallucination Skin: intact, normal color SAD PERSONS SAD PERSONS Response Value Male Sex? yes 1 Age <19 or >45 years? yes 1 Depression/Hopelessness? yes 2 Stated Future Intent? yes 2 Total 6 SAD PERSONS Done? yes (Jasvir Barnett) Progress Differential Diagnosis: dementia, drug intoxication, drug overdose, drug withdrawal, electrolyte abnormality, encephalitis, hypoglycemia, hypothyroidism, IC hem/mass/tumor, meningitis Plan of Care: Orders Procedure Date/time Status CBC WITHOUT DIFFERENTIAL 04/25 600 Active BASIC ELECTROLYTES PLUS BUN&CR 04/25 600 Active Heart Healthy Diet 04/24 D Active Theraputic Activities 15 Min 04/24 UNK Complete Therapeutic Exercise X 15 04/24 UNK Complete MOBILITY GOAL STATUS 04/24 UNK Complete MOBILITY CURRENT STATUS 04/24 UNK Complete PT EVAL MOD COMPLEX 30 MIN 04/24 UNK Complete ELECTROENCEPHALOGRAM 04/24 UNK Active NUTRITIONAL CONSULT 04/24 UNK Active Current Medications Sig/Vidal Start time Last Medication Dose Stop Time Status Admin Olanzapine 5 MG DAILY 04/25 0900 AC (Zyprexa) Dextrose/Sodium 1,000 ML Q13H 04/24 2215 AC 04/24 Chloride 2327 (D5-Normal Saline) Olanzapine 10 MG BID 04/24 2100 CAN (Zyprexa) Olanzapine 10 MG 2100 04/24 2100 AC (Zyprexa) Atorvastatin Calcium 10 MG 1700 04/24 1700 AC 04/24 (Lipitor) 1708 Carbidopa/Levodopa 1 TAB TID 04/24 1608 AC 04/24 (Sinemet 25/100MG) 1841 Lorazepam 1 MG BID 04/24 1208 AC 04/24 (Ativan) 1213 Finasteride 5 MG DAILY 04/24 0900 AC 04/24 (Proscar) 0839 Folic Acid 1 MG DAILY 04/24 0900 AC 04/24 (Folic Acid) 0840 Furosemide 20 MG DAILY 04/24 09 AC 04/24 (Lasix) 0839 Lisinopril 40 MG DAILY 04/24 0900 AC 04/24 (Prinivil) 0847 Nitroglycerin 0.4 MG DAILY 04/24 09 AC 04/24 (Transderm Nitro 0838 10MG (0.4 MG/Hr) Patch) Tamsulosin HCl 0.4 MG DAILY 04/24 09 AC 04/24 (Flomax) 0845 Omeprazole 40 MG DAILY AC 04/24 07 AC 04/25 (Prilosec) 0557 Heparin Sodium 5,000 UNIT Q8 04/23 2200 AC 04/25 (Porcine) 0557 Acetaminophen 650 MG Q6P PRN 04/23 2100 AC (Tylenol) Atropine Sulfate 0.5 MG Q 5 MINUTES X 3 DO.. 04/23 2100 AC (Atropine) Benztropine Mesylate 1 MG BID 04/23 2100 AC 04/24 (Cogentin 1 MG 0838 Tablet) Haloperidol 10 MG AT BEDTIME 04/23 2100 AC 04/23 (Haldol) 2334 Lacosamide 50 MG BID 04/23 2100 AC 04/24 (Vimpat) 2106 Laboratory Tests 04/25/18 0639: Sodium Pending, Potassium Pending, Chloride Pending, Carbon Dioxide Pending, Anion Gap Pending, BUN Pending, Creatinine Pending, BUN/Creatinine Ratio Pending , CBC w Diff Pending, WBC Pending, RBC Pending, Hgb Pending, Hct Pending, MCV Pending, MCH Pending, MCHC Pending, RDW Pending, Plt Count Pending, MPV Pending Patient is following all commands appropriately Patient on initial EKG and on physical exam has concerns of bradycardia per old records that cardiology does mention from previous admission that there could be a beta daisy induced bradycardia Discussed patient with Dr. Andres who agrees with telemetry observation He is advised to beta daisy to be held Patient still requires a psychiatric consultation and pharmacy reconciliation upon observation Diagnostic Imaging: Viewed by Me: CT Scan. Radiology Impression: no acute abnormality, no fracture Initial ED EKG: multiple artifacts noted Repeat EKG: changed (45 bpm multiple artifacts sinu) Comments: PATIENT: CANDIDO TIRADO PRESENT AGE: 72 PATIENT ACCOUNT NO: [id number] : 47 LOCATION: [facility] ORDERING PHYSICIAN: Jasvir FAM SERVICE DATE: 04/23/18 EXAM TYPE: CAT - CT HEAD WO IV CONTRAST EXAMINATION: CT OF THE HEAD WITHOUT CONTRAST CLINICAL INFORMATION: Acute mental status change for 2 days.. COMPARISON: CT scan of the head dated 02/26/2018 and 09/16/2017. MRI scan of the head dated 02/28/2018. TECHNIQUE: Contiguous axial imaging was performed from the skullbase to vertex without intravenous administration of contrast. DLP: 637.09 mGy-cm. FINDINGS: Evaluation is limited due to patient motion artifact. There is no evidence of acute intracranial hemorrhage or territorial infarction. No abnormal mass-effect or midline shift is seen. No extra-axial fluid collections are identified. The ventricles and sulci are enlarged, consistent with involutional changes. Again seen is prominent encephalomalacia and gliosis in the posterior right parietal lobe with ex vacuo dilatation of the posterior horn of the right lateral ventricle. There is also a chronic area of encephalomalacia and gliosis in the anterior left middle frontal gyrus, unchanged. There is periventricular low-attenuation, consistent with ischemic small vessel disease. The small lacunar infarct seen within the bilateral cerebellar hemispheres on MRI scan are poorly appreciated on CT scan. Evaluation is partly limited due to extensive beam hardening and motion artifact. The osseous structures and soft tissues are normal. The mastoid air cells and visualized portions of the paranasal sinuses are well-aerated. IMPRESSION: 1. No acute intracranial pathology. 2. Chronic areas of encephalomalacia and gliosis in the posterior right parietal lobe and in the anterior left middle frontal gyrus. 3. Chronic ischemic small vessel disease and involutional changes in the periventricular white matter and subcortical white matter. DICTATED BY: Maya Gomez MD DATE/TIME DICTATED:04/23/181512 PRISON LIBRARIAN:TASHI (Mabel FAM,Jasvir) Departure Departure Disposition: STILL A PATIENT Condition: Stable Clinical Impression Primary Impression: Bradycardia Secondary Impressions: Suicide ideation Referrals: Lukas Andres MD (PCP/Family) Departure Forms: Customer Survey General Discharge Information Observation Note Spoke With: Lukas Andres MD Physician Advisor Notified: MEREDITH BELTRÁN,[facility] Patient In: Non-ED OBS Care Area Rationale for Observation: My rational for observation is as follows [Patient requires cardiology consultation telemetry monitoring repeat labs crisis consultation from see reconciliation repeat blood work and troponin and EKG]. (Jasvir Barnett) PA/CARGO BRACER Co-Sign Statement Statement: ED Attending supervision documentation- [] I saw and evaluated the patient. I have also reviewed all the pertinent lab results and diagnostic results. I agree with the findings and the plan of care as documented in the PA's/CARGO BRACER's documentation. [y] I have reviewed the ED Record and agree with the PA's/CARGO BRACER's documentation. [] Additions or exceptions (if any) to the PAs/CARGO BRACER's note and plan are summarized below: The patient was discussed with me and reviewed the patient's EKG. Given that the patient is bradycardic is not a candidate for psychiatric admission in fact needs to medical admission for further evaluation and workup. The patient will be admitted for further evaluation and workup. (Alaina BELTRÁN,[facility])
[2018-04-23] MEDS ORDERED: VIMPAT50 M1 PO (15:12)
[2018-04-23] MEDS ORDERED: ATIVAN1 M1 PO (15:13)
[2018-04-23] MEDS ORDERED: ATENOLOL50 M1 PO (15:13)
[2018-04-23] MEDS ORDERED: HALOPERIDO100 MG/1 M IM (15:15)
--- NOTE | 2018-04-23 15:26 | CT SCAN REPORT ---
EXAMINATION: CT OF THE HEAD WITHOUT CONTRAST CLINICAL INFORMATION: Acute mental status change for 2 days.. COMPARISON: CT scan of the head dated 02/26/2018 and 09/16/2017. MRI scan of the head dated 02/28/2018. TECHNIQUE: Contiguous axial imaging was performed from the skullbase to vertex without intravenous administration of contrast. DLP: 637.09 mGy-cm. FINDINGS: Evaluation is limited due to patient motion artifact. There is no evidence of acute intracranial hemorrhage or territorial infarction. No abnormal mass-effect or midline shift is seen. No extra-axial fluid collections are identified. The ventricles and sulci are enlarged, consistent with involutional changes. Again seen is prominent encephalomalacia and gliosis in the posterior right parietal lobe with ex vacuo dilatation of the posterior horn of the right lateral ventricle. There is also a chronic area of encephalomalacia and gliosis in the anterior left middle frontal gyrus, unchanged. There is periventricular low-attenuation, consistent with ischemic small vessel disease. The small lacunar infarct seen within the bilateral cerebellar hemispheres on MRI scan are poorly appreciated on CT scan. Evaluation is partly limited due to extensive beam hardening and motion artifact. The osseous structures and soft tissues are normal. The mastoid air cells and visualized portions of the paranasal sinuses are well-aerated. IMPRESSION: 1. No acute intracranial pathology. 2. Chronic areas of encephalomalacia and gliosis in the posterior right parietal lobe and in the anterior left middle frontal gyrus. 3. Chronic ischemic small vessel disease and involutional changes in the periventricular white matter and subcortical white matter.
[2018-04-23 15:56] LABS: ABSOLUTE BASOPHIL COUNT 0 /CUMM (0.0-0.2); ABSOLUTE EOSINOPHIL COUNT 0.2 /CUMM (0.0-0.7); ABSOLUTE GRANULOCYTE CT 5.1 /CUMM (1.4-6.5); ABSOLUTE LYMPH COUNT 1.3 /CUMM (1.2-3.4); ABSOLUTE MONOCYTE COUNT 0.4 /CUMM (0.10-0.60); BASOPHIL % 0.5 % (0.0-2.0); EOSINOPHIL % 2.7 % (0-5); GRANULOCYTE % 72.2 % (42.2-75.2); HEMATOCRIT 35.5 % (42-52); MEAN CORPUSCULAR HGB 29.2 PG (27.0-31.0); MEAN CORPUSCULAR HGB CONC 32.5 G/DL (33.0-37.0); MEAN CORPUSCULAR VOLUME 89.9 FL (80.0-94.0); MEAN PLATELET VOLUME 6.1 FL (7.4-10.4); PLATELET COUNT 306 /CUMM (130-400); RED BLOOD CELL CT 3.95 /CUMM (4.70-6.10); WHITE BLOOD CELL COUNT 7.1 /CUMM (4.8-10.8)
--- NOTE | 2018-04-23 19:48 | History & Physical ---
General Information and HPI Allergies/Medications Allergies: Coded Allergies: No Known Allergies (04/23/18) Home Med list Atenolol 50 MG TABLET 1 TAB PO DAILY HEART (Reported) Benztropine Mesylate 1 MG TABLET 1 TAB PO BID MENTAL HEALTH (Reported) Esomeprazole (Nexium) 40 MG CAPSULE.DR 1 TAB PO DAILY ACID REFLUX (Reported) Finasteride 5 MG TABLET 1 TAB PO DAILY DIRECTED (Reported) Folic Acid 1 MG TABLET 1 TAB PO DAILY VITAMIN SUPPORT (Reported) Furosemide 20 MG TABLET 1 TAB PO DAILY WATER RETENTION (Reported) Haloperidol 5 MG TABLET 10 MG PO AT BEDTIME hold for oversedation or respiratory depression Haloperidol Decanoate 100 MG/ML VIAL 1.5 ML IM Q3WKS MENTAL HEALTH (Reported) Lacosamide (Vimpat) 50 MG TABLET 1 TAB PO BID MENTAL HEALTH (Reported) Lisinopril 40 MG TABLET 1 TAB PO DAILY HIGH BLOOD PRESSURE (Reported) LORazepam (Ativan) 1 MG TAB 1 TAB PO BID ANXIETY (Reported) Nitroglycerin (Nitroglycerin Patch) 0.4 MG/HOUR PATCH.TD24 1 PATCH TOP DAILY DIRECTED (Reported) Olanzapine (Zyprexa) 5 MG TABLET 1 TAB PO BID DIRECTED (Reported) Simvastatin (Simvastatin*) 20 MG TABLET 1 TAB PO QPM HIGH CHOLESTROL ( Reported) Tamsulosin HCl 0.4 MG CAP.ER.24H 1 CAP PO BID PROSTATE (Reported) Past History Travel History Traveled to [place] past 21 day No Medical History Neurological: CVA, TIA, R EYE BLINDNESS R ICA occlusion EENT: NONE Cardiovascular: AFIB, CAD, hypertension, hyperlipidemia, PVD Respiratory: EXERTIONAL SHORTNES OF BREATH Gastrointestinal: lower GI bleed, upper GI bleed Hepatic: NONE Renal: BARBARA Musculoskeletal: NONE Psychiatric: bipolar disease, schizophrenia Endocrine: NONE Blood Disorders: anemia Cancer(s): NONE 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 Psychosocial History Who Do You Live With? self Services at Home: None Primary Language: Vietnamese Functional Ability ADLs Needs Assist: dressing, eating, toileting, bathing. Ambulation: walker IADLs Needs Assist: shopping, housework, finances, food prep, telephone, transportation, medication admin. Core Measures/Misc (06/17) Sepsis (View protocol) Sepsis Present: No If YES complete Sepsis Event Note If YES complete Sepsis Event Note
--- NOTE | 2018-04-23 20:03 | PN- Att Addend ---
Attending Addendum Attending Brief Note 72-year-old white male just discharged from [facility] on the weekend. Once he got home again started per to be acting funny after he got his injection treatment. Again started to be a little agitated at times started complaining that his legs were heavy and could not walk started not eating well, for all those reasons patient's brings him to the emergency room where he was found to be a little bradycardic. Patient will be admitted, monitor his heart rate have cardiology see the patient and also needs to have psychiatry see the patient to evaluate these medications and see if he needs any change then after that again he will need a physical therapy evaluation to see if he can go home or hurts to go to the long term again. Laboratory Tests 04/23/18 1813: Urine Opiates Screen < 100, Methadone Screen < 40, Barbiturate Screen < 60, Ur Phencyclidine Scrn < 6.00, Amphetamines Screen < 100, U Benzodiazepines Scrn < 85, Urine Cocaine Screen < 50, Urine Cannabis Screen < 5.00, Urine Color STRAW, Urine Clarity CLEAR, Urine pH 6.5, Ur Specific [place] 1.010, Urine Protein NEG, Urine Ketones NEG, Urine Nitrite NEG, Urine Bilirubin NEG, Urine Urobilinogen 0.2, Ur Leukocyte Esterase NEG, Ur Microscopic EXAM NOT REQUIRED, Urine Hemoglobin NEG, Urine Glucose NEG 04/23/18 1550: Anion Gap 10, Estimated GFR > 60, BUN/Creatinine Ratio 12.2, Glucose 100 H, Calcium 9.3, Magnesium 1.8, Total Bilirubin 0.3, AST 17, ALT 22, Alkaline Phosphatase 103, Troponin I < 0.01, Total Protein 7.4, Albumin 3.8, Globulin 3.6 , Albumin/Globulin Ratio 1.1, CBC w Diff NO MAN DIFF REQ, RBC 3.95 L, MCV 89.9, MCH 29.2, MCHC 32.5 L, RDW 14.0, MPV 6.1 L, Gran % 72.2, Lymphocytes % 18.5 L , Monocytes % 6.1, Eosinophils % 2.7, Basophils % 0.5, Absolute Granulocytes 5.1 , Absolute Lymphocytes 1.3, Absolute Monocytes 0.4, Absolute Eosinophils 0.2, Absolute Basophils 0, Serum Alcohol < 10.0 04/23/18 1441: Magnesium Cancelled Vital Signs Date Time Temp Pulse Resp B/P B/P Pulse O2 O2 Flow FiO2 Mean Ox Delivery Rate 04/23 1944 97.5 48 20 120/79 96 Room Air 04/23 1703 97.5 47 20 110/64 97 Room Air 04/23 1503 97.8 52 20 116/60 98 Room Air 04/23 1301 97.6 58 16 94 Room Air Intake & Output 04/23 1600 Intake Total Output Total Balance Patient 256 lb Weight
--- NOTE | 2018-04-23 20:39 | History & Physical ---
See Addendum General Information and HPI History of Present Illness: 72-year-old man with past medical history of paranoid schizophrenia, bipolar disorder, malignant hypertension, and STEMI, hypertension, CAD, hyperlipidemia, TIA/CVA with residual left hemiparesis, PVD, GI bleed, PUD, and atrial fibrillation not on anticoagulation seen for evaluation of altered mental status , urinary incontinence, and suicidal ideation. Collateral information was obtained from patient's was present during the interview. She reports that her was discharged from [facility] after being there for 7 weeks this past Sunday. He received his intramuscular Haldol shot on Sunday evening which apparently makes him less responsive for a few days but improves his mood thereafter. Since arriving to home he has not been eating/drinking well and is afraid to do most of his activities of daily living. He reportedly made the statement that he would "be better off ". He also complained of lower extremity weakness and was afraid to ambulate. Patient's spoke to his psychiatrist Dr. Nayak whom recommended patient come to the [facility] for evaluation. Subjective complaints and review of systems are unobtainable from patient. Objective Vitals: Temp 97.5-97.8, HR 47-58, RR 16-20, BP 110-116/60-64, O2 94% on room air Physical exam -General: Pale confused/ill-appearing elderly man in no acute distress -HEENT: NCAT, [place], EOMI, anicteric sclera, dry oral mucosa -Neck: Supple, no JVD, trachea midline, no accessory respiratory muscle use -Cardio: Normal S1/S2 without murmurs/gallops/rubs; regular rate and rhythm -Pulmonary: Diminished bibasilar airflow -Abdomen: Soft, nontender, nondistended, bowel sounds intact -Neuro/psych: Oriented to self and place but not year or time, poor eye contact, slow but fluent speech, blunted affect, limited exam, spontaneous movement of all 4 extremities -Extremities: 1+ bilateral lower extremity edema Labs/imaging/studies -CBC: WBC 7.1, hemoglobin 11.5, hematocrit 35.5, platelet 306 -BMP: Sodium 137, potassium 4.4, chloride 97, CO2 29, BUN 11, creatinine 0.9, anion gap 10, glucose 100 -LFT: Within normal limits -Miscellaneous: Magnesium 1.8, troponin I <0.01, EtOH <10 -Urinalysis/urine toxicology: Unremarked -EKG: Junctional bradycardia with RBBB and left posterior fascicular block -Echocardiogram 09/17/17: LVEF 60-65% with hypokinetic inferior wall, trace MR, trace TR, moderate aortic sclerosis -EEG 02/28/18: Abnormal recording due to focal slowing within the left hemisphere and right centroparietal regions suggestive of possible underlying structural abnormalities and focal cerebral dysfunction. No clear suggestion of epileptogenic activity -MRI without gadolinium 02/28/18: - No acute intracranial abnormality. - Redemonstration of chronic infarcts within the left frontal lobe and in the right parietal lobe. - Mild small vessel ischemic changes and diffuse brain parenchymal volume loss. -CT head without IV contrast: 1. No acute intracranial pathology. 2. Chronic areas of encephalomalacia and gliosis in the posterior right parietal lobe and in the anterior left middle frontal gyrus. 3. Chronic ischemic small vessel disease and involutional changes in the periventricular white matter and subcortical white matter. Assessment 72-year-old man with multiple medical problems significant for paranoid schizophrenia and bipolar disorder and recent stay in [facility] for 7 weeks brought in by his for altered mental status, urinary incontinence, and suicidal ideation. Presently patient is unable to give subjective complaints or review of systems. Vital signs are significant for heart rate in 40s-50s. Physical exam demonstrates an ill appearing elderly man who is confused with a normal cardiopulmonary examination and nonfocal neurologic examination except baseline deficits. Labs including CBC, serum chemistry, LFTs, troponin I, UA, urine tox, and EtOH level are otherwise unremarkable or negative. Recent MRI and EEG demonstrated no acute abnormality without any epileptiform activity respectively. CT head without IV contrast demonstrated chronic and encephalomalacia with chronic changes. Clinically patient appears to have altered mental status possibly due to a toxic metabolic encephalopathy however he has no signs or symptoms of infection and is afebrile without leukocytosis. He likely has altered mental status due to his multiple psychiatric issues in the context of moving back home after a prolonged stay in a short-term rehab center. Patient appears to have been discharged to the detention on atenolol which was stopped during the last hospitalization for bradycardia which will be held now. Patient is to be placed under observation on the telemetry floor for telemetry monitoring, potentially transcutaneous pacing, one-to-one observation for SI, PT evaluation, and cardiology/psychiatry consultation. Problem list -Altered mental status, likely psychosomatic plus/minus delirium -Suicidal ideation -Junctional bradycardia -paranoid schizophrenia -Bipolar disorder -History of NSTEMI -hypertension -Hyperlipidemia -CAD -History of TIA/CVA with residual left hemiparesis -History of GI bleed and peptic ulcer disease -PVD -History of atrial fibrillation, not on anticoagulation Plan -Placed under observation on telemetry floor -Telemetry monitoring -Observation monitor for suicidal and -Seizure / Fall precautions -Keep pacer pads attached the patient -Atropine at bedside -Continue home meds: Benztropine, omeprazole, finasteride, folic acid, furosemide, Haldol, Vimpat, lisinopril, NTG patch, statin, Flomax -Hold atenolol for bradycardia -Hold Ativan for altered mental status -Consult with cardiology for junctional bradycardia -Consult with psychiatry for SI and mood disorder -Consider consult with neurology for anti-seizure drug interaction evaluation -PT evaluation for gait disturbance -Pain control with acetaminophen -Heart Healthy Diet with finger foods only -DVT prophylaxis with subcutaneous heparin -Full code Allergies/Medications Allergies: Coded Allergies: No Known Allergies (04/23/18) Home Med list Atenolol 50 MG TABLET 1 TAB PO DAILY HEART (Reported) Benztropine Mesylate 1 MG TABLET 1 TAB PO BID MENTAL HEALTH (Reported) Esomeprazole (Nexium) 40 MG CAPSULE.DR 1 TAB PO DAILY ACID REFLUX (Reported) Finasteride 5 MG TABLET 1 TAB PO DAILY DIRECTED (Reported) Folic Acid 1 MG TABLET 1 TAB PO DAILY VITAMIN SUPPORT (Reported) Furosemide 20 MG TABLET 1 TAB PO DAILY WATER RETENTION (Reported) Haloperidol 5 MG TABLET 10 MG PO AT BEDTIME hold for oversedation or respiratory depression Haloperidol Decanoate 100 MG/ML VIAL 1.5 ML IM Q3WKS MENTAL HEALTH (Reported) Lacosamide (Vimpat) 50 MG TABLET 1 TAB PO BID MENTAL HEALTH (Reported) Lisinopril 40 MG TABLET 1 TAB PO DAILY HIGH BLOOD PRESSURE (Reported) LORazepam (Ativan) 1 MG TAB 1 TAB PO BID ANXIETY (Reported) Nitroglycerin (Nitroglycerin Patch) 0.4 MG/HOUR PATCH.TD24 1 PATCH TOP DAILY DIRECTED (Reported) Olanzapine (Zyprexa) 5 MG TABLET 1 TAB PO BID DIRECTED (Reported) Simvastatin (Simvastatin*) 20 MG TABLET 1 TAB PO QPM HIGH CHOLESTROL ( Reported) Tamsulosin HCl 0.4 MG CAP.ER.24H 1 CAP PO DAILY bph (Reported) Past History Travel History Traveled to [place] past 21 day No Medical History Neurological: CVA, TIA, R EYE BLINDNESS R ICA occlusion EENT: NONE Cardiovascular: AFIB, CAD, hypertension, hyperlipidemia, PVD Respiratory: EXERTIONAL SHORTNES OF BREATH Gastrointestinal: lower GI bleed, upper GI bleed Hepatic: NONE Renal: BARBARA Musculoskeletal: NONE Psychiatric: bipolar disease, schizophrenia Endocrine: NONE Blood Disorders: anemia Cancer(s): NONE 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 Psychosocial History Who Do You Live With? self Services at Home: None Primary Language: Wolof Functional Ability ADLs Needs Assist: dressing, eating, toileting, bathing. Ambulation: walker IADLs Needs Assist: shopping, housework, finances, food prep, telephone, transportation, medication admin. Review of Systems Review of Systems Constitutional: Reports: see HPI. Exam & Diagnostic Data Last 24 Hrs of Vital Signs/I&O Vital Signs Date Time Temp Pulse Resp B/P B/P Pulse O2 O2 Flow FiO2 Mean Ox Delivery Rate 04/23 2121 97.4 47 14 104/58 94 04/23 1944 97.5 48 20 120/79 96 Room Air 04/23 1703 97.5 47 20 110/64 97 Room Air 04/23 1503 97.8 52 20 116/60 98 Room Air 04/23 1301 97.6 58 16 94 Room Air Intake & Output 04/23 1600 04/23 0800 04/23 0000 Intake Total Output Total Balance Patient 116.12 kg Weight Last 24 Hrs of Labs/Ramesh: Laboratory Tests 04/23/18 1813: Urine Opiates Screen < 100, Methadone Screen < 40, Barbiturate Screen < 60, Ur Phencyclidine Scrn < 6.00, Amphetamines Screen < 100, U Benzodiazepines Scrn < 85, Urine Cocaine Screen < 50, Urine Cannabis Screen < 5.00, Urine Color STRAW, Urine Clarity CLEAR, Urine pH 6.5, Ur Specific [place] 1.010, Urine Protein NEG, Urine Ketones NEG, Urine Nitrite NEG, Urine Bilirubin NEG, Urine Urobilinogen 0.2, Ur Leukocyte Esterase NEG, Ur Microscopic EXAM NOT REQUIRED, Urine Hemoglobin NEG, Urine Glucose NEG 04/23/18 1550: Anion Gap 10, Estimated GFR > 60, BUN/Creatinine Ratio 12.2, Glucose 100 H, Calcium 9.3, Magnesium 1.8, Total Bilirubin 0.3, AST 17, ALT 22, Alkaline Phosphatase 103, Troponin I < 0.01, Total Protein 7.4, Albumin 3.8, Globulin 3.6 , Albumin/Globulin Ratio 1.1, CBC w Diff NO MAN DIFF REQ, RBC 3.95 L, MCV 89.9, MCH 29.2, MCHC 32.5 L, RDW 14.0, MPV 6.1 L, Gran % 72.2, Lymphocytes % 18.5 L , Monocytes % 6.1, Eosinophils % 2.7, Basophils % 0.5, Absolute Granulocytes 5.1 , Absolute Lymphocytes 1.3, Absolute Monocytes 0.4, Absolute Eosinophils 0.2, Absolute Basophils 0, Serum Alcohol < 10.0 04/23/18 1441: Magnesium Cancelled Assessment/Plan As Ranked By This Provider Problem List: 1. Altered mental status 2. Suicide ideation 3. Bradycardia Core Measures/Misc (06/17) Acute Coronary Syndrome ACS Diagnosis: No Congestive Heart Failure Congestive Heart Failure Diagnosis No Cerebrovascular Accident CVA/TIA Diagnosis: No VTE (View Protocol) VTE Risk Factors Age>40 No Mechanical VTE Prophylaxis d/t N/A MechProphylax Ordered No VTE Pharm Prophylaxis d/t NA PharmProphylax ordered Sepsis (View protocol) Sepsis Present: No If YES complete Sepsis Event Note If YES complete Sepsis Event Note
[2018-04-23 21:21] VITALS: BP 104/58
[2018-04-24 06:26] VITALS: BP 106/70
[2018-04-24 07:55] LABS: ABSOLUTE BASOPHIL COUNT 0 /CUMM (0.0-0.2); ABSOLUTE EOSINOPHIL COUNT 0.3 /CUMM (0.0-0.7); ABSOLUTE GRANULOCYTE CT 4.6 /CUMM (1.4-6.5); ABSOLUTE LYMPH COUNT 1.2 /CUMM (1.2-3.4); ABSOLUTE MONOCYTE COUNT 0.4 /CUMM (0.10-0.60); BASOPHIL % 0.4 % (0.0-2.0); GRANULOCYTE % 70.8 % (42.2-75.2); HEMATOCRIT 33.2 % (42-52); MEAN CORPUSCULAR HGB 29.7 PG (27.0-31.0); MEAN CORPUSCULAR VOLUME 89.9 FL (80.0-94.0); MEAN PLATELET VOLUME 6.3 FL (7.4-10.4); PLATELET COUNT 301 /CUMM (130-400); RED BLOOD CELL CT 3.69 /CUMM (4.70-6.10); WHITE BLOOD CELL COUNT 6.4 /CUMM (4.8-10.8)
--- NOTE | 2018-04-24 09:39 | Cons- Cardiology ---
General Information and HPI Consulting Request Date of Consult: 04/24/18 Requested By: Lukas Andres MD Reason for Consult: Bradycardia and AMS Source of Information: patient, family, old records Exam Limitations: unable to give history History of Present Illness: Antonio Almanzar is a 72-year-old male who originally presented in 2004 with malignant hypertension, and also a zar-ME-[id number] myocardial infarction at the same time. He also had evidence of previous myocardial infarction on his electrocardiogram. His troponin originally was 0.96 and trended downwards. We did eventually do a stress test on him as an outpatient, which was suggestive of mild ischemia in the anterolateral wall and septum. However, mainly because of his mental status with schizophrenia and long stays in the inpatient psych unit we never sent him for an invasive evaluation. Also he became pretty much asymptomatic from a cardiac standpoint. Antonio was hospitalized twice in 2011 when he was here for dehydration and acute renal failure. This all resolved. He also had frequent falls, which were probably secondary to the dehydration. He was eventually sent to short-term rehab, but subsequently was sent home. He was evaluated for cognitive decline at that time. Antonio was again hospitalized in November 2016. At that time, he presented with mental status changes and delirium. I did see him in consultation in order to clear him for a change in his psychiatric regimen. There were no cardiac issues during that hospitalization. He did have an echo which showed LVH with normal LV function, some thickening of his mitral and aortic valves. Dr. Bah is following him from a vascular standpoint. 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 Antonio was hospitalized again from 09/16/2017 to 09/19/2017 with worsening weakness and lethargy, and unwitnessed fall. He had positive troponin to a peak of 1.16 which we thought was due to supply/demand mismatch or type 2 myocardial infarction. Because of his mental status issues, he was not considered a candidate for aggressive cardiac evaluation and he was discharged on basically the same cardiac medications. At his last office visit he was having some edema and I restarted him on a low- dose diuretic, Lasix 20 mg daily. Subsequently he was rehospitalized in March 2018 with seizures and bradycardia. His Atenolol was held in the hospital and is not on his discharge list. It is unclear whether he was taking it in the rehab facility. According to the she thinks he was taking it at home. He was discharged from the shelter just 3 days ago. According to the Antonio became agitated and was having hallucinations etc. since he was discharged and that is why she brought him to the ER yesterday. Allergies/Medications Allergies: Coded Allergies: No Known Allergies (04/23/18) Home Med List: Atenolol 50 MG TABLET 1 TAB PO DAILY HEART (Reported) Benztropine Mesylate 1 MG TABLET 1 TAB PO BID MENTAL HEALTH (Reported) Esomeprazole (Nexium) 40 MG CAPSULE.DR 1 TAB PO DAILY ACID REFLUX (Reported) Finasteride 5 MG TABLET 1 TAB PO DAILY DIRECTED (Reported) Folic Acid 1 MG TABLET 1 TAB PO DAILY VITAMIN SUPPORT (Reported) Furosemide 20 MG TABLET 1 TAB PO DAILY WATER RETENTION (Reported) Haloperidol 5 MG TABLET 10 MG PO AT BEDTIME hold for oversedation or respiratory depression Haloperidol Decanoate 100 MG/ML VIAL 1.5 ML IM Q3WKS MENTAL HEALTH (Reported) Lacosamide (Vimpat) 50 MG TABLET 1 TAB PO BID MENTAL HEALTH (Reported) Lisinopril 40 MG TABLET 1 TAB PO DAILY HIGH BLOOD PRESSURE (Reported) LORazepam (Ativan) 1 MG TAB 1 TAB PO BID ANXIETY (Reported) Nitroglycerin (Nitroglycerin Patch) 0.4 MG/HOUR PATCH.TD24 1 PATCH TOP DAILY DIRECTED (Reported) Olanzapine (Zyprexa) 5 MG TABLET 1 TAB PO BID DIRECTED (Reported) Simvastatin (Simvastatin*) 20 MG TABLET 1 TAB PO QPM HIGH CHOLESTROL ( Reported) Tamsulosin HCl 0.4 MG CAP.ER.24H 1 CAP PO DAILY bph (Reported) Current Medications: Current Medications Sig/Vidal Start time Last Medication Dose Route Stop Time Status Admin Acetaminophen 650 MG Q6P PRN 04/23 2100 AC PO Atorvastatin Calcium 10 MG 1700 04/24 1700 AC PO Atropine Sulfate 0.5 MG Q 5 MINUTES X 3 DO.. 04/23 2100 AC IV Benztropine Mesylate 1 MG BID 04/23 2100 AC 04/24 PO 0838 Finasteride 5 MG DAILY 04/24 09 AC 04/24 PO 0839 Folic Acid 1 MG DAILY 04/24 09 AC 04/24 PO 0840 Furosemide 20 MG DAILY 04/24 900 AC 04/24 PO 0839 Haloperidol 10 MG AT BEDTIME 04/23 2100 AC 04/23 PO 2334 Heparin Sodium 5,000 UNIT Q8 04/23 2200 AC 04/23 (Porcine) SC 2334 Lacosamide 50 MG BID 04/23 2100 AC 04/24 PO 0846 Lisinopril 40 MG DAILY 04/24 0900 AC 04/24 PO 0847 Nitroglycerin 0.4 MG DAILY 04/24 09 AC 04/24 TOP 0838 Olanzapine 5 MG BID 04/23 2100 AC 04/24 PO 0839 Omeprazole 40 MG DAILY AC 04/24 07 AC PO Tamsulosin HCl 0.4 MG DAILY 04/24 09 AC 04/24 PO 0845 Review of Systems Review of Systems: Unobtainable Past History Travel History Traveled to [place] past 21 day No Medical History Neurological: CVA, TIA, R EYE BLINDNESS R ICA occlusion EENT: NONE Cardiovascular: AFIB, CAD, hypertension, hyperlipidemia, PVD Respiratory: EXERTIONAL SHORTNES OF BREATH Gastrointestinal: lower GI bleed, upper GI bleed Hepatic: NONE Renal: BARBARA Musculoskeletal: NONE Psychiatric: bipolar disease, schizophrenia Endocrine: NONE Blood Disorders: anemia Cancer(s): NONE 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 Psychosocial History Who Do You Live With? self Services at Home: None Primary Language: Belarusian Smoking Status: Unknown If Ever Smoked Functional Ability ADLs Needs Assist: dressing, eating, toileting, bathing. Ambulation: walker IADLs Needs Assist: shopping, housework, finances, food prep, telephone, transportation, medication admin. Exam & Diagnostic Data Vital Signs and I&O Vital Signs Date Time Temp Pulse Resp B/P B/P Pulse O2 O2 Flow FiO2 Mean Ox Delivery Rate 04/24 0847 49 138/80 04/24 0845 49 138/80 04/24 0626 97.8 51 18 106/70 93 Room Air 04/24 0000 Room Air 04/23 2121 97.4 47 14 104/58 94 04/23 1944 97.5 48 20 120/79 96 Room Air 04/23 1703 97.5 47 20 110/64 97 Room Air 04/23 1503 97.8 52 20 116/60 98 Room Air 04/23 1301 97.6 58 16 94 Room Air Intake & Output 04/24 0804/24 0000 04/23 1600 04/23 0800 04/23 0000 Intake Total 60 Output Total 1050 Balance 60 -1050 Intake, Oral 60 Output, Urine 1050 Patient 241 lb 256 lb Weight Physical Exam: He is awake but not responsive to questioning. His pulse rate is 66 at this time HEENT exam is normal Chest is clear Heart very soft heart sounds, no murmurs, normal rate No peripheral edema Labs/Ramesh Results: Laboratory Tests 04/24 0645 Chemistry Sodium (137 - 145 mmol/L) 138 Potassium (3.5 - 5.1 mmol/L) 4.3 Chloride (98 - 107 mmol/L) 99 Carbon Dioxide (22 - 30 mmol/L) 27 Anion Gap (5 - 16) 13 BUN (9 - 20 mg/dL) 12 Creatinine (0.7 - 1.2 mg/dL) 0.9 Estimated GFR (>60 ml/min) > 60 BUN/Creatinine Ratio (7 - 25 %) 13.3 Magnesium (1.6 - 2.3 mg/dL) 1.8 Vitamin B12 (239 - 931 pg/mL) Pending Folate (2.76 - 20.0 ng/mL) Pending TSH &T3 &Free T4 Intrp (0.27 - 4.20 uIU/mL) 1.030 Hematology CBC w Diff NO MAN DIFF REQ WBC (4.8 - 10.8 /CUMM) 6.4 RBC (4.70 - 6.10 /CUMM) 3.69 L Hgb (14.0 - 18.0 G/DL) 10.9 L Hct (42 - 52 %) 33.2 L MCV (80.0 - 94.0 FL) 89.9 MCH (27.0 - 31.0 PG) 29.7 MCHC (33.0 - 37.0 G/DL) 33.0 RDW (11.5 - 14.5 %) 14.0 Plt Count (130 - 400 /CUMM) 301 MPV (7.4 - 10.4 FL) 6.3 L Gran % (42.2 - 75.2 %) 70.8 Lymphocytes % (20.5 - 51.1 %) 18.3 L Monocytes % (1.7 - 9.3 %) 6.5 Eosinophils % (0 - 5 %) 4.0 Basophils % (0.0 - 2.0 %) 0.4 Absolute Granulocytes (1.4 - 6.5 /CUMM) 4.6 Absolute Lymphocytes (1.2 - 3.4 /CUMM) 1.2 Absolute Monocytes (0.10 - 0.60 /CUMM) 0.4 Absolute Eosinophils (0.0 - 0.7 /CUMM) 0.3 Absolute Basophils (0.0 - 0.2 /CUMM) 0 04/23 04/23 1813 1550 Chemistry Sodium (137 - 145 mmol/L) 137 Potassium (3.5 - 5.1 mmol/L) 4.4 Chloride (98 - 107 mmol/L) 97 L Carbon Dioxide (22 - 30 mmol/L) 29 Anion Gap (5 - 16) 10 BUN (9 - 20 mg/dL) 11 Creatinine (0.7 - 1.2 mg/dL) 0.9 Estimated GFR (>60 ml/min) > 60 BUN/Creatinine Ratio (7 - 25 %) 12.2 Glucose (65 - 99 mg/dL) 100 H Calcium (8.4 - 10.2 mg/dL) 9.3 Magnesium (1.6 - 2.3 mg/dL) 1.8 Total Bilirubin (0.2 - 1.3 mg/dL) 0.3 AST (17 - 59 U/L) 17 ALT (21 - 72 U/L) 22 Alkaline Phosphatase (< 127 U/L) 103 Troponin I (<0.11 ng/ml) < 0.01 Total Protein (6.3 - 8.2 g/dL) 7.4 Albumin (3.5 - 5.0 g/dL) 3.8 Globulin (1.9 - 4.2 gm/dL) 3.6 Albumin/Globulin Ratio (1.1 - 2.2 %) 1.1 Hematology CBC w Diff NO MAN DIFF REQ WBC (4.8 - 10.8 /CUMM) 7.1 RBC (4.70 - 6.10 /CUMM) 3.95 L Hgb (14.0 - 18.0 G/DL) 11.5 L Hct (42 - 52 %) 35.5 L MCV (80.0 - 94.0 FL) 89.9 MCH (27.0 - 31.0 PG) 29.2 MCHC (33.0 - 37.0 G/DL) 32.5 L RDW (11.5 - 14.5 %) 14.0 Plt Count (130 - 400 /CUMM) 306 MPV (7.4 - 10.4 FL) 6.1 L Gran % (42.2 - 75.2 %) 72.2 Lymphocytes % (20.5 - 51.1 %) 18.5 L Monocytes % (1.7 - 9.3 %) 6.1 Eosinophils % (0 - 5 %) 2.7 Basophils % (0.0 - 2.0 %) 0.5 Absolute Granulocytes (1.4 - 6.5 /CUMM) 5.1 Absolute Lymphocytes (1.2 - 3.4 /CUMM) 1.3 Absolute Monocytes (0.10 - 0.60 /CUMM) 0.4 Absolute Eosinophils (0.0 - 0.7 /CUMM) 0.2 Absolute Basophils (0.0 - 0.2 /CUMM) 0 Toxicology Urine Opiates Screen (>2000 NG/ML) < 100 Methadone Screen (>300 NG/ML) < 40 Barbiturate Screen (>200 NG/ML) < 60 Ur Phencyclidine Scrn (>25 NG/ML) < 6.00 Amphetamines Screen (>1000 NG/ML) < 100 U Benzodiazepines Scrn (>200 NG/ML) < 85 Urine Cocaine Screen (>300 NG/ML) < 50 Urine Cannabis Screen (>50 NG/ML) < 5.00 Serum Alcohol (<10 MG/DL) < 10.0 Urines Urine Color (YEL,AMB,STR) STRAW Urine Clarity (CLEAR) CLEAR Urine pH (5.0 - 8.0) 6.5 Ur Specific [place] (1.001 - 1.035) 1.010 Urine Protein (NEG,<30 MG/DL) NEG Urine Ketones (NEG) NEG Urine Nitrite (NEG) NEG Urine Bilirubin (NEG) NEG Urine Urobilinogen (0.1 - 1.0 EU/dl) 0.2 Ur Leukocyte Esterase (NEG) NEG Ur Microscopic EXAM NOT REQUIRED Urine Hemoglobin (NEG) NEG Urine Glucose (N MG/DL) NEG 04/23 1441 Chemistry Magnesium Cancelled Diagnostic Data EKG Results 1st EKG shows Sinus Bradycardia @ 47, RBBB, LPFB, old IMI, 2nd EKG unchanged. CXR Results Not done Other Results CT head: IMPRESSION: 1. No acute intracranial pathology. 2. Chronic areas of encephalomalacia and gliosis in the posterior right parietal lobe and in the anterior left middle frontal gyrus. 3. Chronic ischemic small vessel disease and involutional changes in the periventricular white matter and subcortical white matter. DICTATED BY: Maya Gomez MD DATE/TIME DICTATED:04/23/181512 FILM WRITER:TASHI DATE/TIME TRANSCRIBED:04/23/181512 CONFIDENTIAL, DO NOT COPY WITHOUT APPROPRIATE AUTHORIZATION. <Electronically signed in Other Vendor System> SIGNED BY: Maya Gomez MD [id number] Assessment/Plan Assessment/Plan Antonio presents with altered mental status probably exacerbation of his psychiatric issues. He is also bradycardic, probably due to being back on beta blockers. Some of the psych meds can also cause bradycardia. He has underlying CAD, but this is asymptomatic at this time. For now I would permanently discontinue his beta blockers. If he remains bradycardic then we can research his other medications to see if they may have an effect. I think his pacer pads can be removed as it is very unlikely he will need external pacing. Copies To: Lukas Andres MD Consult Acknowledgment - Thank you for your consult request.
--- NOTE | 2018-04-24 10:15 | Cons- Psychiatry ---
Psychiatric Consult Date of Consult: 04/24/18 Reason for Consult: "Altered mental status, incontinence of urine with SI" History of Present Illness: The patient is a 72-year-old male who attends [facility] as an outpatient and carries a diagnosis of generalized anxiety disorder. His medication regime has been relatively consistent for some time. Review of his outpatient notes reveals that his symptoms have been difficult to control. The patient is seen every 6 months and was last seen in November of this year. His outpatient psychiatrist, Zaira Nayak MD is out of the office today and I will contact her again tomorrow. The patient was admitted medically at the end of January of this year with a UTI and frequent falls. There he was discharged to a rehabilitation facility for strengthening. He was discharged home last April 21. The patient's symptoms render him unable to give a history at this time. I met with his with the patient's consent. The patient's reports that the patient has been increasingly anxious over the last few weeks or months. He seems to have deteriorated significantly since discharge from [facility] where he was for 7 weeks. She reports that even while at that facility patient was constantly afraid that he would be unable to walk, afraid that he would fall. She had to attend all of his physical therapy sessions with him or he would not participate. This in itself was not unusual as he is very dependent on her at baseline. Since discharge however she reports that he has been somewhat irrational. For example he has been refusing fluids stating that if he drinks he has to urinate and then he will "from the house". Likewise he has been refusing food sitting up will make his body too heavy for his legs to carry. She also reports that in the past the patient has been paranoid about food contamination. She says that the patient communicated with her today telling her that he misses her. When asked she says that his face has been masklike since his CVA in 2009. She says he normally does not display motion but was tearful at home. She is not concerned that he wishes to take his own life. Past psychiatric history: Carries a diagnosis of paranoid schizophrenia, chronic as well as generalized anxiety disorder. Outpatient records indicate that the patient has been somewhat difficult to treat and is currently maintained on 2 antipsychotics both oral and intramuscular. His last admission to this facility was in 2011 with one previous admission in 2004. He sees Dr. Nayak for outpatient treatment and is on 6 monthly medication checks. Substance abuse history: Old notes reports a remote history of alcohol dependence. The patient has been abstinent for some time. Past medical history: malignant hypertension, and STEMI, hypertension, CAD, hyperlipidemia, TIA/CVA with residual left hemiparesis, PVD, GI bleed, PUD, and atrial fibrillation not on anticoagulation Social/personal: The patient lives with his who is a retired teacher. She is supportive and accompanies him to all of his appointments. Allergies: Coded Allergies: No Known Allergies (04/23/18) Current Medications: Med Acetaminophen 650 MG PO Q6P PRN 04/23/18 2100 Atorvastatin Calcium 10 MG PO 1700 04/24/18 1700 Atropine Sulfate 0.5 MG IV Q 5 MINUTES X 3 DOSE PRN 04/23/18 2100 Benztropine Mesylate 1 MG PO BID 04/23/18 2100 Finasteride 5 MG PO DAILY 04/24/18 0900 Folic Acid 1 MG PO DAILY 04/24/18 0900 Furosemide 20 MG PO DAILY 04/24/18 0900 Haloperidol 10 MG PO AT BEDTIME 04/23/18 2100 Heparin Sodium (Porcine) 5,000 UNIT SC Q8 04/23/18 2200 Lacosamide 50 MG PO BID 04/23/18 2100 Lisinopril 40 MG PO DAILY 04/24/18 0900 Nitroglycerin 0.4 MG TOP DAILY 04/24/18 0900 Olanzapine 5 MG PO BID 04/23/18 2100 Omeprazole 40 MG PO DAILY AC 04/24/18 0700 Tamsulosin HCl 0.4 MG PO DAILY 04/24/18 0900 Acetaminophen 650 MG PO Q6P PRN 04/23/18 2100 Atorvastatin Calcium 10 MG PO 1700 04/24/18 1700 Atropine Sulfate 0.5 MG IV Q 5 MINUTES X 3 DOSE PRN 04/23/18 2100 Benztropine Mesylate 1 MG PO BID 04/23/18 2100 Finasteride 5 MG PO DAILY 04/24/18 0900 Folic Acid 1 MG PO DAILY 04/24/18 0900 Furosemide 20 MG PO DAILY 04/24/18 0900 Haloperidol 10 MG PO AT BEDTIME 04/23/18 2100 Heparin Sodium (Porcine) 5,000 UNIT SC Q8 04/23/180 Lacosamide 50 MG PO BID 04/23/182099 Lisinopril 40 MG PO DAILY 04/24/18899 Nitroglycerin 0.4 MG TOP DAILY 04/24/18899 Olanzapine 5 MG PO BID 04/23/182099 Omeprazole 40 MG PO DAILY AC 04/24/18699 Tamsulosin HCl 0.4 MG PO DAILY 04/24/18899 Past History Past Medical History Neurological: CVA, TIA, R EYE BLINDNESS R ICA occlusion EENT: NONE Cardiovascular: AFIB, CAD, hypertension, hyperlipidemia, PVD Respiratory: EXERTIONAL SHORTNES OF BREATH Gastrointestinal: lower GI bleed, upper GI bleed Hepatic: NONE Renal: BARBARA Musculoskeletal: NONE Psychiatric: bipolar disease, schizophrenia Endocrine: NONE Blood Disorders: anemia 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 He turned his head when I called his name but did not respond verbally. He was actively resistant when I tried to check his limbs for tone. As far as I can determine tone is normal in his functioning limits. He is hemiparetic. There is some purposeless movements of his hands. The patient was nonverbal. Eye contact was intermittent. Affect seemed anxious, frightened, guarded. No evidence of active suicidality. Unable to assess thought process. Did not appear to be responding to internal stimuli. Unable to assess attention or concentration. Unable to assess cognition. Insight at this time seems poor and judgment is impaired. Lab Results: Lab Chloride 99 mmol/L 04/24/18 0645 Potassium 4.3 mmol/L 04/24/18 0645 Sodium 138 mmol/L 04/24/18 0645 Hct 33.2 % L 04/24/18 06 Hgb 10.9 G/DL L 04/24/18 06 MCH 29.7 PG 04/24/18 0645 MCV 89.9 FL 04/24/1845 MPV 6.3 FL L 04/24/18 0645 Plt Count 301 /CUMM 04/24/18 0645 RBC 3.69 /CUMM L 04/24/18 0645 WBC 6.4 /CUMM 04/24/18 0645 Ur Leukocyte Esterase NEG 04/23/18 1813 Ur Specific Bent 1.010 04/23/18 1813 Urine Bilirubin NEG 04/23/18 1813 Urine Clarity CLEAR 04/23/18 1813 Urine Color STRAW 04/23/18 1813 Urine Glucose NEG MG/DL 04/23/18 1813 Urine Hemoglobin NEG 04/23/18 1813 Urine Ketones NEG 04/23/18 1813 Urine Nitrite NEG 04/23/18 1813 Urine Protein NEG MG/DL 04/23/18 181 Urine Urobilinogen 0.2 EU/dl 04/23/18 181 Urine pH 6.5 04/23/[address] brain 04/23: IMPRESSION: 1. No acute intracranial pathology. 2. Chronic areas of encephalomalacia and gliosis in the posterior right parietal lobe and in the anterior left middle frontal gyrus. 3. Chronic ischemic small vessel disease and involutional changes in the periventricular white matter and subcortical white matter. Diffential Diagnosis: 1. CT brain that revealed acute intracranial pathology. 2. Paranoid psychosis 3. Anxiety 4. Extrapyramidal side effects Impression: The patient is not suicidal. The patient has a chronic history of paranoia and anxiety that have been difficult to treat. Over the last few months he has had an increase in stressors and outpatient notes as well as notes during his last inpatient admission, and on his fear of falling. His symptoms were exacerbated by discharge from the relatively safe setting of rehab. The patient has an underlying fear of falling. Of note there are possibly cerebellar infarcts on his MRI which may be contributing to his difficulty in balance. Diffuse encapsulation and gliosis are also of note. The patient is low functioning at baseline. Provisional Treatment Plan: 1. Discontinue suicide precautions 2. Consider neurology consult 3. Increase olanzapine to a total of 50 mg daily. The patient has tolerated this dose previously. 4. Note that lorazepam has been discontinued. The patient has been on 1 mg of lorazepam twice a day for several years. Suggest this be reintroduced. 5. Continue haloperidol, benztropine as ordered. The patient also gets haloperidol 150 mg IM every 3 weeks last administered on April 21. 6. can be of benefit in helping alleviate the patient's anxiety and encouraging him to eat and drink. The patient may also respond better to sealed food and fluids to assuaged fears of contamination. 7. As the patient improves will benefit from PT We will continue to follow this patient. Thank you for the consult.
--- NOTE | 2018-04-24 10:16 | PN- Att Addend ---
Attending Addendum Attending Brief Note Patient worse this morning. Patient is not talking patient staring at people. Had a physical therapy evaluation but unable to get any results. Heart rate between 49 and 57 rest of the vital signs are stable no fever. Patient has a psychiatric initial evaluation, psychiatry suggested or recommended a neurology consult to make sure there was no CVA. We will continue observation and hopefully adjust his medications. 24 TOTALS 04/24 0000 04/23 0000 Intake Total Output Total 1050 Balance -1050 Output, Urine 1050 Patient 241 lb Weight Current Medications Sig/Vidal Start time Last Medication Dose Route Stop Time Status Admin Acetaminophen 650 MG Q6P PRN 04/23 2100 AC PO Atorvastatin Calcium 10 MG 1700 04/24 1700 AC PO Atropine Sulfate 0.5 MG Q 5 MINUTES X 3 DO.. 04/23 2100 AC IV Benztropine Mesylate 1 MG BID 04/23 2100 AC 04/24 PO 0838 Finasteride 5 MG DAILY 04/24 09 AC 04/24 PO 0839 Folic Acid 1 MG DAILY 04/24 09 AC 04/24 PO 0840 Furosemide 20 MG DAILY 04/24 09 AC 04/24 PO 0839 Haloperidol 10 MG AT BEDTIME 04/23 2100 AC 04/23 PO 2334 Heparin Sodium 5,000 UNIT Q8 04/23 2200 AC 04/23 (Porcine) SC 2334 Lacosamide 50 MG BID 04/23 2100 AC 04/24 PO 0846 Lisinopril 40 MG DAILY 04/24 09 AC 04/24 PO 0847 Nitroglycerin 0.4 MG DAILY 04/24 09 AC 04/24 TOP 0838 Olanzapine 5 MG BID 04/23 2100 AC 04/24 PO 0839 Omeprazole 40 MG DAILY AC 04/24 07 AC PO Tamsulosin HCl 0.4 MG DAILY 04/24 09 AC 04/24 PO 0845 Laboratory Tests 04/24 06 Chemistry Sodium (137 - 145 mmol/L) 138 Potassium (3.5 - 5.1 mmol/L) 4.3 Chloride (98 - 107 mmol/L) 99 Carbon Dioxide (22 - 30 mmol/L) 27 Anion Gap (5 - 16) 13 BUN (9 - 20 mg/dL) 12 Creatinine (0.7 - 1.2 mg/dL) 0.9 Estimated GFR (>60 ml/min) > 60 BUN/Creatinine Ratio (7 - 25 %) 13.3 Magnesium (1.6 - 2.3 mg/dL) 1.8 Vitamin B12 (239 - 931 pg/mL) 760 Folate (2.76 - 20.0 ng/mL) > 20.0 H TSH &T3 &Free T4 Intrp (0.27 - 4.20 uIU/mL) 1.030 Hematology CBC w Diff NO MAN DIFF REQ WBC (4.8 - 10.8 /CUMM) 6.4 RBC (4.70 - 6.10 /CUMM) 3.69 L Hgb (14.0 - 18.0 G/DL) 10.9 L Hct (42 - 52 %) 33.2 L MCV (80.0 - 94.0 FL) 89.9 MCH (27.0 - 31.0 PG) 29.7 MCHC (33.0 - 37.0 G/DL) 33.0 RDW (11.5 - 14.5 %) 14.0 Plt Count (130 - 400 /CUMM) 301 MPV (7.4 - 10.4 FL) 6.3 L Gran % (42.2 - 75.2 %) 70.8 Lymphocytes % (20.5 - 51.1 %) 18.3 L Monocytes % (1.7 - 9.3 %) 6.5 Eosinophils % (0 - 5 %) 4.0 Basophils % (0.0 - 2.0 %) 0.4 Absolute Granulocytes (1.4 - 6.5 /CUMM) 4.6 Absolute Lymphocytes (1.2 - 3.4 /CUMM) 1.2 Absolute Monocytes (0.10 - 0.60 /CUMM) 0.4 Absolute Eosinophils (0.0 - 0.7 /CUMM) 0.3 Absolute Basophils (0.0 - 0.2 /CUMM) 0 04/23 04/23 1813 1550 Chemistry Sodium (137 - 145 mmol/L) 137 Potassium (3.5 - 5.1 mmol/L) 4.4 Chloride (98 - 107 mmol/L) 97 L Carbon Dioxide (22 - 30 mmol/L) 29 Anion Gap (5 - 16) 10 BUN (9 - 20 mg/dL) 11 Creatinine (0.7 - 1.2 mg/dL) 0.9 Estimated GFR (>60 ml/min) > 60 BUN/Creatinine Ratio (7 - 25 %) 12.2 Glucose (65 - 99 mg/dL) 100 H Calcium (8.4 - 10.2 mg/dL) 9.3 Magnesium (1.6 - 2.3 mg/dL) 1.8 Total Bilirubin (0.2 - 1.3 mg/dL) 0.3 AST (17 - 59 U/L) 17 ALT (21 - 72 U/L) 22 Alkaline Phosphatase (< 127 U/L) 103 Troponin I (<0.11 ng/ml) < 0.01 Total Protein (6.3 - 8.2 g/dL) 7.4 Albumin (3.5 - 5.0 g/dL) 3.8 Globulin (1.9 - 4.2 gm/dL) 3.6 Albumin/Globulin Ratio (1.1 - 2.2 %) 1.1 Hematology CBC w Diff NO MAN DIFF REQ WBC (4.8 - 10.8 /CUMM) 7.1 RBC (4.70 - 6.10 /CUMM) 3.95 L Hgb (14.0 - 18.0 G/DL) 11.5 L Hct (42 - 52 %) 35.5 L MCV (80.0 - 94.0 FL) 89.9 MCH (27.0 - 31.0 PG) 29.2 MCHC (33.0 - 37.0 G/DL) 32.5 L RDW (11.5 - 14.5 %) 14.0 Plt Count (130 - 400 /CUMM) 306 MPV (7.4 - 10.4 FL) 6.1 L Gran % (42.2 - 75.2 %) 72.2 Lymphocytes % (20.5 - 51.1 %) 18.5 L Monocytes % (1.7 - 9.3 %) 6.1 Eosinophils % (0 - 5 %) 2.7 Basophils % (0.0 - 2.0 %) 0.5 Absolute Granulocytes (1.4 - 6.5 /CUMM) 5.1 Absolute Lymphocytes (1.2 - 3.4 /CUMM) 1.3 Absolute Monocytes (0.10 - 0.60 /CUMM) 0.4 Absolute Eosinophils (0.0 - 0.7 /CUMM) 0.2 Absolute Basophils (0.0 - 0.2 /CUMM) 0 Toxicology Urine Opiates Screen (>2000 NG/ML) < 100 Methadone Screen (>300 NG/ML) < 40 Barbiturate Screen (>200 NG/ML) < 60 Ur Phencyclidine Scrn (>25 NG/ML) < 6.00 Amphetamines Screen (>1000 NG/ML) < 100 U Benzodiazepines Scrn (>200 NG/ML) < 85 Urine Cocaine Screen (>300 NG/ML) < 50 Urine Cannabis Screen (>50 NG/ML) < 5.00 Serum Alcohol (<10 MG/DL) < 10.0 Urines Urine Color (YEL,AMB,STR) STRAW Urine Clarity (CLEAR) CLEAR Urine pH (5.0 - 8.0) 6.5 Ur Specific [place] (1.001 - 1.035) 1.010 Urine Protein (NEG,<30 MG/DL) NEG Urine Ketones (NEG) NEG Urine Nitrite (NEG) NEG Urine Bilirubin (NEG) NEG Urine Urobilinogen (0.1 - 1.0 EU/dl) 0.2 Ur Leukocyte Esterase (NEG) NEG Ur Microscopic EXAM NOT REQUIRED Urine Hemoglobin (NEG) NEG Urine Glucose (N MG/DL) NEG 04/23 1441 Chemistry Magnesium Cancelled Vital Signs Date Time Temp Pulse Resp B/P B/P Pulse O2 O2 Flow FiO2 Mean Ox Delivery Rate 04/24 0847 49 138/80 04/24 0845 49 138/80 04/24 0626 97.8 51 18 106/70 93 Room Air 04/24 0000 Room Air 04/23 2121 97.4 47 14 104/58 94 04/23 1944 97.5 48 20 120/79 96 Room Air 04/23 1703 97.5 47 20 110/64 97 Room Air 04/23 1503 97.8 52 20 116/60 98 Room Air 04/23 1301 97.6 58 16 94 Room Air Beta-daisy on hold. We will also get a cardiology evaluation while in the hospital.
--- NOTE | 2018-04-24 12:00 | PN-Observation ---
Observation Note Observation Note _ I have personally examined CANDIDO TIRADO. him disposition is uncertain at this time. Before a determination can be made, he requires continued observation for the following reasons []. Patient is here for altered mental status secondary to mood disorder, paranoid psychosis and anxiety. Psychiatrist on board, recommended neuro input and geriatric psych placement. Also patient has asymptomatic bradycardia, study lead on board, stopped atenolol, heart rate improved up to 70. Assessment/Plan Medical Assessment: 72-year-old man with past medical history of paranoid schizophrenia, bipolar disorder, malignant hypertension, and STEMI, hypertension, CAD, hyperlipidemia, TIA/CVA with residual left hemiparesis, PVD, GI bleed, PUD, and atrial fibrillation not on anticoagulation seen for evaluation of altered mental status , urinary incontinence, and suicidal ideation. Vitals: Temp 97.5-97.8, HR 47-58, RR 16-20, BP 110-116/60-64, O2 94% on room air Labs/imaging/studies -CBC: WBC 7.1, hemoglobin 11.5, hematocrit 35.5, platelet 306 -BMP: Sodium 137, potassium 4.4, chloride 97, CO2 29, BUN 11, creatinine 0.9, anion gap 10, glucose 100 -LFT: Within normal limits -Miscellaneous: Magnesium 1.8, troponin I <0.01, EtOH <10 -Urinalysis/urine toxicology: Unremarked -EKG: Junctional bradycardia with RBBB and left posterior fascicular block -Echocardiogram 09/17/17: LVEF 60-65% with hypokinetic inferior wall, trace MR, trace TR, moderate aortic sclerosis -EEG 02/28/18: Abnormal recording due to focal slowing within the left hemisphere and right centroparietal regions suggestive of possible underlying structural abnormalities and focal cerebral dysfunction. No clear suggestion of epileptogenic activity -MRI without gadolinium 02/28/18: - No acute intracranial abnormality. - Redemonstration of chronic infarcts within the left frontal lobe and in the right parietal lobe. - Mild small vessel ischemic changes and diffuse brain parenchymal volume loss. -CT head without IV contrast: 1. No acute intracranial pathology. 2. Chronic areas of encephalomalacia and gliosis in the posterior right parietal lobe and in the anterior left middle frontal gyrus. 3. Chronic ischemic small vessel disease and involutional changes in the periventricular white matter and subcortical white matter. Altered mental status secondary to mood disorder -paranoid psychosis and anxiety this patient has chronic history of paranoid and anxiety that have been difficult to treat. Over the last few months he has had increasing stressors. His symptoms were exacerbated by discharge from rehab. He has fear of falling. He has been on medications for paranoid psychosis and anxiety. He reported to his that he would like to . However he was evaluated by psychiatrist this morning, discontinued suicide precautions. * Will continue his home dose of lorazepam 1 million twice daily * Continue haloperidol 10 mg at bedtime * Continue benztropine * Patient gets haloperidol 150 mg IM injection every 3 weeks, last administered on April 21 * Continue olanzapine 10 mg twice daily * Patient may benefit from geriatric psych admission Asymptomatic bradycardia Patient was last admitted to [facility] in March 2018 with seizures and bradycardia. His atenolol was held in the hospital. However it is unclear whether he was taking it in the rehab facility. According to the she thinks he was taking at home. Bradycardia most likely from atenolol and other psychiatric medications. EKG showed sinus bradycardia, 47, right bundle branch block, left posterior fascicular block within no further EKG changes. * Completely stop beta-blockers atenolol. * Follow-up cardiology recommendations * Continuous telemetry monitoring Hyperlipidemia continue statin BPH continue Flomax and finasteride Hypertension continue lisinopril 40 daily, Lasix 20 daily GERD continue Nexium daily History of seizures continue Vimpat to daily DVT prophylaxis subcu heparin regular diet Full code Problem List: 1. Altered mental status 2. AMS DVT/Prophylaxis: pharmacological Subjective Follow-up For: Altered mental status likely secondary to his mood disorder asymptomatic bradycardia Complaints: no complaints Tele-Events Since Last Visit: Sinus rhythm, sinus bradycardia Subjective: Patient was seen and examined. He is not able to give any history at this time Review of Systems Constitutional: Reports: see HPI. Denies: chills. Objective Last 24 Hrs of Vital Signs/I&O Vital Signs Date Time Temp Pulse Resp B/P B/P Pulse O2 O2 Flow FiO2 Mean Ox Delivery Rate 04/24 0847 49 138/80 04/24 0845 49 138/80 04/24 0800 Room Air 04/24 0626 97.8 51 18 106/70 93 Room Air 04/24 0000 Room Air 04/231 97.4 47 14 104/58 94 04/23 1944 97.5 48 20 120/79 96 Room Air 04/23 1703 97.5 47 20 110/64 97 Room Air 04/23 1503 97.8 52 20 116/60 98 Room Air 04/23 1301 97.6 58 16 94 Room Air Intake & Output 04/24 1600 04/24 0800 04/24 0000 Intake Total 60 Output Total 1050 Balance 60 -1050 Intake, Oral 60 Output, Urine 1050 Patient 109.486 kg Weight Physical Exam General Appearance: Alert, Oriented X3, Cooperative, No Acute Distress Other Physical Findings: HEENT: NCAT, [place], EOMI, anicteric sclera, dry oral mucosa -Neck: Supple, no JVD, trachea midline, no accessory respiratory muscle use -Cardio: Normal S1/S2 without murmurs/gallops/rubs; regular rate and rhythm -Pulmonary: Diminished bibasilar airflow -Abdomen: Soft, nontender, nondistended, bowel sounds intact -Neuro/psych: Oriented to self and place but not year or time, poor eye contact, slow but fluent speech, blunted affect, limited exam, spontaneous movement of all 4 extremities -Extremities: 1+ bilateral lower extremity edema Current Medications: Current Medications Sig/Vidal Start time Last Medication Dose Route Stop Time Status Admin Acetaminophen 650 MG Q6P PRN 04/23 2100 AC PO Atorvastatin Calcium 10 MG 1700 04/24 1700 AC PO Atropine Sulfate 0.5 MG Q 5 MINUTES X 3 DO.. 04/23 2100 AC IV Benztropine Mesylate 1 MG BID 04/23 2100 AC 04/24 PO 0838 Finasteride 5 MG DAILY 04/24 09 AC 04/24 PO 0839 Folic Acid 1 MG DAILY 04/24 0900 AC 04/24 PO 0840 Furosemide 20 MG DAILY 04/24 09 AC 04/24 PO 0839 Haloperidol 10 MG AT BEDTIME 04/23 2100 AC 04/23 PO 2334 Heparin Sodium 5,000 UNIT Q8 04/23 2200 AC 04/23 (Porcine) SC 2334 Lacosamide 50 MG BID 04/23 2100 AC 04/24 PO 0846 Lisinopril 40 MG DAILY 04/24 09 AC 04/24 PO 0847 Lorazepam 1 MG BID 04/24 1208 AC 04/24 PO 1213 Nitroglycerin 0.4 MG DAILY 04/24 0900 AC 04/24 TOP 0838 Olanzapine 10 MG BID 04/24 2100 UNVr PO Olanzapine 5 MG ONCE ONE 04/24 1100 DC 04/24 PO 04/24 1101 1130 Olanzapine 5 MG BID 04/23 2100 DC 04/24 PO 0839 Omeprazole 40 MG DAILY AC 04/24 07 AC PO Tamsulosin HCl 0.4 MG DAILY 04/24 0900 AC 04/24 PO 0845 Last 24 Hrs of Labs/Mics: Laboratory Tests 04/24/18 0645: Anion Gap 13, Estimated GFR > 60, BUN/Creatinine Ratio 13.3, Magnesium 1.8, Vitamin B12 760, Folate > 20.0 H, TSH &T3 &Free T4 Intrp 1.030, CBC w Diff NO MAN DIFF REQ, RBC 3.69 L, MCV 89.9, MCH 29.7, MCHC 33.0, RDW 14.0, MPV 6.3 L, Gran % 70.8, Lymphocytes % 18.3 L, Monocytes % 6.5, Eosinophils % 4.0, Basophils % 0.4, Absolute Granulocytes 4.6, Absolute Lymphocytes 1.2, Absolute Monocytes 0.4, Absolute Eosinophils 0.3, Absolute Basophils 0 04/23/18 1813: Urine Opiates Screen < 100, Methadone Screen < 40, Barbiturate Screen < 60, Ur Phencyclidine Scrn < 6.00, Amphetamines Screen < 100, U Benzodiazepines Scrn < 85, Urine Cocaine Screen < 50, Urine Cannabis Screen < 5.00, Urine Color STRAW, Urine Clarity CLEAR, Urine pH 6.5, Ur Specific [place] 1.010, Urine Protein NEG, Urine Ketones NEG, Urine Nitrite NEG, Urine Bilirubin NEG, Urine Urobilinogen 0.2, Ur Leukocyte Esterase NEG, Ur Microscopic EXAM NOT REQUIRED, Urine Hemoglobin NEG, Urine Glucose NEG 04/23/18 1550: Anion Gap 10, Estimated GFR > 60, BUN/Creatinine Ratio 12.2, Glucose 100 H, Calcium 9.3, Magnesium 1.8, Total Bilirubin 0.3, AST 17, ALT 22, Alkaline Phosphatase 103, Troponin I < 0.01, Total Protein 7.4, Albumin 3.8, Globulin 3.6 , Albumin/Globulin Ratio 1.1, CBC w Diff NO MAN DIFF REQ, RBC 3.95 L, MCV 89.9, MCH 29.2, MCHC 32.5 L, RDW 14.0, MPV 6.1 L, Gran % 72.2, Lymphocytes % 18.5 L , Monocytes % 6.1, Eosinophils % 2.7, Basophils % 0.5, Absolute Granulocytes 5.1 , Absolute Lymphocytes 1.3, Absolute Monocytes 0.4, Absolute Eosinophils 0.2, Absolute Basophils 0, Serum Alcohol < 10.0 04/23/18 1441: Magnesium Cancelled
--- NOTE | 2018-04-24 13:21 | PN- Att Addend ---
Attending Addendum Attending Brief Note Error in previous documentation; increase olanzapine to 15 (not 50) mg daily. WIll order for 5mg qam, 10 mg po qhs
[2018-04-24 14:25] VITALS: BP 90/00
[2018-04-24 15:50] VITALS: BP 114/00
--- NOTE | 2018-04-24 16:01 | Cons- Neurology ---
General Information and HPI Consulting Request Date of Consult: 04/24/18 Requested By: Lukas Andres MD Reason for Consult: Altered mental status, not answering Source of Information: patient, family, old records Exam Limitations: clinical condition History of Present Illness: 72-year-old man with a history of bipolar disorder, paranoid schizophrenia as well as prior stroke with residual left hemiparesis has been less and less responsive verbally according to his since discharge from an [facility] last Sunday. According to the patient he has been recently worried about difficulty walking. The patient would provide no information when asked, but does follow commands. Medications include olanzapine Problem list as recorded in the medical record -Altered mental status, likely psychosomatic plus/minus delirium -Suicidal ideation -Junctional bradycardia -paranoid schizophrenia -Bipolar disorder -History of NSTEMI -hypertension -Hyperlipidemia -CAD -History of TIA/CVA with residual left hemiparesis -History of GI bleed and peptic ulcer disease -PVD -History of atrial fibrillation, not on anticoagulation Allergies/Medications Allergies: Coded Allergies: No Known Allergies (04/23/18) Home Med List: Atenolol 50 MG TABLET 1 TAB PO DAILY HEART (Reported) Benztropine Mesylate 1 MG TABLET 1 TAB PO BID MENTAL HEALTH (Reported) Esomeprazole (Nexium) 40 MG CAPSULE.DR 1 TAB PO DAILY ACID REFLUX (Reported) Finasteride 5 MG TABLET 1 TAB PO DAILY DIRECTED (Reported) Folic Acid 1 MG TABLET 1 TAB PO DAILY VITAMIN SUPPORT (Reported) Furosemide 20 MG TABLET 1 TAB PO DAILY WATER RETENTION (Reported) Haloperidol 5 MG TABLET 10 MG PO AT BEDTIME hold for oversedation or respiratory depression Haloperidol Decanoate 100 MG/ML VIAL 1.5 ML IM Q3WKS MENTAL HEALTH (Reported) Lacosamide (Vimpat) 50 MG TABLET 1 TAB PO BID MENTAL HEALTH (Reported) Lisinopril 40 MG TABLET 1 TAB PO DAILY HIGH BLOOD PRESSURE (Reported) LORazepam (Ativan) 1 MG TAB 1 TAB PO BID ANXIETY (Reported) Nitroglycerin (Nitroglycerin Patch) 0.4 MG/HOUR PATCH.TD24 1 PATCH TOP DAILY DIRECTED (Reported) Olanzapine (Zyprexa) 5 MG TABLET 1 TAB PO BID DIRECTED (Reported) Simvastatin (Simvastatin*) 20 MG TABLET 1 TAB PO QPM HIGH CHOLESTROL ( Reported) Tamsulosin HCl 0.4 MG CAP.ER.24H 1 CAP PO DAILY bph (Reported) Current Medications: Current Medications Sig/Vidal Start time Last Medication Dose Route Stop Time Status Admin Acetaminophen 650 MG Q6P PRN 04/23 2100 AC PO Atorvastatin Calcium 10 MG 1700 04/24 1700 AC PO Atropine Sulfate 0.5 MG Q 5 MINUTES X 3 DO.. 04/23 2100 AC IV Benztropine Mesylate 1 MG BID 04/23 2100 AC 04/24 PO 0838 Finasteride 5 MG DAILY 04/24 0900 AC 04/24 PO 0839 Folic Acid 1 MG DAILY 04/24 0900 AC 04/24 PO 0840 Furosemide 20 MG DAILY 04/24 0900 AC 04/24 PO 0839 Haloperidol 10 MG AT BEDTIME 04/23 2100 AC 04/23 PO 2334 Heparin Sodium 5,000 UNIT Q8 04/23 2200 AC 04/24 (Porcine) SC 1442 Lacosamide 50 MG BID 04/23 2100 AC 04/24 PO 0846 Lisinopril 40 MG DAILY 04/24 0900 AC 04/24 PO 0847 Lorazepam 1 MG BID 04/24 1208 AC 04/24 PO 1213 Nitroglycerin 0.4 MG DAILY 04/24 0900 AC 04/24 TOP 0838 Olanzapine 5 MG DAILY 04/25 09 AC PO Olanzapine 10 MG BID 04/24 2100 CAN PO Olanzapine 10 MG 2100 04/24 2100 AC PO Olanzapine 5 MG ONCE ONE 04/24 1100 DC 04/24 PO 04/24 1101 1130 Olanzapine 5 MG BID 04/23 2100 DC 04/24 PO 0839 Omeprazole 40 MG DAILY AC 04/24 07 AC PO Sodium Chloride 500 ML BOLUS ONE 04/24 1430 DC 04/24 IV 04/24 1529 1444 Tamsulosin HCl 0.4 MG DAILY 04/24 0900 AC 04/24 PO 0845 Review of Systems Review of Systems: Unobtainable, the patient would not respond to questions Past History Travel History Traveled to [place] past 21 day No Medical History Neurological: CVA, TIA, R EYE BLINDNESS R ICA occlusion EENT: NONE Cardiovascular: AFIB, CAD, hypertension, hyperlipidemia, PVD Respiratory: EXERTIONAL SHORTNES OF BREATH Gastrointestinal: lower GI bleed, upper GI bleed Hepatic: NONE Renal: BARBARA Musculoskeletal: NONE Psychiatric: bipolar disease, schizophrenia Endocrine: NONE Blood Disorders: anemia Cancer(s): NONE CRYSTALIZER/Reproductive: NONE Surgical History Surgical History: LEFT CEA CATARACTS Family History Relations & Conditions If Any: BROTHER ([place]). Psychosocial History Who Do You Live With? self Services at Home: None Primary Language: Persian Smoking Status: Unknown If Ever Smoked Functional Ability ADLs Needs Assist: dressing, eating, toileting, bathing. Ambulation: walker IADLs Needs Assist: shopping, housework, finances, food prep, telephone, transportation, medication admin. Exam & Diagnostic Data Vital Signs and I&O Vital Signs Date Time Temp Pulse Resp B/P B/P Pulse O2 O2 Flow FiO2 Mean Ox Delivery Rate 04/24 1425 97.4 59 18 90/00 95 Room Air 04/24 1355 Room Air 04/24 0847 49 138/80 04/24 0845 49 138/80 04/24 0800 Room Air 04/24 0626 97.8 51 18 106/70 93 Room Air 04/24 0000 Room Air 04/23 2121 97.4 47 14 104/58 94 04/23 1944 97.5 48 20 120/79 96 Room Air 04/23 1703 97.5 47 20 110/64 97 Room Air Intake & Output 04/24 1600 04/24 0800 04/24 0000 Intake Total 600 60 Output Total 1050 Balance 600 60 -1050 Intake, Oral 600 60 Output, Urine 1050 Patient 241 lb Weight Physical Exam: General: Overweight, lying nearly completely motionless laying in bed with eyes open No carotid bruits or murmur, peripheral pulses intact Awake, would follow some simple commands slowly and would answer a few simple questions. Psychomotor retardation, no agitation, reduced blink rate, fixed facies Would not respond to mental status questions Pupils midsize equal round and reactive No uncooperative for funduscopic Extraocular movements conjugate and full in all directions Tongue protrusion weak but midline, uvula elevated midline Motor exam disclosed increased tone and cogwheeling on the left with slightly increased tone on the right. Bradykinesia whenever patient would move. Able to hold the right leg elevated against gravity but not the left. Lower extremity tone increase tendon reflexes symmetric, no pathologic signs. No response when asked about sensory perception Last 48 Hours of Lab Results: Laboratory Tests 04/24 0645 Chemistry Sodium (137 - 145 mmol/L) 138 Potassium (3.5 - 5.1 mmol/L) 4.3 Chloride (98 - 107 mmol/L) 99 Carbon Dioxide (22 - 30 mmol/L) 27 Anion Gap (5 - 16) 13 BUN (9 - 20 mg/dL) 12 Creatinine (0.7 - 1.2 mg/dL) 0.9 Estimated GFR (>60 ml/min) > 60 BUN/Creatinine Ratio (7 - 25 %) 13.3 Magnesium (1.6 - 2.3 mg/dL) 1.8 Vitamin B12 (239 - 931 pg/mL) 760 Folate (2.76 - 20.0 ng/mL) > 20.0 H TSH &T3 &Free T4 Intrp (0.27 - 4.20 uIU/mL) 1.030 Hematology CBC w Diff NO MAN DIFF REQ WBC (4.8 - 10.8 /CUMM) 6.4 RBC (4.70 - 6.10 /CUMM) 3.69 L Hgb (14.0 - 18.0 G/DL) 10.9 L Hct (42 - 52 %) 33.2 L MCV (80.0 - 94.0 FL) 89.9 MCH (27.0 - 31.0 PG) 29.7 MCHC (33.0 - 37.0 G/DL) 33.0 RDW (11.5 - 14.5 %) 14.0 Plt Count (130 - 400 /CUMM) 301 MPV (7.4 - 10.4 FL) 6.3 L Gran % (42.2 - 75.2 %) 70.8 Lymphocytes % (20.5 - 51.1 %) 18.3 L Monocytes % (1.7 - 9.3 %) 6.5 Eosinophils % (0 - 5 %) 4.0 Basophils % (0.0 - 2.0 %) 0.4 Absolute Granulocytes (1.4 - 6.5 /CUMM) 4.6 Absolute Lymphocytes (1.2 - 3.4 /CUMM) 1.2 Absolute Monocytes (0.10 - 0.60 /CUMM) 0.4 Absolute Eosinophils (0.0 - 0.7 /CUMM) 0.3 Absolute Basophils (0.0 - 0.2 /CUMM) 0 04/23 04/23 1813 1550 Chemistry Sodium (137 - 145 mmol/L) 137 Potassium (3.5 - 5.1 mmol/L) 4.4 Chloride (98 - 107 mmol/L) 97 L Carbon Dioxide (22 - 30 mmol/L) 29 Anion Gap (5 - 16) 10 BUN (9 - 20 mg/dL) 11 Creatinine (0.7 - 1.2 mg/dL) 0.9 Estimated GFR (>60 ml/min) > 60 BUN/Creatinine Ratio (7 - 25 %) 12.2 Glucose (65 - 99 mg/dL) 100 H Calcium (8.4 - 10.2 mg/dL) 9.3 Magnesium (1.6 - 2.3 mg/dL) 1.8 Total Bilirubin (0.2 - 1.3 mg/dL) 0.3 AST (17 - 59 U/L) 17 ALT (21 - 72 U/L) 22 Alkaline Phosphatase (< 127 U/L) 103 Troponin I (<0.11 ng/ml) < 0.01 Total Protein (6.3 - 8.2 g/dL) 7.4 Albumin (3.5 - 5.0 g/dL) 3.8 Globulin (1.9 - 4.2 gm/dL) 3.6 Albumin/Globulin Ratio (1.1 - 2.2 %) 1.1 Hematology CBC w Diff NO MAN DIFF REQ WBC (4.8 - 10.8 /CUMM) 7.1 RBC (4.70 - 6.10 /CUMM) 3.95 L Hgb (14.0 - 18.0 G/DL) 11.5 L Hct (42 - 52 %) 35.5 L MCV (80.0 - 94.0 FL) 89.9 MCH (27.0 - 31.0 PG) 29.2 MCHC (33.0 - 37.0 G/DL) 32.5 L RDW (11.5 - 14.5 %) 14.0 Plt Count (130 - 400 /CUMM) 306 MPV (7.4 - 10.4 FL) 6.1 L Gran % (42.2 - 75.2 %) 72.2 Lymphocytes % (20.5 - 51.1 %) 18.5 L Monocytes % (1.7 - 9.3 %) 6.1 Eosinophils % (0 - 5 %) 2.7 Basophils % (0.0 - 2.0 %) 0.5 Absolute Granulocytes (1.4 - 6.5 /CUMM) 5.1 Absolute Lymphocytes (1.2 - 3.4 /CUMM) 1.3 Absolute Monocytes (0.10 - 0.60 /CUMM) 0.4 Absolute Eosinophils (0.0 - 0.7 /CUMM) 0.2 Absolute Basophils (0.0 - 0.2 /CUMM) 0 Toxicology Urine Opiates Screen (>2000 NG/ML) < 100 Methadone Screen (>300 NG/ML) < 40 Barbiturate Screen (>200 NG/ML) < 60 Ur Phencyclidine Scrn (>25 NG/ML) < 6.00 Amphetamines Screen (>1000 NG/ML) < 100 U Benzodiazepines Scrn (>200 NG/ML) < 85 Urine Cocaine Screen (>300 NG/ML) < 50 Urine Cannabis Screen (>50 NG/ML) < 5.00 Serum Alcohol (<10 MG/DL) < 10.0 Urines Urine Color (YEL,AMB,STR) STRAW Urine Clarity (CLEAR) CLEAR Urine pH (5.0 - 8.0) 6.5 Ur Specific Oracle (1.001 - 1.035) 1.010 Urine Protein (NEG,<30 MG/DL) NEG Urine Ketones (NEG) NEG Urine Nitrite (NEG) NEG Urine Bilirubin (NEG) NEG Urine Urobilinogen (0.1 - 1.0 EU/dl) 0.2 Ur Leukocyte Esterase (NEG) NEG Ur Microscopic EXAM NOT REQUIRED Urine Hemoglobin (NEG) NEG Urine Glucose (N MG/DL) NEG 04/23 1441 Chemistry Magnesium Cancelled Imaging/Other Studies: CT scan of the head: 1. No acute intracranial pathology. 2. Chronic areas of encephalomalacia and gliosis in the posterior right parietal lobe and in the anterior left middle frontal gyrus. 3. Chronic ischemic small vessel disease and involutional changes in the periventricular white matter and subcortical white matter. Assessment/Plan Assessment: B12 and folate normal April 24, 2018, on February 27, 2018 TFTs normal Assessment: Depression with psychomotor retardation No indication of an encephalopathy, either toxic or metabolic and no indication of acute process such as stroke based on history, exam, CT. Extrapyramidal signs are present affecting the left body more than right (tremor , rigidity), may be contributing to the patient's own concern about difficulty walking but cannot be adequately evaluated at this time due to his psychological state. This is more likely due to use of olanzapine but can not exclude developing idiopathic Parkinson's disease. History of stroke affecting left side may also be a contributing factor in difficulty walking Recommendations: If concerns about neurologic rather than psychiatric cause for his mental status and EEG could be helpful, slowing could indicate a primary neurologic process and a relatively normal EEG argues in favor of depression program In my opinion further psychiatric evaluation and treatment is needed, Consider a trial of dopaminergic medication: Sinemet 25/100 mg 3 times daily although it will be difficult to evaluate response and his current psychological condition Consult Acknowledgment - Thank you for your consult request.
--- NOTE | 2018-04-24 21:02 | ELECTROENCEPHALOGRAM REPORT ---
Electroencephalogram Report Electroencephalogram Results Date of service: 04/24/18 Attending MD: Lukas Andres MD Transformer Mechanic: Alayna EEG Number: [id number] Test Utilizes: 10-20 system, 21 lead 18 channel digital recording Pertinent Hx/Physical/Neuro Findings/Clin Diagnosis: Altered mental status, encephalopathy vs depression Inpatient Medications: Current Medications Sig/Vidal Start time Last Medication Dose Route Stop Time Status Admin Acetaminophen 650 MG Q6P PRN 04/23 2100 AC PO Atorvastatin Calcium 10 MG 1700 04/24 1700 AC 04/24 PO 1708 Atropine Sulfate 0.5 MG Q 5 MINUTES X 3 DO.. 04/23 2100 AC IV Benztropine Mesylate 1 MG BID 04/23 2100 AC 04/24 PO 0838 Carbidopa/Levodopa 1 TAB TID 04/24 1608 AC 04/24 PO 1841 Finasteride 5 MG DAILY 04/24 0900 AC 04/24 PO 0839 Folic Acid 1 MG DAILY 04/24 0900 AC 04/24 PO 0840 Furosemide 20 MG DAILY 04/24 0900 AC 04/24 PO 0839 Haloperidol 10 MG AT BEDTIME 04/23 2100 AC 04/23 PO 2334 Heparin Sodium 5,000 UNIT Q8 04/23 2200 AC 04/24 (Porcine) SC 1442 Lacosamide 50 MG BID 04/23 2100 AC 04/24 PO 0846 Lisinopril 40 MG DAILY 04/24 0900 AC 04/24 PO 0847 Lorazepam 1 MG BID 04/24 1208 AC 04/24 PO 1213 Nitroglycerin 0.4 MG DAILY 04/24 0900 AC 04/24 TOP 0838 Olanzapine 5 MG DAILY 04/25 09 AC PO Olanzapine 10 MG BID 04/24 2100 CAN PO Olanzapine 10 MG 04/24 2100 AC PO Olanzapine 5 MG ONCE ONE 04/24 1100 DC 04/24 PO 04/24 1101 1130 Olanzapine 5 MG BID 04/23 2100 DC 04/24 PO 0839 Omeprazole 40 MG DAILY AC 04/24 0700 AC PO Sodium Chloride 500 ML BOLUS ONE 04/24 1430 DC 04/24 IV 04/24 1529 1444 Tamsulosin HCl 0.4 MG DAILY 04/24 0900 AC 04/24 PO 0845 Interpretation: The background is composed of low amplitude somewhat irregular 8-9 hertz alpha in the posterior regions and low voltage beta is seen best frontally. Some portions are obscured by muscle artifact. There is a mild excess of regular slower 7 Hx theta that at time becomes monorhythmic and symmetric consistent with drowsiness. No sleep recorded. No focal, lateralized or epileptiform abnormalities. Hyperventilation could not be done but photic was unremarkable. Impression: Mild generalized slowing of the backgrounds. The record is very stable arguing against an active or ongoing encephalopathy.
[2018-04-24 21:30] VITALS: BP 90/00
[2018-04-25] VITALS: BP 112/00
[2018-04-25 06:55] VITALS: BP 112/54
--- NOTE | 2018-04-25 07:31 | PN-Observation ---
Observation Note Observation Note _ I have personally examined CANDIDO TIRADO. him disposition is uncertain at this time. Before a determination can be made, he requires continued observation for the following reasons []. Patient is here for altered mental status secondary to mood disorder, paranoid psychosis and anxiety. Psychiatrist on board, recommended transfer to geriatric psych unit. Patient will be leaving this afternoon Assessment/Plan Medical Assessment: 72-year-old man with past medical history of paranoid schizophrenia, bipolar disorder, malignant hypertension, and STEMI, hypertension, CAD, hyperlipidemia, TIA/CVA with residual left hemiparesis, PVD, GI bleed, PUD, and atrial fibrillation not on anticoagulation seen for evaluation of altered mental status , urinary incontinence, and suicidal ideation. Vitals: Temp 97.5-97.8, HR 47-58, RR 16-20, BP 110-116/60-64, O2 94% on room air Labs/imaging/studies -CBC: WBC 7.1, hemoglobin 11.5, hematocrit 35.5, platelet 306 -BMP: Sodium 137, potassium 4.4, chloride 97, CO2 29, BUN 11, creatinine 0.9, anion gap 10, glucose 100 -LFT: Within normal limits -Miscellaneous: Magnesium 1.8, troponin I <0.01, EtOH <10 -Urinalysis/urine toxicology: Unremarked -EKG: Junctional bradycardia with RBBB and left posterior fascicular block -Echocardiogram 09/17/17: LVEF 60-65% with hypokinetic inferior wall, trace MR, trace TR, moderate aortic sclerosis -EEG 02/28/18: Abnormal recording due to focal slowing within the left hemisphere and right centroparietal regions suggestive of possible underlying structural abnormalities and focal cerebral dysfunction. No clear suggestion of epileptogenic activity -MRI without gadolinium 02/28/18: - No acute intracranial abnormality. - Redemonstration of chronic infarcts within the left frontal lobe and in the right parietal lobe. - Mild small vessel ischemic changes and diffuse brain parenchymal volume loss. -CT head without IV contrast: 1. No acute intracranial pathology. 2. Chronic areas of encephalomalacia and gliosis in the posterior right parietal lobe and in the anterior left middle frontal gyrus. 3. Chronic ischemic small vessel disease and involutional changes in the periventricular white matter and subcortical white matter. Altered mental status secondary to mood disorder -paranoid psychosis and anxiety this patient has chronic history of paranoid and anxiety that have been difficult to treat. Over the last few months he has had increasing stressors. His symptoms were exacerbated by discharge from rehab. He has fear of falling. He has been on medications for paranoid psychosis and anxiety. He reported to his that he would like to . However he was evaluated by psychiatrist this morning, discontinued suicide precautions. * continue his home dose of lorazepam 1 million twice daily * Completely stopped haloperidol 10 mg at bedtime * Continue benztropine 1 mg 3 times daily instead of twice daily * Patient gets haloperidol 150 mg IM injection every 3 weeks, last administered on . Please reassess and give him IM Haldol if necessary * Continue olanzapine 5 mg every morning and 10 mg at bedtime * Patient going for geriatric psych admission Asymptomatic bradycardia Patient was last admitted to [facility] in March 2018 with seizures and bradycardia. His atenolol was held in the hospital. However it is unclear whether he was taking it in the rehab facility. According to the she thinks he was taking at home. Bradycardia most likely from atenolol and other psychiatric medications. EKG showed sinus bradycardia, 47, right bundle branch block, left posterior fascicular block within no further EKG changes. * Completely stop beta-blockers atenolol. * Follow-up cardiology recommendations * Continuous telemetry monitoring Hyperlipidemia continue statin BPH continue Flomax and finasteride Hypertension continue lisinopril 40 daily, Lasix 20 daily GERD continue Nexium daily History of seizures continue Vimpat to daily DVT prophylaxis subcu heparin regular diet Full code Problem List: 1. AMS Subjective Follow-up For: Altered mental status likely secondary to his mood disorder asymptomatic bradycardia Complaints: no complaints Tele-Events Since Last Visit: Sinus rhythm, sinus bradycardia Subjective: Patient was seen and examined. He is not able to give any history at this time Offers no complaints Review of Systems Constitutional: Reports: see HPI. Objective Last 24 Hrs of Vital Signs/I&O Vital Signs Date Time Temp Pulse Resp B/P B/P Pulse O2 O2 Flow FiO2 Mean Ox Delivery Rate 04/25 0855 51 112/60 04/25 0853 51 112/60 04/25 0800 92 Room Air 04/25 0655 97.7 41 18 112/54 92 Room Air 04/25 0000 112/00 04/24 2154 97.8 52 16 93 Room Air 04/24 2150 Room Air 04/24 2130 90/00 04/24 1600 Room Air 04/24 1550 114/00 04/24 1425 97.4 59 18 95 Room Air 04/24 1355 Room Air Intake & Output 04/25 1600 04/25 0800 04/25 0000 Intake Total 585 1330 Output Total Balance 585 1330 Intake, IV 525 1000 Intake, Oral 60 330 Patient 109.854 kg Weight Weight Bed scale Measurement Method Physical Exam General Appearance: Alert, Oriented X3, Cooperative, No Acute Distress Other Physical Findings: HEENT: NCAT, Hannah, EOMI, anicteric sclera, dry oral mucosa -Neck: Supple, no JVD, trachea midline, no accessory respiratory muscle use -Cardio: Normal S1/S2 without murmurs/gallops/rubs; regular rate and rhythm -Pulmonary: Diminished bibasilar airflow -Abdomen: Soft, nontender, nondistended, bowel sounds intact -Neuro/psych: Oriented to self and place but not year or time, poor eye contact, slow but fluent speech, blunted affect, limited exam, spontaneous movement of all 4 extremities -Extremities: 1+ bilateral lower extremity edema
[2018-04-25 08:05] LABS: ABSOLUTE BASOPHIL COUNT 0.1 /CUMM (0.0-0.2); ABSOLUTE EOSINOPHIL COUNT 0.3 /CUMM (0.0-0.7); ABSOLUTE GRANULOCYTE CT 3.3 /CUMM (1.4-6.5); ABSOLUTE LYMPH COUNT 1.6 /CUMM (1.2-3.4); ABSOLUTE MONOCYTE COUNT 0.4 /CUMM (0.10-0.60); BASOPHIL % 0.9 % (0.0-2.0); EOSINOPHIL % 5.5 % (0-5); GRANULOCYTE % 58.2 % (42.2-75.2); HEMATOCRIT 30.3 % (42-52); MEAN CORPUSCULAR HGB 29.4 PG (27.0-31.0); MEAN CORPUSCULAR HGB CONC 32.7 G/DL (33.0-37.0); MEAN CORPUSCULAR VOLUME 89.9 FL (80.0-94.0); MEAN PLATELET VOLUME 6.7 FL (7.4-10.4); PLATELET COUNT 278 /CUMM (130-400); RED BLOOD CELL CT 3.37 /CUMM (4.70-6.10); WHITE BLOOD CELL COUNT 5.8 /CUMM (4.8-10.8)
--- NOTE | 2018-04-25 10:09 | PN- Cardiology ---
Subjective Subjective: Antonio is more alert this morning and greeted me appropriately. His heart rate is in the 60s off of beta blockers. His vital signs are otherwise normal. His laboratory data is unremarkable. Objective Vital Signs and I&Os Vital Signs Date Time Temp Pulse Resp B/P B/P Pulse O2 O2 Flow FiO2 Mean Ox Delivery Rate 04/25 0855 51 112/60 04/25 0853 51 112/60 04/25 0655 97.7 41 18 112/54 92 Room Air 04/25 0000 11204/24 2154 97.8 52 16 93 Room Air 04/24 2150 Room Air 04/24 2130 90/00 04/24 1600 Room Air 04/24 1550 114/00 04/24 1425 97.4 59 18 90/00 95 Room Air 04/24 1355 Room Air Intake & Output 04/25 0804/25 0000 04/24 0804/24 0000 Intake Total 585 1330 600 60 Output Total 1050 Balance 585 1330 600 60 -1050 Intake, IV 525 1000 Intake, Oral 60 330 600 60 Output, Urine 1050 Patient 242 lb 241 lb Weight Weight Bed scale Measurement Method Physical Exam: No distress, lying in bed, alert and responsive HEENT exam normal Chest clear Heart regular rhythm no murmurs No edema Current Medications: Current Medications Sig/Vidal Start time Last Medication Dose Route Stop Time Status Admin Acetaminophen 650 MG ONCE ONE 04/24 2345 DC PO 04/24 2346 Acetaminophen 650 MG Q6P PRN 04/23 2100 AC PO Atorvastatin Calcium 10 MG 1700 04/24 1700 AC 04/24 PO 1708 Atropine Sulfate 0.5 MG Q 5 MINUTES X 3 DO.. 04/23 2100 AC IV Benztropine Mesylate 1 MG BID 04/23 2100 AC 04/25 PO 0851 Carbidopa/Levodopa 1 TAB TID 04/24 1608 AC 04/25 PO 0856 Dextrose/Sodium 1,000 ML Q13H 04/24 2215 AC 04/24 Chloride IV 2327 Finasteride 5 MG DAILY 04/24 09 AC 04/25 PO 0856 Folic Acid 1 MG DAILY 04/24 09 AC 04/25 PO 0854 Furosemide 20 MG DAILY 04/24 09 AC 04/25 PO 0855 Haloperidol 10 MG AT BEDTIME 04/23 2100 AC 04/23 PO 2334 Heparin Sodium 5,000 UNIT Q8 04/23 2200 AC 04/25 (Porcine) SC 0557 Lacosamide 50 MG BID 04/23 2100 AC 04/25 PO 0850 Lisinopril 40 MG DAILY 04/24 0900 AC 04/25 PO 0855 Lorazepam 1 MG BID 04/24 1208 AC 04/25 PO 0850 Nitroglycerin 0.4 MG DAILY 04/24 09 AC 04/25 TOP 0856 Olanzapine 5 MG DAILY 04/25 09 AC 04/25 PO 0856 Olanzapine 10 MG BID 04/24 2100 CAN PO Olanzapine 10 MG 04/24 2100 AC PO Olanzapine 5 MG ONCE ONE 04/24 1100 DC 04/24 PO 04/24 1101 1130 Olanzapine 5 MG BID 04/23 2100 DC 04/24 PO 0839 Omeprazole 40 MG DAILY AC 04/24 07 AC 04/25 PO 0557 Sodium Chloride 500 ML BOLUS ONE 04/24 2215 DC 04/24 IV 04/24 2314 2240 Sodium Chloride 500 ML BOLUS ONE 04/24 1430 DC 04/24 IV 04/24 1529 1444 Tamsulosin HCl 0.4 MG DAILY 04/24 09 AC 04/24 PO 0845 Results Last 48 Hrs of Labs/Mics: Laboratory Tests 04/25/18 0639: Anion Gap 7, Estimated GFR > 60, BUN/Creatinine Ratio 14.0, CBC w Diff NO MAN DIFF REQ, RBC 3.37 L, MCV 89.9, MCH 29.4, MCHC 32.7 L, RDW 14.0, MPV 6.7 L, Gran % 58.2, Lymphocytes % 27.7, Monocytes % 7.7, Eosinophils % 5.5 H, Basophils % 0.9, Absolute Granulocytes 3.3, Absolute Lymphocytes 1.6, Absolute Monocytes 0.4, Absolute Eosinophils 0.3, Absolute Basophils 0.1 04/24/18 0645: Anion Gap 13, Estimated GFR > 60, BUN/Creatinine Ratio 13.3, Magnesium 1.8, Vitamin B12 760, Folate > 20.0 H, TSH &T3 &Free T4 Intrp 1.030, CBC w Diff NO MAN DIFF REQ, RBC 3.69 L, MCV 89.9, MCH 29.7, MCHC 33.0, RDW 14.0, MPV 6.3 L, Gran % 70.8, Lymphocytes % 18.3 L, Monocytes % 6.5, Eosinophils % 4.0, Basophils % 0.4, Absolute Granulocytes 4.6, Absolute Lymphocytes 1.2, Absolute Monocytes 0.4, Absolute Eosinophils 0.3, Absolute Basophils 0 04/23/18 1813: Urine Opiates Screen < 100, Methadone Screen < 40, Barbiturate Screen < 60, Ur Phencyclidine Scrn < 6.00, Amphetamines Screen < 100, U Benzodiazepines Scrn < 85, Urine Cocaine Screen < 50, Urine Cannabis Screen < 5.00, Urine Color STRAW, Urine Clarity CLEAR, Urine pH 6.5, Ur Specific [place] 1.010, Urine Protein NEG, Urine Ketones NEG, Urine Nitrite NEG, Urine Bilirubin NEG, Urine Urobilinogen 0.2, Ur Leukocyte Esterase NEG, Ur Microscopic EXAM NOT REQUIRED, Urine Hemoglobin NEG, Urine Glucose NEG 04/23/18 1550: Anion Gap 10, Estimated GFR > 60, BUN/Creatinine Ratio 12.2, Glucose 100 H, Calcium 9.3, Magnesium 1.8, Total Bilirubin 0.3, AST 17, ALT 22, Alkaline Phosphatase 103, Troponin I < 0.01, Total Protein 7.4, Albumin 3.8, Globulin 3.6 , Albumin/Globulin Ratio 1.1, CBC w Diff NO MAN DIFF REQ, RBC 3.95 L, MCV 89.9, MCH 29.2, MCHC 32.5 L, RDW 14.0, MPV 6.1 L, Gran % 72.2, Lymphocytes % 18.5 L , Monocytes % 6.1, Eosinophils % 2.7, Basophils % 0.5, Absolute Granulocytes 5.1 , Absolute Lymphocytes 1.3, Absolute Monocytes 0.4, Absolute Eosinophils 0.2, Absolute Basophils 0, Serum Alcohol < 10.0 04/23/18 1441: Magnesium Cancelled Assessment/Plan Assessment/Plan Anotnio is stable from a cardiac standpoint. His admission was mostly psychiatric. His bradycardia was due to beta-blockers. He is off the beta blockers and I am recommending that he be permanently off beta blockers. I asked his to discard any other beta-blockers in the house. It appears that Antonio may be transferred to a psychiatric facility at this time. He is cleared for discharge from a cardiac standpoint. Continue telemetry? No
--- NOTE | 2018-04-25 10:23 | PN- Psychiatry ---
Assessment/Plan Impression: Pt continues to be minimally responsive. There is no evidence of encephalopathy either clinically or per EEG. CT brain shows no acute lesions. History and clinical presentation indicate progressive anxiety ultimately of delusional intensity. Paranoid ideation is chronic per outpt notes and likely underlying currently. S/B neuro who ordered Carbidopa/levodopa for L sided rigidity. Presentation is psychiatric. The patient is gravely disabled as a result of psychosis. he is unable to care for himself. Pt needs psychiatric admission for rationalization of medication. Spoke with patient's who is agreeable. Suggestion: - Refer Geriipsych - Suggest D/C carbidopa/levodopa as pt on benztropine and there is a risk of excess anticholinergic activity; may also reduce antipsychotic efficacy. Unclear picture of Parkinsonism vs CVA - Haloperidol needs to be tapered given lack of efficacy, possible side effects and patient's age - Pt may be a clozapine candidate - In interim will reduce haloperidol po and increase olanzapine - A PEC will be written on the grounds of grave disability. Subjective Subjective: Pt unable to give history Objective Last 24 Hrs of Vital Signs/I&O Vital Signs Date Time Temp Pulse Resp B/P B/P Pulse O2 O2 Flow FiO2 Mean Ox Delivery Rate 04/25 0855 51 112/60 04/25 0853 51 112/60 04/25 0655 97.7 41 18 112/54 92 Room Air 04/25 0000 11204/24 2154 97.8 52 16 93 Room Air 04/24 2150 Room Air 04/24 2130 90/00 04/24 1600 Room Air 04/24 1550 114/00 04/24 1425 97.4 59 18 90/00 95 Room Air 04/24 1355 Room Air Intake & Output 04/25 1600 04/25 0800 04/25 0000 Intake Total 585 1330 Output Total Balance 585 1330 Intake, IV 525 1000 Intake, Oral 60 330 Patient 109.854 kg Weight Weight Bed scale Measurement Method Physical Exam: MSE: Patient is a 72-year-old male in hospital attire encountered lying in his hospital bed. Does not respond to questions. Looks alert. Calm. Eye contact was intermittent. Affect seemed anxious, frightened, guarded. No evidence of active suicidality. Unable to assess thought process. Did not appear to be responding to internal stimuli. Unable to assess attention or concentration. Unable to assess cognition. Insight at this time seems poor and judgment is impaired.
--- NOTE | 2018-04-25 12:13 | Discharge Summary ---
Visit Information Visit Dates Admission Date: 04/23/18 Discharge Date: 04/25/2018 Hospital Course Course Attending Physician: Lukas Andres MD Primary Care Physician: Lukas Andres MD Hospital Course: 72-year-old man with past medical history of paranoid schizophrenia, bipolar disorder, malignant hypertension, and STEMI, hypertension, CAD, hyperlipidemia, TIA/CVA with residual left hemiparesis, PVD, GI bleed, PUD, and atrial fibrillation not on anticoagulation seen for evaluation of altered mental status , urinary incontinence, and suicidal ideation. Vitals: Temp 97.5-97.8, HR 47-58, RR 16-20, BP 110-116/60-64, O2 94% on room air Labs/imaging/studies -CBC: WBC 7.1, hemoglobin 11.5, hematocrit 35.5, platelet 306 -BMP: Sodium 137, potassium 4.4, chloride 97, CO2 29, BUN 11, creatinine 0.9, anion gap 10, glucose 100 -LFT: Within normal limits -Miscellaneous: Magnesium 1.8, troponin I <0.01, EtOH <10 -Urinalysis/urine toxicology: Unremarked -EKG: Junctional bradycardia with RBBB and left posterior fascicular block -Echocardiogram 09/17/17: LVEF 60-65% with hypokinetic inferior wall, trace MR, trace TR, moderate aortic sclerosis -EEG 02/28/18: Abnormal recording due to focal slowing within the left hemisphere and right centroparietal regions suggestive of possible underlying structural abnormalities and focal cerebral dysfunction. No clear suggestion of epileptogenic activity -MRI without gadolinium 02/28/18: - No acute intracranial abnormality. - Redemonstration of chronic infarcts within the left frontal lobe and in the right parietal lobe. - Mild small vessel ischemic changes and diffuse brain parenchymal volume loss. -CT head without IV contrast: 1. No acute intracranial pathology. 2. Chronic areas of encephalomalacia and gliosis in the posterior right parietal lobe and in the anterior left middle frontal gyrus. 3. Chronic ischemic small vessel disease and involutional changes in the periventricular white matter and subcortical white matter. Altered mental status secondary to mood disorder -paranoid psychosis and anxiety this patient has chronic history of paranoid and anxiety that have been difficult to treat. Over the last few months he has had increasing stressors. His symptoms were exacerbated by discharge from rehab. He has fear of falling. He has been on medications for paranoid psychosis and anxiety. He reported to his that he would like to . However he was evaluated by psychiatrist, denied any more suicidal ideations. We followed all the psychiatrist recommendations. * continue his home dose of lorazepam 1 million twice daily * Completely stopped haloperidol 10 mg at bedtime * Continue benztropine 1 mg 3 times daily instead of twice daily * Patient gets haloperidol 150 mg IM injection every 3 weeks, last administered on . Please reassess and give him IM Haldol if necessary * Continue olanzapine 5 mg every morning and 10 mg at bedtime * Patient may benefit from geriatric psych admission Psychiatrist recommended to transfer patient to [facility]. Also he was evaluated by neurologist, recommended carbidopa/ldopa for possible Parkinson's disease. However it was discontinued given patient is on benztropine and there will be excess anticholinergic activity. Asymptomatic bradycardia Patient was last admitted to [facility] in March 2018 with seizures and bradycardia. His atenolol was held in the hospital. However it is unclear whether he was taking it in the rehab facility. According to the she thinks he was taking at home. Bradycardia most likely from atenolol and other psychiatric medications. EKG showed sinus bradycardia, 47, right bundle branch block, left posterior fascicular block within no further EKG changes. Completely stopped the beta-daisy atenolol. Patient's was advised to completely discard all the atenolol at home Hyperlipidemia continued statin BPH continued Flomax and finasteride Hypertension continued lisinopril 40 daily, Lasix 20 daily GERD continued Nexium daily History of seizures continued Vimpat 50 twice daily DVT prophylaxis subcu heparin regular diet Full code Allergies: Coded Allergies: No Known Allergies (04/23/18) Pertinent Lab Results: IMPRESSION: 1. No acute intracranial pathology. 2. Chronic areas of encephalomalacia and gliosis in the posterior right parietal lobe and in the anterior left middle frontal gyrus. 3. Chronic ischemic small vessel disease and involutional changes in the periventricular white matter and subcortical white matter. Disposition Summary Disposition Principal Diagnosis: Altered mental status Additional Diagnosis: Bradycardia Discharge Disposition: other general hospital Discharge Instructions General Discharge Information Code Status: Full Code Patient's Diet: As tolerated Patient's Activity: As tolerated Follow-Up Instructions/Appts: Follow-up PCP in 1 week after discharge Follow-up with portable pinch riveter in 1 week after discharge Follow-up with psychiatrist in 1 week after discharge Follow-up with neurologist in 1 week after discharge Medications at Discharge Discharge Medications: Stop taking the following medications: Haloperidol (Haloperidol) 5 MG TABLET ORAL AT BEDTIME Qty = 30 Atenolol (Atenolol) 50 MG TABLET ORAL DAILY Qty = 90 Continue taking these medications: Nitroglycerin (Nitroglycerin Patch) 0.4 MG/HOUR PATCH.TD24 1 PATCH On the skin DAILY Qty = 90 Comments: Last Taken: 03/03/18 Time: 9:30 AM Tamsulosin HCl (Tamsulosin HCl) 0.4 MG CAP.ER.24H 1 Capsule ORAL DAILY Qty = 180 Comments: Last Taken: 03/02/18 Time: 9:00 PM Finasteride (Finasteride) 5 MG TABLET 1 Tablet ORAL DAILY Qty = 90 Comments: Last Taken: 03/03/18 Time: 9:30 AM Olanzapine (Zyprexa) 5 MG TABLET 1 Tablet ORAL See Instructions Qty = 30 Instructions: 1 tab in morning 2 tabs at night time Comments: Last Taken: 03/03/18 Time: 9:30 AM Esomeprazole (Nexium) 40 MG CAPSULE.DR 1 Tablet ORAL DAILY Comments: Last Taken: 03/03/18 Time: 5:00 AM PRILOSEC GIVEN SUBSTITUTE Simvastatin (Simvastatin*) 20 MG TABLET 1 Tablet ORAL Every night Comments: Last Taken: 03/02/18 Time: 6:00 PM ATORVASTATIN GIVEN SUBSTITUTE Lisinopril (Lisinopril) 40 MG TABLET 1 Tablet ORAL DAILY Comments: Last Taken: 03/03/18 Time: 9:30 AM Furosemide (Furosemide) 20 MG TABLET 1 Tablet ORAL DAILY Comments: Last Taken: 03/03/18 Time: 9:30 AM Folic Acid (Folic Acid) 1 MG TABLET 1 Tablet ORAL DAILY Comments: NOT GIVEN IN HOSPITAL Lacosamide (Vimpat) 50 MG TABLET 1 Tablet ORAL TWICE DAILY LORazepam (Ativan) 1 MG TAB 1 Tablet ORAL TWICE DAILY Haloperidol Decanoate (Haloperidol Decanoate) 100 MG/ML VIAL 1.5 Milliliters INTRAMUSC Every 3 weeks The following medications have been changed: Old: Benztropine Mesylate (Benztropine Mesylate) 1 MG TABLET 1 Tablet ORAL TWICE DAILY New: Benztropine Mesylate (Benztropine Mesylate) 1 MG TABLET 1 Tablet ORAL THREE TIMES DAILY Qty = 30 Comments: Last Taken: 03/03/18 Time: 9:30 AM Copies To: Lukas Andres MD
--- NOTE | 2018-04-25 12:17 | Patient Discharge Instructions ---
Discharge Instructions General Discharge Information You were seen/treated for: Altered mental status secondary to mood disorder -paranoid psychosis and anxiety Asymptomatic bradycardia Special Instructions: Follow-up PCP in 1 week after discharge Follow-up with rehabilitation services counselor in 1 week after discharge Follow-up with psychiatrist in 1 week after discharge Follow-up with neurologist in 1 week after discharge Diet Continue normal diet: Yes Activity Full Activity/No Limits: Yes Acute Coronary Syndrome Inclusion Criteria At DC or during hospital stay patient has or had the following: ACS DIAGNOSIS No Discharge Core Measures Meds if any: Prescribed or Continued at Discharge Meds if any: NOT Prescribed or Continued at Discharge Congestive Heart Failure Inclusion Criteria At DC or during hospital stay patient has or had the following: CHF DIAGNOSIS No Discharge Core Measures Meds if any: Prescribed or Continued at Discharge Meds if any: NOT Prescribed or Continued at Discharge Cerebrovascular accident Inclusion Criteria At DC or during hospital stay patient has or had the following: CVA/TIA Diagnosis No Discharge Core Measures Meds if any: Prescribed or Continued at Discharge Meds if any: NOT Prescribed or Continued at Discharge Venous thromboembolism Inclusion Criteria VTE Diagnosis No VTE Type NONE VTE Confirmed by (Test) NONE Discharge Core Measures - Per Current guidelines, there needs to be overlap - treatment for the first 5 days of Warfarin therapy. - If discharged on Warfarin prior to 5 days of - overlap therapy, the patient will need to be - assessed for post discharge needs including - *Post discharge parental anticoagulation - *Warfarin and/or parental anticoagulation education - *Follow up date to check INR post discharge At least 5 days overlap therapy as Inpatient No Meds if any: Prescribed or Continued at Discharge Note: Overlap Therapy is Warfarin and Anticoagulant Meds if any: NOT Prescribed or Continued at Discharge
--- NOTE | 2018-04-25 12:26 | Incdntl Nt Psy ---
Incidental Note Notation: Pt seen for review. Alert, orieneted, verbal w normal speech. Remains anxiouis. Still refuses to eat etc unless present. Convinced "my body has given out on me". Impression at this point is that baseline anxiety and psychosis have been exaverbated by cholinergic side effects. Will stop haloperisol po and increase benztopine. Geripsych may decide to disscontinue IM haloperidol and replace with lower potency agent/
--- NOTE | 2018-04-25 12:37 | PN- Att Addend ---
Attending Addendum Attending Brief Note Patient looks a little better today, he is talking. is at the bedside with him.Patient looks a little better today, he stocking. is at the bedside with him. Patient had psychiatric and neurological evaluations. Had an EEG . Were looking for a facility with psychiatric and geriatric specialization to send the patient for a short period of time. 24 TOTALS 04/25 0000 04/24 0000 Intake Total 1989 Output Total 105 Balance 1989 -1049 Intake, IV 1000 Intake, Oral 990 Output, Urine 1050 Patient 242 lb 241 lb Weight Weight Bed scale Measurement Method Current Medications Sig/Vidal Start time Last Medication Dose Route Stop Time Status Admin Acetaminophen 650 MG ONCE ONE 04/24 2345 DC PO 04/24 2346 Acetaminophen 650 MG Q6P PRN 04/23 2100 AC PO Atorvastatin Calcium 10 MG 1700 04/24 1700 AC 04/24 PO 1708 Atropine Sulfate 0.5 MG Q 5 MINUTES X 3 DO.. 04/23 2100 AC IV Benztropine Mesylate 1 MG TID 04/25 1400 UNVr PO Benztropine Mesylate 1 MG BID 04/23 2100 DC 04/25 PO 0851 Bisacodyl 10 MG ONCE ONE 04/25 1100 DC 04/25 NH 04/25 1101 1045 Carbidopa/Levodopa 1 TAB TID 04/24 1608 DC 04/25 PO 0856 Dextrose/Sodium 1,000 ML Q13H 04/24 2215 AC 04/25 Chloride IV 1139 Finasteride 5 MG DAILY 04/24 09 AC 04/25 PO 0856 Folic Acid 1 MG DAILY 04/24 09 AC 04/25 PO 0854 Furosemide 20 MG DAILY 04/24 09 AC 04/25 PO 0855 Haloperidol 10 MG AT BEDTIME 04/23 2100 DC 04/23 PO 2334 Heparin Sodium 5,000 UNIT Q8 04/23 2200 AC 04/25 (Porcine) SC 0557 Lacosamide 50 MG BID 04/23 2100 AC 04/25 PO 0850 Lisinopril 40 MG DAILY 04/24 09 AC 04/25 PO 0855 Lorazepam 1 MG BID 04/24 1208 AC 04/25 PO 0850 Nitroglycerin 0.4 MG DAILY 04/24 09 AC 04/25 TOP 0856 Olanzapine 5 MG DAILY 04/25 09 AC 04/25 PO 0856 Olanzapine 10 MG BID 04/24 2100 CAN PO Olanzapine 10 MG 2100 /25 2100 AC PO Omeprazole 40 MG DAILY AC 04/24 0700 AC 04/25 PO 0557 Sodium Chloride 500 ML BOLUS ONE 04/24 2215 DC 04/24 IV 04/24 2314 2240 Sodium Chloride 500 ML BOLUS ONE 04/24 1430 DC 04/24 IV 04/24 1529 1444 Tamsulosin HCl 0.4 MG DAILY 04/24 0900 AC 04/24 PO 0845 Laboratory Tests 04/25/18 0639: Anion Gap 7, Estimated GFR > 60, BUN/Creatinine Ratio 14.0, CBC w Diff NO MAN DIFF REQ, RBC 3.37 L, MCV 89.9, MCH 29.4, MCHC 32.7 L, RDW 14.0, MPV 6.7 L, Gran % 58.2, Lymphocytes % 27.7, Monocytes % 7.7, Eosinophils % 5.5 H, Basophils % 0.9, Absolute Granulocytes 3.3, Absolute Lymphocytes 1.6, Absolute Monocytes 0.4, Absolute Eosinophils 0.3, Absolute Basophils 0.1 04/24/18 0645: Anion Gap 13, Estimated GFR > 60, BUN/Creatinine Ratio 13.3, Magnesium 1.8, Vitamin B12 760, Folate > 20.0 H, TSH &T3 &Free T4 Intrp 1.030, CBC w Diff NO MAN DIFF REQ, RBC 3.69 L, MCV 89.9, MCH 29.7, MCHC 33.0, RDW 14.0, MPV 6.3 L, Gran % 70.8, Lymphocytes % 18.3 L, Monocytes % 6.5, Eosinophils % 4.0, Basophils % 0.4, Absolute Granulocytes 4.6, Absolute Lymphocytes 1.2, Absolute Monocytes 0.4, Absolute Eosinophils 0.3, Absolute Basophils 0 04/23/18 1813: Urine Opiates Screen < 100, Methadone Screen < 40, Barbiturate Screen < 60, Ur Phencyclidine Scrn < 6.00, Amphetamines Screen < 100, U Benzodiazepines Scrn < 85, Urine Cocaine Screen < 50, Urine Cannabis Screen < 5.00, Urine Color STRAW, Urine Clarity CLEAR, Urine pH 6.5, Ur Specific [place] 1.010, Urine Protein NEG, Urine Ketones NEG, Urine Nitrite NEG, Urine Bilirubin NEG, Urine Urobilinogen 0.2, Ur Leukocyte Esterase NEG, Ur Microscopic EXAM NOT REQUIRED, Urine Hemoglobin NEG, Urine Glucose NEG 04/23/18 1550: Anion Gap 10, Estimated GFR > 60, BUN/Creatinine Ratio 12.2, Glucose 100 H, Calcium 9.3, Magnesium 1.8, Total Bilirubin 0.3, AST 17, ALT 22, Alkaline Phosphatase 103, Troponin I < 0.01, Total Protein 7.4, Albumin 3.8, Globulin 3.6 , Albumin/Globulin Ratio 1.1, CBC w Diff NO MAN DIFF REQ, RBC 3.95 L, MCV 89.9, MCH 29.2, MCHC 32.5 L, RDW 14.0, MPV 6.1 L, Gran % 72.2, Lymphocytes % 18.5 L , Monocytes % 6.1, Eosinophils % 2.7, Basophils % 0.5, Absolute Granulocytes 5.1 , Absolute Lymphocytes 1.3, Absolute Monocytes 0.4, Absolute Eosinophils 0.2, Absolute Basophils 0, Serum Alcohol < 10.0 04/23/18 1441: Magnesium Cancelled Vital Signs Date Time Temp Pulse Resp B/P B/P Pulse O2 O2 Flow FiO2 Mean Ox Delivery Rate 04/25 0855 51 112/60 04/25 0853 51 112/60 04/25 0800 92 Room Air 04/25 0655 97.7 41 18 112/54 92 Room Air 04/25 0000 11204/24 2154 97.8 52 16 93 Room Air 04/24 2150 Room Air 04/24 2130 90/00 04/24 1600 Room Air 04/24 1550 114/00 04/24 1425 97.4 59 18 90/00 95 Room Air 04/24 1355 Room Air Psychiatric medications adjusted. Patient also seen by cardiology and the beta blockers were discontinued. Still monitoring heart rate.
[2018-04-25] MEDS ORDERED: BENZTROPINE MESY1 M1 PO (12:41)
[2018-04-25 13:14] VITALS: BP 112/60
[2018-04-25 14:30] VITALS: BP 104/70
== END 2018-04-25 17:00 | disposition short-term general hospital (02) ==
LOC: ERH 12:49 → 1NO 18:59 → ERHI 18:59 → ENRESERV 19:38 → ENTRNSPT 20:26 → EDTRNSPTSTS 20:34 → EDTRNSPT 20:34 → 1NO 20:42 → CMPTRNSPT 20:56 → 1NO 04-25 17:00
PROVIDERS: Hospitalist; Internal Medicine Interventional Cardiology; Physician Assistant Medical
DX: T44.7X5A Adverse effect of beta-adrenoreceptor antagonists, initial encounter (principal); R00.1 Bradycardia, unspecified; F41.9 Anxiety disorder, unspecified; I73.9 Peripheral vascular disease, unspecified; K27.9 Peptic ulcer, site unspecified, unspecified as acute or chronic, without hemorrhage or perforation; I48.91 Unspecified atrial fibrillation; R32 Unspecified urinary incontinence; R45.851 Suicidal ideations; H54.40 Blindness, one eye, unspecified eye; D64.9 Anemia, unspecified; F39 Unspecified mood [affective] disorder; F22 Delusional disorders; N40.0 Benign prostatic hyperplasia without lower urinary tract symptoms; R56.9 Unspecified convulsions; E78.5 Hyperlipidemia, unspecified
CPT/HCPCS: 36592; 80307; 81003; 82436; 93005; 93010; 95816; 96372; 97110-GO; 97110-GP; 97162-GP; 97530-GO; 97530-GP; 99233; G0378; G0480; G8978-GP; G8979-GP; J0461; J1644; J3490; J7040; J7042